=== PATIENT | female | born 1945 | race Caucasian/White ===

== ENCOUNTER 2016-11-21 10:38 | Inpatient (IN) ==
[2016-11-21] MEDS ORDERED: Ipratropium/Albuterol Neb 3 ML IH ONE ×2 (10:58→12:41)
--- NOTE | 2016-11-21 11:00 | Emergency Department Note ---
Disposition Clinical Impression: Acute exacerbation of chronic obstructive airways disease, Hypoxemia Disposition: Admitted As Inpatient Condition: Fair Time of Disposition: 16:16 SOB HPI - General Chief Complaint: ED Shortness of Breath/Dyspnea Stated Complaint: HEIDI, COPD Time Seen by Provider: 11/21/16 10:55 Source: patient Limitations: no limitations, language barrier Nursing Notes Reviewed: Yes Vital Signs Reviewed: Yes - History of Present Illness Patient is a 71 year old female with a history diabetes, hypertension and COPD requiring 2 to 3L of oxygen at home. She has been increasingly getting more short of breath over the last 2 weeks. She states she ran out of oxygen last night and was unaware. She was at the hospital today for a chest Xray and CT scan ordered by her PCP. The CT of her pelvis is for uterine cancer which was treated one year ago with no relapses. She denies any cough or congestion. She has no history of heart disease, heart failure, strokes or blood clots. She has not had any recent surgeries, long car or plane rides, and no history of hormone use. She has no smoking history but states she has been around smokers in the past. She was recently put on Spiriva from her PCP and has rescue inhalers at home which have provided some relief. Pt Subjective Complaint: shortness of breath Onset (ago): week(s) Severity: moderate Consistency/Duration: constant Improves with: nothing Worsens with: nothing Known history of: COPD Associated symptoms: Reports: chest pain Treatment prior to arrival: oxygen - Related Data Home oxygen amount: 2 liters Home Medications Medication Instructions Recorded Confirmed Albuterol Sulfate [Proair HFA] 1 puff IH Q6HR PRN 09/09/15 11/21/16 Amlodipine [Norvasc] 5 mg PO DAILY 09/09/15 11/21/16 Citalopram Hydrobromide [Celexa] 20 mg PO DAILY 09/09/15 11/21/16 Furosemide [Lasix] 40 mg PO BID 09/09/15 11/21/16 Losartan [Cozaar] 100 mg PO DAILY 09/09/15 11/21/16 Lovastatin [Mevacor] 40 mg PO HS 09/09/15 11/21/16 Metoprolol [Lopressor] 50 mg PO BID 09/09/15 11/21/16 Montelukast [Singulair] 10 mg PO DAILY 09/09/15 11/21/16 Omeprazole [PriLOSEC] 20 mg PO DAILY 09/09/15 11/21/16 Topiramate [Topamax] 25 mg PO QAM 09/09/15 11/21/16 Topiramate [Topamax] 50 mg PO QPM 09/09/15 11/21/16 Aspirin/Calcium Carbonate/Mag 325 mg PO DAILY 11/21/16 11/21/16 [Aspirin Buffered 325 mg Tab] Budesonide/Formoterol 160/4.5 2 puff IH BID 11/21/16 11/21/16 [Symbicort 160/4.5] Oxygen 2 l .ROUTE AD 11/21/16 11/21/16 Allergies Allergy/AdvReac Type Severity Reaction Status Date / Time Iodinated Contrast Media - Allergy Rash Verified 11/21/16 16:45 Oral and All systems ED: reviewed and negative except as stated. Past Medical History - Past Medical History Attestation: Yes The following information was validated with the patient. Source: patient Medical history: Reports: CHF, COPD, diabetes, hypertension Psychiatric history: Reports: no psych history - Social History Smoking Status: Never smoker Smokeless Tobacco Status: No Alcohol use: Reports: none Drug use: Reports: none Physical Exam - General Limitations: no limitations, language barrier General appearance: alert, in no apparent distress - Head Head exam: atraumatic, normocephalic, normal inspection - Eye Eye exam: Present: normal appearance, PERRL, EOMI - ENT ENT exam: normal exam, normal oropharynx, mucous membranes moist - Neck Neck exam: Present: normal inspection, full ROM, trachea midline - Chest Chest inspection: Present: normal inspection, symmetric chest wall rise - Respiratory Respiratory exam: Present: other (Decreased breath sounds bilaterally) - Cardiovascular Cardiovascular exam: Present: regular rate, normal rhythm, normal heart sounds - Abdominal Exam Abdominal exam: Present: soft, Non-Tender. Absent: tenderness, distention, guarding, rebound, rigidity - Extremities Exam Extremities exam: Present: normal inspection, full ROM. Absent: tenderness, pedal edema - Back Exam Back exam: Present: normal inspection, full ROM. Absent: tenderness - Neurological Exam Neurological exam: Present: alert, oriented X3 - Psychiatric Psychiatric exam: Present: normal affect, normal mood - Skin Skin exam: Present: warm, dry, intact, normal color Course Course Narrative: Patient seen and examined. Shortness of breath with intermittent chest pains. We will do a cardiopulmonary workup. She has decreased breath sounds throughout her lung stuart. We will go ahead and give her a DuoNeb breathing treatment. Concern for possible ACS versus COPD exacerbation versus pneumonia. - Reevaluation(s) Reevaluation #1: Patient still feeling somewhat short of breath. 2 more DuoNeb treatments ordered. 125 mg Solu-Medrol ordered. Time: 12:00 Reevaluation #2: Patient breathing much better after her DuoNeb treatments. We will repeat a troponin at this time. Time: 14:04 Reevaluation #3: Ambulatory tests showed the patient's heart rate went up to 144 and her oxygen went down to 76%. We will admit for COPD exacerbation. We ordered another 6 albuterol treatments. I spoke with hospitalist Dr. Loaiza who has accepted patient for admission. She would also like a CTA of the chest to rule out pulmonary embolus. Time: 16:16 Vital Signs Temperature 98.3 F 11/21/16 10:39 Pulse Rate 81 11/21/16 10:39 Respiratory Rate 20 11/21/16 10:39 Blood Pressure 131/62 11/21/16 10:39 O2 Sat by Pulse Oximetry 88 L 11/21/16 10:39 Temperature 98.3 F 11/21/16 10:39 Pulse Rate 97 11/21/16 16:00 Respiratory Rate 18 11/21/16 17:00 Blood Pressure 155/72 11/21/16 17:00 O2 Sat by Pulse Oximetry 96 11/21/16 16:00 Oxygen Delivery Oxygen Delivery Nasal Cannula Shortness of Breath/Dyspnea - Medical Records Medical records reviewed: Yes I reviewed the patient's medical records. - Lab Data Lab results reviewed: Yes I reviewed the patient's lab results. Result diagrams: 11/21/16 11:21 11/21/16 11:21 Lab Results 11/21/16 11/21/16 11/21/16 Range/Units 11:21 11:21 11:21 WBC 8.8 (4.3-11.1) K/mcL RBC 3.67 L (3.82-4.97) M/mcL Hgb 9.5 L (11.5-15.4) g/dL Hct 32.9 L (35.3-44.9) % MCV 89.6 (83.0-100.0) fL MCH 25.9 L (28.0-33.3) pg MCHC 28.9 L (31.6-35.5) g/dL RDW 16.7 H (11.5-14.5) % Plt Count 324 (140-400) K/mcL MPV 10.2 (9.4-12.4) fL Immature Gran % 1.2 (0-4) % Seg Neutrophils % 88.6 % Lymphocytes % 4.8 % Monocytes % 3.4 % Eosinophils % 1.7 % Basophils % 0.3 % Neutrophils # 7.8 (1.6-8.9) K/mcL Lymphocytes # 0.4 L (0.6-4.6) K/mcL Monocytes # 0.3 (0.0-1.3) K/mcL Eosinophils # 0.2 (0.0-0.6) K/mcL Basophils # 0.0 (0.0-0.2) K/mcL Nucleated RBCs/100 WBC 0.3 H (0) /100 WBC Platelet Estimate Normal (Normal) Immature Plt Fraction 3.2 (1.1-6.1) % Polychromasia 1+ A (Not Present) Hypochromasia Present A (Not Present) Poikilocytosis 1+ A (Not Present) Anisocytosis 1+ A (Not Present) Microcytosis Present A (Not Present) Ovalocytes 1+ A (Not Present) Sodium 145 (136-145) mEq/L Potassium 3.6 (3.5-4.5) mEq/L Chloride 107 (98-109) mEq/L Carbon Dioxide 30 H (19-29) mEq/L BUN 14 (7-20) mg/dL Creatinine 0.76 (0.57-1.11) mg/dL Est GFR ( Amer) > 60 (> 60) Est GFR (Non-Af Amer) > 60 (> 60) BUN/Creatinine Ratio 18 (6-26) Glucose 160 H (70-99) mg/dL Calculated Osmolality 304 H (280-300) Calcium 9.1 (8.6-10.8) mg/dL Troponin I 0.01 (0-0.03) ng/mL B-Natriuretic Peptide (0-100) pg/mL 11/21/16 11/21/16 Range/Units 11:21 14:17 WBC (4.3-11.1) K/mcL RBC (3.82-4.97) M/mcL Hgb (11.5-15.4) g/dL Hct (35.3-44.9) % MCV (83.0-100.0) fL MCH (28.0-33.3) pg MCHC (31.6-35.5) g/dL RDW (11.5-14.5) % Plt Count (140-400) K/mcL MPV (9.4-12.4) fL Immature Gran % (0-4) % Seg Neutrophils % % Lymphocytes % % Monocytes % % Eosinophils % % Basophils % % Neutrophils # (1.6-8.9) K/mcL Lymphocytes # (0.6-4.6) K/mcL Monocytes # (0.0-1.3) K/mcL Eosinophils # (0.0-0.6) K/mcL Basophils # (0.0-0.2) K/mcL Nucleated RBCs/100 WBC (0) /100 WBC Platelet Estimate (Normal) Immature Plt Fraction (1.1-6.1) % Polychromasia (Not Present) Hypochromasia (Not Present) Poikilocytosis (Not Present) Anisocytosis (Not Present) Microcytosis (Not Present) Ovalocytes (Not Present) Sodium (136-145) mEq/L Potassium (3.5-4.5) mEq/L Chloride (98-109) mEq/L Carbon Dioxide (19-29) mEq/L BUN (7-20) mg/dL Creatinine (0.57-1.11) mg/dL Est GFR ( Amer) (> 60) Est GFR (Non-Af Amer) (> 60) BUN/Creatinine Ratio (6-26) Glucose (70-99) mg/dL Calculated Osmolality (280-300) Calcium (8.6-10.8) mg/dL Troponin I 0.01 (0-0.03) ng/mL B-Natriuretic Peptide 58 (0-100) pg/mL - Radiology Data Radiology results reviewed: Yes I reviewed the patient's radiology results. - EKG Data EKG attestation: Yes I reviewed and interpreted this EKG. EKG results narrative: EKG done at 1116 shows normal sinus rhythm with a rate of [address] elevation or depression. There is a Q wave in lead 3. Normal axis. Findings are unchanged when compared with prior EKG done 06/26/2016. Attestation Statement - Attestation Attestation: I examined this patient and my medical decision-making was reviewed with the Resident Physician. I agree with the documented findings, disposition and treatment plan as described except to the extent set forth below. SOB, wheezing. Very poor historian, describes chest pain poorly and inconsistently. Difficult to tell if this pain is the same or different from the pain that sometimes accompanies her COPD exacerbations. Persistent hypoxia after multiple rounds of nebulizers, admitting for further treatment.
[2016-11-21] MEDS ORDERED: Aspirin 81 MG TAB.CHEW PO STA (11:43)
[2016-11-21 11:56] LABS: Immature Granulocytes % 1.2 % (0-4); Mean Corpuscular HGB Conc 28.9 g/dL (31.6-35.5); Monocytes % 3.4 %; Nucleated Red Blood Cells 0.3 /100 WBC (0); Red Cell Distribution Width 16.7 % (11.5-14.5)
[2016-11-21 11:59] LABS: Basophils % 0.3 %; Eosinophils # 0.2 K/mcL (0.0-0.6); Eosinophils % 1.7 %; Hematocrit 32.9 % (35.3-44.9); Hemoglobin 9.5 g/dL (11.5-15.4); Immature Platelets 3.2 % (1.1-6.1); Lymphocytes # 0.4 K/mcL (0.6-4.6); Lymphocytes % 4.8 %; Mean Corpuscular Hemoglobin 25.9 pg (28.0-33.3); Mean Corpuscular Volume 89.6 fL (83.0-100.0); Mean Platelet Volume 10.2 fL (9.4-12.4); Monocytes # 0.3 K/mcL (0.0-1.3); Neutrophils # 7.8 K/mcL (1.6-8.9); Platelet Count 324 K/mcL (140-400); Red Blood Count 3.67 M/mcL (3.82-4.97); Segmented Neutrophils % 88.6 %
[2016-11-21 12:11] LABS: BUN/Creatinine Ratio 18 (6-26); Blood Urea Nitrogen 14 mg/dL (7-20); Calcium 9.1 mg/dL (8.6-10.8); Carbon Dioxide 30 mEq/L (19-29); Chloride 107 mEq/L (98-109); Glucose 160 mg/dL (70-99); Osmolality,Calculated 304 (280-300); Potassium 3.6 mEq/L (3.5-4.5); Sodium 145 mEq/L (136-145); eGFR For African Americans > 60 (> 60); eGFR For Non-African Americans > 60 (> 60)
[2016-11-21 12:16] LABS: Hypochromasia Present (Not Present); Microcytosis Present (Not Present); Ovalocytes 1+ (Not Present)
[2016-11-21 12:17] LABS: Anisocytosis 1+ (Not Present); Platelet Estimate Normal (Normal); Poikilocytosis 1+ (Not Present); Polychromasia 1+ (Not Present)
[2016-11-21] MEDS ORDERED: methylPREDNISolone 125 MG/2 ML VIAL IVP ONE (12:41)
[2016-11-21] MEDS ORDERED: Albuterol 2.5 MG/3 ML NEBULIZER IH ONE (15:04)
[2016-11-21] MEDS ORDERED: MethylPREDNISolone 40 MG/ML VIAL IVP ONE (17:13)
[2016-11-21] MEDS ORDERED: Naloxone 0.4 MG/ML INJ IVP PRN (17:26)
--- NOTE | 2016-11-21 17:43 | Internal Med History&Physical ---
Date of Encounter: 11/21/16 Time of Encounter: 14:50 Assessment and Plan (1) Acute exacerbation of chronic obstructive airways disease Current visit: Yes Status: Acute -Dyspnea likely secondary to COPD exacerbation -Will continue steroid and bronchodilator support -concern for PE given history of malignancy and clinical findings -Follow up CTA to r/o PE -continue O2 supplementation as needed -monitor O2 sat (goal sat: 89-92%) -PT/OT eval when able -SW eval to ensure patients has home oxygen with refills after discharge (2) Hypertension Current visit: Yes Status: Acute -will resume all home antihypertensive medications -Will closely monitor BP Qualifiers: Hypertension type: essential hypertension Qualified Code(s): I10 - Essential (primary) hypertension (3) Diabetes mellitus Current visit: Yes Status: Chronic Hold oral antihyperglycemic agents at this time continue to monitor fingerstick and blood glucose started low dose correctional sliding scale insulin algorithm Qualifiers: Diabetes mellitus type: type 2 Diabetes mellitus complication status: with unspecified complications Diabetes mellitus supervisor intermediates insulin use: without chcf use Qualified Code(s): E11.8 - Type 2 diabetes mellitus with unspecified complications (4) Sleep apnea Current visit: Yes Status: Chronic CPAP at bedtime closely monitor respiratory status Qualifiers: Sleep apnea type: unspecified type Qualified Code(s): G47.30 - Sleep apnea , unspecified (5) Morbid obesity Current visit: Yes Status: Chronic Qualifiers: Obesity type: unspecified obesity type Qualified Code(s): E66.01 - Morbid ( severe) obesity due to excess calories (6) DVT prophylaxis Current visit: Yes Status: Acute Enoxaparin SQ (7) History of cancer Current visit: Yes Status: Chronic History of uterine CA-in remission, s/p radiation -CT abd/pelvis-negative for metastatic disease, positive for bilateral pleural effusions -will follow up CT chest -further follow up with primary oncologist as outpatient Internal Medicine - H&P: HPI Chief complaint: shortness of breath Admitted From: Home Plans for Post Hospital Care: Transfer Halfway Facility History of present illness: Ms. Pugh is a 71 year old female with PMH of COPD on home oxygen, uterine ca-s/ p radiation (in remission) who presents to the ER for worsening shortness of breath. Patient states her breathing has persistently deteriorated since and she has been experiencing lower back pain with radiation down her leg, due to which she came in to get a CT abd/pelvis earlier this morning. Her primary oncologist wanted the CT abd/pelvis to r/o any metastatic disease. After the imagining, her breathing got extremely severe prompting her visit to the ER. She also reports of being short of breath overnight and running out of oxygen which further worsened her breathing status. She states she was diagnosed with sleep apnea a year ago but does not use CPAP overnight because she is missing a component of the CPAP machine. She denies any smoking use or history. Denies any recent URI, cough, sore throat, fever, or chills. In the ER , patient is saturating well at rest, however with the slightest movement, she was noted to be tachycardic and tachypneic prompting her admission. At this time she is saturating well on nasal cannula. Denies any sob at rest, no headache, sore throat, cough, chest pain, abd pain, n/v, fever, or chills. Patient was also noted to be hypertensive in the ER as she did not take any of her home medications today. Will restart home antihypertensive medications. Due to patient's history of malignancy and given current clinical findings, there is a concern for PE. patient is to undergo CTA to rule out PE. She is noted to have a contrast allergy and has been pre-medicated with IV solumedrol and Benadryl. PMH: COPD-on home oxygen, HTN, DM, Uterine ca-s/p radiation (in remission- diagnosed and treated in April 2014), HLD, Sleep apnea, Morbid obesity Social Hx: Denies smoking history, alcohol use, or any illicit drug use Past Med Surg Social Fam HX - Past Medical History Medical history: CHF, COPD, diabetes, hypertension Psychiatric history: no psych history - Social History Smoking Status: Never smoker Smokeless Tobacco Status: No Alcohol use: none Drug use: none Internal Medicine - H&P: Meds Albuterol Sulfate [Proair HFA] 1 puff IH Q6HR PRN 09/09/15 [History] Amlodipine [Norvasc] 5 mg PO DAILY 09/09/15 [History] Citalopram Hydrobromide [Celexa] 20 mg PO DAILY 09/09/15 [History] Furosemide [Lasix] 40 mg PO BID 09/09/15 [History] Losartan [Cozaar] 100 mg PO DAILY 09/09/15 [History] Lovastatin [Mevacor] 40 mg PO HS 09/09/15 [History] Metoprolol [Lopressor] 50 mg PO BID 09/09/15 [History] Montelukast [Singulair] 10 mg PO DAILY 09/09/15 [History] Omeprazole [PriLOSEC] 20 mg PO DAILY 09/09/15 [History] Topiramate [Topamax] 25 mg PO QAM 09/09/15 [History] Topiramate [Topamax] 50 mg PO QPM 09/09/15 [History] Aspirin/Calcium Carbonate/Mag [Aspirin Buffered 325 mg Tab] 325 mg PO DAILY 03/04 [History] Budesonide/Formoterol 160/4.5 [Symbicort 160/4.5] 2 puff IH BID 11/21/16 [ History] Oxygen 2 l .ROUTE AD 11/21/16 [History] Allergies Iodinated Contrast Media - Oral and Allergy (Verified 11/21/16 16:45) Rash All Systems PM: A 10-system review of systems was performed and is negative for pertinent findings except as documented above in the HPI. - Constitutional Constitutional: as per HPI - Constitutional Vitals: Temp Pulse Resp BP Pulse Ox 98.3 F 97 18 155/72 96 11/21/16 10:39 11/21/16 16:00 11/21/16 17:00 11/21/16 17:00 11/21/16 16:00 General appearance: Present: cooperative, A&O X 3, morbidly obese, pleasant, no acute distress, answers questions appropriately - Head Head exam: Present: atraumatic, normocephalic - Eye Eye exam: Present: PERRL, conjuntiva pink, sclera anicteric - Respiratory Respiratory exam: Present: decreased breath sounds. Absent: respiratory distress, wheezes - Cardiovascular Cardiovascular exam: Present: RRR, +S1, +S2. Absent: diastolic murmur, gallop, rubs, systolic murmur - GI/Abdominal GI/Abdominal exam: Present: distended (morbidly obese), normal bowel sounds, soft, no peritoneal signs. Absent: tenderness - Extremities Exam Extremities exam: Present: pedal edema (bilaterally), warm, radial pulses palpable and symetrical. Absent: calf tenderness, tenderness - Neurological Exam Neurological exam: Present: alert, oriented X3, no focal deficits Internal Med - H&P Results - Labs CBC & Chem 7: 11/21/16 11:21 11/21/16 11:21
[2016-11-21] MEDS ORDERED: Dextrose Gel 15 GM PO PRN ×2 (17:56)
[2016-11-21] MEDS ORDERED: D5% in Water 1,000 ML IV PRN (17:56)
[2016-11-21] MEDS: Topiramate 25 MG TABLET PO SCH ×2 (17:56→18:00)
[2016-11-21] MEDS ORDERED: *HR* Dextrose 50 % in Water (Syg) 50 ML SYRINGE IVP PRN (17:56)
[2016-11-21] MEDS: amLODIPine 5 MG TABLET PO SCH (17:59)
[2016-11-21] MEDS: Ipratropium/Albuterol Neb 3 ML IH SCH ×2 (19:57→23:45)
[2016-11-21] MEDS: Budesonide/Formoterol 160/4.5 MDI IH SCH (20:01)
[2016-11-21] MEDS: Furosemide 40 MG TABLET PO SCH (20:30)
[2016-11-21] MEDS: *HR* Enoxaparin 100 MG/ML SYRINGE SQ SCH (20:30)
[2016-11-21] MEDS: Insulin LISPRO 300 UNITS/3 ML VIAL SQ SCH (23:32)
[2016-11-22] MEDS: MethylPREDNISolone 40 MG/ML VIAL IVP SCH ×3 (02:29→17:40)
[2016-11-22] MEDS: Ipratropium/Albuterol Neb 3 ML IH SCH ×6 (04:10→23:22)
[2016-11-22] MEDS ORDERED: *HR* Enoxaparin 40 MG/0.4 ML SYRINGE SQ SCH (06:00)
[2016-11-22] MEDS: *HR* Enoxaparin 100 MG/ML SYRINGE SQ SCH (06:05)
[2016-11-22 06:33] LABS: Hematocrit 33.5 % (35.3-44.9); Hemoglobin 9.7 g/dL (11.5-15.4); Immature Granulocytes % 1.5 % (0-4); Lymphocytes # 0.4 K/mcL (0.6-4.6); Lymphocytes % 4.4 %; Mean Corpuscular Hemoglobin 26.1 pg (28.0-33.3); Mean Corpuscular Volume 90.3 fL (83.0-100.0); Mean Platelet Volume 10.4 fL (9.4-12.4); Monocytes # 0.1 K/mcL (0.0-1.3); Monocytes % 1.6 %; Neutrophils # 7.9 K/mcL (1.6-8.9); Nucleated Red Blood Cells 0.2 /100 WBC (0); Platelet Count 314 K/mcL (140-400); Red Blood Count 3.71 M/mcL (3.82-4.97); Red Cell Distribution Width 16.6 % (11.5-14.5); Segmented Neutrophils % 92.5 %
[2016-11-22 07:00] LABS: BUN/Creatinine Ratio 15 (6-26); Blood Urea Nitrogen 15 mg/dL (7-20); Calcium 9.2 mg/dL (8.6-10.8); Carbon Dioxide 29 mEq/L (19-29); Chloride 107 mEq/L (98-109); Glucose 290 mg/dL (70-99); Osmolality,Calculated 311 (280-300); Potassium 4.2 mEq/L (3.5-4.5); Sodium 145 mEq/L (136-145); eGFR For African Americans > 60 (> 60); eGFR For Non-African Americans 55 (> 60)
[2016-11-22] MEDS: Budesonide/Formoterol 160/4.5 MDI IH SCH ×2 (07:39→19:59)
[2016-11-22] MEDS: Furosemide 40 MG TABLET PO SCH ×2 (08:26→21:15)
[2016-11-22] MEDS: Aspirin Enteric Coated 325 MG Tablet PO SCH (08:28)
[2016-11-22] MEDS: amLODIPine 5 MG TABLET PO SCH (08:28)
[2016-11-22] MEDS: Insulin LISPRO 300 UNITS/3 ML VIAL SQ SCH ×4 (08:28→21:15)
[2016-11-22] MEDS: Topiramate 25 MG TABLET PO SCH ×2 (08:30→17:40)
--- NOTE | 2016-11-22 09:47 | Electrocardiograph Report ---
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
--- NOTE | 2016-11-22 15:09 | Internal Med Progress Note ---
Date of Encounter: 11/22/16 Time of Encounter: 17:00 - Assessment and plan (1) Pulmonary embolism Current Visit: Yes Status: Acute Assessment and plan: CTA chest report was called in by radiologist Dr. Jose Angel Heck from [facility]. CTA chest is concerning for RLL segmental artery PE, however it is non conclusive and could be an artifact as per the radiologist. Bilateral venous lower limb Doppler is negative for DVT. Patient appears comfortable, no hypoxia or tachycardia at this time. Patient does however have increased risk of clots given history of cancer, wells score is 1 which is low. will stop lonebox based on above. if clincally suspicious, will need repeat chest CTA. Qualifiers: Pulmonary embolism type: other Chronicity: unspecified Acute cor pulmonale presence: without acute cor pulmonale Qualified Code(s): I26.99 - Other pulmonary embolism without acute cor pulmonale (2) Acute exacerbation of chronic obstructive airways disease Current Visit: Yes Status: Acute Assessment and plan: Will continue steroid and bronchodilator support -continue O2 supplementation as needed -monitor O2 sat (goal sat: 89-92%) -PT/OT eval when able (3) History of cancer Current Visit: Yes Status: Chronic Assessment and plan: History of uterine CA-in remission, s/p radiation -CT abd/pelvis-negative for metastatic disease, positive for bilateral pleural effusions -will follow up CT chest -further follow up with primary oncologist as outpatient (4) Morbid obesity Current Visit: Yes Status: Chronic Qualifiers: Obesity type: unspecified obesity type Qualified Code(s): E66.01 - Morbid ( severe) obesity due to excess calories (5) Sleep apnea Current Visit: Yes Status: Chronic Assessment and plan: CPAP at bedtime closely monitor respiratory status Qualifiers: Sleep apnea type: unspecified type Qualified Code(s): G47.30 - Sleep apnea , unspecified - Time Spent With Patient 25 - 35 minutes - Subjective Interval history: Patient seen at the bedside, appears to be comfortable however she says if she walks around she is short of breath. Saturating well in 3 L of nasal cannula, she uses 3 L O2. Reports that she had chest pain when she came in yesterday, still has some pressure like feeling on the chest. Denies any nausea or vomiting or palpitations. Has no past history of clots - Constitutional Vitals: Temp Pulse Resp BP Pulse Ox 97.7 F 80 18 163/70 96 11/22/16 12:08 11/22/16 12:08 11/22/16 12:08 11/22/16 12:08 11/22/16 12:08 General appearance: Present: cooperative, A&O X 3, morbidly obese, pleasant, no acute distress, answers questions appropriately Exam: neck- supple chest - b/l clear,No added sounds. CVS S1 and S2, no murmurs rubs or gallops Abdomen soft, obese, nontender, bowel sounds are present. Extremities no edema. Internal Medicine: Result - Labs CBC & Chem 7: 11/22/16 05:46 11/22/16 05:46 Labs: Short CBC 11/22/16 Range/Units 05:46 WBC 8.6 (4.3-11.1) K/mcL Hgb 9.7 L (11.5-15.4) g/dL Hct 33.5 L (35.3-44.9) % Plt Count 314 (140-400) K/mcL Neutrophils # 7.9 (1.6-8.9) K/mcL BMP 11/22/16 05:46 Sodium 145 Potassium 4.2 Chloride 107 Carbon Dioxide 29 BUN 15 Creatinine 1.00 Glucose 290 H Calcium 9.2 Consult Discharge Plan - Plan Referrals: Jesusita Paiz MD [Primary Care Provider] - 11/28/16 1:30 pm (Please follow up as schedule..)
[2016-11-22] MEDS ORDERED: *HR* Enoxaparin 120 MG/0.8 ML SYRINGE SQ SCH ×2 (18:00)
[2016-11-23] MEDS: MethylPREDNISolone 40 MG/ML VIAL IVP SCH ×4 (00:37→23:42)
[2016-11-23 01:25] LABS: Hemoglobin A1C 6.7 %
[2016-11-23] MEDS: Ipratropium/Albuterol Neb 3 ML IH SCH ×6 (04:55→23:28)
--- NOTE | 2016-11-23 07:21 | Venous Imaging Report ---
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 Recommendations: After imaging the patient returned to their room. Findings Venous Duplex Results: Right: Venous imaging of the lower extremity reveals full patency and normal vessel compressibility of the right distal iliac, right common femoral, right superficial femoral, right popliteal, right posterior tibial, right peroneal, right great saphenous and right lesser saphenous. Doppler signals in the evaluated veins were normal. Left: Venous imaging of the lower extremity reveals full patency and normal vessel compressibility of the left distal iliac, left common femoral, left superficial femoral, left popliteal, left posterior tibial, left peroneal, left great saphenous and left lesser saphenous. Doppler signals in the evaluated veins were normal. Prior Study: No prior study available for comparison. Lower Extremity Venous Duplex Side Vein Compress Spontaneous Flow Augment Diameter (cm) Depth (cm) Right Distal Iliac Normal Yes Phasic Yes Right Common Femoral Normal Yes Phasic Yes Right Superficial Femoral Normal Yes Phasic Yes Right Popliteal Normal Yes Phasic Yes Right Posterior Tibial Normal Yes Phasic Yes Right Peroneal Normal Yes Phasic Yes Right Great Saphenous Normal Yes Phasic Yes Right Lesser Saphenous Normal Yes Phasic Yes Left Distal Iliac Normal Yes Phasic Yes Left Common Femoral Normal Yes Phasic Yes Left Superficial Femoral Normal Yes Phasic Yes Left Popliteal Normal Yes Phasic Yes Left Posterior Tibial Normal Yes Phasic Yes Left Peroneal Normal Yes Phasic Yes Left Great Saphenous Normal Yes Phasic Yes Left Lesser Saphenous Normal Yes Phasic Yes Updated by Arian Dodson MD on 11/23/2016 7:17:36 AM electronically signed on 11/23/2016 7:17:46 AM with status of Final
[2016-11-23] MEDS: Aspirin Enteric Coated 325 MG Tablet PO SCH (07:48)
[2016-11-23] MEDS: Furosemide 40 MG TABLET PO SCH (07:48)
[2016-11-23] MEDS: amLODIPine 5 MG TABLET PO SCH (07:49)
[2016-11-23] MEDS: Topiramate 25 MG TABLET PO SCH ×2 (07:50→18:02)
[2016-11-23] MEDS: Insulin LISPRO 300 UNITS/3 ML VIAL SQ SCH ×4 (07:59→20:59)
[2016-11-23] MEDS ORDERED: Loratadine/Pseudophed (12 HR) 1 EACH TABLET PO PRN (08:24)
--- NOTE | 2016-11-23 08:30 | Internal Med Progress Note ---
Date of Encounter: 11/23/16 Time of Encounter: 08:00 - Assessment and plan (1) Acute exacerbation of chronic obstructive airways disease Current Visit: Yes Status: Acute Assessment and plan: continue IV steroids will add pulmicort as well , and tom, also believe symptooms worsen de to increase nasal congestion , start decongestants - Time Spent With Patient 25 - 35 minutes - Subjective Interval history: Pt c.o SOB still wheezing denies chest pain - Constitutional Vitals: Temp Pulse Resp BP Pulse Ox 97.7 F 80 20 160/51 93 L 11/23/16 08:11 11/23/16 08:11 11/23/16 08:11 11/23/16 08:11 11/23/16 08:11 General appearance: Present: cooperative, A&O X 3, morbidly obese, pleasant, no acute distress, answers questions appropriately - Respiratory Additional comments: expiratory wheezes - Cardiovascular Cardiovascular exam: Present: +S1, +S2 Additional comments: Regular rate and rythm, increase P2 - GI/Abdominal GI/Abdominal exam: Present: normal bowel sounds, soft - Extremities Exam Additional comments: edema ++ Internal Medicine: Result - Labs CBC & Chem 7: 11/22/16 05:46 11/22/16 05:46 Consult Discharge Plan - Plan Referrals: Jesusita Paiz MD [Primary Care Provider] - 11/28/16 1:30 pm (Please follow up as schedule..)
[2016-11-23] MEDS: Furosemide 40 MG/4 ML VIAL IVP SCH ×2 (11:06→18:02)
[2016-11-23] MEDS: *HR* Enoxaparin 40 MG/0.4 ML SYRINGE SQ SCH (11:07)
[2016-11-23] MEDS: Fluticasone Propionate Nasal 50 MCG/SPRAY BOTTLE NS SCH ×2 (11:09→20:58)
[2016-11-23] MEDS: Budesonide/Formoterol 160/4.5 MDI IH SCH ×2 (11:43→19:49)
[2016-11-23] MEDS: Doxycycline 100 MG CAPSULE PO SCH ×2 (12:28→20:59)
--- NOTE | 2016-11-23 13:45 | ECHO - Doppler Report ---
Echocardiogram Name: Marlen Pugh Date of Study: 11/23/2016 Date: 1945 Ht: 60.0 in Medical Record#: [id number] Age: 71 Wt: 253.0 lb Gender: Female BSA: 2.06 Order #: [id number] Location: [facility] Room #: 2A12 Reading Physician: Jerry Pete DO, FRANCO, TRACY SEGOVIA Wildlife Refuge Specialist: Moustapha Carson Ordering Physician: Lian Rasheed MD Primary Physician: Jesusita Paiz MD Indications: Shortness of breath Impressions: LVEF 65%. Normal LV chamber size and function. Mild concentric left ventricular hypertrophy. Moderate left ventricular diastolic dysfunction. Normal right ventricular structure and function. Mild-moderate pulmonary hypertension. Estimated RVSP is 46 mmHg. No significant valvular dysfunction. Left Ventricular Wall Motion: Rest Echo Findings All wall segments showed normal motion. Findings: Study Quality * Technically adequate exam. ECG Findings * Normal sinus rhythm. Left Ventricle * LVEF 65%. * Normal LV chamber size and function. * Mild concentric left ventricular hypertrophy. * Moderate left ventricular diastolic dysfunction. Right Ventricle * Normal right ventricular structure and function. Left Atrium * Mild to moderately dilated left atrium. Right Atrium * Mildly dilated right atrium. Interatrial Septum * No evidence of PFO by color Doppler. Aortic Valve * Aortic valve not well visualized. * Trileaflet aortic valve. * No aortic stenosis. * Trace aortic regurgitation. Mitral Valve * Mildly thickened mitral valve leaflets. * Trace mitral regurgitation. * No mitral stenosis. Tricuspid Valve * Normal tricuspid valve structure and function. * Trace tricuspid regurgitation. * Mild-moderate pulmonary hypertension. * Estimated RVSP is 46 mmHg. * Estimated RA pressure is 5 mmHg. Pulmonic Valve * Normal pulmonic valve structure and function. * Trace pulmonic regurgitation. Aorta * Normally sized aortic root. Pericardium * There is a trivial pericardial effusion present. * There is no echocardiographic evidence of tamponade. IVC * Normal IVC dimensions and inspiratory collapse. Pulmonary Artery * Normal visualized portions of the main pulmonary artery. History Hypertension Diabetes Hypercholesteremia Congestive Heart Failure 02/16/15 a Previous Echo was performed. Measurements: BP: 160/ 51 2D Normal Values RVIDd: 2.46 cm <2.7 cm IVSd: 1.20 cm 0.6 - 1.0 cm LVIDd: 4.99 cm 3.7 - 5.6 cm LVPWd: 1.26 cm 0.6 - 1.1 cm LVIDs: 3.17 cm 1.5 - 3.6 cm AO: 2.20 cm < 4.0 cm LA: 4.30 cm 2.0 - 4.0cm %FS: 36.50 cm >25 % LA volume: 46 Mitral Valve Peak E:1.22 m/sec Peak A:1.02 m/sec E/A Ratio:1.2 Peak E' Lat Westley:7.29 cm/s Peak E' Med Westley:6.85 cm/s E/E' Lat Ratio:16.7 E/E' Med Ratio:17.8 Aortic Valve AI pressure Half-time: 386.00 msec Tricuspid Valve TV Regurg Peak Grad: 41.00mmHg TV Regurg Peak Westley: 3.22m/sec Updated by Jerry Pete DO, FRANCO, TRACY SEGOVIA on 11/23/2016 1:39:22 PM electronically signed on 11/23/2016 1:40:44 PM with status of Final Wall Motion Platt: 1=Normal, 2=Hypokinesis, 3=Akinesis, 4=Dyskinesis, 5=Aneurysmal, 6=Hyperkinetic, X=Not Visualized (Blank)=Missing
[2016-11-23] MEDS: Chloraseptic Spray 177 ML BOTTLE MM PRN (20:58)
[2016-11-23] MEDS: Insulin DETEMIR 100 UNIT/ML X5UNITS SQ SCH (20:59)
[2016-11-24] MEDS: Ipratropium/Albuterol Neb 3 ML IH SCH ×6 (03:33→23:49)
[2016-11-24 07:27] LABS: BUN/Creatinine Ratio 32 (6-26); Calcium 9.1 mg/dL (8.6-10.8); Carbon Dioxide 39 mEq/L (19-29); Chloride 99 mEq/L (98-109); Glucose 239 mg/dL (70-99); Osmolality,Calculated 311 (280-300); Potassium 4.1 mEq/L (3.5-4.5); Sodium 143 mEq/L (136-145); eGFR For African Americans > 60 (> 60); eGFR For Non-African Americans 55 (> 60)
[2016-11-24 07:30] LABS: Blood Urea Nitrogen 32 mg/dL (7-20)
[2016-11-24] MEDS: Budesonide/Formoterol 160/4.5 MDI IH SCH ×2 (07:35→19:49)
[2016-11-24] MEDS: Furosemide 40 MG/4 ML VIAL IVP SCH (07:46)
[2016-11-24] MEDS: *HR* Enoxaparin 40 MG/0.4 ML SYRINGE SQ SCH (07:47)
[2016-11-24] MEDS: Doxycycline 100 MG CAPSULE PO SCH ×2 (07:47→21:28)
[2016-11-24] MEDS: Insulin LISPRO 300 UNITS/3 ML VIAL SQ SCH ×4 (07:48→21:31)
[2016-11-24] MEDS: MethylPREDNISolone 40 MG/ML VIAL IVP SCH (07:49)
[2016-11-24] MEDS: Aspirin Enteric Coated 325 MG Tablet PO SCH (07:49)
[2016-11-24] MEDS: Fluticasone Propionate Nasal 50 MCG/SPRAY BOTTLE NS SCH ×2 (07:51→21:28)
[2016-11-24] MEDS: amLODIPine 5 MG TABLET PO SCH (07:52)
[2016-11-24] MEDS: Topiramate 25 MG TABLET PO SCH ×2 (07:52→17:30)
[2016-11-24] MEDS: Chloraseptic Spray 177 ML BOTTLE MM PRN ×3 (14:29→21:29)
[2016-11-24] MEDS ORDERED: Lidocaine Viscous Oral Soln 15 ML SOLUTION MM PRN (15:19)
--- NOTE | 2016-11-24 15:24 | Internal Med Progress Note ---
Date of Encounter: 11/24/16 Time of Encounter: 10:00 - Assessment and plan (1) Acute exacerbation of chronic obstructive airways disease Current Visit: Yes Status: Acute Assessment and plan: improving taper steroids - Subjective Interval history: Pt c.o SOB still wheezing denies chest pain , SOB improving - Constitutional Vitals: Temp Pulse Resp BP Pulse Ox 98.1 F 65 20 116/71 92 L 11/24/16 10:59 11/24/16 10:59 11/24/16 15:17 11/24/16 10:59 11/24/16 15:17 General appearance: Present: cooperative, A&O X 3, morbidly obese, pleasant, no acute distress, answers questions appropriately - Respiratory Additional comments: scattered wheezes - Cardiovascular Cardiovascular exam: Present: RRR, +S1, +S2 - GI/Abdominal GI/Abdominal exam: Present: normal bowel sounds, soft - Extremities Exam Additional comments: trace pedal edema - Neurological Exam Neurological exam: Present: CN II-XII intact, motor sensory deficit Internal Medicine: Result - Labs CBC & Chem 7: 11/22/16 05:46 11/24/16 07:00 Labs: BMP 11/24/16 07:00 Sodium 143 Potassium 4.1 Chloride 99 Carbon Dioxide 39 H BUN 32 H D Creatinine 1.00 Glucose 239 H Calcium 9.1 Consult Discharge Plan - Plan Referrals: Jesusita Paiz MD [Primary Care Provider] - 11/28/16 1:30 pm (Please follow up as schedule..)
--- NOTE | 2016-11-24 16:48 | Internal Med Progress Note ---
Date of Encounter: 11/24/16 Time of Encounter: 10:00 - Assessment and plan (1) Acute exacerbation of chronic obstructive airways disease Current Visit: Yes Status: Acute Assessment and plan: IMproving taper steroids - Subjective Interval history: pt feels better less SOB - Constitutional Vitals: Temp Pulse Resp BP Pulse Ox 98.2 F 75 16 117/52 94 L 11/24/16 16:19 11/24/16 16:19 11/24/16 16:19 11/24/16 16:19 11/24/16 16:19 General appearance: Present: cooperative, A&O X 3, morbidly obese, pleasant, no acute distress, answers questions appropriately - Respiratory Respiratory exam: Present: decreased breath sounds - Cardiovascular Cardiovascular exam: Present: RRR, +S1, +S2 - GI/Abdominal GI/Abdominal exam: Present: normal bowel sounds, soft - Extremities Exam Extremities exam: Present: warm, radial pulses palpable and symetrical - Neurological Exam Neurological exam: Present: strengths equal and symetr throughout Internal Medicine: Result - Labs CBC & Chem 7: 11/22/16 05:46 11/24/16 07:00 Labs: BMP 11/24/16 07:00 Sodium 143 Potassium 4.1 Chloride 99 Carbon Dioxide 39 H BUN 32 H D Creatinine 1.00 Glucose 239 H Calcium 9.1 Consult Discharge Plan - Plan Referrals: Jesusita Paiz MD [Primary Care Provider] - 11/28/16 1:30 pm (Please follow up as schedule..)
[2016-11-24] MEDS: Insulin DETEMIR 100 UNIT/ML X5UNITS SQ SCH (21:28)
[2016-11-24] MEDS: Sennosides/Docusate Sodium TABLET PO SCH (21:28)
[2016-11-25] MEDS: Ipratropium/Albuterol Neb 3 ML IH SCH ×6 (04:05→23:23)
[2016-11-25 06:15] LABS: Calcium 9.3 mg/dL (8.6-10.8); Potassium 3.7 mEq/L (3.5-4.5)
[2016-11-25] MEDS: *HR* Enoxaparin 40 MG/0.4 ML SYRINGE SQ SCH (07:45)
[2016-11-25] MEDS: predniSONE 20 MG TABLET PO SCH (07:46)
[2016-11-25] MEDS: Doxycycline 100 MG CAPSULE PO SCH ×2 (07:46→21:49)
[2016-11-25] MEDS: Aspirin Enteric Coated 325 MG Tablet PO SCH (07:46)
[2016-11-25] MEDS: Sennosides/Docusate Sodium TABLET PO SCH ×2 (07:47→21:50)
[2016-11-25] MEDS: amLODIPine 5 MG TABLET PO SCH (07:48)
[2016-11-25] MEDS: Insulin LISPRO 300 UNITS/3 ML VIAL SQ SCH ×4 (07:53→21:53)
[2016-11-25] MEDS: Fluticasone Propionate Nasal 50 MCG/SPRAY BOTTLE NS SCH ×2 (07:54→21:51)
--- NOTE | 2016-11-25 08:29 | Internal Med Progress Note ---
Date of Encounter: 11/25/16 Time of Encounter: 08:27 - Subjective Interval history: Continues to feel short of breath on ambulation; requiring 4L/min O2 via NC, uses 2L/min at home; no chest pain, cough, but does have chronic leg swelling and orthopnea; Assessment and Plan here due to technical issues- Acute exacerbation of COPD- continue scheduled bronchodilators along with empiric antibiotics- Doxycycline and supplemental O2; inhaled steroids and oral steroids; continues to be symptomatic; JUAN due to use of Lasix, likely- will hold ARB and Lasix and monitor closely; Acute on chronic respiratory failure- hypoxic; O2 requirements increased from baseline; continue treatment for COPD and monitor closely; Echocardiogram reviewed- shows moderate LVDD, moderate pulmonary HTN; Chronic diastolic CHF- hold ARB and Lasix for now; Essential HTN- BP well-controlled; DM- Type 2, on insulin- blood sugars high due to steroids; basal bolus insulin regimen; diabetic diet; - Constitutional Vitals: Temp Pulse Resp BP Pulse Ox 97.8 F 65 18 151/73 94 L 11/25/16 07:11 11/25/16 07:11 11/25/16 07:11 11/25/16 07:11 11/25/16 08:01 General appearance: Present: A&O X 3, morbidly obese, answers questions appropriately - Head Head exam: Present: atraumatic, normocephalic - Neck Neck exam general surgery: Present: supple, trachea midline. Absent: lymphadenopathy - Respiratory Respiratory exam: Present: rhonchi (right basal coarse breath sounds; no active wheezing). Absent: accessory muscle use, rales, wheezes - Cardiovascular Cardiovascular exam: Present: RRR, +S1, +S2. Absent: diastolic murmur, gallop, rubs, systolic murmur - GI/Abdominal GI/Abdominal exam: Present: normal bowel sounds, soft, no peritoneal signs. Absent: distended, tenderness - Extremities Exam Extremities exam: Present: full ROM, pedal edema (1+ pitting pedal edema B/L), warm, radial pulses palpable and symetrical. Absent: calf tenderness, cyanotic - Neurological Exam Neurological exam: Present: CN II-XII intact, oriented X3, no focal deficits. Absent: pronater drift, facial droop, speech deficit - Skin Skin exam: Present: dry, intact Internal Medicine: Result - Labs CBC & Chem 7: 11/22/16 05:46 11/26/16 04:00 Labs: BMP 11/25/16 05:34 Sodium 145 Potassium 3.7 Chloride 100 Carbon Dioxide 38 H BUN 35 H Creatinine 1.10 Glucose 165 H Calcium 9.3 Consult Discharge Plan - Plan Referrals: Jesusita Paiz MD [Primary Care Provider] - 11/28/16 1:30 pm (Please follow up as schedule..)
[2016-11-25] MEDS: Budesonide/Formoterol 160/4.5 MDI IH SCH ×2 (08:40→20:24)
[2016-11-25] MEDS ORDERED: Furosemide 40 MG TABLET PO SCH (09:00)
[2016-11-25] MEDS: Topiramate 25 MG TABLET PO SCH ×2 (11:41→17:05)
[2016-11-25] MEDS: Chloraseptic Spray 177 ML BOTTLE MM PRN (12:18)
[2016-11-25] MEDS: Insulin DETEMIR 100 UNIT/ML X5UNITS SQ SCH (21:51)
[2016-11-26] MEDS: Ipratropium/Albuterol Neb 3 ML IH SCH ×6 (03:53→23:26)
[2016-11-26 04:39] LABS: Potassium 3.8 mEq/L (3.5-4.5)
[2016-11-26] MEDS: Budesonide/Formoterol 160/4.5 MDI IH SCH ×2 (08:17→19:57)
[2016-11-26] MEDS: Sennosides/Docusate Sodium TABLET PO SCH ×2 (08:47→21:59)
[2016-11-26] MEDS: Doxycycline 100 MG CAPSULE PO SCH ×2 (08:47→22:00)
[2016-11-26] MEDS: Aspirin Enteric Coated 325 MG Tablet PO SCH (08:47)
[2016-11-26] MEDS: amLODIPine 5 MG TABLET PO SCH (08:47)
[2016-11-26] MEDS: predniSONE 20 MG TABLET PO SCH (08:47)
[2016-11-26] MEDS: Topiramate 25 MG TABLET PO SCH ×2 (08:48→17:47)
[2016-11-26] MEDS: *HR* Enoxaparin 40 MG/0.4 ML SYRINGE SQ SCH (08:48)
[2016-11-26] MEDS: Fluticasone Propionate Nasal 50 MCG/SPRAY BOTTLE NS SCH ×2 (08:48→22:02)
[2016-11-26] MEDS: Insulin LISPRO 300 UNITS/3 ML VIAL SQ SCH ×4 (08:49→22:02)
[2016-11-26] MEDS ORDERED: Insulin DETEMIR 100 UNIT/ML X5UNITS SQ SCH (10:25)
--- NOTE | 2016-11-26 11:12 | Internal Med Progress Note ---
Date of Encounter: 11/26/16 Time of Encounter: 11:10 - Subjective Interval history: Answers 'not feeling well'; Continues to feel short of breath on ambulation; reports headache, sore throat; requiring 4L/min O2 via NC, uses 2L/min at home; no chest pain, cough, but does have chronic leg swelling and orthopnea; Assessment and Plan here due to technical issues- Acute exacerbation of COPD- not improving; ABG done, shows barely compensated respiratory acidosis with CO2 retention- 7.35/78/72; will use PRN Bipap and order nocturnal pulsoximetry study for Bipap qusalification; noted to be on CPAP at night at home, have not been receiving any here; continue scheduled bronchodilators along with empiric antibiotics- Doxycycline and supplemental O2 ; change steroids to IV Solumedrol and continue inhaled steroids; high risk patient for worsening respiratory failure; JUNA due to use of Lasix, likely- worsening; continue to hold ARB and Lasix and monitor closely; gentle limited IV hydration; Acute on chronic respiratory failure- hypoxic and hypercapnic; plan as above; Chronic diastolic CHF- hold ARB and Lasix for now; Essential HTN- BP well-controlled; DM- Type 2, on insulin- steroid-induced hyperglycemia; will increase basal bolus insulin regimen; diabetic diet; Constipation- not responding to Senna/Colace; add Dulcolax; - Constitutional Vitals: Temp Pulse Resp BP Pulse Ox 97.6 F 61 14 122/48 95 11/26/16 11:03 11/26/16 11:03 11/26/16 11:03 11/26/16 11:03 11/26/16 11:03 General appearance: Present: mild distress, A&O X 3, morbidly obese, answers questions appropriately - Head Head exam: Present: atraumatic, normocephalic - Neck Neck exam general surgery: Present: supple, trachea midline. Absent: lymphadenopathy - Respiratory Respiratory exam: Present: rhonchi (B/L rhonchurous breath sounds posteriorly). Absent: accessory muscle use, rales, wheezes - Cardiovascular Cardiovascular exam: Present: RRR, +S1, +S2. Absent: diastolic murmur, gallop, rubs, systolic murmur - GI/Abdominal GI/Abdominal exam: Present: normal bowel sounds, soft (central obesity, nontender), no peritoneal signs. Absent: distended, tenderness - Extremities Exam Extremities exam: Present: full ROM, pedal edema, warm, radial pulses palpable and symetrical. Absent: calf tenderness, cyanotic - Neurological Exam Neurological exam: Present: CN II-XII intact, oriented X3, no focal deficits. Absent: pronater drift, facial droop, speech deficit - Skin Skin exam: Present: dry, intact Internal Medicine: Result - Labs CBC & Chem 7: 11/22/16 05:46 11/26/16 04:00 Labs: BMP 11/26/16 04:00 Sodium 144 Potassium 3.8 Chloride 100 Carbon Dioxide 39 H BUN 35 H Creatinine 1.20 H Glucose 211 H Calcium 9.0 Consult Discharge Plan - Plan Referrals: Jesusita Paiz MD [Primary Care Provider] - 11/28/16 1:30 pm (Please follow up as schedule..)
[2016-11-26 12:37] LABS: ABG Base Excess 14.3 mEq/L (-2.0 to 3.0); ABG HCO3 43.1 mEQ/L (21-27); ABG Oxygen Saturation 94 % (95-98); ABG PH 7.35 pH Units (7.32-7.45); ABG PO2 74 mmHg (85-104); ABG TCO2 45.5 mEq/L (20-26)
[2016-11-26 12:39] LABS: Blood Gas FiO2 40 %
[2016-11-26 12:40] LABS: ABG PCO2 78 mmHg (35-45)
[2016-11-26] MEDS: 0.9 % Sodium Chloride 1,000 ML IVC SCH (13:25)
[2016-11-26] MEDS: methylPREDNISolone 125 MG/2 ML VIAL IVP SCH (16:46)
[2016-11-27] MEDS: methylPREDNISolone 125 MG/2 ML VIAL IVP SCH ×4 (00:58→23:26)
[2016-11-27] MEDS: Ipratropium/Albuterol Neb 3 ML IH SCH ×3 (04:07→11:14)
[2016-11-27] MEDS: 0.9 % Sodium Chloride 1,000 ML IVC SCH (05:35)
[2016-11-27 06:22] LABS: Basophils % 0.1 %; Hemoglobin 9.7 g/dL (11.5-15.4); Mean Platelet Volume 10.8 fL (9.4-12.4)
[2016-11-27 06:24] LABS: Hematocrit 34.5 % (35.3-44.9); Immature Granulocytes % 2.4 % (0-4); Lymphocytes # 0.3 K/mcL (0.6-4.6); Lymphocytes % 2.7 %; Mean Corpuscular HGB Conc 28.1 g/dL (31.6-35.5); Mean Corpuscular Hemoglobin 25.3 pg (28.0-33.3); Mean Corpuscular Volume 90.1 fL (83.0-100.0); Monocytes # 0.1 K/mcL (0.0-1.3); Monocytes % 0.5 %; Platelet Count 299 K/mcL (140-400); Red Blood Count 3.83 M/mcL (3.82-4.97); Segmented Neutrophils % 94.3 %
[2016-11-27 06:34] LABS: Neutrophils # 9.1 K/mcL (1.6-8.9)
[2016-11-27 06:37] LABS: BUN/Creatinine Ratio 30 (6-26); Blood Urea Nitrogen 30 mg/dL (7-20); Calcium 8.9 mg/dL (8.6-10.8); Carbon Dioxide 32 mEq/L (19-29); Chloride 105 mEq/L (98-109); Glucose 296 mg/dL (70-99); Osmolality,Calculated 315 (280-300); Potassium 4.3 mEq/L (3.5-4.5); Sodium 144 mEq/L (136-145); eGFR For African Americans > 60 (> 60); eGFR For Non-African Americans 55 (> 60)
[2016-11-27 06:44] LABS: Anisocytosis 1+ (Not Present); Hypochromasia Present (Not Present); Platelet Estimate Normal (Normal); Poikilocytosis 1+ (Not Present)
[2016-11-27] MEDS: Budesonide/Formoterol 160/4.5 MDI IH SCH ×2 (07:35→19:55)
[2016-11-27] MEDS: Doxycycline 100 MG CAPSULE PO SCH ×2 (08:29→22:11)
[2016-11-27] MEDS: Aspirin Enteric Coated 325 MG Tablet PO SCH (08:29)
[2016-11-27] MEDS: amLODIPine 5 MG TABLET PO SCH (08:30)
[2016-11-27] MEDS: Sennosides/Docusate Sodium TABLET PO SCH ×2 (08:30→22:11)
[2016-11-27] MEDS: Insulin LISPRO 300 UNITS/3 ML VIAL SQ SCH ×6 (08:30→22:10)
[2016-11-27] MEDS: *HR* Enoxaparin 40 MG/0.4 ML SYRINGE SQ SCH (08:30)
[2016-11-27] MEDS: Topiramate 25 MG TABLET PO SCH ×2 (08:30→16:40)
[2016-11-27] MEDS: Fluticasone Propionate Nasal 50 MCG/SPRAY BOTTLE NS SCH ×2 (08:31→22:10)
[2016-11-27] MEDS: Insulin DETEMIR 100 UNIT/ML X5UNITS SQ SCH ×2 (15:09→22:10)
--- NOTE | 2016-11-27 17:45 | Internal Med Progress Note ---
Date of Encounter: 11/27/16 Time of Encounter: 10:00 - Time Spent With Patient Assessment and plan for today: COPD exacerbation slowly improving. She was restarted on IV steroids will continue with IV steroids for her today. Severe PRANAV noncompliant with CPAP, were given to check BiPAP qualification very limited sleep study tomorrow. Elevated creatinine: She was started on IV fluids at this point her creatinine has improved and I will stop IV fluids to avoid overload. Chronic hypoxic respiratory failure: We will continue with oxygen by nasal cannula, titrate to maintain oxygen saturation above 92 Chronic hypercapnia secondary to COPD and OHS: Check BiPAP qualification. Consider Demadex. DVT prophylaxis: Encourage ambulation. Problems are new to me today. - Subjective Interval history: Patient reports moderate shortness of breath, improved from yesterday, dry cough associated with no chest pain. He was first time I am meeting this patient all problems are new to me today. - Constitutional Vitals: Temp Pulse Resp BP Pulse Ox 97.8 F 66 18 167/63 95 11/27/16 16:51 11/27/16 16:51 11/27/16 16:51 11/27/16 16:51 11/27/16 16:51 General appearance: Present: mild distress, A&O X 3, morbidly obese, answers questions appropriately - Eye Eye exam: Present: PERRL, conjuntiva pink, sclera anicteric Pupils: Present: PERRL - Respiratory Respiratory exam: Present: CTAB. Absent: accessory muscle use, rales, rhonchi, wheezes - Cardiovascular Cardiovascular exam: Present: RRR, +S1, +S2. Absent: diastolic murmur, gallop, rubs, systolic murmur - GI/Abdominal GI/Abdominal exam: Present: normal bowel sounds, soft, no peritoneal signs. Absent: distended, tenderness - Neurological Exam Neurological exam: Present: CN II-XII intact, oriented X3, no focal deficits. Absent: pronater drift, facial droop, speech deficit Internal Medicine: Result - Labs CBC & Chem 7: 11/27/16 06:04 11/27/16 06:04 Labs: Short CBC 11/27/16 Range/Units 06:04 WBC 9.6 (4.3-11.1) K/mcL Hgb 9.7 L (11.5-15.4) g/dL Hct 34.5 L (35.3-44.9) % Plt Count 299 (140-400) K/mcL Neutrophils # 9.1 H (1.6-8.9) K/mcL BMP 11/27/16 06:04 Sodium 144 Potassium 4.3 Chloride 105 Carbon Dioxide 32 H BUN 30 H Creatinine 0.99 Glucose 296 H Calcium 8.9 - ABG Interpretation ABG results: ABG ABG pH 7.35 pH Units (7.32-7.45) 11/26/16 12:20 ABG pCO2 78 mmHg (35-45) H* 11/26/16 12:20 ABG pO2 74 mmHg (85-104) L 11/26/16 12:20 ABG O2 Saturation 94 % (95-98) L 11/26/16 12:20 Consult Discharge Plan - Plan Referrals: Jesusita Paiz MD [Primary Care Provider] - 11/28/16 1:30 pm (Please follow up as schedule..)
[2016-11-27] MEDS: Ipratropium/Albuterol Neb 3 ML IH PRN (19:55)
[2016-11-28 06:43] LABS: Basophils % 0.2 %; Hematocrit 35.3 % (35.3-44.9); Hemoglobin 10.3 g/dL (11.5-15.4); Immature Granulocytes % 2.3 % (0-4); Lymphocytes # 0.4 K/mcL (0.6-4.6); Lymphocytes % 3.4 %; Mean Corpuscular HGB Conc 29.2 g/dL (31.6-35.5); Mean Corpuscular Hemoglobin 26.1 pg (28.0-33.3); Mean Corpuscular Volume 89.4 fL (83.0-100.0); Mean Platelet Volume 11.5 fL (9.4-12.4); Monocytes # 0.2 K/mcL (0.0-1.3); Monocytes % 1.6 %; Neutrophils # 9.5 K/mcL (1.6-8.9); Platelet Count 308 K/mcL (140-400); Red Blood Count 3.95 M/mcL (3.82-4.97); Red Cell Distribution Width 15.9 % (11.5-14.5); Segmented Neutrophils % 92.5 %
[2016-11-28 06:58] LABS: BUN/Creatinine Ratio 29 (6-26); Blood Urea Nitrogen 31 mg/dL (7-20); Calcium 9.7 mg/dL (8.6-10.8); Carbon Dioxide 30 mEq/L (19-29); Chloride 106 mEq/L (98-109); Glucose 318 mg/dL (70-99); Osmolality,Calculated 319 (280-300); Potassium 4.5 mEq/L (3.5-4.5); Sodium 145 mEq/L (136-145); eGFR For African Americans > 60 (> 60); eGFR For Non-African Americans 50 (> 60)
[2016-11-28] MEDS: Ipratropium/Albuterol Neb 3 ML IH PRN (08:07)
[2016-11-28] MEDS: Budesonide/Formoterol 160/4.5 MDI IH SCH ×2 (08:07→20:00)
[2016-11-28] MEDS: methylPREDNISolone 125 MG/2 ML VIAL IVP SCH ×2 (08:23→20:06)
[2016-11-28] MEDS: Doxycycline 100 MG CAPSULE PO SCH (08:23)
[2016-11-28] MEDS: *HR* Enoxaparin 40 MG/0.4 ML SYRINGE SQ SCH (08:23)
[2016-11-28] MEDS: Topiramate 25 MG TABLET PO SCH ×2 (08:24→16:38)
[2016-11-28] MEDS: Aspirin Enteric Coated 325 MG Tablet PO SCH (08:24)
[2016-11-28] MEDS: Insulin LISPRO 300 UNITS/3 ML VIAL SQ SCH ×7 (08:24→21:33)
[2016-11-28] MEDS: Sennosides/Docusate Sodium TABLET PO SCH ×2 (08:24→20:07)
[2016-11-28] MEDS: Fluticasone Propionate Nasal 50 MCG/SPRAY BOTTLE NS SCH ×2 (08:24→20:08)
[2016-11-28] MEDS: amLODIPine 5 MG TABLET PO SCH (08:24)
[2016-11-28] MEDS: Insulin DETEMIR 100 UNIT/ML X5UNITS SQ SCH ×2 (08:39→21:33)
--- NOTE | 2016-11-28 17:05 | Internal Med Progress Note ---
Date of Encounter: 11/28/16 Time of Encounter: 09:00 - Time Spent With Patient Assessment and plan for today: COPD exacerbation slowly improving. I will continue with IV steroids for her today, we will start tapering and transitioned to a slow oral taper tomorrow. Severe PRANAV noncompliant with CPAP, I reviewed this results of this sleep study performed last night on oxygen by nasal cannula, she desaturated for 4 minutes and 40 seconds which does not qualify her for BiPAP. Elevated creatinine: She was started on IV fluids at this point her creatinine has improved now off IV fluids. Encourage oral hydration. Chronic hypoxic respiratory failure: We will continue with oxygen by nasal cannula, titrate to maintain oxygen saturation above 92. Increase oxygen delivery to 4 L with exertion Chronic hypercapnia secondary to COPD and OHS: Check BiPAP qualification. Consider Demadex. DVT prophylaxis: Encourage ambulation. Pending placement at half-way, social work involved in the case. - Subjective Interval history: Patient reports moderate shortness of breath, improved from yesterday, she is severely short of breath with minimal exertion such as walking 10-15 feet to the bathroom. Her oxygen saturation drops into the mid 80s with ambulation. She denies associated chest pain. She had a sleep study done last night. - Constitutional Vitals: Temp Pulse Resp BP Pulse Ox 97.5 F L 65 20 185/62 95 11/28/16 15:31 11/28/16 15:31 11/28/16 15:31 11/28/16 15:31 11/28/16 15:31 General appearance: Present: mild distress, A&O X 3, morbidly obese, answers questions appropriately - Respiratory Respiratory exam: Present: CTAB, wheezes. Absent: accessory muscle use, rales, rhonchi - Cardiovascular Cardiovascular exam: Present: RRR, +S1, +S2. Absent: diastolic murmur, gallop, rubs, systolic murmur - GI/Abdominal GI/Abdominal exam: Present: normal bowel sounds, soft, no peritoneal signs. Absent: distended, tenderness - Neurological Exam Neurological exam: Present: CN II-XII intact, oriented X3, no focal deficits. Absent: pronater drift, facial droop, speech deficit - Skin Skin exam: Present: dry, intact Internal Medicine: Result - Labs CBC & Chem 7: 11/28/16 05:26 11/28/16 05:26 Labs: Short CBC 11/28/16 Range/Units 05:26 WBC 10.3 (4.3-11.1) K/mcL Hgb 10.3 L (11.5-15.4) g/dL Hct 35.3 (35.3-44.9) % Plt Count 308 (140-400) K/mcL Neutrophils # 9.5 H (1.6-8.9) K/mcL BMP 11/28/16 05:26 Sodium 145 Potassium 4.5 Chloride 106 Carbon Dioxide 30 H BUN 31 H Creatinine 1.08 Glucose 318 H Calcium 9.7 - ABG Interpretation ABG results: ABG ABG pH 7.35 pH Units (7.32-7.45) 11/26/16 12:20 ABG pCO2 78 mmHg (35-45) H* 11/26/16 12:20 ABG pO2 74 mmHg (85-104) L 11/26/16 12:20 ABG O2 Saturation 94 % (95-98) L 11/26/16 12:20 Consult Discharge Plan - Plan Referrals: Jesusita Paiz MD [Primary Care Provider] - 11/28/16 1:30 pm (Please follow up as schedule..)
[2016-11-29 06:08] LABS: Immature Granulocytes % 1.5 % (0-4); Mean Corpuscular HGB Conc 28.6 g/dL (31.6-35.5)
[2016-11-29 06:10] LABS: Basophils % 0.1 %; Hematocrit 35.3 % (35.3-44.9); Hemoglobin 10.1 g/dL (11.5-15.4); Lymphocytes # 0.4 K/mcL (0.6-4.6); Lymphocytes % 4.5 %; Mean Corpuscular Hemoglobin 25.3 pg (28.0-33.3); Mean Corpuscular Volume 88.5 fL (83.0-100.0); Mean Platelet Volume 10.8 fL (9.4-12.4); Monocytes # 0.2 K/mcL (0.0-1.3); Neutrophils # 8.9 K/mcL (1.6-8.9); Platelet Count 293 K/mcL (140-400); Red Blood Count 3.99 M/mcL (3.82-4.97); Red Cell Distribution Width 15.9 % (11.5-14.5); Segmented Neutrophils % 91.9 %
[2016-11-29 06:23] LABS: BUN/Creatinine Ratio 35 (6-26); Blood Urea Nitrogen 33 mg/dL (7-20); Calcium 9.5 mg/dL (8.6-10.8); Carbon Dioxide 27 mEq/L (19-29); Chloride 109 mEq/L (98-109); Glucose 293 mg/dL (70-99); Osmolality,Calculated 316 (280-300); Potassium 4.1 mEq/L (3.5-4.5); Sodium 144 mEq/L (136-145); eGFR For African Americans > 60 (> 60); eGFR For Non-African Americans 58 (> 60)
[2016-11-29 06:36] LABS: Platelet Estimate Normal (Normal)
[2016-11-29] MEDS: amLODIPine 5 MG TABLET PO SCH (06:49)
[2016-11-29] MEDS ORDERED: amLODIPine 5 MG TABLET PO SCH (07:00)
[2016-11-29 07:26] VITALS: BP 167/66
[2016-11-29] MEDS: Budesonide/Formoterol 160/4.5 MDI IH SCH (07:36)
[2016-11-29] MEDS: Ipratropium/Albuterol Neb 3 ML IH PRN (07:37)
[2016-11-29] MEDS: Insulin LISPRO 300 UNITS/3 ML VIAL SQ SCH ×2 (07:48)
[2016-11-29] MEDS: Insulin DETEMIR 100 UNIT/ML X5UNITS SQ SCH (07:49)
[2016-11-29] MEDS: Topiramate 25 MG TABLET PO SCH (07:50)
[2016-11-29] MEDS: Sennosides/Docusate Sodium TABLET PO SCH (07:50)
[2016-11-29] MEDS: Aspirin Enteric Coated 325 MG Tablet PO SCH (07:50)
[2016-11-29] MEDS: *HR* Enoxaparin 40 MG/0.4 ML SYRINGE SQ SCH (07:51)
[2016-11-29] MEDS: Fluticasone Propionate Nasal 50 MCG/SPRAY BOTTLE NS SCH (07:51)
[2016-11-29] MEDS: methylPREDNISolone 125 MG/2 ML VIAL IVP SCH (07:51)
--- NOTE | 2016-11-29 10:17 | Discharge Summary ---
Date of Encounter: 11/29/16 Time of Encounter: 10:08 - Discharge Medications Prescriptions: PredniSONE 60 mg PO DAILY 5 Days Home Medications: Albuterol Sulfate [Albuterol Inhaler] 1 puff IH Q6HR PRN 09/09/15 [History] Amlodipine [Norvasc] 5 mg PO DAILY 09/09/15 [History] Citalopram Hydrobromide [Celexa] 20 mg PO DAILY 09/09/15 [History] Furosemide [Lasix] 40 mg PO DAILY 09/09/15 [History] Losartan [Cozaar] 100 mg PO DAILY 09/09/15 [History] Lovastatin [Mevacor] 40 mg PO HS 09/09/15 [History] Metoprolol [Lopressor] 50 mg PO BID 09/09/15 [History] Montelukast [Singulair] 10 mg PO DAILY 09/09/15 [History] Omeprazole [PriLOSEC] 20 mg PO DAILY 09/09/15 [History] Topiramate [Topamax] 25 mg PO QAM 09/09/15 [History] Topiramate [Topamax] 50 mg PO QPM 09/09/15 [History] Aspirin/Calcium Carbonate/Mag [Aspirin Buffered 325 mg Tab] 325 mg PO DAILY 03/04 [History] Budesonide/Formoterol 160/4.5 [Symbicort 160/4.5] 2 puff IH BID 11/21/16 [ History] Oxygen 2 l .ROUTE AD 11/21/16 [History] Bisacodyl [Dulcolax] 10 mg PO DAILY PRN #0 tablet 11/29/16 [Rx] Insulin DETEMIR [Levemir] 12 unit SQ DAILY [id number] 11/29/16 [Rx] Ipratropium/Albuterol Neb [Duoneb] 3 ml IH [id number] PRN #0 inhsol 11/29/16 [Rx] Loratadine/Pseudophed (12 HR) [Claritin D (12HR)] 1 each PO BID PRN #0 tablet [Rx] Polyethylene Glycol 3350 [MiraLAX] 17 gm PO DAILY PRN #0 powd.pack 11/29/16 [Rx] PredniSONE 60 mg PO DAILY 5 Days 11/29/16 [Rx] Sennosides/Docusate Sodium [Senna Plus] 1 each PO BID tablet 11/29/16 [Rx] Allergies/Adverse Reactions: Allergies Iodinated Contrast Media - Oral and Allergy (Verified 11/21/16 16:45) Rash Date of admission: 11/22/16 19:04 Primary care physician: Jesusita Paiz - Patient Status Disposition: Transfer SNF Condition: Fair Functional capacity at discharge: uses cane/walker - Discharge Instructions Follow Up With: Jesusita Paiz MD [Primary Care Provider] - 11/28/16 1:30 pm (Please follow up as schedule..) - Diet and Activity Activity: ambulate only with your walker Diet: diabetic diet, low fat, low cholesterol, low salt diet Hospital course: Ms. Pugh is a 71 year old female with past medical history s will be entered below.ignificant for COPD, chronic hypoxic respiratory failure on home oxygen, morbid obesity and type 2 diabetes presented to the hospital for evaluation of shortness of breath. She had progressively worsening shortness of breath has been going on for over a month. Evaluation in the emergency department she was diagnosed with COPD exacerbation and referred for admission. A CT angiogram done upon admission reveals findings questionable for subsegmental PE and the patient was started on full anticoagulation with Lovenox. Upon further review she had lower extremity venous Doppler ultrasound which did not find any evidence of DVT. Based on these findings anticoagulation was discontinued and she was maintained on DVT prophylaxis. For COPD exacerbation she was empirically treated with doxycycline and started on treatment with IV Solu- Medrol and inhaled albuterol and Atrovent. She had slow improving course and she remained short of breath with physical exertion however she appears comfortable at rest and her oxygen saturation is above 95% on her chronic oxygen use of 2 L/m. We will recommend increasing the oxygen delivery to 4 L/m when patient undergoes any kind of physical exertion. She underwent a nighttime oximetry study for BiPAP qualification which revealed that she did not qualify for BiPAP as her time desaturating below 88% was less than minutes. Recommend that she continues with her night time CPAP for severe obesity hypoventilation syndrome. She will be transitioned to oral steroids. She completed her antibiotics. She will be continued on inhaled bronchodilators and will be discharged to subacute rehabilitation. During this hospitalization her creatinine was noted to be elevated and Lasix was placed on hold. Her creatinine came back to normal values with IV fluids and her Lasix will be restarted at half dose 40 mg daily instead of 40 mg daily her prehospitalization dose. Discharge diagnosis: #1 COPD exacerbation #2 obesity hypoventilation syndrome, noncompliant with prescribed CPAP #3 chronic hypoxic and hypercarbic respiratory failure requiring home oxygen #4 morbid obesity #5 type 2 diabetes diabetes on insulin #6 essential hypertension #7acute kidney injury secondary to diuretic treatment. - Time Spent with Patient Total time spent providing and/or coordinating discharge services: 45 minutes. - Constitutional Vitals: Temp Pulse Resp BP Pulse Ox 98.0 F 65 18 167/66 98 11/29/16 07:19 11/29/16 07:30 11/29/16 07:38 11/29/16 07:19 11/29/16 09:22 General appearance: Present: mild distress, A&O X 3, morbidly obese, answers questions appropriately
--- NOTE | 2016-11-29 10:41 | Physician Discharge Referral ---
ExtendedCare Referral Info Provider in Charge after Transfer: PCP Institutional Level of Care: Skilled Expected Duration of Placement: 4 weeks4 wks Prognosis: Good Aware of Diagnosis: Patient ( Discharge diagnosis: #1 COPD exacerbation #2 obesity hypoventilation syndrome, noncompliant with prescribed CPAP #3 chronic hypoxic and hypercarbic respiratory failure requiring home oxygen #4 morbid obesity #5 type 2 diabetes diabetes on insulin #6 essential hypertension # 7acute kidney injury secondary to diuretic treatment.) Aware of Prognosis: Patient - Transfer Medications Prescriptions: PredniSONE 60 mg PO DAILY 5 Days Home Medications: Albuterol Sulfate [Albuterol Inhaler] 1 puff IH Q6HR PRN 09/09/15 [History] Amlodipine [Norvasc] 5 mg PO DAILY 09/09/15 [History] Citalopram Hydrobromide [Celexa] 20 mg PO DAILY 09/09/15 [History] Furosemide [Lasix] 40 mg PO DAILY 09/09/15 [History] Losartan [Cozaar] 100 mg PO DAILY 09/09/15 [History] Lovastatin [Mevacor] 40 mg PO HS 09/09/15 [History] Metoprolol [Lopressor] 50 mg PO BID 09/09/15 [History] Montelukast [Singulair] 10 mg PO DAILY 09/09/15 [History] Omeprazole [PriLOSEC] 20 mg PO DAILY 09/09/15 [History] Topiramate [Topamax] 25 mg PO QAM 09/09/15 [History] Topiramate [Topamax] 50 mg PO QPM 09/09/15 [History] Aspirin/Calcium Carbonate/Mag [Aspirin Buffered 325 mg Tab] 325 mg PO DAILY 03/04 [History] Budesonide/Formoterol 160/4.5 [Symbicort 160/4.5] 2 puff IH BID 11/21/16 [ History] Oxygen 2 l .ROUTE AD 11/21/16 [History] Bisacodyl [Dulcolax] 10 mg PO DAILY PRN #0 tablet 11/29/16 [Rx] Insulin DETEMIR [Levemir] 12 unit SQ DAILY [id number] 11/29/16 [Rx] Ipratropium/Albuterol Neb [Duoneb] 3 ml IH [id number] PRN #0 inhsol 11/29/16 [Rx] Loratadine/Pseudophed (12 HR) [Claritin D (12HR)] 1 each PO BID PRN #0 tablet [Rx] Polyethylene Glycol 3350 [MiraLAX] 17 gm PO DAILY PRN #0 powd.pack 11/29/16 [Rx] PredniSONE 60 mg PO DAILY 5 Days 11/29/16 [Rx] Sennosides/Docusate Sodium [Senna Plus] 1 each PO BID tablet 11/29/16 [Rx] Allergies/Adverse Reactions: Allergies Iodinated Contrast Media - Oral and Allergy (Verified 11/21/16 16:45) Rash - Respiratory Orders Oxygen / L per min, Other (nightly CPAPper respiratory theray ettings.) Smoking Cessation: Smoking cessation has been advised. For more information, call the [place] Tobacco Quit Line at 4-193-VQJD-NOW. - Lab Orders Lab Orders: Other (include drug levels w/frequency) (Chem-7 in 1 week) - Advance Directives Living Will: Yes Power of Chief Pilot: Yes Code Status: Full Code - Mobility Orders Ambulate - Rehabiliation Orders Rehab Potential: Good - Diet Orders No Added Salt (JOSIE), No Concentrated Sweets, Cardiac CERTIFICATION: I certify that the transfer of the above named patient to an Extended Care Facility is necessary for the continuing treatment of the diagnosis listed. The above information is true and accurate reflection of patient's current condition. Confidential - Redisclosure prohibited without a patient's written consent.
== END 2016-11-29 11:53 | DRG 190 ==
LOC: EMEROO 10:38 → 2ANU 10:38 → SUATTDRO 11-22 19:04
PROVIDERS: ADMIT Internal Medicine Endocrinology, Diabetes & Metabolism; ATTEND Internal Medicine

== ENCOUNTER 2016-12-20 10:48 | Observation (INO) ==
[2016-12-20] MEDS ORDERED: methylPREDNISolone 125 MG/2 ML VIAL IVP ONE (11:11)
[2016-12-20] MEDS ORDERED: Ipratropium/Albuterol Neb 3 ML IH ONE ×2 (11:11→13:07)
[2016-12-20] MEDS ORDERED: Levofloxacin 750 MG/150 ML 750 MG/150 ML BAG IVPB ONE (11:12)
--- NOTE | 2016-12-20 11:14 | Emergency Department Note ---
Disposition Clinical Impression: Congestive heart failure, Acute exacerbation of chronic obstructive airways disease, Diabetes mellitus, Anemia, Renal insufficiency, Morbid obesity Disposition: Admitted As Inpatient Referrals: Jesusita Paiz MD [Primary Care Provider] - Forms: ED Satisfaction Letter General Adult HPI - General Chief complaint: ED Shortness of Breath/Dyspnea Stated complaint: HEIDI/Cough Source: patient, EMS Limitations: no limitations - History of Present Illness HPI Narrative: 71-year-old female comes in regarding cough and shortness of breath. She has a history of COPD and usually wears 2 L of nasal cannula oxygen. The patient describes wheezing, she has had chest pain when coughing. No coughing of melly blood. She does not take anticoagulant medication apart from aspirin. There is no history of acute back pain or abdominal pain vomiting or diarrhea. She states she does use diuretic medication and has had some swelling in her legs. There is no history of ear pain or sore throat. No history of confusion or difficulty moving the arms or legs independently. There is no history of syncope or injury. The patient reports her primary care physician wanted to come to the hospital yesterday for admission but she did not want to come in. She felt somewhat worse today so she decided to come in today for evaluation. Onset (ago): day(s) Pain Scale: 8 - Related Data Home Medications Medication Instructions Recorded Confirmed Albuterol Sulfate [Albuterol 1 puff IH Q6HR PRN 09/09/15 12/20/16 Inhaler] Amlodipine [Norvasc] 5 mg PO DAILY 09/09/15 12/20/16 Citalopram Hydrobromide [Celexa] 20 mg PO DAILY 09/09/15 12/20/16 Furosemide [Lasix] 40 mg PO DAILY 09/09/15 12/20/16 Losartan [Cozaar] 100 mg PO DAILY 09/09/15 12/20/16 Lovastatin [Mevacor] 40 mg PO HS 09/09/15 12/20/16 Metoprolol [Lopressor] 50 mg PO BID 09/09/15 12/20/16 Montelukast [Singulair] 10 mg PO DAILY 09/09/15 12/20/16 Omeprazole [PriLOSEC] 20 mg PO DAILY 09/09/15 12/20/16 Topiramate [Topamax] 25 mg PO QAM 09/09/15 12/20/16 Topiramate [Topamax] 50 mg PO QPM 09/09/15 12/20/16 Aspirin/Calcium Carbonate/Mag 325 mg PO DAILY 11/21/16 12/20/16 [Aspirin Buffered 325 mg Tab] Budesonide/Formoterol 160/4.5 2 puff IH BID 11/21/16 12/20/16 [Symbicort 160/4.5] Oxygen 2 l .ROUTE AD 11/21/16 12/20/16 Metformin [Glucophage] 1,000 mg PO BIDWM 12/20/16 12/20/16 Previous Rx's Medication Instructions Recorded Ipratropium/Albuterol Neb [Duoneb] 3 ml IH [id number] PRN #0 inhsol 11/29/16 Loratadine/Pseudophed (12 HR) 1 each PO BID PRN #0 tablet 11/29/16 [Claritin D (12HR)] Allergies Allergy/AdvReac Type Severity Reaction Status Date / Time Iodinated Contrast Media - Allergy Rash Verified 11/21/16 16:45 Oral and All systems ED: reviewed and negative except as stated. Past Medical History - Past Medical History Medical history: Reports: CHF, COPD, diabetes, hypertension Psychiatric history: Reports: no psych history - Social History Smoking Status: Never smoker Smokeless Tobacco Status: No Alcohol use: Reports: none Drug use: Reports: none Physical Exam - General Limitations: no limitations General appearance: alert - Head Head exam: atraumatic, normocephalic, normal inspection - Eye Eye exam: Present: normal appearance, PERRL, EOMI - ENT ENT exam: normal exam, normal oropharynx, mucous membranes moist, TM's normal bilaterally, normal external ear exam - Neck Neck exam: Present: normal inspection, full ROM, trachea midline - Chest Chest inspection: Present: symmetric chest wall rise. Absent: tenderness - Respiratory Respiratory exam: Present: wheezes, prolonged expiratory phase. Absent: respiratory distress - Cardiovascular Cardiovascular exam: Present: regular rate, normal rhythm, normal heart sounds - Abdominal Exam Abdominal exam: Present: soft, Non-Tender. Absent: tenderness, distention, guarding, rebound, rigidity - Extremities Exam Extremities exam: Present: full ROM, normal capillary refill, pedal edema. Absent: tenderness, joint swelling, calf tenderness - Expanded Lower Extremity Exam Neurovascular/Tendon exam: Absent: motor deficit, sensory deficit, tendon deficit, extremity cold to touch - Back Exam Back exam: Present: normal inspection, full ROM. Absent: tenderness, CVA tenderness (R), CVA tenderness (L), vertebral tenderness - Neurological Exam Neurological exam: Present: alert, oriented X3, CN II-XII intact. Absent: motor sensory deficit - Psychiatric Psychiatric exam: Present: normal affect, normal mood - Skin Skin exam: Present: warm, dry, intact, normal color, other (Chronic venous stasis changes lower extremities bilaterally.). Absent: rash, cyanosis, diaphoresis, pallor, mottled Course Vital Signs Temperature 99.8 F H 12/20/16 10:49 Pulse Rate 65 12/20/16 10:49 Respiratory Rate 22 12/20/16 10:49 Blood Pressure 120/77 12/20/16 10:49 O2 Sat by Pulse Oximetry 92 L 12/20/16 10:49 Temperature 99.8 F H 12/20/16 10:49 Pulse Rate 67 12/20/16 13:59 Respiratory Rate 18 12/20/16 13:59 Blood Pressure 110/42 12/20/16 13:59 O2 Sat by Pulse Oximetry 93 L 12/20/16 13:59 Oxygen Delivery Oxygen Delivery Nasal Cannula Medical Decision Making - [facility] Narrative Medical decision making narrative: The patient demonstrated significant shortness of breath, he states she usually wears 2 L of oxygen, sometimes 3, in the ED she was on 3 L, she was wheezing and was given a DuoNeb, the patient also had notable lower extremity edema with interstitial edema noted on her chest x-ray, Nitropaste and Lasix were given. A second DuoNeb was given, status post her peak flow was 80, notably suboptimal. Based on the patient's age, frail elderly status, COPD, pulmonary edema, dyspnea, and poor peak flow after 2 nebulizer treatments here and initial low oxygen saturations on 3 L nasal cannula, around 92% on arrival, I thought it would be appropriate to admit the patient for further evaluation and treatment. I discussed case with the hospitalist who has accepted the patient to their care. - Lab Data Lab results reviewed: Yes I reviewed the patient's lab results. Result diagrams: 12/20/16 11:43 12/20/16 11:43 Lab Results 02/01/0412/20/16 12/20/16 Range/Units 11:43 11:43 11:43 WBC 5.3 (4.3-11.1) K/mcL RBC 3.65 L (3.82-4.97) M/mcL Hgb 9.3 L (11.5-15.4) g/dL Hct 33.4 L (35.3-44.9) % MCV 91.5 (83.0-100.0) fL MCH 25.5 L (28.0-33.3) pg MCHC 27.8 L (31.6-35.5) g/dL RDW 17.5 H (11.5-14.5) % Plt Count 242 (140-400) K/mcL MPV 10.2 (9.4-12.4) fL Immature Gran % 0.4 (0-4) % Seg Neutrophils % 75.7 % Lymphocytes % 12.9 % Monocytes % 6.6 % Eosinophils % 4.2 % Basophils % 0.2 % Neutrophils # 4.0 (1.6-8.9) K/mcL Lymphocytes # 0.7 (0.6-4.6) K/mcL Monocytes # 0.4 (0.0-1.3) K/mcL Eosinophils # 0.2 (0.0-0.6) K/mcL Basophils # 0.0 (0.0-0.2) K/mcL Platelet Estimate Normal (Normal) Hypochromasia Present A (Not Present) PT (9.4-12.1) Seconds INR APTT (26.0-36.0) Seconds Sodium 144 (136-145) mEq/L Potassium 4.0 (3.5-4.5) mEq/L Chloride 103 (98-109) mEq/L Carbon Dioxide 35 H (19-29) mEq/L BUN 29 H (7-20) mg/dL Creatinine 1.14 H (0.57-1.11) mg/dL Est GFR ( Amer) 57 L (> 60) Est GFR (Non-Af Amer) 47 L (> 60) BUN/Creatinine Ratio 25 (6-26) Glucose 177 H (70-99) mg/dL Calculated Osmolality 308 H (280-300) Lactic Acid 1.0 (0.5-2.2) mmol/L Calcium 9.3 (8.6-10.8) mg/dL Total Bilirubin 0.3 (0.2-1.2) mg/dL Direct Bilirubin 0.1 (0.0-0.5) mg/dL Indirect Bilirubin 0.2 (0.0-1.2) mg/dL AST 10 (5-34) Units/L ALT 13 (0-55) Units/L Alkaline Phosphatase 81 (38-126) Units/L Troponin I (0-0.03) ng/mL C-Reactive Protein (Less than 5) mg/L B-Natriuretic Peptide (0-100) pg/mL Serum Total Protein 6.3 (6.0-8.3) g/dL Albumin 2.7 L (3.5-5.0) g/dL Globulin 3.6 H (2.4-3.5) g/dL Albumin/Globulin Ratio 0.8 L (1.1-2.2) 12/20/16 12/20/16 12/20/16 Range/Units 11:43 11:43 11:43 WBC (4.3-11.1) K/mcL RBC (3.82-4.97) M/mcL Hgb (11.5-15.4) g/dL Hct (35.3-44.9) % MCV (83.0-100.0) fL MCH (28.0-33.3) pg MCHC (31.6-35.5) g/dL RDW (11.5-14.5) % Plt Count (140-400) K/mcL MPV (9.4-12.4) fL Immature Gran % (0-4) % Seg Neutrophils % % Lymphocytes % % Monocytes % % Eosinophils % % Basophils % % Neutrophils # (1.6-8.9) K/mcL Lymphocytes # (0.6-4.6) K/mcL Monocytes # (0.0-1.3) K/mcL Eosinophils # (0.0-0.6) K/mcL Basophils # (0.0-0.2) K/mcL Platelet Estimate (Normal) Hypochromasia (Not Present) PT (9.4-12.1) Seconds INR APTT (26.0-36.0) Seconds Sodium (136-145) mEq/L Potassium (3.5-4.5) mEq/L Chloride (98-109) mEq/L Carbon Dioxide (19-29) mEq/L BUN (7-20) mg/dL Creatinine (0.57-1.11) mg/dL Est GFR ( Amer) (> 60) Est GFR (Non-Af Amer) (> 60) BUN/Creatinine Ratio (6-26) Glucose (70-99) mg/dL Calculated Osmolality (280-300) Lactic Acid (0.5-2.2) mmol/L Calcium (8.6-10.8) mg/dL Total Bilirubin (0.2-1.2) mg/dL Direct Bilirubin (0.0-0.5) mg/dL Indirect Bilirubin (0.0-1.2) mg/dL AST (5-34) Units/L ALT (0-55) Units/L Alkaline Phosphatase (38-126) Units/L Troponin I 0.01 (0-0.03) ng/mL C-Reactive Protein 35 H (Less than 5) mg/L B-Natriuretic Peptide 96 (0-100) pg/mL Serum Total Protein (6.0-8.3) g/dL Albumin (3.5-5.0) g/dL Globulin (2.4-3.5) g/dL Albumin/Globulin Ratio (1.1-2.2) 12/20/16 Range/Units 12:11 WBC (4.3-11.1) K/mcL RBC (3.82-4.97) M/mcL Hgb (11.5-15.4) g/dL Hct (35.3-44.9) % MCV (83.0-100.0) fL MCH (28.0-33.3) pg MCHC (31.6-35.5) g/dL RDW (11.5-14.5) % Plt Count (140-400) K/mcL MPV (9.4-12.4) fL Immature Gran % (0-4) % Seg Neutrophils % % Lymphocytes % % Monocytes % % Eosinophils % % Basophils % % Neutrophils # (1.6-8.9) K/mcL Lymphocytes # (0.6-4.6) K/mcL Monocytes # (0.0-1.3) K/mcL Eosinophils # (0.0-0.6) K/mcL Basophils # (0.0-0.2) K/mcL Platelet Estimate (Normal) Hypochromasia (Not Present) PT 11.6 (9.4-12.1) Seconds INR 1.1 APTT 29.9 (26.0-36.0) Seconds Sodium (136-145) mEq/L Potassium (3.5-4.5) mEq/L Chloride (98-109) mEq/L Carbon Dioxide (19-29) mEq/L BUN (7-20) mg/dL Creatinine (0.57-1.11) mg/dL Est GFR ( Amer) (> 60) Est GFR (Non-Af Amer) (> 60) BUN/Creatinine Ratio (6-26) Glucose (70-99) mg/dL Calculated Osmolality (280-300) Lactic Acid (0.5-2.2) mmol/L Calcium (8.6-10.8) mg/dL Total Bilirubin (0.2-1.2) mg/dL Direct Bilirubin (0.0-0.5) mg/dL Indirect Bilirubin (0.0-1.2) mg/dL AST (5-34) Units/L ALT (0-55) Units/L Alkaline Phosphatase (38-126) Units/L Troponin I (0-0.03) ng/mL C-Reactive Protein (Less than 5) mg/L B-Natriuretic Peptide (0-100) pg/mL Serum Total Protein (6.0-8.3) g/dL Albumin (3.5-5.0) g/dL Globulin (2.4-3.5) g/dL Albumin/Globulin Ratio (1.1-2.2) - Radiology Data Radiology results reviewed: Yes I reviewed the patient's radiology results.
[2016-12-20 11:58] LABS: Basophils % 0.2 %; Mean Corpuscular HGB Conc 27.8 g/dL (31.6-35.5)
[2016-12-20 11:59] LABS: Eosinophils # 0.2 K/mcL (0.0-0.6); Eosinophils % 4.2 %; Hematocrit 33.4 % (35.3-44.9); Hemoglobin 9.3 g/dL (11.5-15.4); Immature Granulocytes % 0.4 % (0-4); Lymphocytes # 0.7 K/mcL (0.6-4.6); Lymphocytes % 12.9 %; Mean Corpuscular Hemoglobin 25.5 pg (28.0-33.3); Mean Corpuscular Volume 91.5 fL (83.0-100.0); Mean Platelet Volume 10.2 fL (9.4-12.4); Monocytes # 0.4 K/mcL (0.0-1.3); Monocytes % 6.6 %; Platelet Count 242 K/mcL (140-400); Red Blood Count 3.65 M/mcL (3.82-4.97); Red Cell Distribution Width 17.5 % (11.5-14.5); Segmented Neutrophils % 75.7 %
[2016-12-20 12:12] LABS: Albumin 2.7 g/dL (3.5-5.0); Albumin/Globulin Ratio 0.8 (1.1-2.2); Bilirubin,Direct 0.1 mg/dL (0.0-0.5); Bilirubin,Indirect 0.2 mg/dL (0.0-1.2); Bilirubin,Total 0.3 mg/dL (0.2-1.2); Calcium 9.3 mg/dL (8.6-10.8); Globulin 3.6 g/dL (2.4-3.5); Total Protein 6.3 g/dL (6.0-8.3)
[2016-12-20 12:26] LABS: INR 1.1; Prothrombin Time 11.6 Seconds (9.4-12.1)
[2016-12-20 12:29] LABS: Hypochromasia Present (Not Present); Platelet Estimate Normal (Normal)
[2016-12-20 12:29] LABS: Activated Partial Thrombo Time 29.9 Seconds (26.0-36.0)
[2016-12-20] MEDS ORDERED: Furosemide 40 MG in 0.9 % Sodium Chloride 50 ML IVPB ONE (13:18)
[2016-12-20] MEDS ORDERED: Nitroglycerin 1 INCH/GM PACKET TP ONE (13:21)
[2016-12-20] MEDS ORDERED: Furosemide 20 MG/2 ML VIAL IVP ONE (14:27)
[2016-12-20] MEDS ORDERED: Furosemide 40 MG/4 ML VIAL IVP ONE (14:27)
[2016-12-20] MEDS ORDERED: Naloxone 0.4 MG/ML INJ IVP PRN (15:20)
[2016-12-20] MEDS ORDERED: Ondansetron 4 MG/2 ML VIAL IVP PRN (15:20)
[2016-12-20] MEDS ORDERED: Loratadine/Pseudophed (12 HR) 1 EACH TABLET PO PRN (15:23)
[2016-12-20] MEDS ORDERED: Ipratropium/Albuterol Neb 3 ML IH PRN (15:25)
[2016-12-20] MEDS ORDERED: D5% in Water 1,000 ML IV PRN (15:26)
[2016-12-20] MEDS ORDERED: *HR* Dextrose 50 % in Water (Syg) 50 ML SYRINGE IVP PRN (15:26)
[2016-12-20] MEDS ORDERED: Dextrose Gel 15 GM PO PRN ×2 (15:26)
[2016-12-20] MEDS ORDERED: NON-FORMULARY MEDICATION 1 EACH EACH (Oxygen [Oxygen] 2 L) SCH (15:30)
--- NOTE | 2016-12-20 15:49 | Internal Med History&Physical ---
Date of Encounter: 12/20/16 Time of Encounter: 15:20 Assessment and Plan (1) Acute exacerbation of CHF (congestive heart failure) Current visit: Yes Status: Acute Acute on chronic CHF decompensation Will start IV diuretic therapy Last 2D Echo from 11/22/16: LVEF 65% with moderate LV diastolic dysfunction, mild concentric LVH monitor I/Os Daily weights fluid restricted diet monitor O2 saturation O2 supplementation as needed consider cardiology eval if patient further deteriorates Qualifiers: Congestive heart failure type: diastolic Qualified Code(s): I50.33 - Acute on chronic diastolic (congestive) heart failure (2) COPD (chronic obstructive pulmonary disease) Current visit: Yes Status: Chronic -Clinically patient's symptoms are consistent with CHF decompensation, however given patient's severe lung disease, will treat with low dose oral steroids -continue Prednisone for 7 days -continue bronchodilators -continue O2 supplementation and monitor O2 sat (goal O2 sat: 89-92%) -bipap as needed, currently saturating well on nasal cannula (patient was noted to require 4L of NC during her last hospitalization in Nov 2016 and was discharged with 4L of NC) Qualifiers: COPD type: unspecified COPD Qualified Code(s): J44.9 - Chronic obstructive pulmonary disease, unspecified (3) Acute kidney injury Current visit: Yes Status: Acute Likely secondary to diuretic therapy Given acute CHF decompensation, will need to continue IV diuresis at this time Patient's renal function improved during last hospitalization once diuretic therapy was decreased however that worsened her Heart failure Will attempt to optimize therapy prior to discharge as patient appears to require more than Lasix 20mg PO q12h to control her HF symptoms Continue to closely watch renal function Consider nephrology eval if renal function deteriorates despite titrating down diuretic therapy once her acute CHF exacerbation resolves (4) Hyperglycemia due to type 2 diabetes mellitus Current visit: Yes Status: Chronic Hold oral antihyperglycemic agents at this time continue to monitor fingerstick and blood glucose started medium dose correctional sliding scale insulin algorithm Qualifiers: Diabetes mellitus intermediate designer insulin use: unspecified intermediate designer insulin use status Qualified Code(s): E11.65 - Type 2 diabetes mellitus with hyperglycemia (5) Morbid obesity with BMI of 45.0-49.9, adult Current visit: Yes Status: Chronic (6) Obesity hypoventilation syndrome Current visit: Yes Status: Acute Pt noncompliant with CPAP at home Will use CPAP at bedtime while hospitalized Patient educated about the need for compliance (7) Hypertension Current visit: Yes Status: Chronic BP within acceptable range continue home medications Qualifiers: Hypertension type: essential hypertension Qualified Code(s): I10 - Essential (primary) hypertension (8) DVT prophylaxis Current visit: Yes Status: Acute Heparin SQ (9) Anemia Current visit: Yes Status: Acute H&H low but acceptable will obtain iron studies, B12, and Folate levels for anemia work up no active bleeding noted at this time will continue to monitor Qualifiers: Anemia type: unspecified type Qualified Code(s): D64.9 - Anemia, unspecified Internal Medicine - H&P: HPI Chief complaint: shortness of breath Admitted From: Long-term Nursing Facility Plans for Post Hospital Care: [facility] History of present illness: Ms. Pugh is a 71 year old female with PMH of COPD on home oxygen, uterine ca-s/ p radiation (in remission) who presents to the ER for worsening shortness of breath. Patient is being transferred from [facility] for evaluation of worsening shortness of breath. She states she saw her recruitment manager yesterday who advised that she should go to the hospital for further evaluation, however patient did not want to come to the hospital yesterday. Overnight patient's respiratory status deteriorated due to which she was brought to the ER earlier this morning. In the ER patient was given IV diuretic therapy, IV steroids, nebulizer treatments which improved her respiratory distress. She states she is not using CPAP overnight because she has not found the appropriate settings. At this time she is resting in chair, able to speak in complete sentences without getting short of breath. She states she is able to ambulate around the room but that is the extend of her physical activity. She denies any headache, dizziness, sore throat, chest congestion, chest pain, abd pain, n/v, fever, or chills at this time. PMH: COPD-on home oxygen, HTN, DM, Uterine ca-s/p radiation (in remission- diagnosed and treated in April 2014), HLD, Sleep apnea, Morbid obesity Social Hx: Denies smoking history, alcohol use, or any illicit drug use Patient wishes to be full code. Past Med Surg Social Fam HX - Past Medical History Medical history: CHF, COPD, diabetes, hypertension Psychiatric history: no psych history - Social History Smoking Status: Never smoker Smokeless Tobacco Status: No Alcohol use: none Drug use: none Internal Medicine - H&P: Meds Albuterol Sulfate [Albuterol Inhaler] 1 puff IH Q6HR PRN 09/09/15 [History] Amlodipine [Norvasc] 5 mg PO DAILY 09/09/15 [History] Citalopram Hydrobromide [Celexa] 20 mg PO DAILY 09/09/15 [History] Furosemide [Lasix] 40 mg PO DAILY 09/09/15 [History] Losartan [Cozaar] 100 mg PO DAILY 09/09/15 [History] Lovastatin [Mevacor] 40 mg PO HS 09/09/15 [History] Metoprolol [Lopressor] 50 mg PO BID 09/09/15 [History] Montelukast [Singulair] 10 mg PO DAILY 09/09/15 [History] Omeprazole [PriLOSEC] 20 mg PO DAILY 09/09/15 [History] Topiramate [Topamax] 25 mg PO QAM 09/09/15 [History] Topiramate [Topamax] 50 mg PO QPM 09/09/15 [History] Aspirin/Calcium Carbonate/Mag [Aspirin Buffered 325 mg Tab] 325 mg PO DAILY 03/04 [History] Budesonide/Formoterol 160/4.5 [Symbicort 160/4.5] 2 puff IH BID 11/21/16 [ History] Oxygen 2 l .ROUTE AD 11/21/16 [History] Ipratropium/Albuterol Neb [Duoneb] 3 ml IH [id number] PRN #0 inhsol 11/29/16 [Rx] Loratadine/Pseudophed (12 HR) [Claritin D (12HR)] 1 each PO BID PRN #0 tablet [Rx] Metformin [Glucophage] 1,000 mg PO BIDWM 12/20/16 [History] Allergies Iodinated Contrast Media - Oral and Allergy (Verified 11/21/16 16:45) Rash All Systems PM: A 10-system review of systems was performed and is negative for pertinent findings except as documented above in the HPI. - Constitutional Constitutional: as per HPI - Constitutional Vitals: Temp Pulse Resp BP Pulse Ox 98.2 F 71 22 127/69 92 L 12/20/16 15:15 12/20/16 15:15 12/20/16 15:15 12/20/16 15:15 12/20/16 15:15 General appearance: Present: A&O X 3, morbidly obese, no acute distress, answers questions appropriately - Head Head exam: Present: atraumatic, normocephalic - Eye Eye exam: Present: normal appearance, conjuntiva pink, sclera anicteric - Respiratory Respiratory exam: Absent: accessory muscle use, respiratory distress, wheezes ( bibasilar crackles) - Cardiovascular Cardiovascular exam: Present: JVD, RRR, +S1, +S2 - GI/Abdominal GI/Abdominal exam: Present: normal bowel sounds, soft. Absent: distended, tenderness - Extremities Exam Extremities exam: Present: pedal edema (bilateral LE 2+pitting edema extending to mid johns), warm, radial pulses palpable and symetrical. Absent: calf tenderness, tenderness - Neurological Exam Neurological exam: Present: alert, oriented X3, no focal deficits - Psychiatric Psychiatric exam: Present: normal affect, normal mood Internal Med - H&P Results - Labs CBC & Chem 7: 12/20/16 11:43 12/20/16 11:43
[2016-12-20] MEDS: Ipratropium/Albuterol Neb 3 ML IH SCH ×2 (17:03→22:22)
[2016-12-20] MEDS: *HR* Heparin 5,000 UNIT/ML VIAL SQ SCH (17:40)
[2016-12-20] MEDS: Insulin LISPRO 300 UNITS/3 ML VIAL SQ SCH ×2 (17:40→21:03)
[2016-12-20] MEDS: Topiramate 25 MG TABLET PO SCH (17:41)
[2016-12-20] MEDS: Budesonide/Formoterol 160/4.5 MDI IH SCH (22:23)
[2016-12-21] MEDS: Fluticasone Propionate Nasal 50 MCG/SPRAY BOTTLE NS SCH ×3 (02:41→22:00)
[2016-12-21] MEDS: Ipratropium/Albuterol Neb 3 ML IH SCH ×4 (04:16→22:54)
[2016-12-21 06:16] LABS: Hemoglobin 9.2 g/dL (11.5-15.4); Red Cell Distribution Width 17.2 % (11.5-14.5)
[2016-12-21 06:18] LABS: Immature Granulocytes % 0.6 % (0-4); Lymphocytes # 0.4 K/mcL (0.6-4.6); Lymphocytes % 8.2 %; Mean Corpuscular HGB Conc 28.8 g/dL (31.6-35.5); Mean Corpuscular Hemoglobin 25.6 pg (28.0-33.3); Mean Corpuscular Volume 89.1 fL (83.0-100.0); Mean Platelet Volume 10.5 fL (9.4-12.4); Monocytes # 0.2 K/mcL (0.0-1.3); Neutrophils # 4.4 K/mcL (1.6-8.9); Platelet Count 250 K/mcL (140-400); Red Blood Count 3.59 M/mcL (3.82-4.97); Segmented Neutrophils % 88.2 %
[2016-12-21 06:31] LABS: % Iron Saturation 8 % (15-50); Iron 34 mcg/dL (50-170); Transferrin 290 mg/dL (180-382)
[2016-12-21 06:35] LABS: Calcium 9.4 mg/dL (8.6-10.8); Magnesium 1.8 mg/dL (1.6-2.6); Phosphorous 3.9 mg/dL (2.3-4.7)
[2016-12-21 06:38] LABS: Hypochromasia Present (Not Present); Large Platelets Present (Not Present); Platelet Estimate Normal (Normal)
[2016-12-21 06:52] LABS: Ferritin 57 ng/ml (5-204)
[2016-12-21 07:05] LABS: Folate 8.2 ng/mL (7.0-31.4)
[2016-12-21] MEDS: amLODIPine 5 MG TABLET PO SCH (08:14)
[2016-12-21] MEDS: predniSONE 20 MG TABLET PO SCH (08:14)
[2016-12-21] MEDS: Topiramate 25 MG TABLET PO SCH ×2 (08:14→17:35)
[2016-12-21] MEDS: Insulin LISPRO 300 UNITS/3 ML VIAL SQ SCH ×4 (08:15→19:48)
[2016-12-21] MEDS: CALCIUM CARBONATE PO SCH (08:19)
[2016-12-21] MEDS: MAG PO SCH (08:19)
[2016-12-21] MEDS: ASPIRIN PO SCH (08:19)
[2016-12-21] MEDS: *HR* Heparin 5,000 UNIT/ML VIAL SQ SCH ×2 (08:19→17:35)
[2016-12-21] MEDS ORDERED: Furosemide 40 MG/4 ML VIAL IVP SCH (09:00)
--- NOTE | 2016-12-21 10:43 | Internal Med Progress Note ---
Date of Encounter: 12/21/16 Time of Encounter: 09:15 - Assessment and plan (1) Acute exacerbation of CHF (congestive heart failure) Current Visit: Yes Status: Acute Assessment and plan: Acute on chronic diastolic heart failure. Echocardiogram from 11/23/16 revealing ejection fraction of 65% with moderate diastolic dysfunction and mild to moderate pulmonary hypertension. Patient takes 40 mg of Lasix daily at home. She does not have chronic kidney disease and currently has acute kidney injury, so will change 40 mg IV Lasix daily over to 20 mg twice a day and monitor her renal functioning. She currently has 2-3+ pitting edema bilaterally which she states is new for her. Chest x-ray consistent with interstitial pulmonary edema. Of note, patient has been at [facility] inpatient rehabilitation for the past 3 weeks. She states she does not want to return there because she does not feel as if this rehabilitation has been beneficial to her. She wants to go home upon disposition. Suspect pulmonary rehabilitation may be more beneficial than physical therapy, disposition unknown at this point. ITS Impressions Chest X-Ray 12/20/16 11:11 IMPRESSION: Low lung volumes. Possible interstitial pulmonary edema. D/ / 12/20/2016 11:50:25 Bola Gilbert MD / [facility] Interpreting Provider: Bola Gilbert MD Qualifiers: Congestive heart failure type: diastolic Qualified Code(s): I50.33 - Acute on chronic diastolic (congestive) heart failure (2) Acute exacerbation of chronic obstructive airways disease Current Visit: Yes Status: Acute Assessment and plan: Continue DuoNeb's, home Symbicort, prednisone, and Levaquin. Fair aeration throughout with decreased breath sounds noted. Patient stating she is still more short of breath than usual. She has an increased need for supplemental oxygenation. At home she is on 2 L per nasal cannula continuously, currently on 4 L. (3) Acute kidney injury Current Visit: Yes Status: Acute Assessment and plan: Review of her chart, patient does not appear to have chronic kidney disease as her renal functioning was normal late last year and early this year. Since the beginning of this month, she has been progressively trending down, we will continue to monitor closely and gently diurese her. (4) Anemia Current Visit: Yes Status: Chronic Assessment and plan: Currently at the low end of her normal. Iron levels low, B12 and folate levels normal. Will initiate iron supplementation. (5) DVT prophylaxis Current Visit: Yes Status: Acute Assessment and plan: Subcutaneous heparin (6) Obesity hypoventilation syndrome Current Visit: Yes Status: Chronic Assessment and plan: Noncompliant with CPAP (7) COPD (chronic obstructive pulmonary disease) Current Visit: Yes Status: Chronic Qualifiers: COPD type: unspecified COPD Qualified Code(s): J44.9 - Chronic obstructive pulmonary disease, unspecified (8) Diabetes mellitus Current Visit: Yes Status: Chronic Assessment and plan: Relatively well controlled at home with an A1c of 6.7% last month. Continue sliding scale while admitted. (9) Hypertension Current Visit: Yes Status: Chronic Assessment and plan: Borderline hypertensive at times, will continue to trend and adjust medications as indicated. Qualifiers: Hypertension type: essential hypertension Qualified Code(s): I10 - Essential (primary) hypertension (10) Morbid obesity with BMI of 45.0-49.9, adult Current Visit: Yes Status: Chronic (11) History of cancer Current Visit: No Status: Chronic Assessment and plan: History of uterine cancer status post radiation in remission. (12) Sleep apnea Current Visit: No Status: Chronic Qualifiers: Sleep apnea type: unspecified type Qualified Code(s): G47.30 - Sleep apnea , unspecified - Subjective Interval history: Patient seen and examined. On examination, patient sitting upright in bed watching television and talking on the phone. Patient stating she is starting to feel slightly better however is much more short of breath than usual. She states she is producing clear phlegm at times. She states she is eating well. She states her legs are more swollen than usual. She states she has been at [facility] rehabilitation for approximately 3 weeks but does not want to go back and stated she was to go home as she does not feel that rehabilitation has been beneficial for her. - Constitutional Vitals: Temp Pulse Resp BP Pulse Ox 98.0 F 78 28 158/78 98 12/21/16 07:31 12/21/16 07:31 12/21/16 07:31 12/21/16 07:31 12/21/16 08:50 General appearance: Present: A&O X 3, morbidly obese, pleasant, no acute distress, answers questions appropriately - Head Head exam: Present: atraumatic, normocephalic - Eye Eye exam: Present: PERRL, conjuntiva pink, sclera anicteric Pupils: Present: PERRL - Neck Neck exam general surgery: Present: supple, trachea midline. Absent: lymphadenopathy - Respiratory Respiratory exam: Present: accessory muscle use, decreased breath sounds, prolonged expiratory phase, wheezes. Absent: rales, respiratory distress, rhonchi - Cardiovascular Cardiovascular exam: Present: RRR, +S1, +S2. Absent: diastolic murmur, gallop, rubs, systolic murmur - GI/Abdominal GI/Abdominal exam: Present: normal bowel sounds, soft, no peritoneal signs. Absent: distended, tenderness - Extremities Exam Extremities exam: Present: pedal edema, warm, radial pulses palpable and symetrical. Absent: calf tenderness, cyanotic - Neurological Exam Neurological exam: Present: alert, CN II-XII intact, oriented X3, no focal deficits, strengths equal and symetr throughout. Absent: pronater drift, facial droop, speech deficit - Skin Skin exam: Present: dry, intact, pallor, warm Internal Medicine: Result - Labs CBC & Chem 7: 12/21/16 04:06 12/21/16 04:06 Labs: Short CBC 12/21/16 Range/Units 04:06 WBC 5.0 (4.3-11.1) K/mcL Hgb 9.2 L (11.5-15.4) g/dL Hct 32.0 L (35.3-44.9) % Plt Count 250 (140-400) K/mcL Neutrophils # 4.4 (1.6-8.9) K/mcL BMP 12/21/16 04:06 Sodium 143 Potassium 4.0 Chloride 99 Carbon Dioxide 32 H BUN 35 H Creatinine 1.33 H Glucose 346 H Calcium 9.4 - ABG Interpretation ABG results: PT/INR, D-dimer PT 11.6 Seconds (9.4-12.1) 12/20/16 12:11 Consult Discharge Plan - Plan Referrals: Jesusita Paiz MD [Primary Care Provider] -
[2016-12-21] MEDS ORDERED: Benzonatate 100 MG CAPSULE PO PRN (10:52)
[2016-12-21] MEDS: Budesonide/Formoterol 160/4.5 MDI IH SCH ×2 (11:30→22:54)
--- NOTE | 2016-12-21 15:35 | Electrocardiograph Report ---
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
[2016-12-21] MEDS: Furosemide 20 MG/2 ML VIAL IVP SCH (19:37)
[2016-12-22] MEDS: Ipratropium/Albuterol Neb 3 ML IH SCH ×2 (03:49→11:59)
[2016-12-22 04:14] LABS: Basophils % 0.2 %; Hemoglobin 9.8 g/dL (11.5-15.4)
[2016-12-22 04:15] LABS: Eosinophils % 0.3 %; Hematocrit 35.7 % (35.3-44.9); Immature Granulocytes % 0.6 % (0-4); Lymphocytes # 0.9 K/mcL (0.6-4.6); Lymphocytes % 14.9 %; Mean Corpuscular HGB Conc 27.5 g/dL (31.6-35.5); Mean Corpuscular Hemoglobin 24.9 pg (28.0-33.3); Mean Corpuscular Volume 90.6 fL (83.0-100.0); Mean Platelet Volume 10.5 fL (9.4-12.4); Monocytes # 0.5 K/mcL (0.0-1.3); Monocytes % 8.2 %; Neutrophils # 4.7 K/mcL (1.6-8.9); Platelet Count 289 K/mcL (140-400); Red Blood Count 3.94 M/mcL (3.82-4.97); Red Cell Distribution Width 17.2 % (11.5-14.5); Segmented Neutrophils % 75.8 %
[2016-12-22 04:25] LABS: Calcium 9.8 mg/dL (8.6-10.8); Potassium 3.9 mEq/L (3.5-4.5)
[2016-12-22] MEDS: *HR* Heparin 5,000 UNIT/ML VIAL SQ SCH (06:15)
[2016-12-22] MEDS ORDERED: levoFLOXacin 750 MG TABLET PO SCH (09:00)
[2016-12-22] MEDS: Fluticasone Propionate Nasal 50 MCG/SPRAY BOTTLE NS SCH (09:00)
[2016-12-22] MEDS: amLODIPine 5 MG TABLET PO SCH (09:10)
[2016-12-22] MEDS: Topiramate 25 MG TABLET PO SCH (09:10)
[2016-12-22] MEDS: predniSONE 20 MG TABLET PO SCH (09:11)
[2016-12-22] MEDS: Furosemide 20 MG/2 ML VIAL IVP SCH (09:11)
[2016-12-22] MEDS: MAG PO SCH (09:15)
[2016-12-22] MEDS: Insulin LISPRO 300 UNITS/3 ML VIAL SQ SCH ×2 (09:15→12:02)
[2016-12-22] MEDS: CALCIUM CARBONATE PO SCH (09:15)
[2016-12-22] MEDS: ASPIRIN PO SCH (09:15)
[2016-12-22 11:33] VITALS: BP 104/65
[2016-12-22] MEDS: Budesonide/Formoterol 160/4.5 MDI IH SCH (11:59)
--- NOTE | 2016-12-22 13:58 | Discharge Summary ---
Date of Encounter: 12/22/16 Time of Encounter: 13:56 - Discharge Diagnosis (1) Acute exacerbation of CHF (congestive heart failure) Priority: Primary Status: Acute Qualifiers: Congestive heart failure type: diastolic Qualified Code(s): I50.33 - Acute on chronic diastolic (congestive) heart failure (2) Acute kidney injury Priority: Primary Status: Acute (3) Anemia Priority: Secondary Status: Chronic Qualifiers: Anemia type: iron deficiency Iron deficiency anemia type: unspecified iron deficiency Qualified Code(s): D50.9 - Iron deficiency anemia, unspecified (4) COPD (chronic obstructive pulmonary disease) Priority: Secondary Status: Chronic Qualifiers: COPD type: unspecified COPD Qualified Code(s): J44.9 - Chronic obstructive pulmonary disease, unspecified (5) Diabetes mellitus Priority: Secondary Status: Chronic Qualifiers: Diabetes mellitus type: type 2 Diabetes mellitus complication status: with hyperglycemia Diabetes mellitus alf insulin use: without alf use Qualified Code(s): E11.65 - Type 2 diabetes mellitus with hyperglycemia (6) Hypertension Priority: Secondary Status: Chronic Qualifiers: Hypertension type: essential hypertension Qualified Code(s): I10 - Essential (primary) hypertension (7) Morbid obesity Priority: Secondary Status: Chronic Qualifiers: Obesity type: due to excess calories Qualified Code(s): E66.01 - Morbid ( severe) obesity due to excess calories (8) Obesity hypoventilation syndrome Priority: Secondary Status: Chronic - Discharge Medications Prescriptions: Azithromycin [Azithromycin 6-Tab Pack] 250 mg PO PER PKG DI #6 tab Ferrous Sulfate 325 mg PO BIDWM #60 tablet Home Medications: Albuterol Sulfate [Albuterol Inhaler] 1 puff IH Q6HR PRN 09/09/15 [History] Amlodipine [Norvasc] 5 mg PO DAILY 09/09/15 [History] Furosemide [Lasix] 40 mg PO DAILY 09/09/15 [History] Lovastatin [Mevacor] 40 mg PO HS 09/09/15 [History] Metoprolol [Lopressor] 50 mg PO BID 09/09/15 [History] Montelukast [Singulair] 10 mg PO DAILY 09/09/15 [History] Omeprazole [PriLOSEC] 20 mg PO DAILY 09/09/15 [History] Topiramate [Topamax] 25 mg PO QAM 09/09/15 [History] Topiramate [Topamax] 50 mg PO QPM 09/09/15 [History] Aspirin/Calcium Carbonate/Mag [Aspirin Buffered 325 mg Tab] 325 mg PO DAILY 03/04 [History] Budesonide/Formoterol 160/4.5 [Symbicort 160/4.5] 2 puff IH BID 11/21/16 [ History] Oxygen 2 l .ROUTE AD 11/21/16 [History] Ipratropium/Albuterol Neb [Duoneb] 3 ml IH [id number] PRN #0 inhsol 11/29/16 [Rx] Loratadine/Pseudophed (12 HR) [Claritin D (12HR)] 1 each PO BID PRN #0 tablet [Rx] Metformin [Glucophage] 1,000 mg PO BIDWM 12/20/16 [History] Azithromycin [Azithromycin 6-Tab Pack] 250 mg PO PER PKG DI #6 tab 12/22/16 [Rx] Citalopram Hydrobromide [Celexa] 20 mg PO DAILY #20 12/22/16 [Rx] Ferrous Sulfate 325 mg PO BIDWM #60 tablet 12/22/16 [Rx] Losartan [Cozaar] 100 mg PO DAILY #0 12/26/16 [Rx] Allergies/Adverse Reactions: Allergies Iodinated Contrast Media - Oral and Allergy (Verified 11/21/16 16:45) Rash Date of admission: 12/20/16 14:29 Primary care physician: Jesusita Paiz Consults: 12/21/16 12:40 Consult to Feed Research Technician [CONS] Routine Reason for SW Consult: discharge planning Discharging clinician: Gogo Loaiza Anticipated date of discharge: 12/22/16 - Patient Status Disposition: Transfer SNF Condition: Fair Functional capacity at discharge: independent ambulation Overall status at discharge: patient is progressing back to baseline - Discharge Instructions Follow Up With: Jesusita Paiz MD [Primary Care Provider] - 12/26/16 1:45 pm - Diet and Activity Activity: as per physical therapy, wear oxygen at all times Diet: diabetic diet, low fat, low cholesterol, low salt diet (fluid restriction to 1.2L/day) Hospital course: Ms. Pugh is a 71 year old morbidly obese female with the above medical problems who was admitted with worsening respiratory distress from assisted. Patient was recently discharged from our hospital after treatment for CHF and COPD. She is again noted to be in acute exacerbation of CHF and COPD. She was started on IV diuretics along with fluid restriction, urine output monitoring and daily weights. She was started on IV steroids, bronchodilators, empiric IV antibiotics and supplemental oxygen for COPD. She gradually improved on this regimen but she is noted to have acute kidney injury, likely related to the use of IV Lasix. Patient's respiratory status significantly improved today and her oxygen requirements are at baseline. She does have some shortness of breath on speaking and ambulating, which is her baseline. She is noted to have obstructive sleep apnea and obesity hypoventilation syndrome and she is supposed to be on CPAP, however has been noncompliant with this as an outpatient and still refuses to use BiPAP or CPAP. It has been explained to her that her cardiac and pulmonary problems are interrelated and she cannot be treated appropriately unless her pulmonary hypertension is treated with the use of CPAP. She verbalized understanding and will try to follow instructions. Her serum creatinine is stable today and she is medically stable for transfer back to rehabilitation facility. - Time Spent with Patient Total time spent providing and/or coordinating discharge services: Greater than 30 minutes (50 min) - Constitutional Vitals: Temp Pulse Resp BP Pulse Ox 98.1 F 64 18 104/65 99 12/22/16 11:27 12/22/16 11:27 12/22/16 12:00 12/22/16 11:27 12/22/16 12:00 General appearance: Present: A&O X 3, morbidly obese, answers questions appropriately - Respiratory Respiratory exam: Present: CTAB. Absent: accessory muscle use, rales, rhonchi, wheezes - Cardiovascular Cardiovascular exam: Present: RRR, +S1, +S2. Absent: diastolic murmur, gallop, rubs, systolic murmur - Extremities Exam Extremities exam: Present: pedal edema, warm, radial pulses palpable and symetrical. Absent: calf tenderness, cyanotic
--- NOTE | 2016-12-22 14:10 | Physician Discharge Referral ---
ExtendedCare Referral Info Transfer To: [facility] Provider in Charge: Gogo Loaiza Provider in Charge after Transfer: PCP Institutional Level of Care: Skilled - Diagnosis (1) Acute exacerbation of CHF (congestive heart failure) Priority: Primary Status: Acute (2) Acute kidney injury Priority: Primary Status: Acute (3) Anemia Priority: Secondary Status: Chronic (4) COPD (chronic obstructive pulmonary disease) Priority: Secondary Status: Chronic (5) Diabetes mellitus Priority: Secondary Status: Chronic (6) Hypertension Priority: Secondary Status: Chronic (7) Morbid obesity Priority: Secondary Status: Chronic (8) Obesity hypoventilation syndrome Priority: Secondary Status: Chronic Expected Duration of Placement: 3 weeks Prognosis: Fair Aware of Diagnosis: Patient, Family Aware of Prognosis: Patient, Family - Transfer Medications Prescriptions: Azithromycin [Azithromycin 6-Tab Pack] 250 mg PO PER PKG DI #6 tab Ferrous Sulfate 325 mg PO BIDWM #60 tablet Home Medications: Albuterol Sulfate [Albuterol Inhaler] 1 puff IH Q6HR PRN 09/09/15 [History] Amlodipine [Norvasc] 5 mg PO DAILY 09/09/15 [History] Furosemide [Lasix] 40 mg PO DAILY 09/09/15 [History] Lovastatin [Mevacor] 40 mg PO HS 09/09/15 [History] Metoprolol [Lopressor] 50 mg PO BID 09/09/15 [History] Montelukast [Singulair] 10 mg PO DAILY 09/09/15 [History] Omeprazole [PriLOSEC] 20 mg PO DAILY 09/09/15 [History] Topiramate [Topamax] 25 mg PO QAM 09/09/15 [History] Topiramate [Topamax] 50 mg PO QPM 09/09/15 [History] Aspirin/Calcium Carbonate/Mag [Aspirin Buffered 325 mg Tab] 325 mg PO DAILY 03/04 [History] Budesonide/Formoterol 160/4.5 [Symbicort 160/4.5] 2 puff IH BID 11/21/16 [ History] Oxygen 2 l .ROUTE AD 11/21/16 [History] Ipratropium/Albuterol Neb [Duoneb] 3 ml IH [id number] PRN #0 inhsol 11/29/16 [Rx] Loratadine/Pseudophed (12 HR) [Claritin D (12HR)] 1 each PO BID PRN #0 tablet [Rx] Metformin [Glucophage] 1,000 mg PO BIDWM 12/20/16 [History] Azithromycin [Azithromycin 6-Tab Pack] 250 mg PO PER PKG DI #6 tab 12/22/16 [Rx] Citalopram Hydrobromide [Celexa] 20 mg PO DAILY #20 12/22/16 [Rx] Ferrous Sulfate 325 mg PO BIDWM #60 tablet 12/22/16 [Rx] Losartan [Cozaar] 100 mg PO DAILY #0 12/26/16 [Rx] Allergies/Adverse Reactions: Allergies Iodinated Contrast Media - Oral and Allergy (Verified 11/21/16 16:45) Rash - Respiratory Orders Oxygen / L per min (2-3L/min via NC) Smoking Cessation: Smoking cessation has been advised. For more information, call the [employer] Quit Line at 2-201-ZPOB-NOW. - Advance Directives Code Status: Full Code - Mobility Orders Ambulate - Rehabiliation Orders Rehab Potential: Good Rehab Orders: ROM Exercises, Evaluation for Physical Therapy, Evaluation for Occupational Therapy - Diet Orders No Added Salt (JOSIE), No Concentrated Sweets (diabetic), Cardiac (fluid restriction to 1.2L/day) CERTIFICATION: I certify that the transfer of the above named patient to an Extended Care Facility is necessary for the continuing treatment of the diagnosis listed. The above information is true and accurate reflection of patient's current condition. Confidential - Redisclosure prohibited without a patient's written consent.
== END 2016-12-22 15:47 ==
LOC: EMEROO 10:48 → 3BNU 10:48 → SUATTDRO 14:29 → 3BNU 14:54
PROVIDERS: ADMIT Internal Medicine; ATTEND Internal Medicine

== ENCOUNTER 2017-07-06 15:34 | Inpatient (IN) ==
[2017-07-06] MEDS ORDERED: Ipratropium/Albuterol Neb 3 ML IH ONE (15:36)
[2017-07-06] MEDS ORDERED: methylPREDNISolone 125 MG/2 ML VIAL IVP ONE (15:36)
--- NOTE | 2017-07-06 15:42 | Emergency Department Note ---
Disposition Clinical Impression: Community acquired pneumonia, Acute exacerbation of CHF (congestive heart failure), COPD (chronic obstructive pulmonary disease) Disposition: Admitted As Inpatient Condition: Good Forms: ED Satisfaction Letter Time of Disposition: 16:27 SOB HPI - General Chief Complaint: ED Shortness of Breath/Dyspnea Stated Complaint: SOB Time Seen by Provider: 07/06/17 15:36 Source: patient, EMS Mode of arrival: EMS Limitations: no limitations Nursing Notes Reviewed: Yes Vital Signs Reviewed: Yes - History of Present Illness Patient presents to the ED with a complaint of shortness of breath. Patient presents via EMS and planning of shortness of breath for the last couple of days. Reports that she just has not been feeling well. EMS arrived. Initial oxygen saturations were 74% on her home 2 L. Has a history of COPD and asthma. Was in moderate respiratory distress upon arrival, but after a DuoNeb treatment in route, she has improved and is currently saturating well. Denies any chest pain but does state she has some chest tightness. - Related Data Home Medications Medication Instructions Recorded Confirmed Albuterol Sulfate [Albuterol 1 puff IH Q6HR PRN 09/09/15 05/15/17 Inhaler] Amlodipine [Norvasc] 5 mg PO DAILY 09/09/15 05/15/17 Furosemide [Lasix] 40 mg PO DAILY 09/09/15 05/15/17 Lovastatin [Mevacor] 40 mg PO HS 09/09/15 05/15/17 Metoprolol [Lopressor] 50 mg PO BID 09/09/15 05/15/17 Montelukast [Singulair] 10 mg PO DAILY 09/09/15 05/15/17 Omeprazole [PriLOSEC] 20 mg PO DAILY 09/09/15 05/15/17 Topiramate [Topamax] 25 mg PO QAM 09/09/15 05/15/17 Topiramate [Topamax] 50 mg PO QPM 09/09/15 05/15/17 Aspirin/Calcium Carbonate/Mag 325 mg PO DAILY 11/21/16 05/15/17 [Aspirin Buffered 325 mg Tab] Budesonide/Formoterol 160/4.5 2 puff IH BID 11/21/16 05/15/17 [Symbicort 160/4.5] Oxygen 2 l .ROUTE AD 11/21/16 05/15/17 metFORMIN [Glucophage] 1,000 mg PO BIDWM 12/20/16 05/15/17 Previous Rx's Medication Instructions Recorded Ipratropium/Albuterol Neb [Duoneb] 3 ml IH [id number] PRN #0 inhsol 11/29/16 Loratadine/Pseudophed (12 HR) 1 each PO BID PRN #0 tablet 11/29/16 [Claritin D (12HR)] Citalopram Hydrobromide [Celexa] 20 mg PO DAILY #20 12/22/16 Ferrous Sulfate 325 mg PO BIDWM #60 tablet 12/22/16 Losartan [Cozaar] 100 mg PO DAILY #0 12/26/16 Allergies Allergy/AdvReac Type Severity Reaction Status Date / Time Iodinated Contrast- Oral and Allergy Rash Verified 07/06/17 15:35 IV Dye [Iodinated Contrast Media - Oral and] All systems ED: reviewed and negative except as stated. Constitutional: Denies: fever Respiratory: Reports: cough, dyspnea, sputum production Gastrointestinal: Denies: abdominal pain Neurological: Denies: headache Endocrine: Reports: fatigue Past Medical History - Past Medical History Attestation: Yes The following information was validated with the patient. Source: patient, old records reviewed Medical history: Reports: CHF, COPD, diabetes, hypertension Psychiatric history: Reports: no psych history - Social History Smoking Status: Never smoker Smokeless Tobacco Status: No Alcohol use: Reports: none Drug use: Reports: none Physical Exam - General Limitations: no limitations General appearance: alert, in no apparent distress - Head Head exam: atraumatic, normocephalic, normal inspection - ENT ENT exam: normal exam, normal oropharynx, mucous membranes moist - Neck Neck exam: Present: normal inspection, full ROM, trachea midline - Chest Chest inspection: Present: normal inspection, symmetric chest wall rise - Respiratory Respiratory exam: Present: respiratory distress (mild), wheezes (Throughout). Absent: normal lung sounds bilaterally, accessory muscle use - Cardiovascular Cardiovascular exam: Present: regular rate, normal rhythm, normal heart sounds - Abdominal Exam Abdominal exam: Present: soft, Non-Tender. Absent: tenderness, distention, guarding, rebound, rigidity - Extremities Exam Extremities exam: Present: normal inspection, full ROM, pedal edema (bilat). Absent: tenderness - Neurological Exam Neurological exam: Present: alert, oriented X3 - Psychiatric Psychiatric exam: Present: normal affect, normal mood - Skin Skin exam: Present: warm, dry, intact, normal color Course Course Narrative: 72-year-old female presenting with COPD exacerbation. According EMS, she was in moderate respiratory stress. When arrived, saturating 74%. Feeling better now to do an abscess. We will give more nebs, steroids and admit. - Reevaluation(s) Reevaluation #1: Patient's chest x-ray showing some pulmonary edema with questionable atelectasis versus pneumonia. Difficult to differentiate so we will treat with antibiotics down here. Likely related to COPD and CHF and they made de- escalate on the floor. Will admit to the hospitalist service for further workup including echocardiogram. Time: 16:26 Vital Signs Temperature 99.9 F H 07/06/17 15:37 Pulse Rate 64 07/06/17 15:37 Respiratory Rate 22 07/06/17 15:37 Blood Pressure 151/77 07/06/17 15:37 O2 Sat by Pulse Oximetry 82 07/06/17 15:37 Temperature 99.9 F H 07/06/17 15:37 Pulse Rate 64 07/06/17 15:37 Respiratory Rate 20 07/06/17 15:59 Blood Pressure 151/77 07/06/17 15:37 O2 Sat by Pulse Oximetry 93 07/06/17 15:59 Oxygen Delivery Oxygen Delivery Room Air Shortness of Breath/Dyspnea - Medical Records Medical records reviewed: Yes I reviewed the patient's medical records. - Lab Data Lab results reviewed: Yes I reviewed the patient's lab results. Result diagrams: 07/06/17 15:56 07/06/17 15:56 Lab Results 07/06/17 07/06/17 07/06/17 Range/Units 15:56 15:56 15:56 WBC 7.5 (4.3-11.1) K/mcL RBC 4.05 (3.82-4.97) M/mcL Hgb 10.4 L (11.5-15.4) g/dL Hct 35.3 (35.3-44.9) % MCV 87.2 (83.0-100.0) fL MCH 25.7 L (28.0-33.3) pg MCHC 29.5 L (31.6-35.5) g/dL RDW 17.1 H (11.5-14.5) % Plt Count 256 (140-400) K/mcL MPV 9.4 (9.4-12.4) fL Immature Gran % 0.9 (0-4) % Seg Neutrophils % 80.8 % Lymphocytes % 8.9 % Monocytes % 4.4 % Eosinophils % 4.7 % Basophils % 0.3 % Neutrophils # 6.0 (1.6-8.9) K/mcL Lymphocytes # 0.7 (0.6-4.6) K/mcL Monocytes # 0.3 (0.0-1.3) K/mcL Eosinophils # 0.4 (0.0-0.6) K/mcL Basophils # 0.0 (0.0-0.2) K/mcL Nucleated RBCs/100 WBC 0.4 H (0) /100 WBC PT 12.5 H (9.4-12.1) Seconds INR 1.2 APTT 30.3 (26.0-36.0) Seconds Sodium 143 (136-145) mEq/L Potassium 3.6 (3.5-4.5) mEq/L Chloride 108 (98-109) mEq/L Carbon Dioxide 26 (19-29) mEq/L BUN 24 H (7-20) mg/dL Creatinine 0.81 (0.57-1.11) mg/dL Est GFR ( Amer) > 60 (> 60) Est GFR (Non-Af Amer) > 60 (> 60) BUN/Creatinine Ratio 30 H (6-26) Glucose 141 H (70-99) mg/dL Calculated Osmolality 302 H (280-300) Lactic Acid (0.5-2.2) mmol/L Calcium 9.1 (8.6-10.8) mg/dL 07/06/17 Range/Units 15:56 WBC (4.3-11.1) K/mcL RBC (3.82-4.97) M/mcL Hgb (11.5-15.4) g/dL Hct (35.3-44.9) % MCV (83.0-100.0) fL MCH (28.0-33.3) pg MCHC (31.6-35.5) g/dL RDW (11.5-14.5) % Plt Count (140-400) K/mcL MPV (9.4-12.4) fL Immature Gran % (0-4) % Seg Neutrophils % % Lymphocytes % % Monocytes % % Eosinophils % % Basophils % % Neutrophils # (1.6-8.9) K/mcL Lymphocytes # (0.6-4.6) K/mcL Monocytes # (0.0-1.3) K/mcL Eosinophils # (0.0-0.6) K/mcL Basophils # (0.0-0.2) K/mcL Nucleated RBCs/100 WBC (0) /100 WBC PT (9.4-12.1) Seconds INR APTT (26.0-36.0) Seconds Sodium (136-145) mEq/L Potassium (3.5-4.5) mEq/L Chloride (98-109) mEq/L Carbon Dioxide (19-29) mEq/L BUN (7-20) mg/dL Creatinine (0.57-1.11) mg/dL Est GFR ( Amer) (> 60) Est GFR (Non-Af Amer) (> 60) BUN/Creatinine Ratio (6-26) Glucose (70-99) mg/dL Calculated Osmolality (280-300) Lactic Acid 1.0 (0.5-2.2) mmol/L Calcium (8.6-10.8) mg/dL - Radiology Data Radiology results reviewed: Yes I reviewed the patient's radiology results. - EKG Data EKG attestation: Yes I reviewed and interpreted this EKG. EKG results narrative: Sinus rhythm, rate 62, [place] interval 166, QRS 98, QTC 413, normal axis, no acute ischemic changes
[2017-07-06 16:06] LABS: Basophils % 0.3 %; Eosinophils # 0.4 K/mcL (0.0-0.6); Eosinophils % 4.7 %; Hematocrit 35.3 % (35.3-44.9); Hemoglobin 10.4 g/dL (11.5-15.4); Immature Granulocytes % 0.9 % (0-4); Lymphocytes # 0.7 K/mcL (0.6-4.6); Lymphocytes % 8.9 %; Mean Corpuscular HGB Conc 29.5 g/dL (31.6-35.5); Mean Corpuscular Hemoglobin 25.7 pg (28.0-33.3); Mean Corpuscular Volume 87.2 fL (83.0-100.0); Mean Platelet Volume 9.4 fL (9.4-12.4); Monocytes # 0.3 K/mcL (0.0-1.3); Monocytes % 4.4 %; Nucleated Red Blood Cells 0.4 /100 WBC (0); Platelet Count 256 K/mcL (140-400); Red Blood Count 4.05 M/mcL (3.82-4.97); Red Cell Distribution Width 17.1 % (11.5-14.5); Segmented Neutrophils % 80.8 %
[2017-07-06 16:14] LABS: INR 1.2; Prothrombin Time 12.5 Seconds (9.4-12.1)
[2017-07-06 16:17] LABS: Activated Partial Thrombo Time 30.3 Seconds (26.0-36.0)
[2017-07-06 16:18] LABS: BUN/Creatinine Ratio 30 (6-26); Blood Urea Nitrogen 24 mg/dL (7-20); Calcium 9.1 mg/dL (8.6-10.8); Carbon Dioxide 26 mEq/L (19-29); Chloride 108 mEq/L (98-109); Glucose 141 mg/dL (70-99); Osmolality,Calculated 302 (280-300); Potassium 3.6 mEq/L (3.5-4.5); Sodium 143 mEq/L (136-145); eGFR For African Americans > 60 (> 60); eGFR For Non-African Americans > 60 (> 60)
[2017-07-06] MEDS ORDERED: Furosemide 20 MG/2 ML VIAL IVP ONE ×2 (16:22→20:55)
[2017-07-06] MEDS ORDERED: Azithromycin 500 MG in D5% in Water 250 ML IVPB ONE (16:24)
--- NOTE | 2017-07-06 16:27 | Emergency Department Note ---
START Narrative - START START: I examined this patient and my medical decision-making was reviewed with the Resident Physician. I agree with the documented findings, disposition and treatment plan as described except to the extent set forth below. 72yo F here for sob, edema. workup reveals possible mixed picture of pneumonia vs chf. LE edema, worsening sob. will cover her with lasix, rocephin, zithromax, solumedrol admit
[2017-07-06] MEDS ORDERED: Ondansetron 4 MG/2 ML VIAL IVP PRN (20:14)
[2017-07-06] MEDS ORDERED: Acetaminophen 325 MG TABLET PO PRN (20:14)
[2017-07-06] MEDS ORDERED: Naloxone 0.4 MG/ML INJ IVP PRN (20:14)
[2017-07-06] MEDS ORDERED: *HR* Morphine 2 MG/ML SYRINGE IVP PRN (20:14)
[2017-07-06] MEDS ORDERED: D5% in Water 1,000 ML IVC PRN (20:27)
[2017-07-06] MEDS ORDERED: Dextrose Gel 15 GM PO PRN ×2 (20:27)
[2017-07-06] MEDS ORDERED: *HR* Dextrose 50 % in Water (Syg) 50 ML SYRINGE IVP PRN (20:27)
[2017-07-06] MEDS ORDERED: Nitroglycerin 0.4 MG TAB.SUBL SL PRN (20:42)
[2017-07-06] MEDS: Ipratropium/Albuterol Neb 3 ML IH SCH (21:17)
[2017-07-06] MEDS ORDERED: Albuterol 2.5 MG/3 ML NEBULIZER IH PRN (21:19)
[2017-07-06] MEDS: *HR* HYDROcodone/Acet 5/325 mg TABLET PO PRN (21:52)
[2017-07-06] MEDS: Pantoprazole 40 MG VIAL IVP SCH (21:53)
[2017-07-06] MEDS: Insulin LISPRO 300 UNITS/3 ML VIAL SQ SCH (21:53)
[2017-07-06] MEDS: Aspirin Enteric Coated 81 MG Tablet PO SCH (21:56)
--- NOTE | 2017-07-06 21:57 | Internal Med History&Physical ---
<YordanmaryandrewMikhail lee - Last Filed: 07/06/17 22:36> Date of Encounter: 07/06/17 Time of Encounter: 19:30 Assessment and Plan (1) Acute exacerbation of CHF (congestive heart failure) Current visit: Yes Status: Acute Patient presents with SOB, dyspnea, and orthopnea over the past three days. Patient reports some chest pressure with inspiration but does not feel this is cardiac related. Patient also reports she is supposed to use CPAP at bedtime but does not. Single view CXR today shows mild pulmonary edema with small left- sided pleural effusion and mild left basilar atelectasis versus pneumonia. Patient was given IV azithromycin and ceftriaxone in the ED. Will discontinue IV antibiotics due to diagnosis of acute exacerbation of CHF and place patient on continuous cardiac telemetry, order echocardiogram, supplemental O2 with titration if SPO2 less than 92%, continuous SPO2 monitoring, DuoNeb every 4 scheduled, 60 mg IV push methylprednisolone every 6 ordered, 1.5 L daily fluid restriction, monitor I&O and daily weight, CPAP HS ordered, ABGs ordered stat, falls/safety precautions. Qualifiers: Congestive heart failure type: unspecified congestive heart failure type Qualified Code(s): I50.9 - Heart failure, unspecified (2) Hypoxemia Current visit: Yes Status: Acute Patient presents with acute hypoxemia on admission to ED today with SpO2 of 74% on 2L of O2 at home. Patient given DuoNeb which increased her SpO2 sats. ABGs ordered stat and patient placed on supplemental O2 with SpO2 monitoring. Falls/ safety precautions due to SOB. IVP steroids ordered Q6. (3) COPD (chronic obstructive pulmonary disease) Current visit: Yes Status: Chronic Patient presents with history of chronic COPD. Patient is currently dyspneic and was hypoxic when admitted to the ED. She states that she uses O2 at home 24 hours a day and is chronically SOB due to her COPD and CHF. Patient is currently experiencing acute exacerbation of CHF versus COPD. DuoNebs ordered Q4 scheduled, albuterol Q2 PRN, 60 mg IVP methylprednisolone Q6, and ABGs ordered stat. Patient placed on supplemental O2 with titration if SpO2 <92% and continuous SpO2 monitoring. Will monitor patient, vital signs, and respiratory status. Qualifiers: COPD type: unspecified COPD Qualified Code(s): J44.9 - Chronic obstructive pulmonary disease, unspecified (4) Anemia Current visit: Yes Status: Chronic Patient presents with history of acute on chronic anemia with fluctuations in the Hgb and Hct. Patient's current Hgb is 10.4 and HCT is 35.3, both of which are not far from her recent baseline currently. Will monitor H/H through follow- up labs. Will continue patient's PO ferrous sulfate. Qualifiers: Anemia type: unspecified type Qualified Code(s): D64.9 - Anemia, unspecified (5) Hypertension Current visit: Yes Status: Chronic Patient presents with history of chronic hypertension. Will monitor patient vital signs. Will continue patient's Norvasc, Lopressor, Cozaar. Qualifiers: Hypertension type: essential hypertension Qualified Code(s): I10 - Essential (primary) hypertension (6) Diabetes mellitus Current visit: Yes Status: Chronic Patient presents with history of chronic diabetes controlled with oral anti- hyperglycemics. A1c ordered. Blood glucose monitoring ACHS. Will hold patient's oral medications and order low-dose correction insulin sliding scale with hypoglycemic protocol. Cardiac diet with 1.5L daily fluid restriction ordered. Qualifiers: Diabetes mellitus type: type 2 Diabetes mellitus complication status: with hyperglycemia Diabetes mellitus watermelon inspector insulin use: without watermelon inspector use Qualified Code(s): E11.65 - Type 2 diabetes mellitus with hyperglycemia (7) HLD (hyperlipidemia) Current visit: Yes Status: Chronic Patient presents with history of chronic hyperlipidemia. Lipid panel ordered. Will continue patient's Lovastatin. Qualifiers: Hyperlipidemia type: pure hypercholesterolemia Qualified Code(s): E78.00 - Pure hypercholesterolemia, unspecified; E78.0 - Pure hypercholesterolemia (8) Sleep apnea Current visit: Yes Status: Chronic Patient reports history of chronic sleep apnea for which she is supposed to use CPAP HS but does not. CPAP ordered HS while inpatient. Qualifiers: Sleep apnea type: unspecified type Qualified Code(s): G47.30 - Sleep apnea , unspecified (9) DVT prophylaxis Current visit: Yes Status: Acute Patient to be placed on DVT prophylaxis due to current admission protocol and bed rest status. Heparin 5,000 units SQ Q8 ordered. Internal Medicine - H&P: HPI Chief complaint: Shortness of breath/Dyspnea Admitted From: Emergency Dept Plans for Post Hospital Care: Home History of present illness: Ms. Pugh is a 72 year old female presents from the ED with chief complaint of shortness of breath over the past three days. Patient states she is chronically SOB and uses O2 at home full-time, but reports that the SOB has worsened over the past 72 hours. She was brought to the ED by EMS who found her saturation was 74% on 2 L at home. Patient was in moderate respiratory distress when she arrived in the ED and was given DuoNeb treatment which helped improve her SPO2. Patient reports some chest pressure with inspiration but does not feel this is cardiac related. Patient also reports she is supposed to use CPAP at bedtime but does not. Single view CXR today shows mild pulmonary edema with small left-sided pleural effusion and mild left basilar atelectasis versus pneumonia. Patient was given IV azithromycin and ceftriaxone in the ED, however patient's shortness of breath and dyspnea are more indicative of acute exacerbation of CHF versus acute exacerbation of COPD. Patient reports she is currently fluid overloaded in her belly and does have bilateral pedal edema. She received 20 IVP Lasix in the ED and reported moderate urine production. She feels there is much more due to her abdomen not being this large usually. Patient has a medical history includes CHF, COPD, diabetes controlled with oral hyperglycemics, hypertension, HLD, Meniere's disease, and sleep apnea. She reports she has never smoked. Ms. Pugh is a moderate risk for respiratory distress and further morbidity based on current symptoms and risk factors of CHF versus COPD and will be placed his inpatient with orders for doodling nebs every 4 hours scheduled, IVP Lasix 20 mg twice a day, continuous cardiac telemetry, trend troponins 2 due to chest pain, supplemental O2 with titration if SPO2 less than 92%, continuous SPO2 monitoring, fluid restriction of 1.5 L daily, CPAP at bedtime, ABGs stat, albuterol every 2, 60 mg methylprednisolone every 6, and echocardiogram. Due to shortness of breath, patient placed with falls/safety precautions. Patient to be monitored closely for signs of increasing cardiac and/or respiratory distress. Time spent with patient greater than 40 minutes. Past Med Surg Social Fam HX - Past Medical History Source: patient Medical history: cancer, CHF, COPD, diabetes, hypertension Psychiatric history: no psych history - Past Surgical History Surgical History: appendectomy, orthopedic, other (Left knee replacement, bilateral carpal tunnel), other (Tubal ligation) - Social History Smoking Status: Never smoker Smokeless Tobacco Status: No Alcohol use: none Drug use: none Occupational status: previously employed Current living situation: Home Activity Level: Independent ambulation Recent Out of Country Travel Within the Last 8 Weeks: No Exposure or Possible Exposure to Illness During Travel: No - Family History Mother Race: Family Member Ethnicity: Non- Living Status: Still Living Hx Family Cardiac Disorders: Yes (HTN) Father Race: Family Member Ethnicity: Non- Living Status: Age at : 60 Cause of : Car accident Hx Family Cardiac Disorders: Yes (HTN) Brother Race: Family Member Ethnicity: Non- Living Status: Still Living Hx Family Cardiac Disorders: Yes (HD requiring anticoagulation) Sister Race: Family Member Ethnicity: Non- Living Status: Still Living Hx Family Musculoskeletal Disorders: Yes (Arthritis) Internal Medicine - H&P: Meds Albuterol Sulfate [Albuterol Inhaler] 1 puff IH Q6HR PRN 09/09/15 [History] Amlodipine [Norvasc] 5 mg PO DAILY 09/09/15 [History] Furosemide [Lasix] 40 mg PO DAILY 09/09/15 [History] Lovastatin [Mevacor] 40 mg PO HS 09/09/15 [History] Metoprolol [Lopressor] 50 mg PO BID 09/09/15 [History] Montelukast [Singulair] 10 mg PO DAILY 09/09/15 [History] Omeprazole [PriLOSEC] 20 mg PO DAILY 09/09/15 [History] Topiramate [Topamax] 25 mg PO QAM 09/09/15 [History] Topiramate [Topamax] 50 mg PO QPM 09/09/15 [History] Aspirin/Calcium Carbonate/Mag [Aspirin Buffered 325 mg Tab] 325 mg PO DAILY 03/04 [History] Budesonide/Formoterol 160/4.5 [Symbicort 160/4.5] 2 puff IH BID 11/21/16 [ History] Oxygen 2 l .ROUTE AD 11/21/16 [History] Ipratropium/Albuterol Neb [Duoneb] 3 ml IH [id number] PRN #0 inhsol 11/29/16 [Rx] metFORMIN [Glucophage] 1,000 mg PO BIDWM 12/20/16 [History] Citalopram Hydrobromide [Celexa] 20 mg PO DAILY #20 02/04/17 [Rx] Losartan [Cozaar] 100 mg PO DAILY #0 12/26/16 [Rx] Ferrous Sulfate 325 mg PO BID 07/06/17 [History] 3 Allergy/AdvReac Type Severity Reaction Status Date / Time Iodinated Contrast- Oral and Allergy Rash Verified 07/06/17 15:35 IV Dye [Iodinated Contrast Media - Oral and] All Systems PM: A 10-system review of systems was performed and is negative for pertinent findings except as documented above in the HPI. - Constitutional Constitutional: as per HPI, weakness, no chills, no fever(s), no night sweats - EENT Eyes: no change in vision, no discharge, no pain, no photophobia Ears: no ear discharge, no ear pain, no tinnitus Nose, mouth and throat: no dysphagia, no nasal discharge, no neck pain, no sore throat - Breasts Breasts: as per HPI - Cardiovascular Cardiovascular ROS IM: as per HPI, chest pain, dyspnea, dyspnea on exertion, orthopnea - Respiratory Respiratory: as per HPI, cough, dyspnea, dyspnea on exertion, wheezing, pain on inspiration - Gastrointestinal Gastrointestinal: no abdominal pain, no diarrhea, no hematemesis, no hematochezia, no melena, no nausea, no vomiting - Genitourinary Genitourinary: no change in urinary stream, no dysuria, no flank pain, no hematuria Menstruation: as per HPI - Musculoskeletal Musculoskeletal ROS IM: no numbness, no tingling - Integumentary Integumentary IM: no rash, no unusual bruising - Neurological Neurological ROS: no confusion, no convulsions, no focal weakness, no numbness, no tingling, no tremor(s) - Psychiatric Psychiatric: as per HPI - Endocrine Endocrine IM: as per HPI - Hematologic/Lymphatic Hematologic/Lymphatic: no easy bruising - Allergic/Immunologic Allergic/Immunologic: as per HPI - Constitutional Vitals: Temp Pulse Resp BP Pulse Ox 98.8 F 71 20 136/57 91 07/06/17 17:57 07/06/17 17:57 07/06/17 21:18 07/06/17 17:57 07/06/17 21:18 General appearance: Present: cooperative, mild distress, A&O X 3, morbidly obese , pleasant, answers questions appropriately - Head Head exam: Present: atraumatic, normocephalic - Eye Eye exam: Present: PERRL, conjuntiva pink, sclera anicteric Pupils: Present: PERRL - ENT ENT exam: Present: normal exam, normal external ear exam - Neck Neck exam general surgery: Present: normal inspection, supple, trachea midline. Absent: lymphadenopathy - Respiratory Respiratory exam: Present: accessory muscle use, decreased breath sounds, respiratory distress (Mild with speaking), wheezes - Cardiovascular Cardiovascular exam: Present: RRR, +S1, +S2. Absent: diastolic murmur, gallop, rubs, systolic murmur - GI/Abdominal GI/Abdominal exam: Present: distended, normal bowel sounds, soft, no peritoneal signs. Absent: tenderness - Rectal Rectal exam: Present: deferred - Additional comments: exam deferred. - Extremities Exam Extremities exam: Present: pedal edema, warm, radial pulses palpable and symmetrical - Back Exam Back exam: Present: normal inspection - Neurological Exam Neurological exam: Present: CN II-XII intact, oriented X3, no focal deficits. Absent: pronater drift, facial droop, speech deficit - Psychiatric Psychiatric exam: Present: normal affect, normal mood - Skin Skin exam: Present: dry, intact Internal Med - H&P Results - Labs CBC & Chem 7: 07/06/17 15:56 07/06/17 15:56 - Diagnostic Studies Chest x-ray Additional comments: Impressions Chest X-Ray 07/06/17 15:37 IMPRESSION: Mild pulmonary edema with a small left-sided pleural effusion and mild left basilar atelectasis versus pneumonia. D/ / Jing Batres MD / Jing Batres MD Interpreting Provider: Jing Batres MD <Albert Romero - Last Filed: 07/06/17 23:29> Date of Encounter: 07/06/17 Internal Medicine - H&P: HPI History of present illness: Ms. Pugh is a 72 year old female All Systems PM: A 10-system review of systems was performed and is negative for pertinent findings except as documented above in the HPI. - Constitutional Vitals: Temp Pulse Resp BP Pulse Ox 98.8 F 71 16 143/61 91 07/06/17 17:57 07/06/17 17:57 07/06/17 22:35 07/06/17 23:05 07/06/17 22:35 Internal Med - H&P Results - Labs CBC & Chem 7: 07/06/17 15:56 07/06/17 15:56 Labs: Cardiac Enzymes 07/06/17 Range/Units 21:46 Troponin I 0.00 (0-0.03) ng/mL - ABG Interpretation ABG results: 07/06/17 22:21 ABG pH 7.31 L ABG pCO2 51 H ABG pO2 65 L ABG HCO3 25.7 ABG Total CO2 27.3 H ABG O2 Saturation 90 L ABG Base Excess -1.0 - Attending Attestation I independently obtained history and examined this patient and my medical decision-making was reviewed with the nurse practitioner, Mikhail Amado. I agree with the documented findings, disposition and treatment plan as described. My findings are summarized below: Patient presented to the hospital with increasing shortness of breath. On exam heart is regular, lungs are diminished bilaterally with faint expiratory wheezes. Abdomen is obese soft nondistended. Lower extremity exam reveals bilateral pitting edema Plan: We will treat her for COPD and CHF exacerbation with IV steroids, inhaled bronchodilators and IV Lasix respectively. Daily weights strict I's and O's and fluid restriction.
[2017-07-06] MEDS: *HR* Heparin 5,000 UNIT/ML VIAL SQ SCH (21:58)
[2017-07-06 22:29] LABS: ABG HCO3 25.7 mEQ/L (21-27); ABG Oxygen Saturation 90 % (95-98); ABG PCO2 51 mmHg (35-45); ABG PH 7.31 pH Units (7.32-7.45); ABG PO2 65 mmHg (85-104); ABG TCO2 27.3 mEq/L (20-26); Blood Gas FiO2 28 %
[2017-07-07] MEDS: Ipratropium/Albuterol Neb 3 ML IH SCH ×6 (00:05→20:47)
[2017-07-07] MEDS: methylPREDNISolone 125 MG/2 ML VIAL IVP SCH ×5 (00:37→23:08)
[2017-07-07 04:08] LABS: Mean Platelet Volume 10.2 fL (9.4-12.4)
[2017-07-07 04:09] LABS: Basophils % 0.1 %
[2017-07-07 04:10] LABS: Hematocrit 34.8 % (35.3-44.9); Hemoglobin 10.3 g/dL (11.5-15.4); Immature Granulocytes % 1.5 % (0-4); Lymphocytes # 0.5 K/mcL (0.6-4.6); Lymphocytes % 6.3 %; Mean Corpuscular HGB Conc 29.6 g/dL (31.6-35.5); Mean Corpuscular Volume 87.9 fL (83.0-100.0); Monocytes % 0.4 %; Neutrophils # 6.6 K/mcL (1.6-8.9); Platelet Count 252 K/mcL (140-400); Red Blood Count 3.96 M/mcL (3.82-4.97); Red Cell Distribution Width 17.2 % (11.5-14.5); Segmented Neutrophils % 91.7 %
[2017-07-07 04:14] LABS: INR 1.1
[2017-07-07 04:16] LABS: Activated Partial Thrombo Time 30.1 Seconds (26.0-36.0)
[2017-07-07 04:20] LABS: Hemoglobin A1C 7.3 %
[2017-07-07 04:26] LABS: Calcium 8.9 mg/dL (8.6-10.8); Chol/HDL Ratio 3.8 (0-4.9); Magnesium 1.8 mg/dL (1.6-2.6)
[2017-07-07 04:36] LABS: Anisocytosis 1+ (Not Present); Hypochromasia Present (Not Present); Large Platelets Present (Not Present); Platelet Estimate Normal (Normal); Polychromasia 1+ (Not Present)
[2017-07-07] MEDS: *HR* Heparin 5,000 UNIT/ML VIAL SQ SCH ×3 (05:25→20:50)
[2017-07-07] MEDS: Insulin LISPRO 300 UNITS/3 ML VIAL SQ SCH ×4 (07:59→20:51)
[2017-07-07] MEDS: amLODIPine 5 MG TABLET PO SCH (08:00)
[2017-07-07] MEDS: Aspirin Enteric Coated 81 MG Tablet PO SCH (08:00)
[2017-07-07] MEDS: Furosemide 20 MG/2 ML VIAL IVP SCH ×2 (08:00→20:50)
[2017-07-07] MEDS: Pantoprazole 40 MG VIAL IVP SCH (08:00)
[2017-07-07] MEDS: Topiramate 25 MG TABLET PO SCH ×2 (08:01→17:51)
[2017-07-07] MEDS ORDERED: Furosemide 40 MG TABLET PO SCH (09:00)
--- NOTE | 2017-07-07 09:15 | Internal Med Progress Note ---
Date of Encounter: 07/08/17 Time of Encounter: 09:08 - Assessment and plan (1) Acute on chronic respiratory failure with hypoxemia Current Visit: Yes Status: Acute (2) Acute exacerbation of chronic obstructive pulmonary disease (COPD) Current Visit: Yes Status: Acute (3) Community acquired pneumonia Current Visit: Yes Status: Acute Qualifiers: Qualified Code(s): J18.9 - Pneumonia, unspecified organism (4) Diabetes mellitus Current Visit: Yes Status: Chronic Qualifiers: Diabetes mellitus type: type 2 Diabetes mellitus complication status: with hyperglycemia Diabetes mellitus terminal carman insulin use: without terminal carman use Qualified Code(s): E11.65 - Type 2 diabetes mellitus with hyperglycemia (5) Hypertension Current Visit: Yes Status: Chronic Qualifiers: Hypertension type: essential hypertension Qualified Code(s): I10 - Essential (primary) hypertension (6) HLD (hyperlipidemia) Current Visit: Yes Status: Chronic Qualifiers: Hyperlipidemia type: pure hypercholesterolemia Qualified Code(s): E78.00 - Pure hypercholesterolemia, unspecified; E78.0 - Pure hypercholesterolemia (7) Sleep apnea Current Visit: Yes Status: Chronic Qualifiers: Sleep apnea type: unspecified type Qualified Code(s): G47.30 - Sleep apnea , unspecified (8) DVT prophylaxis Current Visit: Yes Status: Acute - Subjective Interval history: Ms Marlen Pickering is a 72-year-old female admitted for dyspnea and pleuritic chest pain. She is diagnosed with left-sided pneumonia with pleural effusion and pleurisy. From admitting hospitalist there was also concern for CHF. In November 2016 patient had an echocardiogram showed the LV ejection fraction about 60% with normal LV systolic function and mild diastolic dysfunctionand 50 and valvular abnormality. We will treat her rather as left-sided pneumonia and COPD exacerbation. ABG reviewed which showed underlying mixed respiratory and metabolic acidosis. Problem list: #1 acute respiratory failure secondary to left-sided pneumonia with effusion and COPD exacerbation. Treatment plan is as follows. #2 sepsis syndrome secondary to pneumonia #3 left-sided pneumonia with the effusion. IV Rocephin and Levaquin and blood cultures are pending. Follow CBC daily. #4 acute exacerbation of COPD. IV steroid med nebs and Mucinex added. Follow patient clinically on daily basis. #5 acute diastolic congestive heart failure low-dose Lasix as appropriate continue monitoring daily I's and O's. Echocardiogram done in November 2016 showed EF greater than 65% normal LV systolic function mild diastolic dysfunction to conference are negative patient is on GALINA inhibitor and Lasix to #6 pleurisy or ibuprofen and [place] when necessary. Incentive spirometry. #7 diabetes and to check 4 times a day with sliding scale coverage daily monitoring #8 hypertension home medication daily monitoring - Constitutional Vitals: Temp Pulse Resp BP Pulse Ox 97.9 F 69 16 138/54 93 07/07/17 06:47 07/07/17 06:47 07/07/17 07:47 07/07/17 06:47 07/07/17 07:47 General appearance: Present: cooperative, mild distress, A&O X 3, morbidly obese , pleasant, answers questions appropriately - Head Head exam: Present: atraumatic, normocephalic - Eye Eye exam: Present: PERRL, conjuntiva pink, sclera anicteric Pupils: Present: PERRL - Neck Neck exam general surgery: Present: supple, trachea midline. Absent: lymphadenopathy - Respiratory Respiratory exam: Present: decreased breath sounds, rhonchi, wheezes. Absent: accessory muscle use, rales - Cardiovascular Cardiovascular exam: Present: RRR, +S1, +S2. Absent: diastolic murmur, gallop, rubs, systolic murmur - GI/Abdominal GI/Abdominal exam: Present: normal bowel sounds, soft, no peritoneal signs. Absent: distended, tenderness - Extremities Exam Extremities exam: Present: warm, radial pulses palpable and symmetrical. Absent : calf tenderness, cyanotic, pedal edema - Neurological Exam Neurological exam: Present: CN II-XII intact, oriented X3, no focal deficits. Absent: pronater drift, facial droop, speech deficit - Skin Skin exam: Present: dry, intact Internal Medicine: Result - Labs CBC & Chem 7: 07/08/17 04:28 07/08/17 04:28 Labs: Short CBC 07/07/17 Range/Units 03:40 WBC 7.2 (4.3-11.1) K/mcL Hgb 10.3 L (11.5-15.4) g/dL Hct 34.8 L (35.3-44.9) % Plt Count 252 (140-400) K/mcL Neutrophils # 6.6 (1.6-8.9) K/mcL BMP 07/07/17 03:40 Sodium 142 Potassium 4.0 Chloride 107 Carbon Dioxide 27 BUN 26 H Creatinine 1.11 Glucose 255 H Calcium 8.9 Cardiac Enzymes 07/06/17 07/07/17 Range/Units 21:46 03:40 Troponin I 0.00 0.00 (0-0.03) ng/mL - ABG Interpretation ABG results: ABG ABG pH 7.31 pH Units (7.32-7.45) L 07/06/17 22:21 ABG pCO2 51 mmHg (35-45) H 07/06/17 22:21 ABG pO2 65 mmHg (85-104) L 07/06/17 22:21 ABG O2 Saturation 90 % (95-98) L 07/06/17 22:21 PT/INR, D-dimer PT 12.0 Seconds (9.4-12.1) 07/07/17 03:40 Consult Discharge Plan - Plan Referrals: Jesusita Paiz MD [Primary Care Provider] -
[2017-07-07] MEDS: Ibuprofen 400 MG TABLET PO SCH ×3 (10:30→23:08)
[2017-07-07] MEDS: *HR* HYDROcodone/Acet 5/325 mg TABLET PO PRN (10:31)
--- NOTE | 2017-07-07 17:20 | Electrocardiograph Report ---
[address] [address] Test Date: 2017-07-06 Pat Name: Marlen Pugh Department: 102 Room: 2NE18 Gender: F Supervisor Molding: : 1945 Requested By: Mikhail Kraft Order Number: [id number] Reading MD: Favio Vela MD Measurements Intervals [place] Rate: 62 P: 79 NH: 166 QRS: 30 QRSD: 98 T: 28 QT: 407 QTc: 413 Interpretive Statements SINUS RHYTHM Electronically Signed On 07-07-2017 17:17:40 EDT by Favio Vela MD
--- NOTE | 2017-07-07 18:16 | Electrocardiograph Report ---
[place] [address] Test Date: 2017-07-06 Pat Name: Malren Pugh Department: 111 Room: 2NE18 Gender: F Narrow Gauge Engineer: BETSEY : 1945 Requested By: Arnoldo Stein Order Number: [id number] Reading MD: Favio Vela MD Measurements Intervals [place] Rate: 81 P: 81 DC: 175 QRS: 29 QRSD: 94 T: 28 QT: 396 QTc: 434 Interpretive Statements SINUS RHYTHM Electronically Signed On 07-07-2017 18:14:16 EDT by Favio Vela MD
[2017-07-08] MEDS: Ipratropium/Albuterol Neb 3 ML IH SCH ×6 (00:23→19:41)
[2017-07-08] MEDS: *HR* Heparin 5,000 UNIT/ML VIAL SQ SCH ×3 (05:18→21:53)
[2017-07-08 05:19] LABS: Basophils % 0.1 %; Nucleated Red Blood Cells 0.2 /100 WBC (0)
[2017-07-08] MEDS: methylPREDNISolone 125 MG/2 ML VIAL IVP SCH ×4 (05:19→23:58)
[2017-07-08 05:21] LABS: Hematocrit 34.3 % (35.3-44.9); Hemoglobin 9.9 g/dL (11.5-15.4); Immature Granulocytes % 1.5 % (0-4); Lymphocytes # 0.5 K/mcL (0.6-4.6); Mean Corpuscular HGB Conc 28.9 g/dL (31.6-35.5); Mean Corpuscular Hemoglobin 25.8 pg (28.0-33.3); Mean Corpuscular Volume 89.6 fL (83.0-100.0); Mean Platelet Volume 10.8 fL (9.4-12.4); Monocytes # 0.2 K/mcL (0.0-1.3); Monocytes % 1.5 %; Neutrophils # 10.5 K/mcL (1.6-8.9); Platelet Count 275 K/mcL (140-400); Red Blood Count 3.83 M/mcL (3.82-4.97); Red Cell Distribution Width 17.1 % (11.5-14.5); Segmented Neutrophils % 92.9 %
[2017-07-08 05:37] LABS: Alanine Aminotransferase 7 Units/L (0-55); Albumin/Globulin Ratio 0.8 (1.1-2.2); Alkaline Phosphatase 107 Units/L (38-126); Aspartate Amino Transferase 7 Units/L (5-34); BUN/Creatinine Ratio 33 (6-26); Calcium 9.3 mg/dL (8.6-10.8); Carbon Dioxide 30 mEq/L (19-29); Chloride 105 mEq/L (98-109); Globulin 3.6 g/dL (2.4-3.5); Glucose 335 mg/dL (70-99); Osmolality,Calculated 320 (280-300); Sodium 143 mEq/L (136-145); Total Protein 6.6 g/dL (6.0-8.3); eGFR For African Americans 47 (> 60); eGFR For Non-African Americans 39 (> 60)
[2017-07-08 05:38] LABS: Bilirubin,Total < 0.3 mg/dL (0.2-1.2); Blood Urea Nitrogen 44 mg/dL (7-20)
[2017-07-08 06:18] LABS: Platelet Estimate Normal (Normal)
[2017-07-08] MEDS: amLODIPine 5 MG TABLET PO SCH (08:16)
[2017-07-08] MEDS: Topiramate 25 MG TABLET PO SCH ×2 (08:16→16:48)
[2017-07-08] MEDS: Aspirin Enteric Coated 81 MG Tablet PO SCH (08:17)
[2017-07-08] MEDS: Pantoprazole 40 MG VIAL IVP SCH (08:18)
[2017-07-08] MEDS: Furosemide 20 MG/2 ML VIAL IVP SCH ×2 (08:18→21:53)
[2017-07-08] MEDS: Ibuprofen 400 MG TABLET PO SCH ×3 (08:22→23:59)
[2017-07-08] MEDS: Insulin LISPRO 300 UNITS/3 ML VIAL SQ SCH ×4 (08:24→22:01)
[2017-07-08] MEDS: *HR* HYDROcodone/Acet 5/325 mg TABLET PO PRN (12:00)
--- NOTE | 2017-07-08 14:00 | Internal Med Progress Note ---
Date of Encounter: 07/08/17 Time of Encounter: 13:58 - Assessment and plan (1) Acute on chronic respiratory failure with hypoxemia Current Visit: Yes Status: Acute (2) Acute exacerbation of chronic obstructive pulmonary disease (COPD) Current Visit: Yes Status: Acute (3) Community acquired pneumonia Current Visit: Yes Status: Acute Qualifiers: Laterality: unspecified laterality Qualified Code(s): J18.9 - Pneumonia, unspecified organism (4) Diabetes mellitus Current Visit: Yes Status: Chronic Qualifiers: Diabetes mellitus type: type 2 Diabetes mellitus complication status: with hyperglycemia Diabetes mellitus custodial insulin use: without custodial use Qualified Code(s): E11.65 - Type 2 diabetes mellitus with hyperglycemia (5) Hypertension Current Visit: Yes Status: Chronic Qualifiers: Hypertension type: essential hypertension Qualified Code(s): I10 - Essential (primary) hypertension (6) HLD (hyperlipidemia) Current Visit: Yes Status: Chronic Qualifiers: Hyperlipidemia type: pure hypercholesterolemia Qualified Code(s): E78.00 - Pure hypercholesterolemia, unspecified; E78.0 - Pure hypercholesterolemia (7) Sleep apnea Current Visit: Yes Status: Chronic Qualifiers: Sleep apnea type: unspecified type Qualified Code(s): G47.30 - Sleep apnea , unspecified (8) DVT prophylaxis Current Visit: Yes Status: Acute - Subjective Interval history: Ms Marlen Pickering is a 72-year-old female admitted for dyspnea and pleuritic chest pain. She is diagnosed with left-sided pneumonia with pleural effusion and pleurisy. From admitting hospitalist there was also concern for CHF. In November 2016 patient had an echocardiogram showed the LV ejection fraction about 60% with normal LV systolic function and mild diastolic dysfunctionand 50 and valvular abnormality. We will treat her rather as left-sided pneumonia and COPD exacerbation. ABG reviewed which showed underlying mixed respiratory and metabolic acidosis. Problem list: #1 acute respiratory failure secondary to left-sided pneumonia with effusion and COPD exacerbation. Treatment plan is as follows. #2 sepsis syndrome secondary to pneumonia #3 left-sided pneumonia with the effusion. IV Rocephin and Levaquin and blood cultures are pending. Follow CBC daily. #4 acute exacerbation of COPD. IV steroid med nebs and Mucinex added. Follow patient clinically on daily basis. #5 acute diastolic congestive heart failure low-dose Lasix as appropriate continue monitoring daily I's and O's. Echocardiogram done in November 2016 showed EF greater than 65% normal LV systolic function mild diastolic dysfunction to conference are negative patient is on GALINA inhibitor and Lasix to #6 pleurisy or ibuprofen and [place] when necessary. Incentive spirometry. #7 diabetes and to check 4 times a day with sliding scale coverage daily monitoring #8 hypertension home medication daily monitoring Breathing has improved. Probably over diuresed. Off Lasix. Continue monitoring labs and reduce IV Solu-Medrol to every 8 hours. She claims that the with ambulation she is becoming dyspneic. PT OT is working with her. [facility] quite short SNF stay. - Constitutional Vitals: Temp Pulse Resp BP Pulse Ox 97.7 F 72 18 165/62 96 07/08/17 11:12 07/08/17 11:12 07/08/17 11:12 07/08/17 11:12 07/08/17 12:00 General appearance: Present: cooperative, mild distress, A&O X 3, morbidly obese , pleasant, answers questions appropriately - Head Head exam: Present: atraumatic, normocephalic - Eye Eye exam: Present: PERRL, conjuntiva pink, sclera anicteric Pupils: Present: PERRL - Neck Neck exam general surgery: Present: supple, trachea midline. Absent: lymphadenopathy - Respiratory Respiratory exam: Present: decreased breath sounds. Absent: accessory muscle use, rales, rhonchi, wheezes - Cardiovascular Cardiovascular exam: Present: RRR, +S1, +S2. Absent: diastolic murmur, gallop, rubs, systolic murmur - GI/Abdominal GI/Abdominal exam: Present: normal bowel sounds, soft, no peritoneal signs. Absent: distended, tenderness - Extremities Exam Extremities exam: Present: warm, radial pulses palpable and symmetrical. Absent : calf tenderness, cyanotic, pedal edema - Neurological Exam Neurological exam: Present: CN II-XII intact, oriented X3, no focal deficits. Absent: pronater drift, facial droop, speech deficit - Skin Skin exam: Present: dry, intact Internal Medicine: Result - Labs CBC & Chem 7: 07/08/17 04:28 07/08/17 04:28 Labs: Short CBC 07/08/17 Range/Units 04:28 WBC 11.3 H D (4.3-11.1) K/mcL Hgb 9.9 L (11.5-15.4) g/dL Hct 34.3 L (35.3-44.9) % Plt Count 275 (140-400) K/mcL Neutrophils # 10.5 H (1.6-8.9) K/mcL BMP 07/08/17 04:28 Sodium 143 Potassium 4.0 Chloride 105 Carbon Dioxide 30 H BUN 44 H D Creatinine 1.34 H Glucose 335 H Calcium 9.3 Liver Function 07/08/17 Range/Units 04:28 Total Bilirubin < 0.3 (0.2-1.2) mg/dL AST 7 (5-34) Units/L ALT 7 (0-55) Units/L Alkaline Phosphatase 107 (38-126) Units/L Albumin 3.0 L (3.5-5.0) g/dL - ABG Interpretation ABG results: ABG ABG pH 7.31 pH Units (7.32-7.45) L 07/06/17 22:21 ABG pCO2 51 mmHg (35-45) H 07/06/17 22:21 ABG pO2 65 mmHg (85-104) L 07/06/17 22:21 ABG O2 Saturation 90 % (95-98) L 07/06/17 22:21 PT/INR, D-dimer PT 12.0 Seconds (9.4-12.1) 07/07/17 03:40 Consult Discharge Plan - Plan Referrals: Jesusita Paiz MD [Primary Care Provider] -
[2017-07-08] MEDS ORDERED: Insulin DETEMIR 100 UNIT/ML X5UNITS SQ SCH (21:00)
[2017-07-09] MEDS: Ipratropium/Albuterol Neb 3 ML IH SCH ×7 (00:13→23:31)
[2017-07-09 05:42] LABS: Basophils % 0.1 %; Hematocrit 34.9 % (35.3-44.9); Hemoglobin 9.7 g/dL (11.5-15.4); Immature Granulocytes % 2.1 % (0-4); Lymphocytes # 0.4 K/mcL (0.6-4.6); Lymphocytes % 3.3 %; Mean Corpuscular HGB Conc 27.8 g/dL (31.6-35.5); Mean Corpuscular Hemoglobin 24.9 pg (28.0-33.3); Mean Corpuscular Volume 89.7 fL (83.0-100.0); Mean Platelet Volume 10.4 fL (9.4-12.4); Monocytes # 0.1 K/mcL (0.0-1.3); Monocytes % 1.3 %; Neutrophils # 10.4 K/mcL (1.6-8.9); Nucleated Red Blood Cells 0.2 /100 WBC (0); Platelet Count 287 K/mcL (140-400); Red Blood Count 3.89 M/mcL (3.82-4.97); Red Cell Distribution Width 17.1 % (11.5-14.5); Segmented Neutrophils % 93.2 %
[2017-07-09 05:56] LABS: Alanine Aminotransferase 9 Units/L (0-55); Albumin 2.9 g/dL (3.5-5.0); Albumin/Globulin Ratio 0.9 (1.1-2.2); Alkaline Phosphatase 101 Units/L (38-126); Aspartate Amino Transferase 7 Units/L (5-34); BUN/Creatinine Ratio 42 (6-26); Blood Urea Nitrogen 48 mg/dL (7-20); Calcium 9.4 mg/dL (8.6-10.8); Carbon Dioxide 36 mEq/L (19-29); Chloride 105 mEq/L (98-109); Globulin 3.4 g/dL (2.4-3.5); Glucose 255 mg/dL (70-99); Osmolality,Calculated 317 (280-300); Potassium 4.3 mEq/L (3.5-4.5); Sodium 143 mEq/L (136-145); Total Protein 6.3 g/dL (6.0-8.3); eGFR For African Americans 58 (> 60); eGFR For Non-African Americans 47 (> 60)
[2017-07-09 05:58] LABS: Bilirubin,Total < 0.3 mg/dL (0.2-1.2)
[2017-07-09 06:12] LABS: Anisocytosis 1+ (Not Present)
[2017-07-09 06:13] LABS: Hypersegmented Neutrophils Present (Not Present); Hypochromasia Present (Not Present); Large Platelets Present (Not Present); Platelet Estimate Normal (Normal)
[2017-07-09] MEDS: *HR* Heparin 5,000 UNIT/ML VIAL SQ SCH ×3 (06:53→20:48)
[2017-07-09] MEDS: Aspirin Enteric Coated 81 MG Tablet PO SCH (08:36)
[2017-07-09] MEDS: Topiramate 25 MG TABLET PO SCH ×2 (08:36→16:37)
[2017-07-09] MEDS: amLODIPine 5 MG TABLET PO SCH (08:36)
[2017-07-09] MEDS: methylPREDNISolone 125 MG/2 ML VIAL IVP SCH ×2 (08:37→15:43)
[2017-07-09] MEDS: Furosemide 20 MG/2 ML VIAL IVP SCH ×2 (08:37→16:38)
[2017-07-09] MEDS: Insulin LISPRO 300 UNITS/3 ML VIAL SQ SCH ×6 (08:40→20:50)
[2017-07-09] MEDS: Ibuprofen 600 MG TABLET PO SCH (15:43)
--- NOTE | 2017-07-09 16:15 | Internal Med Progress Note ---
Date of Encounter: 07/09/17 Time of Encounter: 16:14 - Assessment and plan (1) Acute on chronic respiratory failure with hypoxemia Current Visit: Yes Status: Acute (2) Acute exacerbation of chronic obstructive pulmonary disease (COPD) Current Visit: Yes Status: Acute (3) Community acquired pneumonia Current Visit: Yes Status: Acute Qualifiers: Laterality: unspecified laterality Qualified Code(s): J18.9 - Pneumonia, unspecified organism (4) Diabetes mellitus Current Visit: Yes Status: Chronic Qualifiers: Diabetes mellitus type: type 2 Diabetes mellitus complication status: with hyperglycemia Diabetes mellitus long-term insulin use: without long-term use Qualified Code(s): E11.65 - Type 2 diabetes mellitus with hyperglycemia (5) Hypertension Current Visit: Yes Status: Chronic Qualifiers: Hypertension type: essential hypertension Qualified Code(s): I10 - Essential (primary) hypertension (6) HLD (hyperlipidemia) Current Visit: Yes Status: Chronic Qualifiers: Hyperlipidemia type: pure hypercholesterolemia Qualified Code(s): E78.00 - Pure hypercholesterolemia, unspecified; E78.0 - Pure hypercholesterolemia (7) Sleep apnea Current Visit: Yes Status: Chronic Qualifiers: Sleep apnea type: unspecified type Qualified Code(s): G47.30 - Sleep apnea , unspecified (8) DVT prophylaxis Current Visit: Yes Status: Acute - Subjective Interval history: Ms Marlen Pickering is a 72-year-old female admitted for dyspnea and pleuritic chest pain. She is diagnosed with left-sided pneumonia with pleural effusion and pleurisy. From admitting hospitalist there was also concern for CHF. In November 2016 patient had an echocardiogram showed the LV ejection fraction about 60% with normal LV systolic function and mild diastolic dysfunctionand 50 and valvular abnormality. We will treat her rather as left-sided pneumonia and COPD exacerbation. ABG reviewed which showed underlying mixed respiratory and metabolic acidosis. Problem list: #1 acute respiratory failure secondary to left-sided pneumonia with effusion and COPD exacerbation. Treatment plan is as follows. #2 sepsis syndrome secondary to pneumonia #3 left-sided pneumonia with the effusion. IV Rocephin and Levaquin and blood cultures are pending. Follow CBC daily. #4 acute exacerbation of COPD. IV steroid med nebs and Mucinex added. Follow patient clinically on daily basis. #5 acute diastolic congestive heart failure low-dose Lasix as appropriate continue monitoring daily I's and O's. Echocardiogram done in November 2016 showed EF greater than 65% normal LV systolic function mild diastolic dysfunction to conference are negative patient is on GALINA inhibitor and Lasix to #6 pleurisy or ibuprofen and [place] when necessary. Incentive spirometry. #7 diabetes and to check 4 times a day with sliding scale coverage daily monitoring #8 hypertension home medication daily monitoring Breathing has improved. Probably over diuresed. Off Lasix. Continue monitoring labs and reduce IV Solu-Medrol to every 8 hours. She claims that the with ambulation she is becoming dyspneic. Insulin readjusted as blood sugars are still running high PT OT is working with her. [facility] quite short SNF stay. - Constitutional Vitals: Temp Pulse Resp BP Pulse Ox 98.1 F 64 18 163/56 96 07/09/17 15:00 07/09/17 15:00 07/09/17 16:01 07/09/17 15:00 07/09/17 16:01 General appearance: Present: cooperative, mild distress, A&O X 3, morbidly obese , pleasant, answers questions appropriately - Head Head exam: Present: atraumatic, normocephalic - Eye Eye exam: Present: PERRL, conjuntiva pink, sclera anicteric Pupils: Present: PERRL - Neck Neck exam general surgery: Present: supple, trachea midline. Absent: lymphadenopathy - Respiratory Respiratory exam: Present: CTAB. Absent: accessory muscle use, rales, rhonchi, wheezes - Cardiovascular Cardiovascular exam: Present: RRR, +S1, +S2. Absent: diastolic murmur, gallop, rubs, systolic murmur - GI/Abdominal GI/Abdominal exam: Present: normal bowel sounds, soft, no peritoneal signs. Absent: distended, tenderness - Extremities Exam Extremities exam: Present: warm, radial pulses palpable and symmetrical. Absent : calf tenderness, cyanotic, pedal edema - Neurological Exam Neurological exam: Present: CN II-XII intact, oriented X3, no focal deficits. Absent: pronater drift, facial droop, speech deficit - Skin Skin exam: Present: dry, intact Internal Medicine: Result - Labs CBC & Chem 7: 07/09/17 05:24 07/09/17 05:24 Labs: Short CBC 07/09/17 Range/Units 05:24 WBC 11.1 (4.3-11.1) K/mcL Hgb 9.7 L (11.5-15.4) g/dL Hct 34.9 L (35.3-44.9) % Plt Count 287 (140-400) K/mcL Neutrophils # 10.4 H (1.6-8.9) K/mcL BMP 07/09/17 05:24 Sodium 143 Potassium 4.3 Chloride 105 Carbon Dioxide 36 H BUN 48 H Creatinine 1.13 H Glucose 255 H Calcium 9.4 Liver Function 07/09/17 Range/Units 05:24 Total Bilirubin < 0.3 (0.2-1.2) mg/dL AST 7 (5-34) Units/L ALT 9 (0-55) Units/L Alkaline Phosphatase 101 (38-126) Units/L Albumin 2.9 L (3.5-5.0) g/dL - ABG Interpretation ABG results: ABG ABG pH 7.31 pH Units (7.32-7.45) L 07/06/17 22:21 ABG pCO2 51 mmHg (35-45) H 07/06/17 22:21 ABG pO2 65 mmHg (85-104) L 07/06/17 22:21 ABG O2 Saturation 90 % (95-98) L 07/06/17 22:21 PT/INR, D-dimer PT 12.0 Seconds (9.4-12.1) 07/07/17 03:40 Consult Discharge Plan - Plan Referrals: Jesusita Paiz MD [Primary Care Provider] - 07/16/17 10:45 am
[2017-07-09] MEDS: *HR* HYDROcodone/Acet 5/325 mg TABLET PO SCH (20:48)
[2017-07-09] MEDS ORDERED: Insulin DETEMIR 100 UNIT/ML X5UNITS SQ SCH (21:00)
[2017-07-10] MEDS: methylPREDNISolone 125 MG/2 ML VIAL IVP SCH ×2 (01:30→08:20)
[2017-07-10] MEDS: Ipratropium/Albuterol Neb 3 ML IH SCH ×4 (03:48→15:15)
[2017-07-10] MEDS: Ibuprofen 600 MG TABLET PO SCH ×2 (03:55→08:19)
[2017-07-10 03:56] LABS: Segmented Neutrophils % 89.7 %
[2017-07-10 03:58] LABS: Basophils % 0.1 %; Hematocrit 35.3 % (35.3-44.9); Hemoglobin 10.1 g/dL (11.5-15.4); Immature Granulocytes % 2.9 % (0-4); Lymphocytes # 0.4 K/mcL (0.6-4.6); Lymphocytes % 4.3 %; Mean Corpuscular HGB Conc 28.6 g/dL (31.6-35.5); Mean Corpuscular Hemoglobin 25.4 pg (28.0-33.3); Mean Corpuscular Volume 88.9 fL (83.0-100.0); Mean Platelet Volume 10.5 fL (9.4-12.4); Monocytes # 0.3 K/mcL (0.0-1.3); Neutrophils # 8.7 K/mcL (1.6-8.9); Nucleated Red Blood Cells 0.2 /100 WBC (0); Platelet Count 291 K/mcL (140-400); Red Blood Count 3.97 M/mcL (3.82-4.97); Red Cell Distribution Width 17.2 % (11.5-14.5)
[2017-07-10] MEDS: *HR* HYDROcodone/Acet 5/325 mg TABLET PO SCH (03:58)
[2017-07-10 04:15] LABS: Alanine Aminotransferase 7 Units/L (0-55); Albumin/Globulin Ratio 0.9 (1.1-2.2); Alkaline Phosphatase 97 Units/L (38-126); Aspartate Amino Transferase 8 Units/L (5-34); BUN/Creatinine Ratio 45 (6-26); Blood Urea Nitrogen 44 mg/dL (7-20); Calcium 9.5 mg/dL (8.6-10.8); Carbon Dioxide 32 mEq/L (19-29); Chloride 104 mEq/L (98-109); Globulin 3.3 g/dL (2.4-3.5); Glucose 248 mg/dL (70-99); Osmolality,Calculated 317 (280-300); Potassium 4.2 mEq/L (3.5-4.5); Sodium 144 mEq/L (136-145); Total Protein 6.3 g/dL (6.0-8.3); eGFR For African Americans > 60 (> 60); eGFR For Non-African Americans 56 (> 60)
[2017-07-10 04:23] LABS: Bilirubin,Total < 0.3 mg/dL (0.2-1.2)
[2017-07-10 04:47] LABS: Hypochromasia Present (Not Present); Platelet Estimate Normal (Normal)
[2017-07-10] MEDS: *HR* Heparin 5,000 UNIT/ML VIAL SQ SCH (07:01)
--- NOTE | 2017-07-10 08:09 | Electrocardiograph Report ---
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
[2017-07-10] MEDS: Insulin LISPRO 300 UNITS/3 ML VIAL SQ SCH ×2 (08:17)
[2017-07-10] MEDS: Aspirin Enteric Coated 81 MG Tablet PO SCH (08:18)
[2017-07-10] MEDS: Topiramate 25 MG TABLET PO SCH (08:18)
[2017-07-10] MEDS: amLODIPine 5 MG TABLET PO SCH (08:19)
[2017-07-10] MEDS: Furosemide 20 MG/2 ML VIAL IVP SCH (08:19)
[2017-07-10 11:45] VITALS: BP 176/87
--- NOTE | 2017-07-10 14:19 | Discharge Summary ---
Date of Encounter: 07/10/17 Time of Encounter: 14:14 - Discharge Diagnosis (1) Acute on chronic respiratory failure with hypoxemia Priority: Primary Status: Acute (2) Acute exacerbation of chronic obstructive pulmonary disease (COPD) Priority: Secondary Status: Acute (3) Community acquired pneumonia Priority: Secondary Status: Acute Qualifiers: Laterality: unspecified laterality Qualified Code(s): J18.9 - Pneumonia, unspecified organism (4) Diabetes mellitus Priority: Secondary Status: Chronic Qualifiers: Diabetes mellitus type: type 2 Diabetes mellitus complication status: with hyperglycemia Diabetes mellitus penitentiary insulin use: without penitentiary use Qualified Code(s): E11.65 - Type 2 diabetes mellitus with hyperglycemia (5) Hypertension Priority: Secondary Status: Chronic Qualifiers: Hypertension type: essential hypertension Qualified Code(s): I10 - Essential (primary) hypertension (6) HLD (hyperlipidemia) Priority: Secondary Status: Chronic Qualifiers: Hyperlipidemia type: pure hypercholesterolemia Qualified Code(s): E78.00 - Pure hypercholesterolemia, unspecified; E78.0 - Pure hypercholesterolemia (7) Sleep apnea Priority: Secondary Status: Chronic Qualifiers: Sleep apnea type: unspecified type Qualified Code(s): G47.30 - Sleep apnea , unspecified (8) DVT prophylaxis Priority: Secondary Status: Acute - Discharge Medications Prescriptions: Cefuroxime PO [Ceftin] 500 mg PO Q12HR #20 tablet levoFLOXacin [Levaquin] 500 mg PO DAILY #6 tablet predniSONE [PredniSONE] 40 mg PO BIDWM #20 tablet Home Medications: Furosemide [Lasix] 40 mg PO DAILY 09/09/15 [History] Lovastatin [Mevacor] 40 mg PO HS 09/09/15 [History] Metoprolol [Lopressor] 50 mg PO BID 09/09/15 [History] Montelukast [Singulair] 10 mg PO DAILY 09/09/15 [History] Omeprazole [PriLOSEC] 20 mg PO DAILY 09/09/15 [History] Topiramate [Topamax] 25 mg PO QAM 09/09/15 [History] Topiramate [Topamax] 50 mg PO QPM 09/09/15 [History] Oxygen 2 l .ROUTE AD 11/21/16 [History] metFORMIN [Glucophage] 1,000 mg PO BIDWM 12/20/16 [History] Citalopram Hydrobromide [Celexa] 20 mg PO DAILY #20 12/22/16 [Rx] Losartan [Cozaar] 100 mg PO DAILY #0 12/26/16 [Rx] Ferrous Sulfate 325 mg PO BID 07/06/17 [History] Acetaminophen [Tylenol] 650 mg PO Q6HR PRN tab 07/10/17 [Rx] Albuterol Neb [Proventil Neb] 2.5 mg IH Q2H PRN inh 07/10/17 [Rx] Aspirin Enteric Coated [Aspirin EC] 81 mg PO DAILY 07/10/17 [Rx] Cefuroxime PO [Ceftin] 500 mg PO Q12HR #20 tablet 07/10/17 [Rx] Docusate [Colace] 100 mg PO BID PRN 07/10/17 [Rx] GuaiFENesin ER [Mucinex] 600 mg PO BID 07/10/17 [Rx] Insulin DETEMIR [Levemir] 55 unit SQ HS 07/10/17 [Rx] Insulin LISPRO [HumaLOG] 0 units SQ HS vial 07/10/17 [Rx] Insulin LISPRO [HumaLOG] 0 units SQ TIDAC vial 07/10/17 [Rx] Ipratropium/Albuterol Neb [Duoneb] 3 ml IH Q6HR inh 07/10/17 [Rx] Nitroglycerin 0.4 mg SL Q5MIN PRN 07/10/17 [Rx] Omeprazole [PriLOSEC] 20 mg PO DAILY@0630 07/10/17 [Rx] amLODIPine [Norvasc] 10 mg PO DAILY tab 07/10/17 [Rx] levoFLOXacin [Levaquin] 500 mg PO DAILY #6 tablet 07/10/17 [Rx] predniSONE [PredniSONE] 40 mg PO BIDWM #20 tablet 07/10/17 [Rx] Allergies/Adverse Reactions: 3 Allergy/AdvReac Type Severity Reaction Status Date / Time Iodinated Contrast- Oral and Allergy Rash Verified 07/06/17 15:35 IV Dye [Iodinated Contrast Media - Oral and] Procedures/tests Complete & Pending: Procedures Performed prior 72 hours Category Date Time Status ECG 12 lead ECG [ECG] Routine Y 07/09/17 10:50 Completed Date of admission: 07/06/17 21:17 Primary care physician: Jesusita Paiz Discharging clinician: Cm Jesus Anticipated date of discharge: 07/10/17 - Patient Status Disposition: Transfer SNF Condition: Good Overall status at discharge: patient is progressing back to baseline - Discharge Instructions Follow Up With: Jesusita Paiz MD [Primary Care Provider] - 07/16/17 10:45 am - Diet and Activity Activity: as per physical therapy Diet: advance to your usual diet, diabetic diet, low fat, low cholesterol, low salt diet Hospital course: Ms Marlen Pickering is a 72-year-old female admitted for dyspnea and pleuritic chest pain. She is diagnosed with left-sided pneumonia with pleural effusion and pleurisy. From admitting hospitalist there was also concern for CHF. In November 2016 patient had an echocardiogram showed the LV ejection fraction about 60% with normal LV systolic function and mild diastolic dysfunctionand 50 and valvular abnormality. We treated her rather as left-sided pneumonia and COPD exacerbation. ABG reviewed which showed underlying mixed respiratory and metabolic acidosis. Problem list: #1 acute respiratory failure secondary to left-sided pneumonia with effusion and COPD exacerbation. Resolved. #2 sepsis syndrome secondary to pneumonia Resolved #3 left-sided pneumonia with the effusion. IV Rocephin and Levaquin and blood cultures are negative and white count has normalized. #4 acute exacerbation of COPD. IV steroid med nebs and Mucinex tried and now her chest examination is clear. #5 acute diastolic congestive heart failure low-dose Lasix as appropriate continue monitoring daily I's and O's. Echocardiogram done in November 2016 showed EF greater than 65% normal LV systolic function mild diastolic dysfunction to conference are negative patient is on GALINA inhibitor and Lasix #6 pleurisy treated with ibuprofen and [place] and now has Resolved #7 diabetes and to check 4 times a day with sliding scale coverage daily monitoring it. Due to steroids blood sugars are elevated and managed with sliding scale. #8 hypertension home medication daily monitoring. Essentially remained in stable but only today was high. Continue home medication and watch it closely. Breathing has improved. Probably over diuresed. Off Lasix. Plan is to send her to rehabilitation today. - Time Spent with Patient Total time spent providing and/or coordinating discharge services: Greater than 30 minutes - Constitutional Vitals: Temp Pulse Resp BP Pulse Ox 97.7 F 78 14 176/87 94 07/10/17 11:40 07/10/17 11:40 07/10/17 11:40 07/10/17 11:40 07/10/17 11:40 General appearance: Present: cooperative, mild distress, A&O X 3, morbidly obese , pleasant, answers questions appropriately - Head Head exam: Present: atraumatic, normocephalic - Eye Eye exam: Present: PERRL, conjuntiva pink, sclera anicteric Pupils: Present: PERRL - Neck Neck exam general surgery: Present: supple, trachea midline. Absent: lymphadenopathy - Respiratory Respiratory exam: Present: CTAB. Absent: accessory muscle use, rales, rhonchi, wheezes - Cardiovascular Cardiovascular exam: Present: RRR, +S1, +S2. Absent: diastolic murmur, gallop, rubs, systolic murmur - GI/Abdominal GI/Abdominal exam: Present: normal bowel sounds, soft, no peritoneal signs. Absent: distended, tenderness - Extremities Exam Extremities exam: Present: warm, radial pulses palpable and symmetrical. Absent : calf tenderness, cyanotic, pedal edema - Neurological Exam Neurological exam: Present: CN II-XII intact, oriented X3, no focal deficits. Absent: pronater drift, facial droop, speech deficit - Skin Skin exam: Present: dry, intact
--- NOTE | 2017-07-10 14:34 | Physician Discharge Referral ---
ExtendedCare Referral Info Transfer To: snf Provider in Charge: jhonny Provider in Charge after Transfer: PCP Institutional Level of Care: Skilled - Diagnosis (1) Acute on chronic respiratory failure with hypoxemia Status: Acute (2) Acute exacerbation of chronic obstructive pulmonary disease (COPD) Status: Acute (3) Community acquired pneumonia Status: Acute (4) Diabetes mellitus Status: Chronic (5) Hypertension Status: Chronic (6) HLD (hyperlipidemia) Status: Chronic (7) Sleep apnea Status: Chronic (8) DVT prophylaxis Status: Acute - Transfer Medications Prescriptions: Cefuroxime PO [Ceftin] 500 mg PO Q12HR #20 tablet levoFLOXacin [Levaquin] 500 mg PO DAILY #6 tablet predniSONE [PredniSONE] 40 mg PO BIDWM #20 tablet Home Medications: Furosemide [Lasix] 40 mg PO DAILY 09/09/15 [History] Lovastatin [Mevacor] 40 mg PO HS 09/09/15 [History] Metoprolol [Lopressor] 50 mg PO BID 09/09/15 [History] Montelukast [Singulair] 10 mg PO DAILY 09/09/15 [History] Omeprazole [PriLOSEC] 20 mg PO DAILY 09/09/15 [History] Topiramate [Topamax] 25 mg PO QAM 09/09/15 [History] Topiramate [Topamax] 50 mg PO QPM 09/09/15 [History] Oxygen 2 l .ROUTE AD 11/21/16 [History] metFORMIN [Glucophage] 1,000 mg PO BIDWM 12/20/16 [History] Citalopram Hydrobromide [Celexa] 20 mg PO DAILY #20 12/22/16 [Rx] Losartan [Cozaar] 100 mg PO DAILY #0 12/26/16 [Rx] Ferrous Sulfate 325 mg PO BID 07/06/17 [History] Acetaminophen [Tylenol] 650 mg PO Q6HR PRN tab 07/10/17 [Rx] Albuterol Neb [Proventil Neb] 2.5 mg IH Q2H PRN inh 07/10/17 [Rx] Aspirin Enteric Coated [Aspirin EC] 81 mg PO DAILY 07/10/17 [Rx] Cefuroxime PO [Ceftin] 500 mg PO Q12HR #20 tablet 07/10/17 [Rx] Docusate [Colace] 100 mg PO BID PRN 07/10/17 [Rx] GuaiFENesin ER [Mucinex] 600 mg PO BID 07/10/17 [Rx] Insulin DETEMIR [Levemir] 55 unit SQ HS 07/10/17 [Rx] Insulin LISPRO [HumaLOG] 0 units SQ HS vial 07/10/17 [Rx] Insulin LISPRO [HumaLOG] 0 units SQ TIDAC vial 07/10/17 [Rx] Ipratropium/Albuterol Neb [Duoneb] 3 ml IH Q6HR inh 07/10/17 [Rx] Nitroglycerin 0.4 mg SL Q5MIN PRN 07/10/17 [Rx] Omeprazole [PriLOSEC] 20 mg PO DAILY@0630 07/10/17 [Rx] amLODIPine [Norvasc] 10 mg PO DAILY tab 07/10/17 [Rx] levoFLOXacin [Levaquin] 500 mg PO DAILY #6 tablet 07/10/17 [Rx] predniSONE [PredniSONE] 40 mg PO BIDWM #20 tablet 07/10/17 [Rx] Allergies/Adverse Reactions: 3 Allergy/AdvReac Type Severity Reaction Status Date / Time Iodinated Contrast- Oral and Allergy Rash Verified 07/06/17 15:35 IV Dye [Iodinated Contrast Media - Oral and] - Respiratory Orders Oxygen / L per min Smoking Cessation: Smoking cessation has been advised. For more information, call the [place] Tobacco Quit Line at 8-890-BPAI-NOW. - Ancillary Orders May use pressure relief devices daily prn - Advance Directives Code Status: Full Code - Mobility Orders Ambulate - Rehabiliation Orders Rehab Orders: ROM Exercises, Evaluation for Physical Therapy, Evaluation for Occupational Therapy - Treatments Skin tear care topically daily PRN per policy, May check for fecal impaction rectally daily PRN CERTIFICATION: I certify that the transfer of the above named patient to an Extended Care Facility is necessary for the continuing treatment of the diagnosis listed. The above information is true and accurate reflection of patient's current condition. Confidential - Redisclosure prohibited without a patient's written consent.
[2017-07-10] MEDS ORDERED: Insulin DETEMIR 100 UNIT/ML X5UNITS SQ SCH (21:00)
== END 2017-07-10 15:53 | DRG 871 ==
LOC: 2NENU 15:34 → EMEROO 15:34 → 2NENU 17:54
PROVIDERS: ADMIT Internal Medicine; ATTEND Internal Medicine

== ENCOUNTER 2018-02-27 08:09 | Inpatient (IN) ==
[2018-02-27] MEDS ORDERED: Piperacillin/Tazobactam 3.375 GM in 0.9 % Sodium Chloride Mini Bag 100 ML IVPB ONE (08:14)
[2018-02-27] MEDS ORDERED: Ipratropium/Albuterol Neb 3 ML ONE (08:16)
[2018-02-27] MEDS: Ipratropium/Albuterol Neb 3 ML IH ONE ×2 (08:19→09:08)
[2018-02-27] MEDS ORDERED: methylPREDNISolone 125 MG/2 ML VIAL IVP ONE (08:19)
[2018-02-27 08:44] LABS: Hematocrit 35.4 % (35.3-44.9); Mean Corpuscular HGB Conc 28.2 g/dL (31.6-35.5); Mean Corpuscular Hemoglobin 24.4 pg (28.0-33.3); Mean Corpuscular Volume 86.6 fL (83.0-100.0); Mean Platelet Volume 9.9 fL (9.4-12.4); Platelet Count 238 K/mcL (140-400); Red Blood Count 4.09 M/mcL (3.82-4.97); Red Cell Distribution Width 22.9 % (11.5-14.5)
[2018-02-27 08:48] LABS: INR 1.3; Prothrombin Time 14.1 Seconds (9.4-12.1)
[2018-02-27 08:51] LABS: Activated Partial Thrombo Time 30.5 Seconds (26.0-36.0)
--- NOTE | 2018-02-27 08:58 | Emergency Department Note ---
Disposition Clinical Impression: Severe sepsis, Elevated troponin I level, Respiratory distress, Acute kidney injury, Obesity hypoventilation syndrome, COPD exacerbation Neutropenia Qualifiers: Neutropenia type: due to infection Qualified Code(s): D70.3 - Neutropenia due to infection Disposition: Admitted As Inpatient Condition: Fair Time of Disposition: 10:51 SOB HPI - General Chief Complaint: ED Shortness of Breath/Dyspnea Stated Complaint: HEIDI Time Seen by Provider: 02/27/18 08:10 Source: patient, EMS, other Limitations: no limitations Nursing Notes Reviewed: Yes Vital Signs Reviewed: Yes - History of Present Illness 72-year-old female brought in from [facility] for severe shortness of breath by EMS. EMS states that when they arrived she was hypoxic at 84% they stated patient was grunting and gasping for air.. Patient has a history of COPD, CHFPatient did not wear her CPAP last night like she always does. Patient is normally on supplemental oxygen 2 L but required 4 L by EMS to get her O2 saturations. Patient stopped grunting after placement on oxygen. Patient had recently initiated treatment for pneumonia. Patient's symptoms appear to be worsened was brought to [place] because of her hypoxia, severe shortness of breath, and fever 102 degrees Fahrenheit. IV line in patient's right forearm was initiated at [facility] - Related Data Home Medications Medication Instructions Recorded Confirmed Furosemide [Lasix] 40 mg PO BID 09/09/15 02/27/18 Metoprolol [Lopressor] 50 mg PO BID 09/09/15 02/27/18 Montelukast [Singulair] 10 mg PO DAILY 09/09/15 02/27/18 Omeprazole [PriLOSEC] 20 mg PO DAILY 09/09/15 02/27/18 Topiramate [Topamax] 25 mg PO QAM 09/09/15 02/27/18 Topiramate [Topamax] 50 mg PO QPM 09/09/15 02/27/18 Oxygen 2 l NS AD 11/21/16 02/27/18 metFORMIN [Glucophage] 1,000 mg PO BIDWM 12/20/16 02/27/18 Albuterol Sulfate [Ventolin Hfa] 2 puff IH Q4H PRN 02/04/18 02/27/18 Amlodipine Besylate 10 mg PO DAILY 02/04/18 02/27/18 Aspirin Enteric Coated [Aspirin EC] 325 mg PO DAILY 02/04/18 02/27/18 Budesonide/Formoterol 160/4.5 2 puff IH BIDR 02/04/18 02/27/18 [Symbicort 160/4.5] Losartan Potassium [Cozaar] 100 mg PO DAILY 02/04/18 02/27/18 Lovastatin 40 mg PO HS 02/04/18 02/27/18 Umeclidinium [place] [Incruse 62.5 mcg IH DAILY 02/04/18 02/27/18 Ellipta] Acetaminophen [Acetaminophen ER] 650 mg PO Q4H PRN 02/27/18 02/27/18 Azithromycin [Zithromax Susp] 500 mg PO DAILY 02/27/18 02/27/18 Calcium Carbonate [Calcium] 500 mg PO BID 02/27/18 02/27/18 Guaifenesin [Tussin Mucus-Chest 100 mg PO BID 02/27/18 02/27/18 Congestion] Levofloxacin [Levaquin] 750 mg PO DAILY 02/27/18 02/27/18 Previous Rx's Medication Instructions Recorded Citalopram Hydrobromide [Celexa] 20 mg PO DAILY #20 12/22/16 Nitroglycerin 0.4 mg SL Q5MIN PRN 07/10/17 Allergies Allergy/AdvReac Type Severity Reaction Status Date / Time Iodinated Contrast- Oral and Allergy Rash Verified 02/27/18 08:12 IV Dye [Iodinated Contrast Media - Oral and] All systems ED: reviewed and negative except as stated. Review of Systems: As Per HPI Constitutional: Reports: fever ENT ED: Reports: congestion Respiratory: Reports: cough, dyspnea, wheezes Past Medical History - Past Medical History Attestation: Yes The following information was validated with the patient. 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 history: Reports: bilateral tubal ligation - Social History Smoking Status: Never smoker Smokeless Tobacco Status: No Alcohol use: Reports: none Drug use: Reports: none Physical Exam Vital Signs Temperature 97.6 F 02/27/18 08:16 Pulse Rate 92 02/27/18 08:16 Respiratory Rate 26 02/27/18 08:16 Blood Pressure 124/51 02/27/18 08:16 O2 Sat by Pulse Oximetry 91 02/27/18 08:16 Temperature 97.6 F 02/27/18 08:16 Pulse Rate 92 02/27/18 08:30 Respiratory Rate 28 02/27/18 08:30 Blood Pressure 134/49 02/27/18 08:30 O2 Sat by Pulse Oximetry 100 02/27/18 08:30 Oxygen Delivery Oxygen Delivery Bipap CONSTITUTIONAL: Well-appearing; well-nourished; A&O X 3, in apparent respiratory distress. HEAD: Normocephalic; atraumatic EYES: PERRL, no scleral icterus NOSE: The nose is normal in appearance without rhinorrhea NECK: No JVD or distended neck veins RESP: Bilateral eyes and fall the chest. Lung sounds are rhonchorous and wheezy bilaterally with bibasilar rales. CARD: Regular rhythm, without murmurs, rub or gallop ABD: Non-distended; non-tender, soft, without rigidity, rebound or guarding,no pulsatile mass CHEST: No pain with palpation SKIN: Normal for age and race; warm and dry without diaphoresis ; no apparent lesions EXTREMITIES: Pulses are 2 plus and equal times 4 extremities, bilateral lower extremity edema. - General Limitations: no limitations General appearance: alert Course - Reevaluation(s) Reevaluation #1: Patient is currently on BiPAP and appears to be breathing better. Time: 08:56 Reevaluation #2: Patient has a critical high troponin of 0.04., No signs of ischemia noted on EKG Time: 09:03 Reevaluation #3: Patient continues to improve on BiPAP. Patient was informed that she will need to be admitted to the hospital. Patient states she would like to call her sister to let her know. Time: 09:17 Additional Reevaluation(s): 1100 hrs.: Patient is received all 3 doses of sublingual nitroglycerin. Since doing well. She has received 40 mg IV Lasix. Patient states she is hungry and will be started on a cardiac diet. - Consultations Consultation #1: Spoke to Dr. Menjivar hospitalist who states that patient would be better suited ICU giving she has multiorgan failure with severe sepsis. Time: 10:07 Consultation #2: Spoke to Dr. Corral ribbon hand/long haul truck driver in ICU states as long as patient is not on pressors or does not have an elevated lactic acid, that patient should be fine to be admitted to stepdown.. Time: 10:07 Consultation #3: Dr. Menjivar the hospitalist has accepted patient for admission to stepdown unit 2N Time: 10:50 Vital Signs Temperature 97.6 F 02/27/18 08:16 Pulse Rate 92 02/27/18 08:16 Respiratory Rate 26 02/27/18 08:16 Blood Pressure 124/51 02/27/18 08:16 O2 Sat by Pulse Oximetry 91 02/27/18 08:16 Temperature 97.6 F 02/27/18 08:16 Pulse Rate 84 02/27/18 17:30 Respiratory Rate 24 02/27/18 17:30 Blood Pressure 117/59 02/27/18 17:30 O2 Sat by Pulse Oximetry 96 02/27/18 17:30 Oxygen Delivery Oxygen Delivery Bipap Shortness of Breath/Dyspnea - [place] Narrative Medical decision making narrative: Patient is brought in for severe shortness of breath last respiratory distress and failed outpatient treatment for pneumonia from [facility] patient. Patient patient is being treated for shortness of breath with BiPAP and was placed on a state she got here. Patient is currently breathing better. Patient is also has a history of COPD and CHF. Patient is having exacerbation of both. Patient is also receiving DuoNeb 3, 125 Solu- Medrol IV. Holding fluids because of CHF exacerbation. Patient requires Lasix as well. Patient's labs reveal the patient is neutropenic 3.2, patient has anemia at her baseline at 10, patient has respiratory acidosis with a pH of 7.29, retaining CO2 of 69 with an inappropriate elevation of bicarbonate 33. Patient has no elevation of her lactic acid, but has an elevated troponin is mildly elevated at 0.04 that is most likely demand ischemia from her COPD and CHF exacerbation. Patient started on vancomycin weight-based, and Zosyn 3.375 and 750mg Levofloxacin IV for her healthcare associated pneumonia, patient has been given one nitroglycerin so far, patient's blood pressure dropped, she was not hypotensive but needed to hold further treatment. 40 mg IV Lasix has been given. After the third nitroglycerin sublingual patient did have a brief drop in her blood pressure to 93 systolic but then came up to 116 without assistance. Shortly afterwards. Patient's chest x-ray per radiology read: Chest X-Ray 02/27/18 08:14 IMPRESSION: Findings felt to be most compatible with congestive heart failure with pulmonary vascular congestion along with patchy/hazy airspace opacities bilaterally which likely reflect pulmonary edema along with suspected small left pleural effusion. Multifocal infiltrates not entirely excluded. Findings do not appear appreciably changed from 02/09/2018. Clinical correlation and continued follow-up suggested. Stable cardiomegaly. Patient meets severe sepsis criteria for multiorgan involvement, and will require admission. Patient does not need to go to ICU because she does not require any pressors or central line treatment. She does need to remain on BiPAP until her respirations improved. Dr. Menjivar in the hospitalist as accepted patient for admission. Patient's condition has been improving steadily since coming to the emergency department. - Lab Data Lab results reviewed: Yes I reviewed the patient's lab results. Lab results narrative: Short CBC 02/27/18 Range/Units 08:26 WBC 3.2 L (4.3-11.1) K/mcL Hgb 10.0 L (11.5-15.4) g/dL Hct 35.4 (35.3-44.9) % Plt Count 238 (140-400) K/mcL Neutrophils # 2.3 (1.6-8.9) K/mcL BMP 02/27/18 Range/Units 08:26 Sodium 140 (136-145) mEq/L Potassium 3.9 (3.5-5.1) mEq/L Chloride 103 (98-107) mEq/L Carbon Dioxide 31 H (23-29) mEq/L BUN 33 H (8-23) mg/dL Creatinine 1.32 H (0.60-1.20) mg/dL Glucose 129 H (70-105) mg/dL Calcium 9.0 (8.6-10.3) mg/dL Cardiac Enzymes 02/27/18 Range/Units 08:26 Troponin I 0.04 H* (< 0.04) ng/mL Liver Function 02/27/18 Range/Units 08:26 Total Bilirubin 0.3 (0.3-1.0) mg/dL Direct Bilirubin 0.1 (0.0-0.2) mg/dL AST 17 (13-39) Units/L ALT 13 (7-52) Units/L Alkaline Phosphatase 69 (34-104) Units/L Albumin 3.4 L (3.5-5.7) g/dL Urine 02/27/18 Range/Units 09:40 Urine Color Yellow (Yellow) Urine Clarity Clear (Clear) Urine pH 5.5 (5.0-8.0) pH Units Ur Specific [place] 1.019 (1.010-1.025) Urine Protein Trace (Neg-Trace) mg/dL Urine Glucose (UA) Normal (Normal) mg/dL Result diagrams: 02/27/18 08:26 02/27/18 08:26 Lab Results 02/27/18 02/27/18 02/27/18 Range/Units 08:26 08:26 08:26 WBC 3.2 L (4.3-11.1) K/mcL RBC 4.09 (3.82-4.97) M/mcL Hgb 10.0 L (11.5-15.4) g/dL Hct 35.4 (35.3-44.9) % MCV 86.6 (83.0-100.0) fL MCH 24.4 L (28.0-33.3) pg MCHC 28.2 L (31.6-35.5) g/dL RDW 22.9 H (11.5-14.5) % Plt Count 238 (140-400) K/mcL MPV 9.9 (9.4-12.4) fL Seg Neutrophils % 58.0 % Band Neutrophils % 14.0 H (0-4) % Lymphocytes % 22.0 % Monocytes % 4.0 % Basophils % 2.0 % Neutrophils # 2.3 (1.6-8.9) K/mcL Lymphocytes # 0.7 (0.6-4.6) K/mcL Monocytes # 0.1 (0.0-1.3) K/mcL Basophils # 0.1 (0.0-0.2) K/mcL Platelet Estimate Normal (Normal) Hypochromasia Present A (Not Present) Anisocytosis 2+ A (Not Present) PT 14.1 H (9.4-12.1) Seconds INR 1.3 APTT 30.5 (26.0-36.0) Seconds Sample Site ABG pH (7.32-7.45) pH Units ABG pCO2 (35-45) mmHg ABG pO2 (85-104) mmHg ABG HCO3 (21-27) mEq/L ABG Total CO2 (20-26) mEq/L ABG O2 Saturation (95-98) % ABG Base Excess (-2 to 3) mEq/L Vimal Test VBG pH (7.32-7.42) pH Units VBG pCO2 (41-51) mmHg VBG pO2 (25-50) mmHg VBG HCO3 (21-27) mEq/L O2 Delivery Device Inspired O2 (1-15=lpm [id number]=%) Sodium 140 (136-145) mEq/L Potassium 3.9 (3.5-5.1) mEq/L Chloride 103 (98-107) mEq/L Carbon Dioxide 31 H (23-29) mEq/L BUN 33 H (8-23) mg/dL Creatinine 1.32 H (0.60-1.20) mg/dL Est GFR ( Amer) 48 L (> 60) Est GFR (Non-Af Amer) 40 L (> 60) BUN/Creatinine Ratio 25 (6-26) Glucose 129 H (70-105) mg/dL POC Glucose (70-99) mg/dL Calculated Osmolality 299 (280-300) Lactic Acid (0.5-2.2) mmol/L Calcium 9.0 (8.6-10.3) mg/dL Phosphorus 2.6 L (2.7-4.5) mg/dL Magnesium 1.7 (1.6-2.6) mg/dL Total Bilirubin 0.3 (0.3-1.0) mg/dL Direct Bilirubin 0.1 (0.0-0.2) mg/dL Indirect Bilirubin 0.2 (0.0-1.2) mg/dL AST 17 (13-39) Units/L ALT 13 (7-52) Units/L Alkaline Phosphatase 69 (34-104) Units/L Troponin I 0.04 H* (< 0.04) ng/mL B-Natriuretic Peptide (Less than 100) pg/mL Serum Total Protein 6.4 (6.4-8.9) g/dL Albumin 3.4 L (3.5-5.7) g/dL Globulin 3.0 (2.4-3.5) g/dL Albumin/Globulin Ratio 1.1 (1.1-2.2) Urine Color (Yellow) Urine Clarity (Clear) Urine pH (5.0-8.0) pH Units Ur Specific [place] (1.010-1.025) Urine Protein (Neg-Trace) mg/dL Urine Glucose (UA) (Normal) mg/dL Urine Ketones (Negative) mg/dL Urine Blood (Negative) Urine Nitrite (Negative) Urine Bilirubin (Negative) Urine Urobilinogen (Normal) mg/dL Ur Leukocyte Esterase (Negative) Urine Microscopic RBC (0-3) per hpf Urine Microscopic WBC (0-3) per hpf Ur Squamous Epith Cells (None-Few) per lpf Urine Bacteria (None-Few) per hpf Hyaline Casts (None-Few) per lpf Ur Culture Indicated? (NO) 02/27/18 02/27/18 02/27/18 Range/Units 08:26 09:15 09:40 WBC (4.3-11.1) K/mcL RBC (3.82-4.97) M/mcL Hgb (11.5-15.4) g/dL Hct (35.3-44.9) % MCV (83.0-100.0) fL MCH (28.0-33.3) pg MCHC (31.6-35.5) g/dL RDW (11.5-14.5) % Plt Count (140-400) K/mcL MPV (9.4-12.4) fL Seg Neutrophils % % Band Neutrophils % (0-4) % Lymphocytes % % Monocytes % % Basophils % % Neutrophils # (1.6-8.9) K/mcL Lymphocytes # (0.6-4.6) K/mcL Monocytes # (0.0-1.3) K/mcL Basophils # (0.0-0.2) K/mcL Platelet Estimate (Normal) Hypochromasia (Not Present) Anisocytosis (Not Present) PT (9.4-12.1) Seconds INR APTT (26.0-36.0) Seconds Sample Site ABG pH (7.32-7.45) pH Units ABG pCO2 (35-45) mmHg ABG pO2 (85-104) mmHg ABG HCO3 (21-27) mEq/L ABG Total CO2 (20-26) mEq/L ABG O2 Saturation (95-98) % ABG Base Excess (-2 to 3) mEq/L Vimal Test VBG pH 7.29 L (7.32-7.42) pH Units VBG pCO2 69 H (41-51) mmHg VBG pO2 151 H (25-50) mmHg VBG HCO3 33 H (21-27) mEq/L O2 Delivery Device Inspired O2 (1-15=lpm [id number]=%) Sodium (136-145) mEq/L Potassium (3.5-5.1) mEq/L Chloride (98-107) mEq/L Carbon Dioxide (23-29) mEq/L BUN (8-23) mg/dL Creatinine (0.60-1.20) mg/dL Est GFR ( Amer) (> 60) Est GFR (Non-Af Amer) (> 60) BUN/Creatinine Ratio (6-26) Glucose (70-105) mg/dL POC Glucose (70-99) mg/dL Calculated Osmolality (280-300) Lactic Acid 0.8 (0.5-2.2) mmol/L Calcium (8.6-10.3) mg/dL Phosphorus (2.7-4.5) mg/dL Magnesium (1.6-2.6) mg/dL Total Bilirubin (0.3-1.0) mg/dL Direct Bilirubin (0.0-0.2) mg/dL Indirect Bilirubin (0.0-1.2) mg/dL AST (13-39) Units/L ALT (7-52) Units/L Alkaline Phosphatase (34-104) Units/L Troponin I (< 0.04) ng/mL B-Natriuretic Peptide (Less than 100) pg/mL Serum Total Protein (6.4-8.9) g/dL Albumin (3.5-5.7) g/dL Globulin (2.4-3.5) g/dL Albumin/Globulin Ratio (1.1-2.2) Urine Color Yellow (Yellow) Urine Clarity Clear (Clear) Urine pH 5.5 (5.0-8.0) pH Units Ur Specific [place] 1.019 (1.010-1.025) Urine Protein Trace (Neg-Trace) mg/dL Urine Glucose (UA) Normal (Normal) mg/dL Urine Ketones Negative (Negative) mg/dL Urine Blood Negative (Negative) Urine Nitrite Negative (Negative) Urine Bilirubin Negative (Negative) Urine Urobilinogen Normal (Normal) mg/dL Ur Leukocyte Esterase Negative (Negative) Urine Microscopic RBC 0-3 (0-3) per hpf Urine Microscopic WBC 0-3 (0-3) per hpf Ur Squamous Epith Cells Many H (None-Few) per lpf Urine Bacteria None Seen (None-Few) per hpf Hyaline Casts None Seen (None-Few) per lpf Ur Culture Indicated? NO (NO) 02/27/18 02/27/18 02/27/18 Range/Units 11:33 14:21 15:47 WBC (4.3-11.1) K/mcL RBC (3.82-4.97) M/mcL Hgb (11.5-15.4) g/dL Hct (35.3-44.9) % MCV (83.0-100.0) fL MCH (28.0-33.3) pg MCHC (31.6-35.5) g/dL RDW (11.5-14.5) % Plt Count (140-400) K/mcL MPV (9.4-12.4) fL Seg Neutrophils % % Band Neutrophils % (0-4) % Lymphocytes % % Monocytes % % Basophils % % Neutrophils # (1.6-8.9) K/mcL Lymphocytes # (0.6-4.6) K/mcL Monocytes # (0.0-1.3) K/mcL Basophils # (0.0-0.2) K/mcL Platelet Estimate (Normal) Hypochromasia (Not Present) Anisocytosis (Not Present) PT (9.4-12.1) Seconds INR APTT (26.0-36.0) Seconds Sample Site L Radial ABG pH 7.22 L (7.32-7.45) pH Units ABG pCO2 87 H* (35-45) mmHg ABG pO2 75 L (85-104) mmHg ABG HCO3 36 H (21-27) mEq/L ABG Total CO2 38 H (20-26) mEq/L ABG O2 Saturation 90 L (95-98) % ABG Base Excess 5 H (-2 to 3) mEq/L Vimal Test N/A VBG pH (7.32-7.42) pH Units VBG pCO2 (41-51) mmHg VBG pO2 (25-50) mmHg VBG HCO3 (21-27) mEq/L O2 Delivery Device BiPAP Inspired O2 45.0 (1-15=lpm [id number]=%) Sodium (136-145) mEq/L Potassium (3.5-5.1) mEq/L Chloride (98-107) mEq/L Carbon Dioxide (23-29) mEq/L BUN (8-23) mg/dL Creatinine (0.60-1.20) mg/dL Est GFR ( Amer) (> 60) Est GFR (Non-Af Amer) (> 60) BUN/Creatinine Ratio (6-26) Glucose (70-105) mg/dL POC Glucose (70-99) mg/dL Calculated Osmolality (280-300) Lactic Acid (0.5-2.2) mmol/L Calcium (8.6-10.3) mg/dL Phosphorus (2.7-4.5) mg/dL Magnesium (1.6-2.6) mg/dL Total Bilirubin (0.3-1.0) mg/dL Direct Bilirubin (0.0-0.2) mg/dL Indirect Bilirubin (0.0-1.2) mg/dL AST (13-39) Units/L ALT (7-52) Units/L Alkaline Phosphatase (34-104) Units/L Troponin I 0.03 (< 0.04) ng/mL B-Natriuretic Peptide 73 (Less than 100) pg/mL Serum Total Protein (6.4-8.9) g/dL Albumin (3.5-5.7) g/dL Globulin (2.4-3.5) g/dL Albumin/Globulin Ratio (1.1-2.2) Urine Color (Yellow) Urine Clarity (Clear) Urine pH (5.0-8.0) pH Units Ur Specific [place] (1.010-1.025) Urine Protein (Neg-Trace) mg/dL Urine Glucose (UA) (Normal) mg/dL Urine Ketones (Negative) mg/dL Urine Blood (Negative) Urine Nitrite (Negative) Urine Bilirubin (Negative) Urine Urobilinogen (Normal) mg/dL Ur Leukocyte Esterase (Negative) Urine Microscopic RBC (0-3) per hpf Urine Microscopic WBC (0-3) per hpf Ur Squamous Epith Cells (None-Few) per lpf Urine Bacteria (None-Few) per hpf Hyaline Casts (None-Few) per lpf Ur Culture Indicated? (NO) 02/27/18 Range/Units 18:13 WBC (4.3-11.1) K/mcL RBC (3.82-4.97) M/mcL Hgb (11.5-15.4) g/dL Hct (35.3-44.9) % MCV (83.0-100.0) fL MCH (28.0-33.3) pg MCHC (31.6-35.5) g/dL RDW (11.5-14.5) % Plt Count (140-400) K/mcL MPV (9.4-12.4) fL Seg Neutrophils % % Band Neutrophils % (0-4) % Lymphocytes % % Monocytes % % Basophils % % Neutrophils # (1.6-8.9) K/mcL Lymphocytes # (0.6-4.6) K/mcL Monocytes # (0.0-1.3) K/mcL Basophils # (0.0-0.2) K/mcL Platelet Estimate (Normal) Hypochromasia (Not Present) Anisocytosis (Not Present) PT (9.4-12.1) Seconds INR APTT (26.0-36.0) Seconds Sample Site ABG pH (7.32-7.45) pH Units ABG pCO2 (35-45) mmHg ABG pO2 (85-104) mmHg ABG HCO3 (21-27) mEq/L ABG Total CO2 (20-26) mEq/L ABG O2 Saturation (95-98) % ABG Base Excess (-2 to 3) mEq/L Vimal Test VBG pH (7.32-7.42) pH Units VBG pCO2 (41-51) mmHg VBG pO2 (25-50) mmHg VBG HCO3 (21-27) mEq/L O2 Delivery Device Inspired O2 (1-15=lpm [id number]=%) Sodium (136-145) mEq/L Potassium (3.5-5.1) mEq/L Chloride (98-107) mEq/L Carbon Dioxide (23-29) mEq/L BUN (8-23) mg/dL Creatinine (0.60-1.20) mg/dL Est GFR ( Amer) (> 60) Est GFR (Non-Af Amer) (> 60) BUN/Creatinine Ratio (6-26) Glucose (70-105) mg/dL POC Glucose 225 H (70-99) mg/dL Calculated Osmolality (280-300) Lactic Acid (0.5-2.2) mmol/L Calcium (8.6-10.3) mg/dL Phosphorus (2.7-4.5) mg/dL Magnesium (1.6-2.6) mg/dL Total Bilirubin (0.3-1.0) mg/dL Direct Bilirubin (0.0-0.2) mg/dL Indirect Bilirubin (0.0-1.2) mg/dL AST (13-39) Units/L ALT (7-52) Units/L Alkaline Phosphatase (34-104) Units/L Troponin I (< 0.04) ng/mL B-Natriuretic Peptide (Less than 100) pg/mL Serum Total Protein (6.4-8.9) g/dL Albumin (3.5-5.7) g/dL Globulin (2.4-3.5) g/dL Albumin/Globulin Ratio (1.1-2.2) Urine Color (Yellow) Urine Clarity (Clear) Urine pH (5.0-8.0) pH Units Ur Specific [place] (1.010-1.025) Urine Protein (Neg-Trace) mg/dL Urine Glucose (UA) (Normal) mg/dL Urine Ketones (Negative) mg/dL Urine Blood (Negative) Urine Nitrite (Negative) Urine Bilirubin (Negative) Urine Urobilinogen (Normal) mg/dL Ur Leukocyte Esterase (Negative) Urine Microscopic RBC (0-3) per hpf Urine Microscopic WBC (0-3) per hpf Ur Squamous Epith Cells (None-Few) per lpf Urine Bacteria (None-Few) per hpf Hyaline Casts (None-Few) per lpf Ur Culture Indicated? (NO) - Radiology Data Radiology results reviewed: Yes I reviewed the patient's radiology results. Chest X-Ray 02/27/18 08:14 IMPRESSION: Findings felt to be most compatible with congestive heart failure with pulmonary vascular congestion along with patchy/hazy airspace opacities bilaterally which likely reflect pulmonary edema along with suspected small left pleural effusion. Multifocal infiltrates not entirely excluded. Findings do not appear appreciably changed from 02/09/2018. Clinical correlation and continued follow-up suggested. Stable cardiomegaly. D/ / 02/27/2018 09:06:50 Markus Estrada MD / eddie Interpreting Provider: Markus Estrada MD - EKG Data EKG attestation: Yes I reviewed and interpreted this EKG. EKG results narrative: EKG taken 02/27/2018@0829 hrs. shows sinus rhythm at 89 bpm, no QRS widening or QT prolongation. No ST elevation or depression any leads. No change in morphology from previous EKG
[2018-02-27 09:02] LABS: Albumin 3.4 g/dL (3.5-5.7); Albumin/Globulin Ratio 1.1 (1.1-2.2); Bilirubin,Direct 0.1 mg/dL (0.0-0.2); Bilirubin,Indirect 0.2 mg/dL (0.0-1.2); Bilirubin,Total 0.3 mg/dL (0.3-1.0); Magnesium 1.7 mg/dL (1.6-2.6); Phosphorous 2.6 mg/dL (2.7-4.5); Potassium 3.9 mEq/L (3.5-5.1); Total Protein 6.4 g/dL (6.4-8.9)
[2018-02-27 09:03] LABS: Troponin I 0.04 ng/mL (< 0.04)
[2018-02-27] MEDS: Nitroglycerin 0.4 MG TAB.SUBL SL PRN ×3 (09:07→10:27)
[2018-02-27] MEDS ORDERED: Vancomycin (wt based) 1,000 MG VIAL IV ONE (09:18)
[2018-02-27 09:19] LABS: VBG HCO3 33 mEq/L (21-27); VBG PCO2 69 mmHg (41-51); VBG PH 7.29 pH Units (7.32-7.42); VBG PO2 151 mmHg (25-50)
[2018-02-27 09:49] LABS: Basophils # 0.1 K/mcL (0.0-0.2); Lymphocytes # 0.7 K/mcL (0.6-4.6); Monocytes # 0.1 K/mcL (0.0-1.3); Neutrophils # 2.3 K/mcL (1.6-8.9)
[2018-02-27 09:50] LABS: Anisocytosis 2+ (Not Present); Hypochromasia Present (Not Present); Platelet Estimate Normal (Normal)
[2018-02-27 09:55] LABS: Bilirubin,Urine Negative (Negative); Blood,Urine Negative (Negative); Clarity,Urine Clear (Clear); Color,Urine Yellow (Yellow); Glucose,Urine (UA) Normal (Normal); Ketones,Urine Negative (Negative); Leukocyte Esterase,Urine Negative (Negative); Nitrite,Urine Negative (Negative); PH,Urine 5.5 pH Units (5.0-8.0); Protein,Urine Trace mg/dL (Neg-Trace); Specific Gravity,Urine 1.019 (1.010-1.025); Urobilinogen,Urine Normal (Normal)
[2018-02-27 09:56] LABS: Bacteria,Urine None Seen per hpf (None-Few); Hyaline Casts,Urine None Seen per lpf (None-Few); RBC,Urine 0-3 per hpf (0-3); Squamous Epithelial Cell,Urine Many per lpf (None-Few); WBC,Urine 0-3 per hpf (0-3)
[2018-02-27] MEDS ORDERED: Furosemide 40 MG/4 ML VIAL IVP ONE (10:20)
[2018-02-27] MEDS ORDERED: Levofloxacin 750 MG/150 ML 750 MG/150 ML BAG IVPB ONE (11:32)
[2018-02-27 14:40] LABS: ABG Base Excess 5 mEq/L (-2 to 3); ABG HCO3 36 mEq/L (21-27); ABG Oxygen Saturation 90 % (95-98); ABG PCO2 87 mmHg (35-45); ABG PH 7.22 pH Units (7.32-7.45); ABG PO2 75 mmHg (85-104); ABG TCO2 38 mEq/L (20-26)
--- NOTE | 2018-02-27 14:58 | Pulmonology History & Physical ---
<Justin Collazo - Last Filed: 02/27/18 16:30> Date of Encounter: 02/27/18 Time of Encounter: 14:49 Assessment and Plan (1) Acute on chronic respiratory failure with hypoxemia Current visit: No Status: Acute Acute on chronic respiratory failure with hypercapnia and hypoxemia Underlying history of congestive heart failure as well as COPD. Recent treatment for pneumonia as an outpatient with clinically worsening picture requiring noninvasive positive pressure ventilation. CT chest 02/27/18: IMPRESSION: 1. Worsening bilateral patchy airspace opacities and ground-glass densities which is suspicious for worsening multifocal pneumonia and possible superimposed pulmonary edema. 2. Mild cardiomegaly. Continue BiPAP support which is now AVAPS Continued to trend ABGs Consider intubation if worsening respiratory status. (2) Sepsis Current visit: Yes Status: Acute Patient presents with 3 SIRS criteria (Heart rate, Respiratory rate and neutropenia) with source felt to be respiratory in nature. CT chest without contrast demonstrates concern for multifocal pneumonia. Healthcare associated pneumonia as the patient resides in a snf facility. Vancomycin and Zosyn initiated in the emergency department. Blood cultures drawn and pending. Influenza swab ordered. Qualifiers: Sepsis type: sepsis due to unspecified organism Qualified Code(s): A41.9 - Sepsis, unspecified organism (3) Healthcare-associated pneumonia Current visit: Yes Status: Acute Recent outpatient failure on Zithromax. CT chest with evidence of multifocal pneumonia. Continue broad-spectrum coverage with vancomycin and Zosyn. Influenza swab ordered. (4) Hypertension Current visit: No Status: Chronic Normotensive on arrival. Hold antihypertensives in the setting of sepsis and reinitiate as tolerated. Qualifiers: Hypertension type: essential hypertension Qualified Code(s): I10 - Essential (primary) hypertension (5) Diabetes mellitus Current visit: No Status: Chronic Hold home medications. Sliding scale insulin for coverage Qualifiers: Diabetes mellitus type: type 2 Diabetes mellitus snf insulin use: without intermodal dispatcher use Diabetes mellitus complication status: with hyperglycemia Qualified Code(s): E11.65 - Type 2 diabetes mellitus with hyperglycemia (6) Congestive heart failure Current visit: No Status: Acute Echo 02/05/18: Impressions: LVEF 60-65%. Mild concentric left ventricular hypertrophy. Normal LV chamber size and function. Normal right ventricular structure and function. Mild left ventricular diastolic dysfunction. No significant valvular dysfunction. Severe pulmonary hypertension. Estimated RVSP is 57 mmHg. There is a trivial pericardial effusion present. Qualifiers: Heart failure type: diastolic Heart failure chronicity: unspecified Qualified Code(s): I50.30 - Unspecified diastolic (congestive) heart failure (7) Morbid obesity Current visit: No Status: Chronic (8) Anemia Current visit: No Status: Chronic Qualifiers: Anemia type: iron deficiency Iron deficiency anemia type: unspecified iron deficiency Qualified Code(s): D50.9 - Iron deficiency anemia, unspecified (9) Elevated troponin I level Current visit: Yes Status: Acute Troponin 0.04. EKG without ischemic features. Continued to trend every 6 hours (10) Neutropenia Current visit: Yes Status: Acute WBC of 3.2 today in the setting of sepsis. Jaramillo CBC Qualifiers: Neutropenia type: unspecified Qualified Code(s): D70.9 - Neutropenia, unspecified (11) Restrictive lung disease Current visit: No Status: Chronic PFT 01/24/17: Spirometry shows severe airway restrictive disease. Following Bronchodilator, there is 27 % increase in small airways/mid-flows. Lung Volumes TLC moderately reduced. Diffusion Capacity is normal. Flow Volume Loop: Restrictive. (12) COPD (chronic obstructive pulmonary disease) Current visit: Yes Status: Acute Continue BiPAP as needed. Albuterol and Symbicort home medications ordered. Qualifiers: COPD type: COPD with acute lower respiratory infection Qualified Code(s): J44.0 - Chronic obstructive pulmonary disease with acute lower respiratory infection (13) DVT prophylaxis Current visit: Yes Status: Acute Heparin 5000 units twice daily History of Present Illness Chief complaint: Dyspnea HPI: Ms. Pugh is a 72 year old female with a past medical history of CHF, COPD with CPAP use at night, diabetes who presented to the emergency department on via EMS from [facility] with a chief complaint of shortness of breath. History is obtained from documentation as the patient is somnolent at time of evaluation. As per the records EMS was called to the nursing facility today due to shortness of breath. Upon arrival she was documented at 84% requiring increased nasal cannula of 4 L to maintain saturations. Reported that she was recently started on antibiotics for pneumonia. She was also noted to be febrile at 102 at the nursing facility. Upon arrival the patient was alert and interacting and able to provide history. She was initially given multiple DuoNeb treatments as well as IV Solu-Medrol. During her workup she was noted to be neutropenic with a white count of 3.2. Appears to have baseline anemia. Initial VBG with a pH of 7.29, carbon dioxide of 69. She was placed on BiPAP and appeared to be improving at that time. Other labs reviewed during her evaluation revealed a normal lactic acid with a mild troponin elevation of 0.04. Chest x-ray demonstrated concern for ulnar vascular congestion as per radiology read. Her BNP is normal. Given her recent pneumonia she was initiated on vancomycin, Zosyn and Levaquin in the emergency Department for healthcare associated pneumonia. At the time of my evaluation the patient is on BiPAP at 10/5 with an FiO2 of 45 % pulling tidal volumes of 220-240 asleep. Appears to be hypoventilatory. She is arousable to verbal stimuli but immediately falls back asleep. She is unable to provide any history. Discussed with the emergency department team about what her mentation was when she first arrived and they report that she was more coherent at arrival. ABG ordered and repeated which reveals a worsening respiratory acidosis pH 7.21/87/74.6/35.6. Patient transitioned to AVAPS. 30cc/kg bolus held as the patient is normotensive with a normal lactate as well as having peripheral edema on exam. With these changes I discussed this patient with the admitter Dr. Lopez who agrees and recommends admission to the ICU for management. Past Med Surg Social Fam HX - Past Medical History Source: old records reviewed Medical history: cancer, CHF, COPD, diabetes, hypertension Psychiatric history: no psych history - Past Surgical History Surgical History: appendectomy, orthopedic, other, other - Social History Smoking Status: Never smoker Smokeless Tobacco Status: No Alcohol use: none Drug use: none - Family History Mother Family Member Ethnicity: Non- Living Status: Still Living Hx Family Cardiac Disorders: Yes (HTN) Hx Family Respiratory Disorders: Yes Hx Family Endocrine Disorder: No Father Family Member Ethnicity: Non- Living Status: Hx Family Cardiac Disorders: Yes (HTN) Brother Family Member Ethnicity: Non- Living Status: Still Living Hx Family Cardiac Disorders: Yes (HD requiring anticoagulation) Sister Family Member Ethnicity: Non- Living Status: Still Living Medications and Allergies Furosemide [Lasix] 40 mg PO BID 09/09/15 [History] Metoprolol [Lopressor] 50 mg PO BID 09/09/15 [History] Montelukast [Singulair] 10 mg PO DAILY 09/09/15 [History] Omeprazole [PriLOSEC] 20 mg PO DAILY 09/09/15 [History] Topiramate [Topamax] 25 mg PO QAM 09/09/15 [History] Topiramate [Topamax] 50 mg PO QPM 09/09/15 [History] Oxygen 2 l NS AD 11/21/16 [History] metFORMIN [Glucophage] 1,000 mg PO BIDWM 12/20/16 [History] Citalopram Hydrobromide [Celexa] 20 mg PO DAILY #20 12/22/16 [Rx] Nitroglycerin 0.4 mg SL Q5MIN PRN 07/10/17 [Rx] Albuterol Sulfate [Ventolin Hfa] 2 puff IH Q4H PRN 02/04/18 [History] Amlodipine Besylate 10 mg PO DAILY 02/04/18 [History] Aspirin Enteric Coated [Aspirin EC] 325 mg PO DAILY 02/04/18 [History] Budesonide/Formoterol 160/4.5 [Symbicort 160/4.5] 2 puff IH BIDR 02/04/18 [ History] Losartan Potassium [Cozaar] 100 mg PO DAILY 02/04/18 [History] Lovastatin 40 mg PO HS 02/04/18 [History] Umeclidinium [place] [Incruse Ellipta] 62.5 mcg IH DAILY 02/04/18 [History] Acetaminophen [Acetaminophen ER] 650 mg PO Q4H PRN 02/27/18 [History] Azithromycin [Zithromax Susp] 500 mg PO DAILY 02/27/18 [History] Calcium Carbonate [Calcium] 500 mg PO BID 02/27/18 [History] Guaifenesin [Tussin Mucus-Chest Congestion] 100 mg PO BID 02/27/18 [History] Levofloxacin [Levaquin] 750 mg PO DAILY 02/27/18 [History] 3 Allergy/AdvReac Type Severity Reaction Status Date / Time Iodinated Contrast- Oral and Allergy Rash Verified 02/27/18 08:12 IV Dye [Iodinated Contrast Media - Oral and] ROS unobtainable: due to mental status All Systems: The remainder of the systems were reviewed and are negative Physical Examination Vital Signs: Vital Signs, Last 4 Hours Pulse Resp BP Pulse Ox 02/27/18 14:30 90 22 117/52 98 02/27/18 14:29 21 99 02/27/18 14:00 89 22 129/48 98 02/27/18 13:00 94 20 138/55 98 02/27/18 12:30 95 20 145/55 98 02/27/18 12:00 95 20 152/54 98 02/27/18 11:30 96 24 131/51 94 02/27/18 11:00 92 26 134/52 96 General appearance: other (Somnolent. Awakens to verbal stimuli briefly. On BiPAP.) Eyes: nonicteric Effort: mildly labored, other (On BiPAP 10/5 at 45% FiO2) Auscultation: bilateral: rhonchi Cardiovascular: regular rate and rhythm Gastrointestinal: soft, non-tender Integumentary: normal Extremities: no cyanosis, edema (1+ bilateral lower extremity pitting edema), other (Warm and well perfused distally with cap refill less than 3 seconds.) Musculoskeletal: no deformities other (Somnolent. Arouses to verbal stimuli. ) Results - Laboratory Findings CBC and BMP: 02/27/18 08:26 02/27/18 08:26 ABG ABG pH 7.22 pH Units (7.32-7.45) L 02/27/18 14:21 ABG pCO2 87 mmHg (35-45) H* 02/27/18 14:21 ABG pO2 75 mmHg (85-104) L 02/27/18 14:21 ABG O2 Saturation 90 % (95-98) L 02/27/18 14:21 PT/INR, D-dimer PT 14.1 Seconds (9.4-12.1) H 02/27/18 08:26 Abnormal lab findings: Abnormal lab results WBC 3.2 K/mcL (4.3-11.1) L 02/27/18 08:26 Hgb 10.0 g/dL (11.5-15.4) L 02/27/18 08:26 MCH 24.4 pg (28.0-33.3) L 02/27/18 08:26 MCHC 28.2 g/dL (31.6-35.5) L 02/27/18 08:26 RDW 22.9 % (11.5-14.5) H 02/27/18 08:26 Band Neutrophils % 14.0 % (0-4) H 02/27/18 08:26 Hypochromasia Present (Not Present) A 02/27/18 08: Anisocytosis 2+ (Not Present) A 02/27/18 08: PT 14.1 Seconds (9.4-12.1) H 02/27/18 08:26 ABG pH 7.22 pH Units (7.32-7.45) L 02/27/18 14:21 ABG pCO2 87 mmHg (35-45) H* 02/27/18 14:21 ABG pO2 75 mmHg (85-104) L 02/27/18 14:21 ABG HCO3 36 mEq/L (21-27) H 02/27/18 14:21 ABG Total CO2 38 mEq/L (20-26) H 02/27/18 14:21 ABG O2 Saturation 90 % (95-98) L 02/27/18 14:21 ABG Base Excess 5 mEq/L (-2 to 3) H 02/27/18 14:21 VBG pH 7.29 pH Units (7.32-7.42) L 02/27/18 09:15 VBG pCO2 69 mmHg (41-51) H 02/27/18 09:15 VBG pO2 151 mmHg (25-50) H 02/27/18 09:15 VBG HCO3 33 mEq/L (21-27) H 02/27/18 09:15 Carbon Dioxide 31 mEq/L (23-29) H 02/27/18 08:26 BUN 33 mg/dL (8-23) H 02/27/18 08:26 Creatinine 1.32 mg/dL (0.60-1.20) H 02/27/18 08:26 Est GFR ( Amer) 48 (> 60) L 02/27/18 08: Est GFR (Non-Af Amer) 40 (> 60) L 02/27/18 08:26 Glucose 129 mg/dL (70-105) H 02/27/18 08: Phosphorus 2.6 mg/dL (2.7-4.5) L 02/27/18 08: Troponin I 0.04 ng/mL (< 0.04) H* 02/27/18 08:26 Albumin 3.4 g/dL (3.5-5.7) L 02/27/18 08:26 Ur Squamous Epith Cells Many per lpf (None-Few) H 02/27/18 09:40 - Diagnostic Findings Chest x-ray: report reviewed, image reviewed <[email or web address] - Last Filed: 02/27/18 17:25> Date of Encounter: 02/27/18 History of Present Illness HPI: Ms. Pugh is a 72 year old female All Systems: The remainder of the systems were reviewed and are negative Physical Examination Vital Signs: Vital Signs, Last 4 Hours Resp BP 02/27/18 17:05 28 121/74 Results - Laboratory Findings CBC and BMP: 02/27/18 08:26 02/27/18 08:26 ABG ABG pH 7.22 pH Units (7.32-7.45) L 02/27/18 14:21 ABG pCO2 87 mmHg (35-45) H* 02/27/18 14:21 ABG pO2 75 mmHg (85-104) L 02/27/18 14:21 ABG O2 Saturation 90 % (95-98) L 02/27/18 14:21 PT/INR, D-dimer PT 14.1 Seconds (9.4-12.1) H 02/27/18 08:26 Abnormal lab findings: Abnormal lab results WBC 3.2 K/mcL (4.3-11.1) L 02/27/18 08:26 Hgb 10.0 g/dL (11.5-15.4) L 02/27/18 08:26 MCH 24.4 pg (28.0-33.3) L 02/27/18 08:26 MCHC 28.2 g/dL (31.6-35.5) L 02/27/18 08:26 RDW 22.9 % (11.5-14.5) H 02/27/18 08:26 Band Neutrophils % 14.0 % (0-4) H 02/27/18 08:26 Hypochromasia Present (Not Present) A 02/27/18 08:26 Anisocytosis 2+ (Not Present) A 02/27/18 08:26 PT 14.1 Seconds (9.4-12.1) H 02/27/18 08:26 ABG pH 7.22 pH Units (7.32-7.45) L 02/27/18 14:21 ABG pCO2 87 mmHg (35-45) H* 02/27/18 14:21 ABG pO2 75 mmHg (85-104) L 02/27/18 14:21 ABG HCO3 36 mEq/L (21-27) H 02/27/18 14:21 ABG Total CO2 38 mEq/L (20-26) H 02/27/18 14:21 ABG O2 Saturation 90 % (95-98) L 02/27/18 14:21 ABG Base Excess 5 mEq/L (-2 to 3) H 02/27/18 14:21 VBG pH 7.29 pH Units (7.32-7.42) L 02/27/18 09:15 VBG pCO2 69 mmHg (41-51) H 02/27/18 09:15 VBG pO2 151 mmHg (25-50) H 02/27/18 09:15 VBG HCO3 33 mEq/L (21-27) H 02/27/18 09:15 Carbon Dioxide 31 mEq/L (23-29) H 02/27/18 08:26 BUN 33 mg/dL (8-23) H 02/27/18 08:26 Creatinine 1.32 mg/dL (0.60-1.20) H 02/27/18 08:26 Est GFR ( Amer) 48 (> 60) L 02/27/18 08:26 Est GFR (Non-Af Amer) 40 (> 60) L 02/27/18 08:26 Glucose 129 mg/dL (70-105) H 02/27/18 08:26 Phosphorus 2.6 mg/dL (2.7-4.5) L 02/27/18 08:26 Albumin 3.4 g/dL (3.5-5.7) L 02/27/18 08:26 Ur Squamous Epith Cells Many per lpf (None-Few) H 02/27/18 09:40 - Attending Attestation I examined this patient and my medical decision-making was reviewed with the Resident Physician. I agree with the documented findings, disposition and treatment plan as described except to the extent set forth below. Patient seen and examined. I was called by the emergency room physician to evaluate patient in the emergency room. Labs, radiology, chart personally reviewed. 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 Pulmonary: Acceptable oxygenation and ventilation on noninvasive ventilation. Patient with underlying lung disease and treating for pneumonia. Cardiovascular: stable . Due to her pulmonary status resuscitation according 30 mL/Kg will worsen her condition. Since hemodynamically stable and no lactic acidosis gentle hydration will be reasonable. GI: Nutrition per dietary and GI prophylaxis per routine Heme: DVT prophylaxis per routine ID: Continue antibiotics and plan to de-escalation Renal; urine out put and renal funtion reviewed Endorcine: blood glucose is monitored Lines: all lines checked and no evidence of infections Skin: skin care to prevent pressure ulcers per nursing routine care
[2018-02-27] MEDS ORDERED: Naloxone 0.4 MG/ML INJ IVP PRN (15:02)
[2018-02-27] MEDS: Ipratropium/Albuterol Neb 3 ML IH SCH ×2 (15:03→20:32)
[2018-02-27] MEDS ORDERED: *HR* Heparin 5,000 UNIT/ML VIAL SQ ONE (15:09)
[2018-02-27] MEDS ORDERED: 0.9 % Sodium Chloride 1,000 ML IVC SCH (15:15)
[2018-02-27] MEDS ORDERED: Vancomycin (wt based) 1,000 MG VIAL IVPB SCH (16:00)
[2018-02-27] MEDS: MethylPREDNISolone 40 MG/ML VIAL IVP SCH ×2 (18:56→20:12)
[2018-02-27] MEDS: Famotidine 20 MG/2 ML VIAL IVP SCH (18:56)
[2018-02-27 19:06] LABS: VBG Ionized Calcium 1.11 mmol/L (1.15-1.35)
[2018-02-27] MEDS ORDERED: Dextrose Gel 15 GM/37.5 ML TUBE PO PRN ×2 (20:28)
[2018-02-27] MEDS ORDERED: *HR* Dextrose 50 % in Water (Syg) 50 ML SYRINGE IVP PRN (20:28)
[2018-02-27] MEDS ORDERED: D5% in Water 1,000 ML IVC PRN (20:28)
[2018-02-27] MEDS: Budesonide/Formoterol 160/4.5 MDI IH SCH (20:32)
[2018-02-27] MEDS ORDERED: Insulin LISPRO 300 UNITS/3 ML VIAL SQ SCH (21:00)
[2018-02-28] MEDS: Ipratropium/Albuterol Neb 3 ML IH SCH ×7 (03:25→23:47)
[2018-02-28 04:43] LABS: Mean Corpuscular HGB Conc 27.8 g/dL (31.6-35.5); Red Cell Distribution Width 22.1 % (11.5-14.5)
[2018-02-28 04:45] LABS: Hematocrit 31.6 % (35.3-44.9); Hemoglobin 8.8 g/dL (11.5-15.4); Lymphocytes # 0.3 K/mcL (0.6-4.6); Lymphocytes % 22.5 %; Mean Corpuscular Volume 86.3 fL (83.0-100.0); Monocytes # 0.1 K/mcL (0.0-1.3); Monocytes % 4.7 %; Platelet Count 195 K/mcL (140-400); Red Blood Count 3.66 M/mcL (3.82-4.97); Segmented Neutrophils % 72.8 %
[2018-02-28] MEDS ORDERED: Oseltamivir Phosphate 30 MG CAPSULE PO SCH ×3 (05:00→21:00)
[2018-02-28 05:04] LABS: Calcium 9.1 mg/dL (8.6-10.3); Magnesium 2.4 mg/dL (1.6-2.6); Potassium 4.7 mEq/L (3.5-5.1)
[2018-02-28 05:21] LABS: Hypochromasia Present (Not Present); Platelet Estimate Normal (Normal)
[2018-02-28 05:22] LABS: Anisocytosis 1+ (Not Present)
[2018-02-28] MEDS: Famotidine 20 MG/2 ML VIAL IVP SCH (06:07)
--- NOTE | 2018-02-28 07:42 | Pulmonology Progress Note ---
<Justin Collazo - Last Filed: 02/28/18 12:06> Date of Encounter: 02/28/18 Time of Encounter: 12:06 Assessment and Plan (1) Acute on chronic respiratory failure with hypoxemia Current Visit: No Status: Acute Acute on chronic respiratory failure with hypercapnia and hypoxemia Underlying history of congestive heart failure as well as COPD and restrictive lung disease. Recent treatment for pneumonia as an outpatient with clinically worsening picture requiring noninvasive positive pressure ventilation. CT chest 02/27/18: IMPRESSION: 1. Worsening bilateral patchy airspace opacities and ground-glass densities which is suspicious for worsening multifocal pneumonia and possible superimposed pulmonary edema. 2. Mild cardiomegaly. Continue BiPAP support which is now AVAPS as needed Weaned to nasal cannula as tolerated. Continue treatment for influenza with Tamiflu as well as broad-spectrum antibiotic coverage with vancomycin and Zosyn. (2) Sepsis Current Visit: Yes Status: Acute Patient presents with 3 SIRS criteria (Heart rate, Respiratory rate and neutropenia) with source felt to be respiratory in nature. CT chest without contrast demonstrates concern for multifocal pneumonia. Healthcare associated pneumonia as the patient resides in a longterm facility. Vancomycin and Zosyn initiated in the emergency department. Tamiflu added for influenza B Blood cultures drawn and pending. . Qualifiers: Sepsis type: sepsis due to unspecified organism Qualified Code(s): A41.9 - Sepsis, unspecified organism (3) Healthcare-associated pneumonia Current Visit: Yes Status: Acute Recent outpatient failure on Zithromax. CT chest with evidence of multifocal pneumonia. Continue broad-spectrum coverage with vancomycin and Zosyn. (4) Influenza B Current Visit: Yes Status: Acute + Influenza B Tamiflu started on 02/28/18 Contact precautions (5) Hypertension Current Visit: No Status: Chronic Normotensive on arrival. Hold antihypertensives in the setting of sepsis and reinitiate as tolerated. Qualifiers: Hypertension type: essential hypertension Qualified Code(s): I10 - Essential (primary) hypertension (6) Diabetes mellitus Current Visit: No Status: Chronic Hold home medications. 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 Mild concentric left ventricular hypertrophy. Normal LV chamber size and function. Normal right ventricular structure and function. Mild left ventricular diastolic dysfunction. No significant valvular dysfunction. Severe pulmonary hypertension. Estimated RVSP is 57 mmHg. There is a trivial pericardial effusion present. Qualifiers: Heart failure type: diastolic Heart failure chronicity: unspecified Qualified Code(s): I50.30 - Unspecified diastolic (congestive) heart failure (8) Morbid obesity Current Visit: No Status: Chronic (9) Anemia Current Visit: No Status: Chronic Hemoglobin 8.8, previously 10 yesterday. No obvious source of bleeding. Daily CBC Qualifiers: Anemia type: iron deficiency Iron deficiency anemia type: unspecified iron deficiency Qualified Code(s): D50.9 - Iron deficiency anemia, unspecified (10) Elevated troponin I level Current Visit: Yes Status: Acute Troponin 0.04. EKG without ischemic features. Serial troponins negative (11) Neutropenia Current Visit: Yes Status: Acute WBC of 1.3. ANC of 946. Jaramillo CBC Qualifiers: Neutropenia type: due to infection Qualified Code(s): D70.3 - Neutropenia due to infection (12) Restrictive lung disease Current Visit: No Status: Chronic PFT 01/24/17: Spirometry shows severe airway restrictive disease. Following Bronchodilator, there is 27 % increase in small airways/mid-flows. Lung Volumes TLC moderately reduced. Diffusion Capacity is normal. Flow Volume Loop: Restrictive. (13) DVT prophylaxis Current Visit: Yes Status: Acute Heparin 5000 units twice daily Subjective Principal diagnosis: Respiratory failure Interval history: Labs and vitals reviewed overnight. Patient improved greatly while on BiPAP. She was able to eat this morning on nasal cannula without desaturation. Found to be influenza B-positive started on Tamiflu. Patient is alert this morning voicing no complaints. Objective PUL Vital signs: Last Vital Signs Temp 97.4 F L 02/28/18 03:45 Pulse 80 02/28/18 06:00 Resp 12 02/28/18 07:38 BP 149/55 02/28/18 07:38 Pulse Ox 99 02/28/18 07:38 General appearance: no acute distress Effort: mildly labored, other (On BiPAP) Auscultation: bilateral: rhonchi Cardiovascular: regular rate and rhythm Gastrointestinal: soft, non-tender, non-distended Integumentary: normal Extremities: no cyanosis, no edema Musculoskeletal: no deformities normal mental status Results - Laboratory Findings CBC and BMP: 02/28/18 04:05 02/28/18 04:05 ABG ABG pH 7.22 pH Units (7.32-7.45) L 02/27/18 14:21 ABG pCO2 87 mmHg (35-45) H* 02/27/18 14:21 ABG pO2 75 mmHg (85-104) L 02/27/18 14:21 ABG O2 Saturation 90 % (95-98) L 02/27/18 14:21 PT/INR, D-dimer PT 14.1 Seconds (9.4-12.1) H 02/27/18 08:26 Abnormal lab findings: Abnormal lab results WBC 1.3 K/mcL (4.3-11.1) L D 02/28/18 04:05 RBC 3.66 M/mcL (3.82-4.97) L 02/28/18 04:05 Hgb 8.8 g/dL (11.5-15.4) L 02/28/18 04:05 Hct 31.6 % (35.3-44.9) L 02/28/18 04:05 MCH 24.0 pg (28.0-33.3) L 02/28/18 04:05 MCHC 27.8 g/dL (31.6-35.5) L 02/28/18 04:05 RDW 22.1 % (11.5-14.5) H 02/28/18 04:05 Band Neutrophils % 14.0 % (0-4) H 02/27/18 08:26 Neutrophils # 1.0 K/mcL (1.6-8.9) L 02/28/18 04:05 Lymphocytes # 0.3 K/mcL (0.6-4.6) L 02/28/18 04:05 Hypochromasia Present (Not Present) A 02/28/18 04:05 Anisocytosis 1+ (Not Present) A 02/28/18 04:05 PT 14.1 Seconds (9.4-12.1) H 02/27/18 08:26 ABG pH 7.22 pH Units (7.32-7.45) L 02/27/18 14:21 ABG pCO2 87 mmHg (35-45) H* 04/12/18 14:21 ABG pO2 75 mmHg (85-104) L 02/27/18 14:21 ABG HCO3 36 mEq/L (21-27) H 02/27/18 14:21 ABG Total CO2 38 mEq/L (20-26) H 02/27/18 14:21 ABG O2 Saturation 90 % (95-98) L 02/27/18 14:21 ABG Base Excess 5 mEq/L (-2 to 3) H 02/27/18 14:21 VBG pH 7.29 pH Units (7.32-7.42) L 02/27/18 09:15 VBG pCO2 69 mmHg (41-51) H 02/27/18 09:15 VBG pO2 151 mmHg (25-50) H 02/27/18 09:15 VBG HCO3 33 mEq/L (21-27) H 02/27/18 09:15 Carbon Dioxide 32 mEq/L (23-29) H 02/28/18 04:05 BUN 39 mg/dL (8-23) H 02/28/18 04:05 Creatinine 1.31 mg/dL (0.60-1.20) H 02/28/18 04:05 Est GFR ( Amer) 49 (> 60) L 02/28/18 04:05 Est GFR (Non-Af Amer) 40 (> 60) L 02/28/18 04:05 BUN/Creatinine Ratio 30 (6-26) H 02/28/18 04:05 Glucose 325 mg/dL (70-105) H 02/28/18 04:05 POC Glucose 281 mg/dL (70-99) H 02/27/18 20:11 Calculated Osmolality 310 (280-300) H 02/28/18 04:05 Venous Ioniz Calcium 1.11 mmol/L (1.15-1.35) L 02/27/18 19:03 Phosphorus 2.6 mg/dL (2.7-4.5) L 02/27/18 08:26 Albumin 3.4 g/dL (3.5-5.7) L 02/27/18 08:26 Ur Squamous Epith Cells Many per lpf (None-Few) H 02/27/18 09:40 - Microbiology Findings Microbiology Findings: Microbiology, Last 48 Hours 02/27/18 19:15 Influenza Types A,B Antigen (STEVEN) - Final Nasopharyngeal - Clinical Findings Intake & Output: Intake & Output 02/27/18 02/27/18 02/28/18 15:59 23:59 07:59 Intake Total 50 / 50 Output Total 900 / 900 275 / 275 Balance -850 / -850 -275 / -275 Weight 100.1 kg Consult Discharge Plan - Plan Referrals: Jesusita Paiz MD [Primary Care Provider] - 03/10/18 10:45 am <Angel Corral - Last Filed: 02/28/18 15:59> Date of Encounter: 02/28/18 Objective PUL Vital signs: Last Vital Signs Temp 98.4 F 02/28/18 14:34 Pulse 73 02/28/18 14:41 Resp 22 02/28/18 14:34 BP 146/55 02/28/18 14:34 Pulse Ox 94 02/28/18 14:38 Results - Laboratory Findings CBC and BMP: 02/28/18 04:05 02/28/18 04:05 ABG ABG pH 7.22 pH Units (7.32-7.45) L 02/27/18 14:21 ABG pCO2 87 mmHg (35-45) H* 02/27/18 14:21 ABG pO2 75 mmHg (85-104) L 02/27/18 14:21 ABG O2 Saturation 90 % (95-98) L 02/27/18 14:21 PT/INR, D-dimer PT 14.1 Seconds (9.4-12.1) H 02/27/18 08:26 Abnormal lab findings: Abnormal lab results WBC 1.3 K/mcL (4.3-11.1) L D 02/28/18 04:05 RBC 3.66 M/mcL (3.82-4.97) L 02/28/18 04:05 Hgb 8.8 g/dL (11.5-15.4) L 02/28/18 04:05 Hct 31.6 % (35.3-44.9) L 02/28/18 04:05 MCH 24.0 pg (28.0-33.3) L 02/28/18 04:05 MCHC 27.8 g/dL (31.6-35.5) L 02/28/18 04:05 RDW 22.1 % (11.5-14.5) H 02/28/18 04:05 Band Neutrophils % 14.0 % (0-4) H 02/27/18 08:26 Neutrophils # 1.0 K/mcL (1.6-8.9) L 02/28/18 04:05 Lymphocytes # 0.3 K/mcL (0.6-4.6) L 02/28/18 04:05 Hypochromasia Present (Not Present) A 02/28/18 04:05 Anisocytosis 1+ (Not Present) A 02/28/18 04:05 PT 14.1 Seconds (9.4-12.1) H 02/27/18 08:26 ABG pH 7.22 pH Units (7.32-7.45) L 02/27/18 14:21 ABG pCO2 87 mmHg (35-45) H* 02/27/18 14:21 ABG pO2 75 mmHg (85-104) L 02/27/18 14:21 ABG HCO3 36 mEq/L (21-27) H 02/27/18 14:21 ABG Total CO2 38 mEq/L (20-26) H 02/27/18 14:21 ABG O2 Saturation 90 % (95-98) L 02/27/18 14:21 ABG Base Excess 5 mEq/L (-2 to 3) H 02/27/18 14:21 VBG pH 7.29 pH Units (7.32-7.42) L 02/27/18 09:15 VBG pCO2 69 mmHg (41-51) H 02/27/18 09:15 VBG pO2 151 mmHg (25-50) H 02/27/18 09:15 VBG HCO3 33 mEq/L (21-27) H 02/27/18 09:15 Carbon Dioxide 32 mEq/L (23-29) H 02/28/18 04:05 BUN 39 mg/dL (8-23) H 02/28/18 04:05 Creatinine 1.31 mg/dL (0.60-1.20) H 02/28/18 04:05 Est GFR ( Amer) 49 (> 60) L 02/28/18 04:05 Est GFR (Non-Af Amer) 40 (> 60) L 02/28/18 04:05 BUN/Creatinine Ratio 30 (6-26) H 02/28/18 04:05 Glucose 325 mg/dL (70-105) H 02/28/18 04:05 POC Glucose 217 mg/dL (70-99) H 02/28/18 11:28 Calculated Osmolality 310 (280-300) H 02/28/18 04:05 Venous Ioniz Calcium 1.11 mmol/L (1.15-1.35) L 02/27/18 19:03 Phosphorus 2.6 mg/dL (2.7-4.5) L 02/27/18 08:26 Albumin 3.4 g/dL (3.5-5.7) L 02/27/18 08:26 Ur Squamous Epith Cells Many per lpf (None-Few) H 02/27/18 09:40 - Microbiology Findings Microbiology Findings: Microbiology, Last 48 Hours 02/27/18 19:15 Influenza Types A,B Antigen (STEVEN) - Final Nasopharyngeal - Clinical Findings Intake & Output: Intake & Output 02/27/18 02/28/18 02/28/18 23:59 07:59 15:59 Intake Total 50 / 50 826 / 826 Output Total 900 / 900 275 / 275 300 / 300 Balance -850 / -850 -275 / -275 526 / 526 Weight 100.1 kg 98 kg - Attending Attestation I examined this patient and my medical decision-making was reviewed with the Resident Physician. I agree with the documented findings, disposition and treatment plan as described except to the extent set forth below. Patient seen and examined. Labs, radiology, chart personally reviewed. Agree with resident's history and physical, assessment, plan with following comments: MANAGER BALANCE: Patient follows commands, Pulmonary: Acceptable oxygenation and ventilation. Patient with chronic respiratory failure expected to have CO2 retention. Patient tolerating noninvasive ventilation as needed. Treatment for pneumonia. Cardiovascular: stable GI: Nutrition per dietary and GI prophylaxis per routine Heme: DVT prophylaxis per routine ID: Continue antibiotics and plan to de-escalation Renal; urine out put and renal funtion reviewed Endorcine: blood glucose is monitored Lines: all lines checked and no evidence of infections Skin: skin care to prevent pressure ulcers per nursing routine care Patient is easily arousable and was transferred to [facility]. Please call for any questions.
[2018-02-28] MEDS ORDERED: Acetaminophen 325 MG TABLET PO PRN ×2 (08:45→15:11)
[2018-02-28] MEDS: MethylPREDNISolone 40 MG/ML VIAL IVP SCH (09:05)
[2018-02-28] MEDS: Insulin LISPRO 300 UNITS/3 ML VIAL SQ SCH ×4 (09:07→21:45)
[2018-02-28] MEDS: Budesonide/Formoterol 160/4.5 MDI IH SCH ×2 (11:31→19:48)
[2018-02-28] MEDS ORDERED: Dextrose Gel 15 GM/37.5 ML TUBE PO PRN ×2 (15:11)
[2018-02-28] MEDS ORDERED: Nitroglycerin 0.4 MG TAB.SUBL SL PRN (15:11)
[2018-02-28] MEDS ORDERED: *HR* Dextrose 50 % in Water (Syg) 50 ML SYRINGE IVP PRN (15:11)
[2018-02-28] MEDS ORDERED: D5% in Water 1,000 ML IVC PRN (15:11)
[2018-02-28] MEDS ORDERED: Naloxone 0.4 MG/ML INJ IVP PRN (15:11)
[2018-02-28] MEDS: predniSONE 20 MG TABLET PO SCH (16:46)
[2018-02-28] MEDS ORDERED: predniSONE 20 MG TABLET PO SCH (17:00)
[2018-02-28] MEDS ORDERED: *HR* Heparin 5,000 UNIT/ML VIAL SQ SCH (18:00)
[2018-02-28] MEDS ORDERED: Famotidine 20 MG/2 ML VIAL IVP SCH (18:00)
[2018-02-28] MEDS: *HR* Heparin 5,000 UNIT/ML VIAL SQ SCH (18:02)
[2018-02-28] MEDS: Oseltamivir Phosphate 30 MG CAPSULE PO SCH (21:43)
[2018-03-01] MEDS: Ipratropium/Albuterol Neb 3 ML IH SCH ×5 (03:45→20:13)
[2018-03-01 05:24] LABS: Lymphocytes % 6.8 %
[2018-03-01 05:26] LABS: Hematocrit 35.5 % (35.3-44.9); Hemoglobin 9.6 g/dL (11.5-15.4); Immature Granulocytes % 0.5 % (0-4); Lymphocytes # 0.4 K/mcL (0.6-4.6); Mean Corpuscular Hemoglobin 23.5 pg (28.0-33.3); Mean Platelet Volume 9.8 fL (9.4-12.4); Monocytes # 0.3 K/mcL (0.0-1.3); Monocytes % 4.6 %; Neutrophils # 4.9 K/mcL (1.6-8.9); Platelet Count 220 K/mcL (140-400); Red Blood Count 4.08 M/mcL (3.82-4.97); Red Cell Distribution Width 22.2 % (11.5-14.5); Segmented Neutrophils % 88.1 %
[2018-03-01 05:38] LABS: Calcium 9.9 mg/dL (8.6-10.3); Magnesium 2.2 mg/dL (1.6-2.6); Potassium 5.2 mEq/L (3.5-5.1)
[2018-03-01 05:53] LABS: Anisocytosis 1+ (Not Present); Hypochromasia Present (Not Present); Macrocytosis Present (Not Present); Platelet Estimate Normal (Normal)
[2018-03-01] MEDS: *HR* Heparin 5,000 UNIT/ML VIAL SQ SCH ×2 (06:45→18:42)
--- NOTE | 2018-03-01 06:51 | Electrocardiograph Report ---
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
[2018-03-01] MEDS: Oseltamivir Phosphate 30 MG CAPSULE PO SCH ×2 (07:53→21:02)
[2018-03-01] MEDS: Aspirin Enteric Coated 325 MG Tablet PO SCH (07:54)
[2018-03-01] MEDS: Topiramate 25 MG TABLET PO SCH (07:54)
[2018-03-01] MEDS: amLODIPine 5 MG TABLET PO SCH (07:54)
[2018-03-01] MEDS: predniSONE 20 MG TABLET PO SCH ×2 (07:54→17:08)
[2018-03-01] MEDS: Insulin LISPRO 300 UNITS/3 ML VIAL SQ SCH ×4 (07:55→21:05)
[2018-03-01] MEDS: Budesonide/Formoterol 160/4.5 MDI IH SCH ×2 (08:05→20:13)
[2018-03-01] MEDS ORDERED: Aspirin Enteric Coated 325 MG Tablet PO SCH (09:00)
[2018-03-01] MEDS ORDERED: amLODIPine 5 MG TABLET PO SCH (09:00)
[2018-03-01] MEDS ORDERED: Topiramate 25 MG TABLET PO SCH (09:00)
--- NOTE | 2018-03-01 19:29 | Internal Med Progress Note ---
Date of Encounter: 03/01/18 Time of Encounter: 11:00 - Assessment and plan (1) Acute on chronic respiratory failure with hypoxemia Current Visit: No Status: Acute Assessment and plan: Patient still requiring 3 L of supplemental oxygenation this morning Will wean as tolerates (2) COPD exacerbation Current Visit: Yes Status: Acute Assessment and plan: Continue dual nebs and oral prednisone (3) Healthcare-associated pneumonia Current Visit: Yes Status: Acute Assessment and plan: Patient's neutropenia has improved but still requires supplemental oxygenation Will continue Zosyn and vancomycin (4) Influenza B Current Visit: Yes Status: Acute Assessment and plan: Will continue Tamiflu (5) Sepsis Current Visit: Yes Status: Acute Assessment and plan: Secondary to the above Will continue IV antibiotics as above Qualifiers: Sepsis type: sepsis due to unspecified organism Qualified Code(s): A41.9 - Sepsis, unspecified organism (6) Congestive heart failure Current Visit: No Status: Acute Assessment and plan: Echocardiogram showed LVEF of 60-65% with mild concentric left ventricular hypertrophy but no significant valvular dysfunction. 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 Diabetes mellitus complication status: with hyperglycemia Qualified Code(s): E11.65 - Type 2 diabetes mellitus with hyperglycemia (8) Hypertension Current Visit: No Status: Chronic Assessment and plan: Continue Cozaar and Lopressor Qualifiers: Hypertension type: essential hypertension Qualified Code(s): I10 - Essential (primary) hypertension (9) Morbid obesity with BMI of 45.0-49.9, adult Current Visit: No Status: Chronic Assessment and plan: Lifestyle modifications (10) DVT prophylaxis Current Visit: Yes Status: Acute Assessment and plan: Subcutaneous heparin - Time Spent With Patient Total time spent is greater than 50% in coordination of care (as documented) at patient's floor/unit and/or counseling patient: - Subjective Interval history: Patient still requiring 3 L of supplemental oxygenation this morning and not on any oxygen at baseline - Constitutional Vitals: Temp Pulse Resp BP Pulse Ox 98.4 F 82 26 162/72 92 03/01/18 18:42 03/01/18 18:42 03/01/18 18:42 03/01/18 18:42 03/01/18 18:42 General appearance: Present: no acute distress - Respiratory Respiratory exam: Present: CTAB. Absent: accessory muscle use, rales, rhonchi, wheezes - Cardiovascular Cardiovascular exam: Present: RRR, +S1, +S2. Absent: diastolic murmur, gallop, rubs, systolic murmur Internal Medicine: Result - Labs CBC & Chem 7: 03/01/18 05:07 03/01/18 05:07 Labs: Short CBC 03/01/18 Range/Units 05:07 WBC 5.6 D (4.3-11.1) K/mcL Hgb 9.6 L (11.5-15.4) g/dL Hct 35.5 (35.3-44.9) % Plt Count 220 (140-400) K/mcL Neutrophils # 4.9 (1.6-8.9) K/mcL BMP 03/01/18 05:07 Sodium 141 Potassium 5.2 H Chloride 104 Carbon Dioxide 34 H BUN 44 H Creatinine 1.19 Glucose 258 H Calcium 9.9 - ABG Interpretation ABG results: ABG ABG pH 7.22 pH Units (7.32-7.45) L 02/27/18 14:21 ABG pCO2 87 mmHg (35-45) H* 02/27/18 14:21 ABG pO2 75 mmHg (85-104) L 02/27/18 14:21 ABG O2 Saturation 90 % (95-98) L 02/27/18 14:21 PT/INR, D-dimer PT 14.1 Seconds (9.4-12.1) H 02/27/18 08:26 - VTE Documentation of Mechanical Device: Intermittent pneumatic compression device Consult Discharge Plan - Plan Referrals: Jesusita Paiz MD [Primary Care Provider] - 03/10/18 10:45 am
[2018-03-02] MEDS: Ipratropium/Albuterol Neb 3 ML IH SCH ×7 (00:22→23:11)
[2018-03-02 03:57] LABS: Immature Granulocytes % 1.8 % (0-4); Red Cell Distribution Width 22.3 % (11.5-14.5)
[2018-03-02 03:58] LABS: Basophils % 0.2 %; Hematocrit 34.1 % (35.3-44.9); Hemoglobin 9.5 g/dL (11.5-15.4); Lymphocytes # 0.4 K/mcL (0.6-4.6); Lymphocytes % 6.4 %; Mean Corpuscular HGB Conc 27.9 g/dL (31.6-35.5); Mean Corpuscular Hemoglobin 23.6 pg (28.0-33.3); Mean Corpuscular Volume 84.8 fL (83.0-100.0); Mean Platelet Volume 10.3 fL (9.4-12.4); Monocytes # 0.2 K/mcL (0.0-1.3); Monocytes % 2.9 %; Platelet Count 209 K/mcL (140-400); Red Blood Count 4.02 M/mcL (3.82-4.97); Segmented Neutrophils % 88.7 %
[2018-03-02 04:20] LABS: Platelet Estimate Normal (Normal)
[2018-03-02 04:21] LABS: BUN/Creatinine Ratio 39 (6-26); Blood Urea Nitrogen 42 mg/dL (8-23); Calcium 9.7 mg/dL (8.6-10.3); Carbon Dioxide 32 mEq/L (23-29); Chloride 104 mEq/L (98-107); Glucose 345 mg/dL (70-105); Hypochromasia Present (Not Present); Magnesium 2.1 mg/dL (1.6-2.6); Osmolality,Calculated 318 (280-300); Potassium 4.9 mEq/L (3.5-5.1); Sodium 142 mEq/L (136-145); eGFR For African Americans > 60 (> 60); eGFR For Non-African Americans 51 (> 60)
[2018-03-02 04:23] LABS: Anisocytosis 1+ (Not Present)
[2018-03-02] MEDS: *HR* Heparin 5,000 UNIT/ML VIAL SQ SCH ×2 (06:16→17:26)
[2018-03-02] MEDS: Budesonide/Formoterol 160/4.5 MDI IH SCH ×2 (08:24→19:35)
[2018-03-02] MEDS: Topiramate 25 MG TABLET PO SCH (08:31)
[2018-03-02] MEDS: amLODIPine 5 MG TABLET PO SCH (08:31)
[2018-03-02] MEDS: Aspirin Enteric Coated 325 MG Tablet PO SCH (08:31)
[2018-03-02] MEDS: Oseltamivir Phosphate 30 MG CAPSULE PO SCH ×2 (08:32→20:09)
[2018-03-02] MEDS: predniSONE 20 MG TABLET PO SCH ×2 (08:32→17:27)
[2018-03-02] MEDS: Insulin LISPRO 300 UNITS/3 ML VIAL SQ SCH ×4 (08:34→20:10)
[2018-03-02] MEDS: Piperacillin/Tazobactam 3.375 GM in 0.9 % Sodium Chloride Mini Bag 100 ML IVPB SCH (17:41)
--- NOTE | 2018-03-02 18:31 | Internal Med Progress Note ---
Date of Encounter: 03/02/18 Time of Encounter: 11:00 - Assessment and plan (1) Acute on chronic respiratory failure with hypoxemia Current Visit: No Status: Acute Assessment and plan: Secondary to hospital-acquired pneumonia and influenza B Patient still requiring 3 L of supplemental oxygenation this morning Will wean as tolerates (2) COPD exacerbation Current Visit: Yes Status: Acute Assessment and plan: Continue dual nebs and oral prednisone (3) Healthcare-associated pneumonia Current Visit: Yes Status: Acute Assessment and plan: Patient's neutropenia has improved but still requires supplemental oxygenation Will continue Zosyn and vancomycin (4) Influenza B Current Visit: Yes Status: Acute Assessment and plan: Will continue Tamiflu (5) Sepsis Current Visit: Yes Status: Acute Assessment and plan: Secondary to the above Will continue IV antibiotics as above Qualifiers: Sepsis type: sepsis due to unspecified organism Qualified Code(s): A41.9 - Sepsis, unspecified organism (6) Congestive heart failure Current Visit: No Status: Acute Assessment and plan: Echocardiogram showed LVEF of 60-65% with mild concentric left ventricular hypertrophy but no significant valvular dysfunction. Severe pulmonary hypertension was noted with estimated RVSP of 57 mmHG Qualifiers: Heart failure type: diastolic Heart failure chronicity: unspecified Qualified Code(s): I50.30 - Unspecified diastolic (congestive) heart failure (7) Diabetes mellitus Current Visit: No Status: Chronic Assessment and plan: Continue sliding scale insulin Qualifiers: Diabetes mellitus type: type 2 Diabetes mellitus intermediate insulin use: without intermediate use Diabetes mellitus complication status: with hyperglycemia Qualified Code(s): E11.65 - Type 2 diabetes mellitus with hyperglycemia (8) Hypertension Current Visit: No Status: Chronic Assessment and plan: Continue Cozaar and Lopressor Qualifiers: Hypertension type: essential hypertension Qualified Code(s): I10 - Essential (primary) hypertension (9) Morbid obesity with BMI of 45.0-49.9, adult Current Visit: No Status: Chronic Assessment and plan: Lifestyle modifications (10) DVT prophylaxis Current Visit: Yes Status: Acute Assessment and plan: Subcutaneous heparin - Time Spent With Patient Total time spent is greater than 50% in coordination of care (as documented) at patient's floor/unit and/or counseling patient: - Subjective Interval history: Patient still requiring 3 L of supplemental oxygenation this morning and not on any oxygen at baseline - Constitutional Vitals: Temp Pulse Resp BP Pulse Ox 97.8 F 67 22 157/71 90 03/02/18 14:55 03/02/18 14:55 03/02/18 15:35 03/02/18 14:55 03/02/18 15:35 General appearance: Present: no acute distress - Respiratory Respiratory exam: Present: CTAB. Absent: accessory muscle use, rales, rhonchi, wheezes Internal Medicine: Result - Labs CBC & Chem 7: 03/02/18 03:21 03/02/18 03:21 Labs: Short CBC 03/02/18 Range/Units 03:21 WBC 5.6 (4.3-11.1) K/mcL Hgb 9.5 L (11.5-15.4) g/dL Hct 34.1 L (35.3-44.9) % Plt Count 209 (140-400) K/mcL Neutrophils # 5.0 (1.6-8.9) K/mcL BMP 03/02/18 03:21 Sodium 142 Potassium 4.9 Chloride 104 Carbon Dioxide 32 H BUN 42 H Creatinine 1.07 Glucose 345 H Calcium 9.7 - ABG Interpretation ABG results: ABG ABG pH 7.22 pH Units (7.32-7.45) L 02/27/18 14:21 ABG pCO2 87 mmHg (35-45) H* 02/27/18 14:21 ABG pO2 75 mmHg (85-104) L 02/27/18 14:21 ABG O2 Saturation 90 % (95-98) L 02/27/18 14:21 PT/INR, D-dimer PT 14.1 Seconds (9.4-12.1) H 02/27/18 08:26 - VTE Documentation of Mechanical Device: Intermittent pneumatic compression device Consult Discharge Plan - Plan Referrals: Jesusita Paiz MD [Primary Care Provider] - 03/10/18 10:45 am
[2018-03-03] MEDS: Piperacillin/Tazobactam 3.375 GM in 0.9 % Sodium Chloride Mini Bag 100 ML IVPB SCH ×3 (01:05→16:55)
[2018-03-03] MEDS: Ipratropium/Albuterol Neb 3 ML IH SCH ×6 (03:32→23:53)
[2018-03-03] MEDS: *HR* Heparin 5,000 UNIT/ML VIAL SQ SCH ×2 (05:09→17:00)
[2018-03-03] MEDS: Budesonide/Formoterol 160/4.5 MDI IH SCH ×2 (07:28→20:03)
[2018-03-03] MEDS: Aspirin Enteric Coated 325 MG Tablet PO SCH (08:26)
[2018-03-03] MEDS: Insulin LISPRO 300 UNITS/3 ML VIAL SQ SCH ×4 (08:26→21:01)
[2018-03-03] MEDS: predniSONE 20 MG TABLET PO SCH ×2 (08:27→16:55)
[2018-03-03] MEDS: Oseltamivir Phosphate 30 MG CAPSULE PO SCH ×2 (08:28→21:03)
[2018-03-03] MEDS: amLODIPine 5 MG TABLET PO SCH (08:28)
[2018-03-03] MEDS: Topiramate 25 MG TABLET PO SCH (08:28)
[2018-03-03] MEDS ORDERED: Aminoglycoside Consult 1 EACH MC ONE (08:59)
--- NOTE | 2018-03-03 10:30 | Physician Discharge Referral ---
ExtendedCare Referral Info Institutional Level of Care: Skilled - Diagnosis (1) Acute on chronic respiratory failure with hypoxemia Priority: Primary Status: Acute (2) COPD exacerbation Priority: Primary Status: Acute (3) Healthcare-associated pneumonia Priority: Primary Status: Acute (4) Influenza B Priority: Primary Status: Acute (5) Sepsis Priority: Primary Status: Acute (6) Congestive heart failure Priority: Secondary Status: Acute (7) Diabetes mellitus Priority: Secondary Status: Chronic (8) Hypertension Priority: Secondary Status: Chronic (9) Morbid obesity with BMI of 45.0-49.9, adult Priority: Secondary Status: Chronic - Transfer Medications Home Medications: Metoprolol [Lopressor] 50 mg PO BID 09/09/15 [History] Montelukast [Singulair] 10 mg PO DAILY 09/09/15 [History] Omeprazole [PriLOSEC] 20 mg PO DAILY 09/09/15 [History] Topiramate [Topamax] 25 mg PO QAM 09/09/15 [History] Topiramate [Topamax] 50 mg PO QPM 09/09/15 [History] Oxygen 2 l NS AD 11/21/16 [History] metFORMIN [Glucophage] 1,000 mg PO BIDWM 12/20/16 [History] Citalopram Hydrobromide [Celexa] 20 mg PO DAILY #20 12/22/16 [Rx] Nitroglycerin 0.4 mg SL Q5MIN PRN 07/10/17 [Rx] Albuterol Sulfate [Ventolin Hfa] 2 puff IH Q4H PRN 02/04/18 [History] Amlodipine Besylate 10 mg PO DAILY 02/04/18 [History] Aspirin Enteric Coated [Aspirin EC] 325 mg PO DAILY 02/04/18 [History] Budesonide/Formoterol 160/4.5 [Symbicort 160/4.5] 2 puff IH BIDR 02/04/18 [ History] Losartan Potassium [Cozaar] 100 mg PO DAILY 02/04/18 [History] Lovastatin 40 mg PO HS 02/04/18 [History] Umeclidinium [place] [Incruse Ellipta] 62.5 mcg IH DAILY 02/04/18 [History] Acetaminophen [Acetaminophen ER] 650 mg PO Q4H PRN 02/27/18 [History] Calcium Carbonate [Calcium] 500 mg PO BID 02/27/18 [History] Guaifenesin [Tussin Mucus-Chest Congestion] 100 mg PO BID 02/27/18 [History] Levofloxacin [Levaquin] 750 mg PO DAILY 3 Days #0 03/03/18 [Rx] Oseltamivir Phosphate [Tamiflu] 30 mg PO BID 2 Days capsule 03/03/18 [Rx] Allergies/Adverse Reactions: 3 Allergy/AdvReac Type Severity Reaction Status Date / Time Iodinated Contrast- Oral and Allergy Rash Verified 02/27/18 08:12 IV Dye [Iodinated Contrast Media - Oral and] - Respiratory Orders Smoking Cessation: Smoking cessation has been advised. For more information, call the [place] Tobacco Quit Line at 8-519-GJQZNOW. CERTIFICATION: I certify that the transfer of the above named patient to an Extended Care Facility is necessary for the continuing treatment of the diagnosis listed. The above information is true and accurate reflection of patient's current condition. Confidential - Redisclosure prohibited without a patient's written consent.
--- NOTE | 2018-03-03 10:30 | Discharge Summary ---
- NOTES TO OUTPATIENT PROVIDER Notes to Outpatient Provider: Complete antibiotic course for hospital-acquired pneumonia and complete Tamiflu course for influenza Orders not resulted at time of discharge: Pending orders 03/03/18 09:57 Vancomycin,Trough Timed Date of Encounter: 03/03/18 Time of Encounter: 10:00 - Discharge Diagnosis (1) Acute on chronic respiratory failure with hypoxemia Priority: Primary Status: Acute (2) COPD exacerbation Priority: Primary Status: Acute (3) Healthcare-associated pneumonia Priority: Primary Status: Acute (4) Influenza B Priority: Primary Status: Acute (5) Sepsis Priority: Primary Status: Acute Qualifiers: Sepsis type: sepsis due to unspecified organism Qualified Code(s): A41.9 - Sepsis, unspecified organism (6) Congestive heart failure Priority: Secondary Status: Acute Qualifiers: Heart failure type: diastolic Heart failure chronicity: unspecified Qualified Code(s): I50.30 - Unspecified diastolic (congestive) heart failure (7) Diabetes mellitus Priority: Secondary Status: Chronic Qualifiers: Diabetes mellitus type: type 2 Diabetes mellitus long line teamster insulin use: without penitentiary use Diabetes mellitus complication status: with hyperglycemia Qualified Code(s): E11.65 - Type 2 diabetes mellitus with hyperglycemia (8) Hypertension Priority: Secondary Status: Chronic Qualifiers: Hypertension type: essential hypertension Qualified Code(s): I10 - Essential (primary) hypertension (9) Morbid obesity with BMI of 45.0-49.9, adult Priority: Secondary Status: Chronic Hospital course: Patient is a 72-year-old female with past medical history significant for CHF, COPD with CPAP use at night, diabetes who presented to the emergency department on 02/27/18 via EMS from [facility] with a chief complaint of shortness of breath. As per the records EMS was called to the nursing facility today due to shortness of breath. Upon arrival she was documented at 84% requiring increased nasal cannula of 4 L to maintain saturations. Reported that she was recently started on antibiotics for pneumonia. She was also noted to be febrile at 102 at the nursing facility. Initial VBG with a pH of 7.29, carbon dioxide of 69. She was placed on BiPAP and appeared to be improving at that time. Given her recent pneumonia she was initiated on vancomycin, Zosyn and Levaquin in the emergency Department for healthcare associated pneumonia. ABG ordered and repeated which reveals a worsening respiratory acidosis pH 7.21/ 87/74.6/35.6. Patient transitioned to AVAPS. 30cc/kg bolus held as the patient is normotensive with a normal lactate as well as having peripheral edema on exam. Patient was admitted to the ICU for management. During patients hospital stay, her acute on chronic respiratory failure with hypoxia improved with treatment of her hospital-acquired pneumonia and influenza B with IV Zosyn/vancomycin and Tamiflu. Patient was able to move out ICU to the medical floor and continued to improve. Physical therapy was consulted with recommendations for placement at snf facility for strengthening and rehabilitation. Patient is medically stable to be discharged to snf facility to complete a course of antibiotics for hospital- acquired pneumonia and influenza. - Time Spent with Patient Total time spent providing and/or coordinating discharge services: Less than 30 minutes - Discharge Medications Home Medications: Metoprolol [Lopressor] 50 mg PO BID 09/09/15 [History] Montelukast [Singulair] 10 mg PO DAILY 09/09/15 [History] Omeprazole [PriLOSEC] 20 mg PO DAILY 09/09/15 [History] Topiramate [Topamax] 25 mg PO QAM 09/09/15 [History] Topiramate [Topamax] 50 mg PO QPM 09/09/15 [History] Oxygen 2 l NS AD 11/21/16 [History] metFORMIN [Glucophage] 1,000 mg PO BIDWM 12/20/16 [History] Citalopram Hydrobromide [Celexa] 20 mg PO DAILY #20 12/22/16 [Rx] Nitroglycerin 0.4 mg SL Q5MIN PRN 07/10/17 [Rx] Albuterol Sulfate [Ventolin Hfa] 2 puff IH Q4H PRN 02/04/18 [History] Amlodipine Besylate 10 mg PO DAILY 02/04/18 [History] Aspirin Enteric Coated [Aspirin EC] 325 mg PO DAILY 02/04/18 [History] Budesonide/Formoterol 160/4.5 [Symbicort 160/4.5] 2 puff IH BIDR 02/04/18 [ History] Losartan Potassium [Cozaar] 100 mg PO DAILY 02/04/18 [History] Lovastatin 40 mg PO HS 02/04/18 [History] Umeclidinium [place] [Incruse Ellipta] 62.5 mcg IH DAILY 02/04/18 [History] Acetaminophen [Acetaminophen ER] 650 mg PO Q4H PRN 02/27/18 [History] Calcium Carbonate [Calcium] 500 mg PO BID 02/27/18 [History] Guaifenesin [Tussin Mucus-Chest Congestion] 100 mg PO BID 02/27/18 [History] Levofloxacin [Levaquin] 750 mg PO DAILY 3 Days #0 03/03/18 [Rx] Oseltamivir Phosphate [Tamiflu] 30 mg PO BID 2 Days capsule 03/03/18 [Rx] Allergies/Adverse Reactions: 3 Allergy/AdvReac Type Severity Reaction Status Date / Time Iodinated Contrast- Oral and Allergy Rash Verified 02/27/18 08:12 IV Dye [Iodinated Contrast Media - Oral and] Date of admission: 02/27/18 16:41 Primary care physician: Jesusita Paiz Consults: 02/28/18 09:57 Consult to Director Game [CONS] Routine Reason for SW Consult: Patient is from [facility] for rehab. Wear CPAP HS and oxygen 2-3L NC at baseline. 02/28/18 09:59 Consult to Physical Therapy [CONS] Routine Comment: Evaluate, develop and implement POC Reason for Consult: mobilization. [facility] patient Does patient have active BEDREST order?: No Is patient medically & hemodynamically stable?: Yes Patient assessed for mobility or mobilized this visit?: No Consult to Director Game [CONS] Routine Reason for SW Consult: patient from [facility] 02/28/18 11:09 OT [Consult to Occupational Therapy] [CONS] Routine Comment: Evaluate, develop and implement POC Reason for Consult: eval for return to [facility] Does patient have active BEDREST order?: No Is patient medically & hemodynamically stable?: Yes Patient assessed for mobility or mobilized this visit?: No - Constitutional Vitals: Temp Pulse Resp BP Pulse Ox 98.8 F 87 17 188/84 91 03/03/18 06:58 03/03/18 06:58 03/03/18 07:30 03/03/18 06:58 03/03/18 07:30 General appearance: Present: no acute distress - Respiratory Respiratory exam: Present: CTAB. Absent: accessory muscle use, rales, rhonchi, wheezes - Cardiovascular Cardiovascular exam: Present: RRR, +S1, +S2. Absent: diastolic murmur, gallop, rubs, systolic murmur - Patient Status Disposition: Transfer SNF Condition: Fair - Discharge Instructions Follow Up With: Jesusita Paiz MD [Primary Care Provider] - - VTE Documentation of Mechanical Device: Intermittent pneumatic compression device
[2018-03-04] MEDS ORDERED: Insulin DETEMIR 100 UNIT/ML X5UNITS SQ ONE (00:07)
--- NOTE | 2018-03-04 00:26 | Event Note ---
Date of Encounter: 03/04/18 Time of Encounter: 19:55 Alerted by patient's nurse that Accu-Chek is 420 and per sliding scale she is to get 7 units. Nurse instructed to follow protocol and monitor BG every hour 2 and keep me informed. Repeat Accu-Cheks are 368 and 305. Low-dose correction insulin sliding scale stopped and replaced with medium dose correction insulin sliding scale. One time dose of Levemir 10 units ordered with instructions to continue to monitor BG every hour.
[2018-03-04] MEDS: Insulin LISPRO 300 UNITS/3 ML VIAL SQ SCH ×5 (00:45→21:11)
[2018-03-04] MEDS: Piperacillin/Tazobactam 3.375 GM in 0.9 % Sodium Chloride Mini Bag 100 ML IVPB SCH ×2 (00:47→10:27)
[2018-03-04] MEDS: Ipratropium/Albuterol Neb 3 ML IH SCH ×5 (04:13→19:58)
[2018-03-04] MEDS: *HR* Heparin 5,000 UNIT/ML VIAL SQ SCH ×2 (05:46→18:42)
[2018-03-04] MEDS: Budesonide/Formoterol 160/4.5 MDI IH SCH ×2 (07:35→19:58)
[2018-03-04] MEDS: Aspirin Enteric Coated 325 MG Tablet PO SCH (08:50)
[2018-03-04] MEDS: predniSONE 20 MG TABLET PO SCH (08:50)
[2018-03-04] MEDS: Oseltamivir Phosphate 30 MG CAPSULE PO SCH (08:51)
[2018-03-04] MEDS: Topiramate 25 MG TABLET PO SCH (08:51)
[2018-03-04] MEDS: amLODIPine 5 MG TABLET PO SCH (10:16)
--- NOTE | 2018-03-04 13:47 | Internal Med Progress Note ---
<Mikhail Schaffer - Last Filed: 03/04/18 13:41> Date of Encounter: 03/04/18 Time of Encounter: 13:43 - Assessment and plan (1) Sepsis Current Visit: Yes Status: Resolved Assessment and plan: Resolved. Patient improving and able for discharge. Review of social work notes it looks as she will be accepted back on 03/05/18 as she has completed 5 days Tamiflu Qualifiers: Sepsis type: sepsis due to unspecified organism Qualified Code(s): A41.9 - Sepsis, unspecified organism (2) Healthcare-associated pneumonia Current Visit: Yes Status: Acute Assessment and plan: Improving clinically. Weaning oxygen as tolerated. Discontinue Zosyn and vancomycin (Day 5) Start Augment BID PO for a total of 5 days (3) Acute on chronic respiratory failure with hypoxemia Current Visit: No Status: Acute Assessment and plan: Secondary to hospital-acquired pneumonia and influenza B Patient still requiring 3 L of supplemental oxygenation improving to baseline. Will wean oxygen as tolerated - continue treating HAP. (4) Hypertension Current Visit: No Status: Chronic Assessment and plan: Continue Cozaar and Lopressor Qualifiers: Hypertension type: essential hypertension Qualified Code(s): I10 - Essential (primary) hypertension (5) Diabetes mellitus Current Visit: No Status: Chronic Assessment and plan: Continue medium dose sliding scale insulin. received a dose of Levemir last evening Mild elevations likely secondary to steroids reducing steroid dosing. Continue to monitor and correct hyperglycemia inpatient. Qualifiers: Diabetes mellitus type: type 2 Diabetes mellitus care home insulin use: without care home use Diabetes mellitus complication status: with hyperglycemia Qualified Code(s): E11.65 - Type 2 diabetes mellitus with hyperglycemia (6) Congestive heart failure Current Visit: No Status: Acute Assessment and plan: Pattient admitted with mild exacerbation and improved with diuresis. Echocardiogram showed LVEF of 60-65% with mild concentric left ventricular hypertrophy but no significant valvular dysfunction. Severe pulmonary hypertension was noted with estimated RVSP of 57 mmHG Continue daily weights 2L fluid restrictions 2gm sodium restrictions diabetic diet Qualifiers: Heart failure type: diastolic Heart failure chronicity: unspecified Qualified Code(s): I50.30 - Unspecified diastolic (congestive) heart failure (7) Morbid obesity with BMI of 45.0-49.9, adult Current Visit: No Status: Chronic Assessment and plan: Continue to recommend Lifestyle/diet modifications (8) COPD exacerbation Current Visit: Yes Status: Acute Assessment and plan: Continue dual nebs and oral prednisone (9) Influenza B Current Visit: Yes Status: Acute Assessment and plan: Completed 5 days of Tamiflu today. - Time Spent With Patient Total time spent is greater than 50% in coordination of care (as documented) at patient's floor/unit and/or counseling patient: - Subjective Interval history: Ms. Pugh has been seen and evaluated at bedside. She continues to complain of shortness of breath but improved since admission. She feels tired today and feels that she would be better off resting in the hospital instead of transporting back to her nursing facility. She has no other complaints at this time and has no further questions. She is eating, drinking and passing stool and flatulent. - Constitutional Vitals: Temp Pulse Resp BP Pulse Ox 97.4 F L 82 23 155/67 95 03/04/18 11:55 03/04/18 11:55 03/04/18 11:55 03/04/18 11:55 03/04/18 11:55 General appearance: Present: no acute distress Exam: Gen: Alert. awake and interactive in no acute distress HEENT: N/C, AT, PERRLA, oral mucosa is moist. Neck supple, no lymphadenopathy Cardiac: RRR, +S1, +S2 Chest: thoracic cavity is symmetric and correlating with respiratory effort, nonlabored Respiratory: mild expiratory wheezing in apical lung stuart Abdomen: mild distension with tympani, nontender to palpation with bowel sounds Extremities: trace edema in bilateral LE, no erythema or edema, patient moving all 4 extremities spontaneously. Internal Medicine: Result - Labs CBC & Chem 7: 03/02/18 03:21 03/02/18 03:21 - ABG Interpretation ABG results: ABG ABG pH 7.22 pH Units (7.32-7.45) L 02/27/18 14:21 ABG pCO2 87 mmHg (35-45) H* 02/27/18 14:21 ABG pO2 75 mmHg (85-104) L 02/27/18 14:21 ABG O2 Saturation 90 % (95-98) L 02/27/18 14:21 PT/INR, D-dimer PT 14.1 Seconds (9.4-12.1) H 02/27/18 08:26 - VTE Documentation of Mechanical Device: Intermittent pneumatic compression device Consult Discharge Plan - Plan Referrals: Jesusita Paiz MD [Primary Care Provider] - <LupeRobinson beverly - Last Filed: 03/04/18 16:52> Date of Encounter: 03/04/18 - Assessment and plan (1) Hypertension Current Visit: No Status: Chronic Qualifiers: Hypertension type: essential hypertension Qualified Code(s): I10 - Essential (primary) hypertension (2) Diabetes mellitus Current Visit: No Status: Chronic Qualifiers: Diabetes mellitus type: type 2 Diabetes mellitus care home insulin use: without long term care administrator use Diabetes mellitus complication status: with hyperglycemia Qualified Code(s): E11.65 - Type 2 diabetes mellitus with hyperglycemia (3) Congestive heart failure Current Visit: No Status: Acute Qualifiers: Heart failure type: diastolic Heart failure chronicity: unspecified Qualified Code(s): I50.30 - Unspecified diastolic (congestive) heart failure (4) Morbid obesity with BMI of 45.0-49.9, adult Current Visit: No Status: Chronic (5) Acute on chronic respiratory failure with hypoxemia Current Visit: No Status: Acute (6) Sepsis Current Visit: Yes Status: Resolved Qualifiers: Sepsis type: sepsis due to unspecified organism Qualified Code(s): A41.9 - Sepsis, unspecified organism (7) Healthcare-associated pneumonia Current Visit: Yes Status: Acute (8) COPD exacerbation Current Visit: Yes Status: Acute (9) Influenza B Current Visit: Yes Status: Acute - Time Spent With Patient Total time spent is greater than 50% in coordination of care (as documented) at patient's floor/unit and/or counseling patient: - Constitutional Vitals: Temp Pulse Resp BP Pulse Ox 98.7 F 73 20 177/85 94 03/04/18 16:33 03/04/18 16:33 03/04/18 16:33 03/04/18 16:33 03/04/18 16:33 Internal Medicine: Result - Labs CBC & Chem 7: 03/02/18 03:21 03/02/18 03:21 - ABG Interpretation ABG results: ABG ABG pH 7.22 pH Units (7.32-7.45) L 02/27/18 14:21 ABG pCO2 87 mmHg (35-45) H* 02/27/18 14:21 ABG pO2 75 mmHg (85-104) L 02/27/18 14:21 ABG O2 Saturation 90 % (95-98) L 02/27/18 14:21 PT/INR, D-dimer PT 14.1 Seconds (9.4-12.1) H 02/27/18 08:26 - Attending Attestation I examined this patient and my medical decision-making was reviewed with the Resident Physician Dr. Schaffer. I agree with the documented findings, disposition and treatment plan as described except to the extent set forth below. Ms. Pugh is 72 y/o F admitted here for Sepsis with HCAP, and acute on chronic hypoxic resp failure. Pt was started on IV abx Zosyn and Vanc. Also she was placed on high flow O2 initially. Now she is feeling better. Feels like back to baseline Gen: A, A, O x3 Chest: Diminished BS b/l, mild wheezing Heart: S1S2+ RRR a/p 1. Acute on chronic hypoxic resp fialure 2. Acute HCAP - mostly bacterial 3. Sepsis - resolved 4. Influenza B inf Cont Duoneb switched to PO Steroids cont Tamiflu
[2018-03-05] MEDS: Ipratropium/Albuterol Neb 3 ML IH SCH ×4 (00:08→11:20)
[2018-03-05] MEDS: *HR* Heparin 5,000 UNIT/ML VIAL SQ SCH (05:49)
[2018-03-05 06:24] VITALS: BP 133/69
[2018-03-05] MEDS: Budesonide/Formoterol 160/4.5 MDI IH SCH (07:26)
[2018-03-05] MEDS: Insulin LISPRO 300 UNITS/3 ML VIAL SQ SCH ×2 (07:45→11:36)
[2018-03-05] MEDS: Topiramate 25 MG TABLET PO SCH (07:45)
[2018-03-05] MEDS: amLODIPine 5 MG TABLET PO SCH (07:45)
[2018-03-05] MEDS: Aspirin Enteric Coated 325 MG Tablet PO SCH (07:45)
--- NOTE | 2018-03-05 08:59 | Discharge Summary ---
- NOTES TO OUTPATIENT PROVIDER Notes to Outpatient Provider: f/u with PCP in one week. Cont O2 at 3 lit. Cont oral abx Augmentin for 3 more days Date of Encounter: 03/05/18 Time of Encounter: 08:53 - Discharge Diagnosis (1) Sepsis Priority: Primary Status: Resolved Qualifiers: Sepsis type: sepsis due to unspecified organism Qualified Code(s): A41.9 - Sepsis, unspecified organism (2) Healthcare-associated pneumonia Priority: Primary Status: Acute (3) Influenza B Priority: Primary Status: Acute (4) Acute on chronic respiratory failure with hypoxemia Priority: Primary Status: Acute (5) COPD exacerbation Priority: Primary Status: Acute (6) Diabetes mellitus Priority: Secondary Status: Chronic Qualifiers: Diabetes mellitus type: type 2 Diabetes mellitus alf insulin use: without alf use Diabetes mellitus complication status: with hyperglycemia Qualified Code(s): E11.65 - Type 2 diabetes mellitus with hyperglycemia (7) Congestive heart failure Priority: Secondary Status: Acute Qualifiers: Heart failure type: diastolic Heart failure chronicity: unspecified Qualified Code(s): I50.30 - Unspecified diastolic (congestive) heart failure (8) Morbid obesity with BMI of 45.0-49.9, adult Priority: Secondary Status: Chronic (9) Hypertension Priority: Secondary Status: Chronic Qualifiers: Hypertension type: essential hypertension Qualified Code(s): I10 - Essential (primary) hypertension Hospital course: Ms. Pugh is a 72 year old female with past medical history significant for diastolic CHF, Chronic hypoxic resp fialure, COPD with CPAP use at night, diabetes who presented to the emergency department on 02/27/18 via EMS from [facility] facility with a chief complaint of shortness of breath. Pt was admitted in the hospital for acute on chronic hypoxic resp failure. She was started on empirical abx Zosyn, and Vanc. Pt was admitted to ICU initialy. Her symptoms started improving slowly, pt was transferred to regular tele 3 days ago. She did have influenza B positive too. So started on Tamiflu. Pt has been doing well from last 2 days, feels like back to baseline. Supposedly she had to go back to ECF 2 days ago, since she does have influenza B and currently on Tamiflu, [facility] suggested to keep the pt here until she finish her full course Tamiflu since they do not have any isolated rooms at this moment. Pt finished her Tamiflu course last night. So will dc her back to ECF today in stable condition. Switched her abx to PO Augmentin and recommend to continue tapering dose of steroids. - Time Spent with Patient Total time spent providing and/or coordinating discharge services: - Discharge Medications Prescriptions: Amoxicillin/Clavulanate [Augmentin] 875 mg PO BIDWM #6 tablet predniSONE [PredniSONE] 40 mg PO DAILY #10 tablet Home Medications: Metoprolol [Lopressor] 50 mg PO BID 09/09/15 [History] Montelukast [Singulair] 10 mg PO DAILY 09/09/15 [History] Omeprazole [PriLOSEC] 20 mg PO DAILY 09/09/15 [History] Topiramate [Topamax] 25 mg PO QAM 09/09/15 [History] Topiramate [Topamax] 50 mg PO QPM 09/09/15 [History] Oxygen 2 l NS AD 11/21/16 [History] metFORMIN [Glucophage] 1,000 mg PO BIDWM 12/20/16 [History] Citalopram Hydrobromide [Celexa] 20 mg PO DAILY #20 12/22/16 [Rx] Nitroglycerin 0.4 mg SL Q5MIN PRN 07/10/17 [Rx] Albuterol Sulfate [Ventolin Hfa] 2 puff IH Q4H PRN 02/04/18 [History] Amlodipine Besylate 10 mg PO DAILY 02/04/18 [History] Aspirin Enteric Coated [Aspirin EC] 325 mg PO DAILY 02/04/18 [History] Budesonide/Formoterol 160/4.5 [Symbicort 160/4.5] 2 puff IH BIDR 02/04/18 [ History] Losartan Potassium [Cozaar] 100 mg PO DAILY 02/04/18 [History] Lovastatin 40 mg PO HS 02/04/18 [History] Umeclidinium [place] [Incruse Ellipta] 62.5 mcg IH DAILY 02/04/18 [History] Acetaminophen [Acetaminophen ER] 650 mg PO Q4H PRN 02/27/18 [History] Calcium Carbonate [Calcium] 500 mg PO BID 02/27/18 [History] Guaifenesin [Tussin Mucus-Chest Congestion] 100 mg PO BID 02/27/18 [History] Amoxicillin/Clavulanate [Augmentin] 875 mg PO BIDWM #6 tablet 03/05/18 [Rx] predniSONE [PredniSONE] 40 mg PO DAILY #10 tablet 03/05/18 [Rx] Allergies/Adverse Reactions: 3 Allergy/AdvReac Type Severity Reaction Status Date / Time Iodinated Contrast- Oral and Allergy Rash Verified 02/27/18 08:12 IV Dye [Iodinated Contrast Media - Oral and] Date of admission: 02/27/18 16:41 Primary care physician: Jesusita Paiz Consults: 02/28/18 09:57 Consult to Durability Engineer [CONS] Routine Reason for SW Consult: Patient is from [facility] for rehab. Wear CPAP HS and oxygen 2-3L NC at baseline. 02/28/18 09:59 Consult to Physical Therapy [CONS] Routine Comment: Evaluate, develop and implement POC Reason for Consult: mobilization. f patient Does patient have active BEDREST order?: No Is patient medically & hemodynamically stable?: Yes Patient assessed for mobility or mobilized this visit?: No Consult to Durability Engineer [CONS] Routine Reason for SW Consult: patient from [facility]cf 02/28/18 11:09 OT [Consult to Occupational Therapy] [CONS] Routine Comment: Evaluate, develop and implement POC Reason for Consult: eval for return to [facility] Does patient have active BEDREST order?: No Is patient medically & hemodynamically stable?: Yes Patient assessed for mobility or mobilized this visit?: No - Constitutional Vitals: Temp Pulse Resp BP Pulse Ox 98.0 F 76 22 133/69 93 03/05/18 06:23 03/05/18 06:23 03/05/18 07:29 03/05/18 06:23 03/05/18 07:29 General appearance: Present: cooperative, A&O X 3, no acute distress, answers questions appropriately - Neck Neck exam general surgery: Present: supple - Respiratory Respiratory exam: Present: decreased breath sounds, respiratory distress, wheezes (mild). Absent: rhonchi - Cardiovascular Cardiovascular exam: Present: RRR, +S1, +S2. Absent: tachycardia - Extremities Exam Extremities exam: Absent: calf tenderness, pedal edema, tenderness - Back Exam Back exam: Absent: CVA tenderness (L), CVA tenderness (R) - Neurological Exam Neurological exam: Present: alert, oriented X3 - Psychiatric Psychiatric exam: Present: normal affect, normal mood - Skin Skin exam: Absent: rash - Patient Status Disposition: Transfer SNF Condition: Good Overall status at discharge: patient is back to baseline - Discharge Instructions Follow Up With: Jesusita Paiz MD [Primary Care Provider] - - Diet and Activity Activity: as per physical therapy, increase activity as tolerated Diet: low salt diet - VTE Documentation of Mechanical Device: Intermittent pneumatic compression device
[2018-03-05] MEDS ORDERED: predniSONE 20 MG TABLET PO SCH (09:00)
== END 2018-03-05 14:48 | DRG 871 ==
LOC: EMEROO 08:09 → SUATTDRO 16:41 → ICNU 16:41 → 2NNU 02-28 14:29 → 3ANU 03-02 14:43
PROVIDERS: ADMIT Internal Medicine Pulmonary Disease; ATTEND Hospitalist

== ENCOUNTER 2019-07-16 09:24 | Inpatient (IN) ==
[2019-07-16] MEDS ORDERED: 0.9 % Sodium Chloride 500 ML IVC ONE (09:58)
[2019-07-16] MEDS ORDERED: FUROSEMIDE IV ONE (10:01)
[2019-07-16] MEDS ORDERED: SODIUM CHLORIDE 0.9% IV ONE (10:01)
--- NOTE | 2019-07-16 10:06 | Emergency Department Note ---
Disposition Clinical Impression: Acute exacerbation of chronic obstructive airways disease Pneumonia Qualifiers: Pneumonia type: due to unspecified organism Laterality: bilateral Lung location: lower lobe of lung Qualified Code(s): J18.1 - Lobar pneumonia, unspecified organism Congestive heart failure Qualifiers: Heart failure type: unspecified Heart failure chronicity: chronic Qualified Code(s): I50.9 - Heart failure, unspecified Disposition: Admitted As Inpatient Time of Disposition: 11:46 SOB HPI - General Chief Complaint: ED Shortness of Breath/Dyspnea Stated Complaint: HEIDI Time Seen by Provider: 07/16/19 09:26 Source: patient, EMS Mode of arrival: EMS Limitations: no limitations Nursing Notes Reviewed: Yes Vital Signs Reviewed: Yes - History of Present Illness Ms. Pugh is a 74 yo woman brought in by EMS on 07/16/19 for acute worsening of dyspnea. She also endorses chest pain 5/10 that radiates from left and right shoulders intermittently that is worse with motion. She is tachycardic to 100s, tachypneic to 29 and febrile (101.1, axillary) on presentation. Glucose 181 per EMS. She said an albuterol treatment at home provided some relief. Patient on 2L O2 at home and has a CPAP to wear at night, but can't tolerate. She also has a headache, right knee pain and lower abdominal pain. She denies symptoms such as dysuria, hematuria, hemoptysis, increased sputum production, LOC, numbness, weakness, or vision changes. PMH includes COPD requiring hospitalization, CHF, PE, T2DM, uterine cancer (2015, s/p radiation). She takes 81mg aspirin daily, 20mg Lasix which she has not taken for 2 days. Allergic to contrast. - Related Data Home Medications Medication Instructions Recorded Confirmed Albuterol Sulfate [Ventolin Hfa] 2 puff IH Q4H PRN 12/01/18 07/16/19 Citalopram Hydrobromide 40 mg PO DAILY 12/01/18 07/16/19 [Citalopram HBr] Furosemide [Lasix] 40 mg PO DAILY 12/01/18 07/16/19 Metoprolol Tartrate 50 mg PO BID 12/01/18 07/16/19 Montelukast [Singulair] 10 mg PO DAILY 12/01/18 07/16/19 Potassium Chloride 20 meq PO DAILY 12/01/18 07/16/19 Topiramate 25 mg PO QAM 12/01/18 07/16/19 Topiramate 50 mg PO HS 12/01/18 07/16/19 Umeclidinium [place] [Incruse 1 puff IH DAILY 12/01/18 07/16/19 Ellipta] Acetaminophen [Tylenol] 325 mg PO Q6HR PRN 04/16/19 07/16/19 Amlodipine Besylate 10 mg PO DAILY 04/16/19 07/16/19 Aspirin [Adult Aspirin Regimen] 81 mg PO DAILY 04/16/19 07/16/19 Multivitamin [Daily Multiple 1 tab PO DAILY 04/16/19 07/16/19 Vitamin] Dextran 70/Hypromellose/Pf 1 each OP QID PRN 05/09/19 07/16/19 [Artificial Tears Drops] Fluticasone/Vilanterol [Breo 1 each IH DAILY 05/09/19 07/16/19 Ellipta 200-25 Mcg INH] Nystatin POWDER [Nystop] 1 appl TP BID 05/09/19 07/16/19 Cyanocobalamin (Vitamin B-12) 1,000 mcg PO DAILY 07/16/19 07/16/19 [Vitamin B-12] Previous Rx's Medication Instructions Recorded Ascorbic Acid [C-500] 500 mg PO DAILY 365 Days tablet 05/13/19 Ferrous Sulfate 325 mg PO DAILY #0 05/13/19 Omeprazole [PriLOSEC] 20 mg PO DAILY PRN 365 Days 05/13/19 Allergies Allergy/AdvReac Type Severity Reaction Status Date / Time Iodinated Contrast Media Allergy Rash Verified 12/01/18 07:33 [Iodinated Contrast Media - Oral and] All systems ED: reviewed and negative except as stated. Constitutional: Reports: fever Cardiovascular: Reports: chest pain, dyspnea on exertion, edema Respiratory: Reports: cough, dyspnea, wheezes Gastrointestinal: Reports: abdominal pain Neurological: Reports: headache Past Medical History - Past Medical History Medical history: Reports: asthma, cancer, CHF, COPD, diabetes, hypertension, other Surgical history: Reports: appendectomy, orthopedic, other, other Psychiatric history: Reports: no psych history [employer] P[employer] history: Reports: bilateral tubal ligation - Social History Smoking Status: Never smoker Smokeless Tobacco Status: No Alcohol use: Reports: none Drug use: Reports: none Physical Exam PE Gen: AOx3, uncomfortable HEENT: No lymphadenopathy, no tenderness to palpation over sinues, pupils equal and reactive Cardio: Tachycardic, no murmur, intermittent cyanosis of lips, +orthopnea, mild bilateral pitting edema of LE Resp: Decreased breath sounds bilaterally w/ wheezing, struggles to talk in complete sentences, lips pursed GI: Abdomen soft, nontender to palpation, difficult to evaluate distention 2/2 body habitus : No suprapubic distention or tenderness to palpation MSK: Reduced ROM 2/2 dyspnea, no ecchymoses, no rash, no decreased sensation Neuro: CNI-XII intact Psych: Appropriate affect - General General appearance: alert, in no apparent distress Course Course Narrative: Ddx includes pneumonina, sepsis, acute on chronic CHF, COPD exacerbation, UTI. Meets SIRS criteria. Gave 500ml IVF rather than 3L, however, due to CHF w/ acute SOB and also gave 1 dose 20mg lasix. CXR with bilateral infiltrates. Given fever and tachycardia, consistent with pneumonia. Started IV antibiotics. Discussed plan to admit with hospitalist and patient; all parties in agreement. Ordered VBG and gave another 1L saline bolus per Dr. Smith's recommendation. Vital Signs Temperature 101.1 F H 07/16/19 09:30 Pulse Rate 103 07/16/19 09:30 Respiratory Rate 26 07/16/19 09:30 Blood Pressure 185/73 07/16/19 09:30 O2 Sat by Pulse Oximetry 82 07/16/19 09:30 Temperature 99.3 F 07/16/19 12:20 Pulse Rate 89 07/16/19 12:20 Respiratory Rate 18 07/16/19 12:20 Blood Pressure 163/104 07/16/19 12:20 O2 Sat by Pulse Oximetry 99 07/16/19 12:20 Oxygen Delivery Oxygen Delivery Bipap Shortness of Breath/Dyspnea - MDM Narrative Medical decision making narrative: See course. - Medical Records Medical records reviewed: Yes I reviewed the patient's medical records. - Lab Data Result diagrams: 07/16/19 09:59 07/16/19 09:59 Lab Results 07/16/19 07/16/19 07/16/19 Range/Units 09:59 09:59 09:59 WBC 13.7 H (4.3-11.1) K/mcL RBC 4.54 (3.82-4.97) M/mcL Hgb 12.8 (11.5-15.4) g/dL Hct 42.4 (35.3-44.9) % MCV 93.4 (83.0-100.0) fL MCH 28.2 (28.0-33.3) pg MCHC 30.2 L (31.6-35.5) g/dL RDW 16.3 H (11.5-14.5) % Plt Count 253 (140-400) K/mcL MPV 9.6 (9.4-12.4) fL Immature Gran % 0.7 (0-4) % Seg Neutrophils % 89.3 % Lymphocytes % 4.8 % Monocytes % 3.6 % Eosinophils % 1.5 % Basophils % 0.1 % Neutrophils # 12.2 H (1.6-8.9) K/mcL Lymphocytes # 0.7 (0.6-4.6) K/mcL Monocytes # 0.5 (0.0-1.3) K/mcL Eosinophils # 0.2 (0.0-0.6) K/mcL Basophils # 0.0 (0.0-0.2) K/mcL VBG pH (7.32-7.42) pH Units VBG pCO2 (41-51) mmHg VBG pO2 (25-50) mmHg VBG HCO3 (21-27) mEq/L Sodium 139 (136-145) mEq/L Potassium 3.7 (3.5-5.1) mEq/L Chloride 102 (98-107) mEq/L Carbon Dioxide 30 H (23-29) mEq/L BUN 15 (8-23) mg/dL Creatinine 0.76 (0.60-1.20) mg/dL Est GFR ( Amer) > 60 (> 60) Est GFR (Non-Af Amer) > 60 (> 60) BUN/Creatinine Ratio 20 (6-26) Glucose 212 H (70-105) mg/dL Calculated Osmolality 295 (280-300) Lactic Acid (0.5-2.2) mmol/L Calcium 9.2 (8.6-10.3) mg/dL Magnesium 1.6 (1.6-2.6) mg/dL Total Bilirubin 0.4 (0.3-1.0) mg/dL AST 13 (13-39) Units/L ALT 9 (7-52) Units/L Alkaline Phosphatase 115 H (34-104) Units/L Troponin I 0.03 (< 0.04) ng/mL B-Natriuretic Peptide 97 (Less than 100) pg/mL Serum Total Protein 7.0 (6.4-8.9) g/dL Albumin 3.9 (3.5-5.7) g/dL Globulin 3.1 (2.4-3.5) g/dL Albumin/Globulin Ratio 1.3 (1.1-2.2) Procalcitonin (0.00-0.15) ng/mL Ur Specimen Adequacy Urine Color (Yellow) Urine Clarity (Clear) Urine pH (5.0-8.0) pH Units Ur Specific Counce (1.010-1.025) Urine Protein (Neg-Trace) mg/dL Urine Glucose (UA) (Normal) mg/dL Urine Ketones (Negative) mg/dL Urine Blood (Negative) Urine Nitrite (Negative) Urine Bilirubin (Negative) Urine Urobilinogen (Normal) mg/dL Ur Leukocyte Esterase (Negative) Urine Microscopic RBC (0-3) per hpf Urine Microscopic WBC (0-3) per hpf Ur Squamous Epith Cells (None-Few) per lpf Urine Bacteria (None-Few) per hpf Hyaline Casts (None-Few) per lpf Ur Culture Indicated? (NO) 07/16/19 07/16/19 07/16/19 Range/Units 09:59 09:59 10:34 WBC (4.3-11.1) K/mcL RBC (3.82-4.97) M/mcL Hgb (11.5-15.4) g/dL Hct (35.3-44.9) % MCV (83.0-100.0) fL MCH (28.0-33.3) pg MCHC (31.6-35.5) g/dL RDW (11.5-14.5) % Plt Count (140-400) K/mcL MPV (9.4-12.4) fL Immature Gran % (0-4) % Seg Neutrophils % % Lymphocytes % % Monocytes % % Eosinophils % % Basophils % % Neutrophils # (1.6-8.9) K/mcL Lymphocytes # (0.6-4.6) K/mcL Monocytes # (0.0-1.3) K/mcL Eosinophils # (0.0-0.6) K/mcL Basophils # (0.0-0.2) K/mcL VBG pH (7.32-7.42) pH Units VBG pCO2 (41-51) mmHg VBG pO2 (25-50) mmHg VBG HCO3 (21-27) mEq/L Sodium (136-145) mEq/L Potassium (3.5-5.1) mEq/L Chloride (98-107) mEq/L Carbon Dioxide (23-29) mEq/L BUN (8-23) mg/dL Creatinine (0.60-1.20) mg/dL Est GFR ( Amer) (> 60) Est GFR (Non-Af Amer) (> 60) BUN/Creatinine Ratio (6-26) Glucose (70-105) mg/dL Calculated Osmolality (280-300) Lactic Acid 2.1 (0.5-2.2) mmol/L Calcium (8.6-10.3) mg/dL Magnesium (1.6-2.6) mg/dL Total Bilirubin (0.3-1.0) mg/dL AST (13-39) Units/L ALT (7-52) Units/L Alkaline Phosphatase (34-104) Units/L Troponin I (< 0.04) ng/mL B-Natriuretic Peptide (Less than 100) pg/mL Serum Total Protein (6.4-8.9) g/dL Albumin (3.5-5.7) g/dL Globulin (2.4-3.5) g/dL Albumin/Globulin Ratio (1.1-2.2) Procalcitonin < 0.02 (0.00-0.15) ng/mL Ur Specimen Adequacy See below A Urine Color Yellow (Yellow) Urine Clarity Clear (Clear) Urine pH 5.5 (5.0-8.0) pH Units Ur Specific Counce 1.027 H (1.010-1.025) Urine Protein 100 H (Neg-Trace) mg/dL Urine Glucose (UA) Normal (Normal) mg/dL Urine Ketones Trace H (Negative) mg/dL Urine Blood Negative (Negative) Urine Nitrite Negative (Negative) Urine Bilirubin Small H (Negative) Urine Urobilinogen Normal (Normal) mg/dL Ur Leukocyte Esterase Negative (Negative) Urine Microscopic RBC 0-3 (0-3) per hpf Urine Microscopic WBC 0-3 (0-3) per hpf Ur Squamous Epith Cells Many H (None-Few) per lpf Urine Bacteria None Seen (None-Few) per hpf Hyaline Casts None Seen (None-Few) per lpf Ur Culture Indicated? NO (NO) 07/16/19 Range/Units 12:05 WBC (4.3-11.1) K/mcL RBC (3.82-4.97) M/mcL Hgb (11.5-15.4) g/dL Hct (35.3-44.9) % MCV (83.0-100.0) fL MCH (28.0-33.3) pg MCHC (31.6-35.5) g/dL RDW (11.5-14.5) % Plt Count (140-400) K/mcL MPV (9.4-12.4) fL Immature Gran % (0-4) % Seg Neutrophils % % Lymphocytes % % Monocytes % % Eosinophils % % Basophils % % Neutrophils # (1.6-8.9) K/mcL Lymphocytes # (0.6-4.6) K/mcL Monocytes # (0.0-1.3) K/mcL Eosinophils # (0.0-0.6) K/mcL Basophils # (0.0-0.2) K/mcL VBG pH 7.44 H (7.32-7.42) pH Units VBG pCO2 44 (41-51) mmHg VBG pO2 197 H (25-50) mmHg VBG HCO3 30 H (21-27) mEq/L Sodium (136-145) mEq/L Potassium (3.5-5.1) mEq/L Chloride (98-107) mEq/L Carbon Dioxide (23-29) mEq/L BUN (8-23) mg/dL Creatinine (0.60-1.20) mg/dL Est GFR ( Amer) (> 60) Est GFR (Non-Af Amer) (> 60) BUN/Creatinine Ratio (6-26) Glucose (70-105) mg/dL Calculated Osmolality (280-300) Lactic Acid (0.5-2.2) mmol/L Calcium (8.6-10.3) mg/dL Magnesium (1.6-2.6) mg/dL Total Bilirubin (0.3-1.0) mg/dL AST (13-39) Units/L ALT (7-52) Units/L Alkaline Phosphatase (34-104) Units/L Troponin I (< 0.04) ng/mL B-Natriuretic Peptide (Less than 100) pg/mL Serum Total Protein (6.4-8.9) g/dL Albumin (3.5-5.7) g/dL Globulin (2.4-3.5) g/dL Albumin/Globulin Ratio (1.1-2.2) Procalcitonin (0.00-0.15) ng/mL Ur Specimen Adequacy Urine Color (Yellow) Urine Clarity (Clear) Urine pH (5.0-8.0) pH Units Ur Specific Counce (1.010-1.025) Urine Protein (Neg-Trace) mg/dL Urine Glucose (UA) (Normal) mg/dL Urine Ketones (Negative) mg/dL Urine Blood (Negative) Urine Nitrite (Negative) Urine Bilirubin (Negative) Urine Urobilinogen (Normal) mg/dL Ur Leukocyte Esterase (Negative) Urine Microscopic RBC (0-3) per hpf Urine Microscopic WBC (0-3) per hpf Ur Squamous Epith Cells (None-Few) per lpf Urine Bacteria (None-Few) per hpf Hyaline Casts (None-Few) per lpf Ur Culture Indicated? (NO) Attestation Statement - Attestation Attestation: I, Lance Campbell, examined this patient and my medical decision-making was reviewed with the TELE[employer]ONE [employer] POWER OPERATOR/PA/Advanced Practice Nurse/Resident Physician. I agree with the documented findings, disposition and treatment plan as described except to the extent set forth below. 74-year-old female presents emergency Department with concerns of difficulty in breathing. Patient states his been worsening over past few days. Patient has a chest x-ray which shows likely multifocal pneumonia. She does not have an elevated BNP. We have concerns about the patient's history of congestive heart failure which is why she did not receive immediate bolus of 3 L. Patient was however still tachycardic and so she received additional fluids after a negative BNP. She started on antibiotics in the emergency department. Patient will be admitted to the hospitalist for further care and evaluation of likely sepsis. The high probability of a clinically significant, sudden or life threatening deterioration of the respiratory and cardiovascular system(s) required my full and direct attention, intervention and personal management. The aggregate critical care time was 35 minutes. This time is in addition to time spent performing reported procedures but includes the following: x Data Review and interpretation x Patient assessment and monitoring of vital signs x Documentation x Medication orders and management
[2019-07-16 10:23] LABS: Basophils % 0.1 %; Eosinophils # 0.2 K/mcL (0.0-0.6); Eosinophils % 1.5 %; Hematocrit 42.4 % (35.3-44.9); Hemoglobin 12.8 g/dL (11.5-15.4); Immature Granulocytes % 0.7 % (0-4); Lymphocytes # 0.7 K/mcL (0.6-4.6); Lymphocytes % 4.8 %; Mean Corpuscular HGB Conc 30.2 g/dL (31.6-35.5); Mean Corpuscular Hemoglobin 28.2 pg (28.0-33.3); Mean Corpuscular Volume 93.4 fL (83.0-100.0); Mean Platelet Volume 9.6 fL (9.4-12.4); Monocytes # 0.5 K/mcL (0.0-1.3); Monocytes % 3.6 %; Neutrophils # 12.2 K/mcL (1.6-8.9); Platelet Count 253 K/mcL (140-400); Red Blood Count 4.54 M/mcL (3.82-4.97); Red Cell Distribution Width 16.3 % (11.5-14.5); Segmented Neutrophils % 89.3 %; White Blood Count 13.7 K/mcL (4.3-11.1)
[2019-07-16] MEDS ORDERED: Furosemide 20 MG/2 ML VIAL IVP ONE (10:30)
[2019-07-16 10:45] LABS: Alanine Aminotransferase 9 Units/L (7-52); Albumin 3.9 g/dL (3.5-5.7); Albumin/Globulin Ratio 1.3 (1.1-2.2); Alkaline Phosphatase 115 Units/L (34-104); Aspartate Amino Transferase 13 Units/L (13-39); BUN/Creatinine Ratio 20 (6-26); Bilirubin,Total 0.4 mg/dL (0.3-1.0); Blood Urea Nitrogen 15 mg/dL (8-23); Calcium 9.2 mg/dL (8.6-10.3); Carbon Dioxide 30 mEq/L (23-29); Chloride 102 mEq/L (98-107); Globulin 3.1 g/dL (2.4-3.5); Glucose 212 mg/dL (70-105); Osmolality,Calculated 295 (280-300); Potassium 3.7 mEq/L (3.5-5.1); Sodium 139 mEq/L (136-145); Troponin I 0.03 ng/mL (< 0.04); eGFR For African Americans > 60 (> 60); eGFR For Non-African Americans > 60 (> 60)
[2019-07-16 10:53] LABS: Bilirubin,Urine Small (Negative); Blood,Urine Negative (Negative); Clarity,Urine Clear (Clear); Color,Urine Yellow (Yellow); Glucose,Urine (UA) Normal (Normal); Ketones,Urine Trace mg/dL (Negative); Leukocyte Esterase,Urine Negative (Negative); Nitrite,Urine Negative (Negative); PH,Urine 5.5 pH Units (5.0-8.0); Protein,Urine 100 mg/dL (Neg-Trace); Specific Gravity,Urine 1.027 (1.010-1.025); Urobilinogen,Urine Normal (Normal)
[2019-07-16 10:56] LABS: Bacteria,Urine None Seen per hpf (None-Few); Hyaline Casts,Urine None Seen per lpf (None-Few); RBC,Urine 0-3 per hpf (0-3); Squamous Epithelial Cell,Urine Many per lpf (None-Few); WBC,Urine 0-3 per hpf (0-3)
[2019-07-16] MEDS ORDERED: 0.9 % Sodium Chloride 1,000 ML IVC ONE (11:43)
[2019-07-16] MEDS ORDERED: Naloxone 0.4 MG/ML INJ IVP PRN (11:45)
[2019-07-16] MEDS ORDERED: Ondansetron 4 MG/2 ML VIAL IVP PRN (11:45)
--- NOTE | 2019-07-16 11:56 | Internal Med History&Physical ---
Date of Encounter: 07/16/19 Time of Encounter: 11:50 Internal Medicine - H&P: HPI Chief complaint: SOB Admitted From: Emergency Dept History of present illness: Marlen Pugh is a 74 F w hx COPD on 2L, severe restriction on PFTs, PRANAV noncompliant w CPAP, HTN, DM2, HFpEF, who p/w SOB. Patient states that for almost a week she's been feeling fairly crummy and without energy, but not terrible. Using her inhalers more than usual. Forced herself yesterday to take her dog to groomer and to grocery store, after which she felt significantly more SOB than before. Notes that even though it was mild temp outside, she needed AC on as she felt very warm. Today she feels hot and sweaty and can tell she has a fever. Denies leg swelling, saying in fact that over the last week since she's been home her swelling has been improved somewhat. Has noted a little more coughing which she attributes to possible sinus drainage causing a tickling in her throat, but no change in sputum production or quality. Does have some left shoulder pain which is chronic. Noncompliant with lasix the last two days. Did have some lower abd discomfort this AM relieved with urination. Denies sick contacts. In the ED, pt vitals T'101, HR 100s, RR 26, SBP 185, satting 82% on 2L. CXR with bibasilar infiltrates suggestive of either infection or edema. Labs notable for WBC 14, CO2 30 (baseline is usually higher), BG 210, lactate 2.1, Mg 1.6. Urine w some protein and ketones. BCx x2 obtained prior to giving doses of vanc, zosyn, levaquin. Given NS 1L and placed on BiPAP for respiratory distress, with improvement in HR, RR, and O2 sats. Past medical, surgical, social, and family histories reviewed and updated as below. Past Med Surg Social Fam HX - Past Medical History Medical history: asthma, cancer, CHF, COPD, diabetes, hypertension, other Additional medical history: uterine cancer 2014 Psychiatric history: no psych history - Past Surgical History Surgical History: appendectomy, orthopedic, other, other Additional surgical history: Heart procedure as child - Social History Smoking Status: Never smoker Smokeless Tobacco Status: No Alcohol use: none Drug use: none - Family History Mother Family Member Ethnicity: Non- Living Status: Still Living Hx Family Cardiac Disorders: Yes (HTN) Hx Family Respiratory Disorders: Yes Hx Family Endocrine Disorder: No Father Family Member Ethnicity: Non- Living Status: Hx Family Cardiac Disorders: Yes (HTN) Brother Family Member Ethnicity: Non- Living Status: Still Living Hx Family Cardiac Disorders: Yes (HD requiring anticoagulation) Sister Family Member Ethnicity: Non- Living Status: Still Living Internal Medicine - H&P: Meds Albuterol Sulfate [Ventolin Hfa] 2 puff IH Q4H PRN 12/01/18 [History] Citalopram Hydrobromide [Citalopram HBr] 40 mg PO DAILY 12/01/18 [History] Furosemide [Lasix] 40 mg PO DAILY 12/01/18 [History] Metoprolol Tartrate 50 mg PO BID 12/01/18 [History] Montelukast [Singulair] 10 mg PO DAILY 12/01/18 [History] Potassium Chloride 20 meq PO DAILY 12/01/18 [History] Topiramate 25 mg PO QAM 12/01/18 [History] Topiramate 50 mg PO HS 12/01/18 [History] Umeclidinium [place] [Incruse Ellipta] 1 puff IH DAILY 12/01/18 [History] Acetaminophen [Tylenol] 325 mg PO Q6HR PRN 04/16/19 [History] Amlodipine Besylate 10 mg PO DAILY 04/16/19 [History] Aspirin [Adult Aspirin Regimen] 81 mg PO DAILY 04/16/19 [History] Multivitamin [Daily Multiple Vitamin] 1 tab PO DAILY 04/16/19 [History] Dextran 70/Hypromellose/Pf [Artificial Tears Drops] 1 each OP QID PRN 05/09/19 [History] Fluticasone/Vilanterol [Breo Ellipta 200-25 Mcg INH] 1 each IH DAILY 05/09/19 [History] Nystatin POWDER [Nystop] 1 appl TP BID 05/09/19 [History] Ascorbic Acid [C-500] 500 mg PO DAILY 365 Days tablet 05/13/19 [Rx] Ferrous Sulfate 325 mg PO DAILY #0 05/13/19 [Rx] Omeprazole [PriLOSEC] 20 mg PO DAILY PRN 365 Days 05/13/19 [Rx] Cyanocobalamin (Vitamin B-12) [Vitamin B-12] 1,000 mcg PO DAILY 07/16/19 [History] Allergy/AdvReac Type Severity Reaction Status Date / Time Iodinated Contrast Media Allergy Rash Verified 12/01/18 07:33 [Iodinated Contrast Media - Oral and] All Systems PM: A 10-system review of systems was performed and is negative for pertinent findings except as documented above in the HPI. - Constitutional Vitals: Temp Pulse Resp BP Pulse Ox 101.1 F H 96 16 173/61 93 07/16/19 09:30 07/16/19 11:12 07/16/19 11:12 07/16/19 11:12 07/16/19 11:12 Exam: General: good eye contact, chronically ill appearing and still tachypneic since just placed on Bipap but RR does slow throughout course of my encounter Head: Atraumatic, normocephalic. Face symmetric Eyes: EOMI, sclerae anicteric ENT: Mucous membranes moist. Trachea midline. Unable to palpate any cervical lymphadenopathy Thoracic: No visible chest wall deformities. Trace bibasilar crackles, no wheezing, good aeration Cardio: Normal S1 and S2, regular rhythm, tachycardic, no murmurs. Unable to assess JVD given habitus Abdomen: Soft, nontender, nondistended, obese Extremities: Warm, well perfused. DP pulses 2+ b/l. No clubbing, cyanosis. Does have firm pitting edema b/l LE to knees Skin: Intact. No rashes, bruises, or ulcers Neuro: Awake, fully oriented. Good memory, concentration, attention. Speech fluent. CN II-XII grossly intact. Strength 5/5 in b/l UE and LE Internal Med - H&P Results - Labs CBC & Chem 7: 07/16/19 09:59 07/16/19 09:59 Labs: Short CBC 07/16/19 Range/Units 09:59 WBC 13.7 H (4.3-11.1) K/mcL Hgb 12.8 (11.5-15.4) g/dL Hct 42.4 (35.3-44.9) % Plt Count 253 (140-400) K/mcL Neutrophils # 12.2 H (1.6-8.9) K/mcL BMP 07/16/19 09:59 Sodium 139 Potassium 3.7 Chloride 102 Carbon Dioxide 30 H BUN 15 Creatinine 0.76 Glucose 212 H Calcium 9.2 Cardiac Enzymes 07/16/19 Range/Units 09:59 Troponin I 0.03 (< 0.04) ng/mL Liver Function 07/16/19 Range/Units 09:59 Total Bilirubin 0.4 (0.3-1.0) mg/dL AST 13 (13-39) Units/L ALT 9 (7-52) Units/L Alkaline Phosphatase 115 H (34-104) Units/L Albumin 3.9 (3.5-5.7) g/dL Urine 07/16/19 Range/Units 10:34 Urine Color Yellow (Yellow) Urine Clarity Clear (Clear) Urine pH 5.5 (5.0-8.0) pH Units Ur Specific [place] 1.027 H (1.010-1.025) Urine Protein 100 H (Neg-Trace) mg/dL Urine Glucose (UA) Normal (Normal) mg/dL - Impressions ITS Impressions Chest X-Ray 07/16/19 09:41 IMPRESSION: Bilateral airspace opacity similar to prior examination may represent multifocal pneumonia or pulmonary edema. Follow-up to resolution is recommended. D/ / Nedra Ochoa MD / Nedra Ochoa MD Interpreting Provider: Nedra Ochoa MD - Summary of Assessment and Plan Summary of Assessment and Plan: Marlen Pugh is a 74 F w hx COPD on 2L, severe restriction on PFTs, PRANAV noncompliant w CPAP, HTN, DM2, HFpEF, who p/w SOB, SIRS 4/4, hypoxia, CXR w likely infiltrate, concerning for pneumonia causing sepsis and acute hypoxic respiratory failure. HCAP: b/l infiltrates suggestive of infection although could be edema instead - check procal - if procal negative, would check resp viral panel - check UAg's - continue empiric levaquin, s/p doses vanc/zosyn/levaquin in ED Acute on chronic hypoxic respiratory failure: hypoxic on home 2L, requiring Bipap for work of breathing/distress - supplemental bipap and O2, wean as able - check VBG - IS and Acapella when not on bipap - treat cause as above - walk test prior to discharge Sepsis: SIRS 4/4, likely 2/2 PNA above, lactate elevated to 2.1. Vitals did improve with fluid bolus and Bipap. - BCx x2 pending - trend lactate until downtrending - fluid bolus prn hypotension, s/p NS 1L bolus in ED COPD: not in acute exacerbation, no wheezing - nebs q4h&prn, and continue home inhalers DM2: w hyperglycemia, not on home therapy, will check A1c and follow sugars, add SSI while inpatient HFpEF: pedal edema but not in exacerbation, continue home lasix 40 daily PRANAV: offer CPAP qhs HTN: uncontrolled, resume home meds lopressor 50 bid, Depression: home celexa 40 GERD: home prilosec 20 Morbid obesity: bmi 49 PPx: lovenox Activity: ambulate FEN: cardiac ADA 1.5L, no MIVF Lines: ANNIE, Christiana Consults: Code: Full Dispo: patient requires inpatient eval and management at this time. Anticipate 2-3 days. Will be homegoing
[2019-07-16 12:11] LABS: VBG HCO3 30 mEq/L (21-27); VBG PCO2 44 mmHg (41-51); VBG PH 7.44 pH Units (7.32-7.42); VBG PO2 197 mmHg (25-50)
[2019-07-16 12:38] LABS: Magnesium 1.6 mg/dL (1.6-2.6)
[2019-07-16] MEDS ORDERED: *HR* Dextrose 50 % in Water (Syg) 50 ML SYRINGE IVP PRN (12:56)
[2019-07-16] MEDS ORDERED: Dextrose Gel 15 GM/37.5 ML TUBE PO PRN ×2 (12:56)
[2019-07-16] MEDS ORDERED: D5% in Water 1,000 ML IVC PRN (12:56)
[2019-07-16 14:45] LABS: Estimated Average Glucose 148 mg/dl
[2019-07-16] MEDS: amLODIPine 5 MG TABLET PO SCH (17:31)
[2019-07-16] MEDS: levoFLOXacin 750 MG/150 ML 750 MG/150 ML BAG IVPB SCH (17:31)
[2019-07-16] MEDS: Insulin LISPRO 300 UNITS/3 ML VIAL SQ SCH ×2 (17:31→22:28)
[2019-07-16] MEDS: Nystatin POWDER 30 GM BOTTLE TP SCH (22:32)
[2019-07-17] MEDS: Melatonin 3 MG TABLET PO PRN (02:44)
[2019-07-17 05:11] LABS: Hematocrit 41.9 % (35.3-44.9); Hemoglobin 12.4 g/dL (11.5-15.4); Mean Corpuscular HGB Conc 29.6 g/dL (31.6-35.5); Mean Corpuscular Hemoglobin 28.7 pg (28.0-33.3); Platelet Count 233 K/mcL (140-400); Red Blood Count 4.32 M/mcL (3.82-4.97); Red Cell Distribution Width 16.4 % (11.5-14.5); White Blood Count 9.8 K/mcL (4.3-11.1)
[2019-07-17 05:21] LABS: BUN/Creatinine Ratio 23 (6-26); Blood Urea Nitrogen 21 mg/dL (8-23); Calcium 8.9 mg/dL (8.6-10.3); Carbon Dioxide 30 mEq/L (23-29); Chloride 103 mEq/L (98-107); Glucose 192 mg/dL (70-105); Magnesium 1.8 mg/dL (1.6-2.6); Osmolality,Calculated 296 (280-300); Phosphorous 3.4 mg/dL (2.7-4.5); Potassium 3.9 mEq/L (3.5-5.1); Sodium 139 mEq/L (136-145); eGFR For African Americans > 60 (> 60); eGFR For Non-African Americans 60 (> 60)
[2019-07-17] MEDS: *HR* Enoxaparin 40 MG/0.4 ML SYRINGE SQ SCH (05:51)
[2019-07-17] MEDS: Aspirin Enteric Coated 81 MG Tablet PO SCH (08:02)
[2019-07-17] MEDS: amLODIPine 5 MG TABLET PO SCH (08:02)
[2019-07-17] MEDS: levoFLOXacin 750 MG/150 ML 750 MG/150 ML BAG IVPB SCH (08:02)
[2019-07-17] MEDS: Topiramate 25 MG TABLET PO SCH (08:02)
[2019-07-17] MEDS: Insulin LISPRO 300 UNITS/3 ML VIAL SQ SCH ×4 (08:02→20:57)
[2019-07-17] MEDS: Nystatin POWDER 30 GM BOTTLE TP SCH ×2 (08:03→20:58)
[2019-07-17] MEDS ORDERED: Furosemide 40 MG TABLET PO SCH (09:00)
[2019-07-17] MEDS ORDERED: Tiotropium 18 MCG inhalation IH SCH (10:00)
--- NOTE | 2019-07-17 11:48 | Internal Med Progress Note ---
Hospitalist Progress Note - Encounter Date of Encounter: 07/17/19 Time of Encounter: 11:46 - Subjective Interval History: Patient was seen and examined at bedside today. Patient reports difficulty in breathing with exertion. Patient reports that her shortness of breath has improved since admission. Patient denied any chest pain, palpitation, nausea, v omiting, abdominal pain, and diaphoresis. - Exam Vitals: Temp Pulse Resp BP Pulse Ox 98.2 F 63 20 120/54 95 07/17/19 11:34 07/17/19 11:34 07/17/19 11:34 07/17/19 11:34 07/17/19 11:34 Exam: General: Alert and oriented 3, in moderate respiratory distress. Head: Atraumatic, normocephalic. Face symmetric Eyes: EOMI, sclerae anicteric ENT: Mucous membranes moist. Trachea midline. Unable to palpate any cervical lymphadenopathy Thoracic: No visible chest wall deformities. Trace bibasilar crackles, no wheezing, good aeration Cardio: Normal S1 and S2, regular rhythm, tachycardic, no murmurs. Unable to assess JVD given habitus Abdomen: Soft, nontender, nondistended, obese Extremities: Warm, well perfused. DP pulses 2+ b/l. No clubbing, cyanosis. Does have firm pitting edema b/l LE to knees Skin: Intact. No rashes, bruises, or ulcers Neuro: Awake, fully oriented. Good memory, concentration, attention. Speech fluent. CN II-XII grossly intact. Strength 5/5 in b/l UE and LE - Assessment and Plan (1) Acute on chronic respiratory failure with hypoxemia Current Visit: No Status: Acute Assessment and Plan: Presents to the hospital complaining of difficulty in breathing. Patient has a history of COPD and restrictive lung disease on pulmonary function testing. Patient is on home oxygen at 2 L. Patient was desaturating in the emergency room. On chest x-ray patient is a bilateral pulmonary edema/infiltrate. Calcitonin was negative. - Continue oxygen support. BiPAP as needed. - IV levofloxacin - Continue to monitor. - Urine Legionella and strep test was negative - Follow up on blood culture. - Peripheral calcitonin was negative. We will get respiratory panel today. (2) Acute exacerbation of CHF (congestive heart failure) Current Visit: No Status: Acute Assessment and Plan: The patient presented in breathing. Patient's successful bilateral pulmonary edema/infiltrate. Procalcitonin is negative. Patient is on empiric antibiotic. - IV Lasix 40 twice a day - Daily input and output - Daily weight - Fluid and salt restricted cardiac diet. (3) Healthcare-associated pneumonia Current Visit: No Status: Acute Assessment and Plan: Continue empiric antibiotic for now. We will await blood culture report. (4) COPD (chronic obstructive pulmonary disease) Current Visit: Yes Status: Acute Assessment and Plan: Continue O2 support. Continue DuoNeb breathing treatment. Continue spiriva and symbicort (5) Hypertension Current Visit: No Status: Chronic Assessment and Plan: We will continue on Lopressor. (6) Morbid obesity Current Visit: No Status: Chronic Assessment and Plan: BMI 49.2. And was admitted modification and exercise. (7) Sleep apnea Current Visit: No Status: Chronic Assessment and Plan: Continue CPAP in the hospital. DVT Prophylaxis: Lovenox - Time Spent with Patient Total time spent is greater than 50% in coordination of care (as documented) at patient's floor/unit and/or counseling patient: 25 - 35 minutes Plan of Care Discussed with: patient Internal Medicine: Result - Labs CBC & Chem 7: 07/17/19 04:29 07/17/19 04:29 Labs: Short CBC 07/17/19 Range/Units 04:29 WBC 9.8 (4.3-11.1) K/mcL Hgb 12.4 (11.5-15.4) g/dL Hct 41.9 (35.3-44.9) % Plt Count 233 (140-400) K/mcL BMP 07/16/19 07/17/19 09:59 04:29 Sodium 139 139 Potassium 3.7 3.9 Chloride 102 103 Carbon Dioxide 30 H 30 H BUN 15 21 Creatinine 0.76 0.92 Glucose 212 H 192 H Calcium 9.2 8.9 Cardiac Enzymes 07/16/19 Range/Units 09:59 Troponin I 0.03 (< 0.04) ng/mL Liver Function 07/16/19 Range/Units 09:59 Total Bilirubin 0.4 (0.3-1.0) mg/dL AST 13 (13-39) Units/L ALT 9 (7-52) Units/L Alkaline Phosphatase 115 H (34-104) Units/L Albumin 3.9 (3.5-5.7) g/dL Consult Discharge Plan - Plan Referrals: Jesusita Paiz MD [Primary Care Provider] - 07/22/19 1:45 pm (Please follow up as schedule...) (2) Acute exacerbation of CHF (congestive heart failure) Qualifiers: Heart failure type: diastolic Qualified Code(s): I50.33 - Acute on chronic diastolic (congestive) heart failure (5) Hypertension Qualifiers: Hypertension type: essential hypertension Qualified Code(s): I10 - Essential (primary) hypertension (7) Sleep apnea Qualifiers: Sleep apnea type: obstructive Qualified Code(s): G47.33 - Obstructive sleep apnea (adult) (pediatric)
[2019-07-17] MEDS: Tiotropium 18 MCG inhalation IH SCH (12:08)
[2019-07-17] MEDS: Budesonide/Formoterol 160/4.5 1 PUFF INH IH SCH ×2 (12:08→22:24)
[2019-07-17] MEDS: Ipratropium/Albuterol Neb 3 ML IH SCH ×3 (14:46→22:24)
[2019-07-17 17:42] LABS: Adenovirus Not Detected (Not Detect); Bordetella Pertussis Not Detected (Not Detect); Chlamydophila pneumoniae Not Detected (Not Detect); Coronavirus 229E Not Detected (Not Detect); Coronavirus HKU1 Not Detected (Not Detect); Coronavirus NL63 Not Detected (Not Detect); Coronavirus OC43 Not Detected (Not Detect); Human Metapneumovirus Not Detected (Not Detect); Human Rhinovirus/Enterovirus Not Detected (Not Detect); Influenza A Subtype 2009 H1 Not Detected (Not Detect); Influenza A Untypeable Not Detected (Not Detect); Influenza B Not Detected (Not Detect); Mycoplasma pneumoniae Not Detected (Not Detect); Parainfluenza Virus 1 Not Detected (Not Detect); Parainfluenza Virus 2 Not Detected (Not Detect); Parainfluenza Virus 3 Not Detected (Not Detect); Parainfluenza Virus 4 Not Detected (Not Detect); Respiratory Syncytial Virus Not Detected (Not Detect)
[2019-07-17] MEDS: Furosemide 40 MG TABLET PO SCH (19:46)
[2019-07-18] MEDS: Ipratropium/Albuterol Neb 3 ML IH SCH ×4 (03:32→22:10)
[2019-07-18] MEDS: *HR* Enoxaparin 40 MG/0.4 ML SYRINGE SQ SCH (06:05)
[2019-07-18] MEDS: levoFLOXacin 750 MG TABLET PO SCH (07:34)
[2019-07-18] MEDS: Aspirin Enteric Coated 81 MG Tablet PO SCH (07:34)
[2019-07-18] MEDS: Topiramate 25 MG TABLET PO SCH (07:34)
[2019-07-18] MEDS: Furosemide 40 MG TABLET PO SCH ×2 (07:34→17:40)
[2019-07-18] MEDS: amLODIPine 5 MG TABLET PO SCH (07:34)
[2019-07-18] MEDS: Insulin LISPRO 300 UNITS/3 ML VIAL SQ SCH ×4 (07:35→20:09)
[2019-07-18 07:37] LABS: Basophils % 0.3 %; Eosinophils # 0.4 K/mcL (0.0-0.6); Hematocrit 42.7 % (35.3-44.9); Hemoglobin 12.6 g/dL (11.5-15.4); Immature Granulocytes % 1.2 % (0-4); Lymphocytes # 0.7 K/mcL (0.6-4.6); Mean Corpuscular HGB Conc 29.5 g/dL (31.6-35.5); Mean Corpuscular Hemoglobin 28.5 pg (28.0-33.3); Mean Corpuscular Volume 96.6 fL (83.0-100.0); Mean Platelet Volume 9.7 fL (9.4-12.4); Monocytes # 0.4 K/mcL (0.0-1.3); Monocytes % 6.5 %; Neutrophils # 5.2 K/mcL (1.6-8.9); Platelet Count 247 K/mcL (140-400); Red Blood Count 4.42 M/mcL (3.82-4.97); Red Cell Distribution Width 16.5 % (11.5-14.5); White Blood Count 6.8 K/mcL (4.3-11.1)
[2019-07-18] MEDS: Nystatin POWDER 30 GM BOTTLE TP SCH ×2 (07:37→20:12)
[2019-07-18 07:55] LABS: BUN/Creatinine Ratio 25 (6-26); Blood Urea Nitrogen 24 mg/dL (8-23); Calcium 9.2 mg/dL (8.6-10.3); Carbon Dioxide 34 mEq/L (23-29); Chloride 100 mEq/L (98-107); Glucose 148 mg/dL (70-105); Osmolality,Calculated 301 (280-300); Potassium 4.5 mEq/L (3.5-5.1); Sodium 142 mEq/L (136-145); eGFR For African Americans > 60 (> 60); eGFR For Non-African Americans 58 (> 60)
[2019-07-18] MEDS: Acetaminophen 325 MG TABLET PO PRN ×2 (09:12→20:11)
[2019-07-18] MEDS: Tiotropium 18 MCG inhalation IH SCH (10:27)
[2019-07-18] MEDS: Budesonide/Formoterol 160/4.5 1 PUFF INH IH SCH ×2 (10:28→22:10)
--- NOTE | 2019-07-18 10:53 | Internal Med Progress Note ---
Hospitalist Progress Note - Encounter Date of Encounter: 07/18/19 Time of Encounter: 10:50 - Subjective Interval History: Patient was seen and examined at bedside today. Patient denies any acute issues overnight. Patient reports that she has improved since her admission. Patient still complaining of difficulty breathing on exertion. Patient denied any chest pain, palpitation, diaphoresis, nausea, vomiting, abdominal pain, and diarrhea. - Exam Vitals: Temp Pulse Resp BP Pulse Ox 98.4 F 87 18 153/68 91 07/18/19 07:14 07/18/19 07:14 07/18/19 10:30 07/18/19 07:14 07/18/19 10:30 Exam: General: Alert and oriented 3, in moderate respiratory distress. Head: Atraumatic, normocephalic. Face symmetric Eyes: EOMI, sclerae anicteric ENT: Mucous membranes moist. Trachea midline. Unable to palpate any cervical lymphadenopathy Thoracic: No visible chest wall deformities. Trace bibasilar rales, no wheezing Cardio: Normal S1 and S2, regular rhythm, tachycardic, no murmurs. Unable to assess JVD given habitus Abdomen: Soft, nontender, nondistended, obese Extremities: Warm, well perfused. DP pulses 2+ b/l. No clubbing, cyanosis. Does have firm pitting edema b/l LE to knees Skin: Intact. No rashes, bruises, or ulcers Neuro: Awake, fully oriented. Good memory, concentration, attention. Speech fluent. CN II-XII grossly intact. Strength 5/5 in b/l UE and LE - Assessment and Plan (1) Acute on chronic respiratory failure with hypoxemia Current Visit: No Status: Acute Assessment and Plan: Presents to the hospital complaining of difficulty in breathing. Patient has a history of COPD and restrictive lung disease on pulmonary function testing. Patient is on home oxygen at 2 L. Patient was desaturating in the emergency room. On chest x-ray patient is a bilateral pulmonary edema/infiltrate. Procalcitonin was negative. Patient's treatment including would likely be due to pulmonary edema. Patient has a history of heart failure. Patient was placed on Lasix. Patient is currently on negative fluid balance. - Continue oxygen support. BiPAP as needed. - IV levofloxacin - Continue IV Lasix and negative fluid balance. Strict input and output. Daily weight. - Urine Legionella and strep test was negative - Respiratory viral panel was done yesterday which was negative. - Follow up on blood culture. - Peripheral calcitonin was negative. We will get respiratory panel today. (2) Acute exacerbation of CHF (congestive heart failure) Current Visit: No Status: Acute Assessment and Plan: The patient presented in breathing. Patient's successful bilateral pulmonary edema/infiltrate. Procalcitonin is negative. Patient is on empiric antibiotic. - IV Lasix 40 twice a day, continue negative fluid balance. - Daily input and output - Daily weight - Fluid and salt restricted cardiac diet. (3) Healthcare-associated pneumonia Current Visit: No Status: Acute Assessment and Plan: Continue empiric antibiotic for now. We will await blood culture report. (4) COPD (chronic obstructive pulmonary disease) Current Visit: Yes Status: Acute Assessment and Plan: Continue O2 support. Continue DuoNeb breathing treatment. Continue spiriva and symbicort (5) Hypertension Current Visit: No Status: Chronic Assessment and Plan: We will continue on Lopressor. (6) Morbid obesity Current Visit: No Status: Chronic Assessment and Plan: BMI 49.2. And was admitted modification and exercise. (7) Sleep apnea Current Visit: No Status: Chronic Assessment and Plan: Continue CPAP in the hospital. DVT Prophylaxis: Lovenox - Time Spent with Patient Total time spent is greater than 50% in coordination of care (as documented) at patient's floor/unit and/or counseling patient: 25 - 35 minutes Plan of Care Discussed with: patient Internal Medicine: Result - Labs CBC & Chem 7: 07/18/19 07:09 07/18/19 07:09 Labs: Short CBC 07/18/19 Range/Units 07:09 WBC 6.8 (4.3-11.1) K/mcL Hgb 12.6 (11.5-15.4) g/dL Hct 42.7 (35.3-44.9) % Plt Count 247 (140-400) K/mcL Neutrophils # 5.2 (1.6-8.9) K/mcL BMP 07/18/19 07:09 Sodium 142 Potassium 4.5 Chloride 100 Carbon Dioxide 34 H BUN 24 H Creatinine 0.95 Glucose 148 H Calcium 9.2 Consult Discharge Plan - Plan Referrals: Jesusita Paiz MD [Primary Care Provider] - 07/22/19 1:45 pm (Please follow up as schedule...) (2) Acute exacerbation of CHF (congestive heart failure) Qualifiers: Heart failure type: diastolic Qualified Code(s): I50.33 - Acute on chronic diastolic (congestive) heart failure (5) Hypertension Qualifiers: Hypertension type: essential hypertension Qualified Code(s): I10 - Essential (primary) hypertension (7) Sleep apnea Qualifiers: Sleep apnea type: obstructive Qualified Code(s): G47.33 - Obstructive sleep apnea (adult) (pediatric)
[2019-07-18] MEDS: Melatonin 3 MG TABLET PO PRN (23:33)
--- NOTE | 2019-07-19 00:13 | Electrocardiograph Report ---
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
[2019-07-19] MEDS: Ipratropium/Albuterol Neb 3 ML IH SCH ×4 (04:15→22:20)
[2019-07-19] MEDS: *HR* Enoxaparin 40 MG/0.4 ML SYRINGE SQ SCH (05:24)
[2019-07-19 07:06] LABS: Basophils % 0.5 %; Eosinophils # 0.4 K/mcL (0.0-0.6); Eosinophils % 6.6 %; Hematocrit 40.1 % (35.3-44.9); Hemoglobin 11.7 g/dL (11.5-15.4); Immature Granulocytes % 0.8 % (0-4); Lymphocytes # 0.8 K/mcL (0.6-4.6); Lymphocytes % 13.5 %; Mean Corpuscular HGB Conc 29.2 g/dL (31.6-35.5); Mean Corpuscular Hemoglobin 28.1 pg (28.0-33.3); Mean Corpuscular Volume 96.4 fL (83.0-100.0); Mean Platelet Volume 10.2 fL (9.4-12.4); Monocytes # 0.5 K/mcL (0.0-1.3); Monocytes % 7.6 %; Neutrophils # 4.4 K/mcL (1.6-8.9); Platelet Count 237 K/mcL (140-400); Red Blood Count 4.16 M/mcL (3.82-4.97); Red Cell Distribution Width 16.3 % (11.5-14.5); White Blood Count 6.2 K/mcL (4.3-11.1)
[2019-07-19 07:25] LABS: Calcium 9.1 mg/dL (8.6-10.3); Potassium 4.1 mEq/L (3.5-5.1)
[2019-07-19] MEDS: Furosemide 40 MG TABLET PO SCH (08:03)
[2019-07-19] MEDS: Aspirin Enteric Coated 81 MG Tablet PO SCH (08:03)
[2019-07-19] MEDS: amLODIPine 5 MG TABLET PO SCH (08:03)
[2019-07-19] MEDS: levoFLOXacin 750 MG TABLET PO SCH (08:03)
[2019-07-19] MEDS: Topiramate 25 MG TABLET PO SCH (08:03)
[2019-07-19] MEDS: Insulin LISPRO 300 UNITS/3 ML VIAL SQ SCH ×4 (08:04→20:55)
[2019-07-19] MEDS: Nystatin POWDER 30 GM BOTTLE TP SCH ×2 (08:05→20:54)
--- NOTE | 2019-07-19 10:42 | Internal Med Progress Note ---
Hospitalist Progress Note - Encounter Date of Encounter: 07/19/19 Time of Encounter: 10:39 - Subjective Interval History: We will seen and examined at bedside today. Patient reports of sore throat. Patient reports mild difficulty in breathing. Patient denies any fever and chills. Patient reports that she has been improving well. - Exam Vitals: Temp Pulse Resp BP Pulse Ox 97.9 F 75 18 128/52 95 07/19/19 07:02 07/19/19 07:02 07/19/19 07:02 07/19/19 07:02 07/19/19 07:02 Exam: General: Alert and oriented 3, in moderate respiratory distress. Head: Atraumatic, normocephalic. Face symmetric Eyes: EOMI, sclerae anicteric ENT: Mucous membranes moist. Trachea midline. Unable to palpate any cervical lymphadenopathy. Erythematous oropharynx. Rapid strep swab collected this morning Thoracic: No visible chest wall deformities. Trace bibasilar rales, no wheezing Cardio: Normal S1 and S2, regular rhythm, tachycardic, no murmurs. Unable to assess JVD given habitus Abdomen: Soft, nontender, nondistended, obese Extremities: Warm, well perfused. DP pulses 2+ b/l. No clubbing, cyanosis. Does have firm pitting edema b/l LE to knees Skin: Intact. No rashes, bruises, or ulcers Neuro: Awake, fully oriented. Good memory, concentration, attention. Speech fluent. CN II-XII grossly intact. Strength 5/5 in b/l UE and LE - Assessment and Plan (1) Acute on chronic respiratory failure with hypoxemia Current Visit: No Status: Acute Assessment and Plan: Most likely due to CHF exacerbation. Patient did report a sore throat. Patient reports mild difficulty breathing. rapis strp collected today. Will follow on results. - Continue oxygen support. BiPAP as needed. - IV levofloxacin - Continue PO Lasix 40 BID and negative fluid balance. Strict input and output. Daily weight. Will change lasix to once daily - Urine Legionella and strep test was negative - Respiratory viral panel was done yesterday which was negative. - Blood culture showed no growth to date. (2) Acute exacerbation of CHF (congestive heart failure) Current Visit: No Status: Acute Assessment and Plan: The patient presented in breathing. Patient's successful bilateral pulmonary edema/infiltrate. Procalcitonin is negative. Patient is on empiric antibiotic. - Lasix 40 PO BID. Will change to daily today. continue negative fluid balance. - Daily input and output - Daily weight - Fluid and salt restricted cardiac diet. (3) Healthcare-associated pneumonia Current Visit: No Status: Acute Assessment and Plan: Continue empiric antibiotic for now. We will await blood culture report. The culture showed no growth to date (4) COPD (chronic obstructive pulmonary disease) Current Visit: Yes Status: Acute Assessment and Plan: Continue O2 support. Continue DuoNeb breathing treatment. Continue spiriva and symbicort (5) Hypertension Current Visit: No Status: Chronic Assessment and Plan: We will continue on Lopressor. (6) Morbid obesity Current Visit: No Status: Chronic Assessment and Plan: BMI 49.2. And was admitted modification and exercise. (7) Sleep apnea Current Visit: No Status: Chronic Assessment and Plan: Continue CPAP in the hospital. DVT Prophylaxis: Lovenox - Time Spent with Patient Total time spent is greater than 50% in coordination of care (as documented) at patient's floor/unit and/or counseling patient: 25 - 35 minutes Plan of Care Discussed with: patient Internal Medicine: Result - Labs CBC & Chem 7: 07/19/19 06:47 07/19/19 06:47 Labs: Short CBC 07/19/19 Range/Units 06:47 WBC 6.2 (4.3-11.1) K/mcL Hgb 11.7 (11.5-15.4) g/dL Hct 40.1 (35.3-44.9) % Plt Count 237 (140-400) K/mcL Neutrophils # 4.4 (1.6-8.9) K/mcL BMP 07/19/19 06:47 Sodium 141 Potassium 4.1 Chloride 99 Carbon Dioxide 37 H BUN 29 H Creatinine 1.12 Glucose 216 H Calcium 9.1 Consult Discharge Plan - Plan Referrals: Jesusita Paiz MD [Primary Care Provider] - 07/22/19 1:45 pm (Please follow up as schedule...) (2) Acute exacerbation of CHF (congestive heart failure) Qualifiers: Heart failure type: diastolic Qualified Code(s): I50.33 - Acute on chronic diastolic (congestive) heart failure (5) Hypertension Qualifiers: Hypertension type: essential hypertension Qualified Code(s): I10 - Essential (primary) hypertension (7) Sleep apnea Qualifiers: Sleep apnea type: obstructive Qualified Code(s): G47.33 - Obstructive sleep apnea (adult) (pediatric)
[2019-07-19] MEDS: Budesonide/Formoterol 160/4.5 1 PUFF INH IH SCH ×2 (10:48→22:20)
[2019-07-19] MEDS: Tiotropium 18 MCG inhalation IH SCH (10:49)
[2019-07-19] MEDS: Acetaminophen 325 MG TABLET PO PRN (20:53)
[2019-07-19] MEDS: Melatonin 3 MG TABLET PO PRN (22:24)
[2019-07-20] MEDS: Ipratropium/Albuterol Neb 3 ML IH SCH ×2 (04:05→11:21)
[2019-07-20] MEDS: *HR* Enoxaparin 40 MG/0.4 ML SYRINGE SQ SCH (05:53)
[2019-07-20] MEDS: Aspirin Enteric Coated 81 MG Tablet PO SCH (07:38)
[2019-07-20] MEDS: Insulin LISPRO 300 UNITS/3 ML VIAL SQ SCH (07:38)
[2019-07-20] MEDS: levoFLOXacin 750 MG TABLET PO SCH (07:38)
[2019-07-20] MEDS: amLODIPine 5 MG TABLET PO SCH (07:38)
[2019-07-20] MEDS: Topiramate 25 MG TABLET PO SCH (07:38)
[2019-07-20 08:48] LABS: Calcium 9.5 mg/dL (8.6-10.3); Potassium 4.3 mEq/L (3.5-5.1)
[2019-07-20] MEDS ORDERED: Furosemide 40 MG TABLET PO SCH (09:00)
--- NOTE | 2019-07-20 09:34 | Discharge Summary ---
- NOTES TO OUTPATIENT PROVIDER Notes to Outpatient Provider: She was hospitalized for difficulty in breathing. Patient has a history of COPD on home oxygen and patient is a history of CHF. Initial workup showed bilateral pleural condition/pneumonia. Initial pro- calcitonin was negative. Patient was placed on empiric antibiotic. Patient was also placed on Lasix 2 times daily IV. Patient subsequently improved. Patient was discharged in stable condition. Patient is to follow-up with primary care provider in one week. Follow up on blood culture. Continue empiric antibiotic for 4 more additional days. Continue Lasix for CHF. Patient was discharged to home. Continue using home oxygen. Orders not resulted at time of discharge: Pending orders 07/16/19 09:59 Culture,Blood [BC] Stat Date of Encounter: 07/20/19 Time of Encounter: 09:31 - Discharge Diagnosis (1) Acute on chronic respiratory failure with hypoxemia Priority: Primary Status: Acute (2) Acute exacerbation of CHF (congestive heart failure) Priority: Secondary Status: Acute Qualifiers: Heart failure type: diastolic Qualified Code(s): I50.33 - Acute on chronic diastolic (congestive) heart failure (3) Healthcare-associated pneumonia Priority: Secondary Status: Acute (4) COPD (chronic obstructive pulmonary disease) Priority: Secondary Status: Acute Qualifiers: COPD type: unspecified COPD Qualified Code(s): J44.9 - Chronic obstructive pulmonary disease, unspecified (5) Hypertension Priority: Secondary Status: Chronic Qualifiers: Hypertension type: essential hypertension Qualified Code(s): I10 - Essential (primary) hypertension (6) Morbid obesity Priority: Secondary Status: Chronic (7) Sleep apnea Priority: Secondary Status: Chronic Qualifiers: Sleep apnea type: obstructive Qualified Code(s): G47.33 - Obstructive sleep apnea (adult) (pediatric) Hospital course: Ms. Pugh is a 74 year old female Discharge discussed with: patient, family, nurse, social work, case management - Time Spent with Patient Total time spent providing and/or coordinating discharge services: 40 Time spent: Greater than 30 minutes - Discharge Medications Prescriptions: New levoFLOXacin [Levaquin] 750 mg PO DAILY 4 Days #4 tablet Continued Albuterol Sulfate [Ventolin Hfa] 2 puff IH Q4H PRN PRN Reason: Shortness Of Breath Citalopram Hydrobromide [Citalopram HBr] 40 mg PO DAILY Furosemide [Lasix] 40 mg PO DAILY Metoprolol Tartrate 50 mg PO BID Montelukast [Singulair] 10 mg PO DAILY Potassium Chloride 20 meq PO DAILY Topiramate 25 mg PO QAM Topiramate 50 mg PO HS Umeclidinium [place] [Incruse Ellipta] 1 puff IH DAILY Acetaminophen [Tylenol] 325 mg PO Q6HR PRN PRN Reason: Pain Amlodipine Besylate 10 mg PO DAILY Aspirin [Adult Aspirin Regimen] 81 mg PO DAILY Multivitamin [Daily Multiple Vitamin] 1 tab PO DAILY Cyanocobalamin (Vitamin B-12) [Vitamin B-12] 1,000 mcg PO DAILY Glimepiride [Amaryl] 4 mg PO DAILY Nystatin POWDER [Nystop] 1 appl TP BID Dextran 70/Hypromellose/Pf [Artificial Tears Drops] 1 each OP QID PRN PRN Reason: Dry Eyes Fluticasone/Vilanterol [Breo Ellipta 200-25 Mcg INH] 1 each IH DAILY Ascorbic Acid [C-500] 500 mg PO DAILY 365 Days tablet Ferrous Sulfate 325 mg PO DAILY #0 Omeprazole [PriLOSEC] 20 mg PO DAILY PRN 365 Days PRN Reason: Dyspepsia Home Medications: Albuterol Sulfate [Ventolin Hfa] 2 puff IH Q4H PRN 12/01/18 [History] Citalopram Hydrobromide [Citalopram HBr] 40 mg PO DAILY 12/01/18 [History] Furosemide [Lasix] 40 mg PO DAILY 12/01/18 [History] Metoprolol Tartrate 50 mg PO BID 12/01/18 [History] Montelukast [Singulair] 10 mg PO DAILY 12/01/18 [History] Potassium Chloride 20 meq PO DAILY 12/01/18 [History] Topiramate 25 mg PO QAM 12/01/18 [History] Topiramate 50 mg PO HS 12/01/18 [History] Umeclidinium [place] [Incruse Ellipta] 1 puff IH DAILY 12/01/18 [History] Acetaminophen [Tylenol] 325 mg PO Q6HR PRN 04/16/19 [History] Amlodipine Besylate 10 mg PO DAILY 04/16/19 [History] Aspirin [Adult Aspirin Regimen] 81 mg PO DAILY 04/16/19 [History] Multivitamin [Daily Multiple Vitamin] 1 tab PO DAILY 04/16/19 [History] Dextran 70/Hypromellose/Pf [Artificial Tears Drops] 1 each OP QID PRN 05/09/19 [History] Fluticasone/Vilanterol [Breo Ellipta 200-25 Mcg INH] 1 each IH DAILY 05/09/19 [History] Nystatin POWDER [Nystop] 1 appl TP BID 05/09/19 [History] Ascorbic Acid [C-500] 500 mg PO DAILY 365 Days tablet 05/13/19 [Rx] Ferrous Sulfate 325 mg PO DAILY #0 05/13/19 [Rx] Omeprazole [PriLOSEC] 20 mg PO DAILY PRN 365 Days 05/13/19 [Rx] Cyanocobalamin (Vitamin B-12) [Vitamin B-12] 1,000 mcg PO DAILY 07/16/19 [History] Glimepiride [Amaryl] 4 mg PO DAILY 07/17/19 [History] levoFLOXacin [Levaquin] 750 mg PO DAILY 4 Days #4 tablet 07/20/19 [Rx] Allergies/Adverse Reactions: Allergy/AdvReac Type Severity Reaction Status Date / Time Iodinated Contrast Media Allergy Rash Verified 12/01/18 07:33 [Iodinated Contrast Media - Oral and] Date of admission: 07/16/19 13:04 Primary care physician: Jesusita Paiz Consults: 07/16/19 15:01 Consult to Risk Modeler [CONS] Routine Reason for SW Consult: [employer] oxygen and CPAP, 2 L NC; did have [facility] but discontinued 3 weeks ago - per patient 07/16/19 21:07 Consult to Physical Therapy [CONS] Routine Comment: Evaluate, develop and implement POC Reason for Consult: weakness Does patient have active BEDREST order?: No Is patient medically & hemodynamically stable?: Yes Patient assessed for mobility or mobilized this visit?: No OT [Consult to Occupational Therapy] [CONS] Routine Comment: Evaluate, develop and implement POC Reason for Consult: weakness/SOB Does patient have active BEDREST order?: No Is patient medically & hemodynamically stable?: Yes Patient assessed for mobility or mobilized this visit?: No Discharging clinician: Milton Mckeon - Constitutional Vitals: Temp Pulse Resp BP Pulse Ox 98.8 F 73 18 126/67 96 07/20/19 07:07 09/02/19 07:07 07/20/19 07:07 07/20/19 07:07 07/20/19 07:07 General appearance: Present: cooperative, A&O X 3 Exam: General: Alert and oriented 3, in moderate respiratory distress. Head: Atraumatic, normocephalic. Face symmetric Eyes: EOMI, sclerae anicteric ENT: Mucous membranes moist. Trachea midline. Unable to palpate any cervical lymphadenopathy. Thoracic: No visible chest wall deformities. Trace bibasilar rales, no wheezing Cardio: Normal S1 and S2, regular rhythm, tachycardic, no murmurs. Unable to assess JVD given habitus Abdomen: Soft, nontender, nondistended, obese Extremities: Warm, well perfused. DP pulses 2+ b/l. No clubbing, cyanosis. Does have firm pitting edema b/l LE to knees Skin: Intact. No rashes, bruises, or ulcers Neuro: Awake, fully oriented. Good memory, concentration, attention. Speech fluent. CN II-XII grossly intact. Strength 5/5 in b/l UE and LE - Patient Status Disposition: Home Health Service Condition: Good Functional capacity at discharge: uses cane/walker Overall status at discharge: patient is progressing back to baseline - Discharge Instructions Follow Up With: Jesusita Paiz MD [Primary Care Provider] - 07/22/19 1:45 pm (Please follow up as schedule...) - Diet and Activity Activity: as per physical therapy Diet: diabetic diet, low salt diet
--- NOTE | 2019-07-20 09:48 | Physician Discharge Referral ---
Home Health/Hosp Referral Info Transfer to: Home Health Provider in Charge Post Discharge: PCP - Diagnosis (1) Acute on chronic respiratory failure with hypoxemia Priority: Primary Status: Acute (2) Acute exacerbation of CHF (congestive heart failure) Priority: Secondary Status: Acute (3) Healthcare-associated pneumonia Priority: Secondary Status: Acute (4) COPD (chronic obstructive pulmonary disease) Priority: Secondary Status: Acute (5) Hypertension Priority: Secondary Status: Chronic (6) Morbid obesity Priority: Secondary Status: Chronic (7) Sleep apnea Priority: Secondary Status: Chronic - Respiratory Orders Oxygen / L per min (2 L/min to 3 L/min) Smoking Cessation: Smoking cessation has been advised. For more information, call the [email or web address] Quit Line at 5-262-ONML-NOW. - Services Needed Following services are medically necessary services: Nursing, Home Health Aide, Physical Therapy, Occupational Therapy - Transfer Medications Prescriptions: levoFLOXacin [Levaquin] 750 mg PO DAILY 4 Days #4 tablet Home Medications: Albuterol Sulfate [Ventolin Hfa] 2 puff IH Q4H PRN 12/01/18 [History] Citalopram Hydrobromide [Citalopram HBr] 40 mg PO DAILY 12/01/18 [History] Furosemide [Lasix] 40 mg PO DAILY 12/01/18 [History] Metoprolol Tartrate 50 mg PO BID 12/01/18 [History] Montelukast [Singulair] 10 mg PO DAILY 12/01/18 [History] Potassium Chloride 20 meq PO DAILY 12/01/18 [History] Topiramate 25 mg PO QAM 12/01/18 [History] Topiramate 50 mg PO HS 12/01/18 [History] Umeclidinium [place] [Incruse Ellipta] 1 puff IH DAILY 12/01/18 [History] Acetaminophen [Tylenol] 325 mg PO Q6HR PRN 04/16/19 [History] Amlodipine Besylate 10 mg PO DAILY 04/16/19 [History] Aspirin [Adult Aspirin Regimen] 81 mg PO DAILY 04/16/19 [History] Multivitamin [Daily Multiple Vitamin] 1 tab PO DAILY 04/16/19 [History] Dextran 70/Hypromellose/Pf [Artificial Tears Drops] 1 each OP QID PRN 05/09/19 [History] Fluticasone/Vilanterol [Breo Ellipta 200-25 Mcg INH] 1 each IH DAILY 05/09/19 [History] Nystatin POWDER [Nystop] 1 appl TP BID 05/09/19 [History] Ascorbic Acid [C-500] 500 mg PO DAILY 365 Days tablet 05/13/19 [Rx] Ferrous Sulfate 325 mg PO DAILY #0 05/13/19 [Rx] Omeprazole [PriLOSEC] 20 mg PO DAILY PRN 365 Days 05/13/19 [Rx] Cyanocobalamin (Vitamin B-12) [Vitamin B-12] 1,000 mcg PO DAILY 07/16/19 [History] Glimepiride [Amaryl] 4 mg PO DAILY 07/17/19 [History] levoFLOXacin [Levaquin] 750 mg PO DAILY 4 Days #4 tablet 07/20/19 [Rx] Allergies/Adverse Reactions: Allergy/AdvReac Type Severity Reaction Status Date / Time Iodinated Contrast Media Allergy Rash Verified 12/01/18 07:33 [Iodinated Contrast Media - Oral and] Certification: Further, I certify that my clinical findings support that this patient is homebound (i.e. absences from home require considerable and taxing effort and are for medical reasons or buddhist services or infrequently or short duration when for other reasons) because: Homebound Reason: Patient requires assistance of a person or device to safely leave home Attestation: My signature below is to certify that this patient is under my care and that I, or nurse practitioner, or a physician's transport assistant working with me, has a [id number] encounter with this patient.
[2019-07-20] MEDS: Budesonide/Formoterol 160/4.5 1 PUFF INH IH SCH (11:21)
[2019-07-20] MEDS: Tiotropium 18 MCG inhalation IH SCH (11:25)
[2019-07-20 12:01] VITALS: BP 135/70
== END 2019-07-20 13:04 | disposition home health service (06) | DRG 871 ==
LOC: EMEROOARM 09:24 → SUATTDRO 13:04 → 2ANU 13:04
PROVIDERS: ADMIT Internal Medicine; ATTEND Family Medicine

== ENCOUNTER 2019-09-15 16:00 | Inpatient (IN) ==
[2019-09-15] MEDS ORDERED: Ondansetron 4 MG/2 ML VIAL IVP ONE (16:07)
[2019-09-15] MEDS ORDERED: 0.9 % Sodium Chloride 500 ML IVC ONE (16:07)
[2019-09-15 17:16] LABS: Bilirubin,Urine Negative (Negative); Blood,Urine Negative (Negative); Clarity,Urine Clear (Clear); Color,Urine Yellow (Yellow); Glucose,Urine (UA) Normal (Normal); Ketones,Urine Negative (Negative); Leukocyte Esterase,Urine Negative (Negative); Nitrite,Urine Negative (Negative); PH,Urine 5.5 pH Units (5.0-8.0); Protein,Urine 30 mg/dL (Neg-Trace); Specific Gravity,Urine 1.025 (1.010-1.025); Urobilinogen,Urine Normal (Normal)
[2019-09-15 17:21] LABS: Hyaline Casts,Urine Few per lpf (None-Few); RBC,Urine 0-3 per hpf (0-3); Squamous Epithelial Cell,Urine Many per lpf (None-Few)
[2019-09-15 17:22] LABS: Hemoglobin 11.5 g/dL (11.5-15.4); Mean Corpuscular HGB Conc 29.5 g/dL (31.6-35.5); Mean Corpuscular Hemoglobin 29.3 pg (28.0-33.3); Mean Corpuscular Volume 99.2 fL (83.0-100.0); Mean Platelet Volume 9.9 fL (9.4-12.4); Platelet Count 254 K/mcL (140-400); Red Blood Count 3.93 M/mcL (3.82-4.97); Red Cell Distribution Width 15.6 % (11.5-14.5); White Blood Count 8.5 K/mcL (4.3-11.1)
[2019-09-15 17:37] LABS: Bacteria,Urine None Seen per hpf (None-Few)
[2019-09-15 17:46] LABS: Alanine Aminotransferase 9 Units/L (7-52); Albumin 3.5 g/dL (3.5-5.7); Albumin/Globulin Ratio 1.3 (1.1-2.2); Alkaline Phosphatase 87 Units/L (34-104); Aspartate Amino Transferase 12 Units/L (13-39); BUN/Creatinine Ratio 26 (6-26); Bilirubin,Indirect 0.4 mg/dL (0.0-1.0); Bilirubin,Total 0.4 mg/dL (0.3-1.0); Blood Urea Nitrogen 16 mg/dL (8-23); Calcium 8.7 mg/dL (8.6-10.3); Carbon Dioxide 29 mEq/L (23-29); Chloride 107 mEq/L (98-107); Globulin 2.6 g/dL (2.4-3.5); Glucose 163 mg/dL (70-105); Lipase 130 Units/L (11-82); Osmolality,Calculated 301 (280-300); Potassium 4.2 mEq/L (3.5-5.1); Sodium 143 mEq/L (136-145); Total Protein 6.1 g/dL (6.4-8.9); Troponin I < 0.03 ng/mL (< 0.04); eGFR For African Americans > 60 (> 60); eGFR For Non-African Americans > 60 (> 60)
[2019-09-16] MEDS ORDERED: Naloxone 0.4 MG/ML INJ IVP PRN (02:14)
[2019-09-16] MEDS ORDERED: Ondansetron ODT 4 MG TAB.RAPDIS SL PRN (02:14)
[2019-09-16] MEDS ORDERED: Acetaminophen 325 MG TABLET PO PRN (02:19)
[2019-09-16 03:00] LABS: Mean Corpuscular Hemoglobin 29.3 pg (28.0-33.3); Mean Platelet Volume 9.9 fL (9.4-12.4); Prothrombin Time 11.8 Seconds (9.4-12.1)
[2019-09-16 03:01] LABS: Basophils % 0.4 %; Eosinophils # 0.2 K/mcL (0.0-0.6); Eosinophils % 2.7 %; Hematocrit 40.1 % (35.3-44.9); Lymphocytes # 0.8 K/mcL (0.6-4.6); Lymphocytes % 11.2 %; Mean Corpuscular HGB Conc 29.9 g/dL (31.6-35.5); Monocytes # 0.4 K/mcL (0.0-1.3); Monocytes % 5.6 %; Neutrophils # 5.6 K/mcL (1.6-8.9); Platelet Count 276 K/mcL (140-400); Red Blood Count 4.09 M/mcL (3.82-4.97); Red Cell Distribution Width 15.6 % (11.5-14.5); Segmented Neutrophils % 79.1 %; White Blood Count 7.1 K/mcL (4.3-11.1)
[2019-09-16 03:21] LABS: Alanine Aminotransferase 9 Units/L (7-52); Albumin 3.6 g/dL (3.5-5.7); Albumin/Globulin Ratio 1.4 (1.1-2.2); Alkaline Phosphatase 89 Units/L (34-104); Aspartate Amino Transferase 10 Units/L (13-39); BUN/Creatinine Ratio 23 (6-26); Bilirubin,Total 0.3 mg/dL (0.3-1.0); Blood Urea Nitrogen 17 mg/dL (8-23); Calcium 8.8 mg/dL (8.6-10.3); Carbon Dioxide 32 mEq/L (23-29); Chloride 107 mEq/L (98-107); Chol/HDL Ratio 4.6 (0-4.9); Cholesterol 228 mg/dL (< 200); Globulin 2.5 g/dL (2.4-3.5); Glucose 111 mg/dL (70-105); HDL Cholesterol 50 mg/dL (40-59); LDL Cholesterol,Calculated 159 mg/dL (0-99); Osmolality,Calculated 300 (280-300); Phosphorous 3.6 mg/dL (2.7-4.5); Potassium 4.3 mEq/L (3.5-5.1); Sodium 144 mEq/L (136-145); Total Protein 6.1 g/dL (6.4-8.9); Triglycerides 97 mg/dL (< 150); eGFR For African Americans > 60 (> 60); eGFR For Non-African Americans > 60 (> 60)
[2019-09-16] MEDS: Ipratropium/Albuterol Neb 3 ML IH SCH ×5 (03:46→22:00)
[2019-09-16 03:52] LABS: Platelet Estimate Normal (Normal)
[2019-09-16] MEDS: *HR* Heparin 5,000 UNIT/ML VIAL SQ SCH ×3 (05:33→21:42)
[2019-09-16] MEDS: Furosemide 40 MG TABLET PO SCH (08:20)
[2019-09-16] MEDS: Topiramate 25 MG TABLET PO SCH ×2 (08:20→21:42)
[2019-09-16] MEDS: Aspirin Enteric Coated 81 MG Tablet PO SCH (08:20)
[2019-09-16] MEDS: amLODIPine 5 MG TABLET PO SCH (08:20)
[2019-09-16] MEDS ORDERED: *HR* LORazepam 2 MG/ML VIAL IVP ONE (10:25)
[2019-09-16] MEDS ORDERED: Artificial Tears SOLN 15 ML BOTTLE BOTH EYES PRN (11:30)
[2019-09-16] MEDS ORDERED: Furosemide 20 MG/2 ML VIAL IVP ONE (15:41)
[2019-09-16] MEDS: Nystatin POWDER 30 GM BOTTLE TP SCH (21:42)
[2019-09-17] MEDS: Ipratropium/Albuterol Neb 3 ML IH SCH ×6 (03:51→22:52)
[2019-09-17 04:44] LABS: Mean Corpuscular Hemoglobin 29.1 pg (28.0-33.3)
[2019-09-17 04:45] LABS: Hematocrit 42.6 % (35.3-44.9); Mean Corpuscular HGB Conc 28.2 g/dL (31.6-35.5); Mean Corpuscular Volume 103.4 fL (83.0-100.0); Mean Platelet Volume 10.1 fL (9.4-12.4); Platelet Count 285 K/mcL (140-400); Red Blood Count 4.12 M/mcL (3.82-4.97); White Blood Count 9.1 K/mcL (4.3-11.1)
[2019-09-17 05:18] LABS: BUN/Creatinine Ratio 20 (6-26); Blood Urea Nitrogen 20 mg/dL (8-23); Calcium 9.1 mg/dL (8.6-10.3); Carbon Dioxide 41 mEq/L (23-29); Chloride 98 mEq/L (98-107); Glucose 141 mg/dL (70-105); Osmolality,Calculated 301 (280-300); Potassium 4.2 mEq/L (3.5-5.1); Sodium 143 mEq/L (136-145); eGFR For African Americans > 60 (> 60); eGFR For Non-African Americans 55 (> 60)
[2019-09-17] MEDS: *HR* Heparin 5,000 UNIT/ML VIAL SQ SCH ×3 (05:42→22:00)
[2019-09-17] MEDS ORDERED: Ipratropium/Albuterol Neb 3 ML IH PRN (07:40)
[2019-09-17] MEDS: Budesonide/Formoterol 80/4.5 1 PUFF INH IH SCH ×2 (08:14→19:46)
[2019-09-17 08:24] LABS: ABG Base Excess 9 mEq/L (-2 to 3); ABG HCO3 40 mEq/L (21-27); ABG Oxygen Saturation 96 % (95-98); ABG PCO2 94 mmHg (35-45); ABG PH 7.24 pH Units (7.32-7.45); ABG PO2 101 mmHg (85-104); ABG TCO2 43 mEq/L (20-26)
[2019-09-17] MEDS: Aspirin Enteric Coated 81 MG Tablet PO SCH (08:44)
[2019-09-17] MEDS: Topiramate 25 MG TABLET PO SCH ×2 (08:44→20:41)
[2019-09-17] MEDS: Cyanocobalamin (B-12) 1,000 MCG TABLET PO SCH (08:44)
[2019-09-17] MEDS: Ascorbic Acid 500 MG TABLET PO SCH (08:44)
[2019-09-17] MEDS: amLODIPine 5 MG TABLET PO SCH (08:44)
[2019-09-17] MEDS: Multivit/Ca/Min/Fe/FA 1 TAB TABLET PO SCH (08:44)
[2019-09-17] MEDS: Furosemide 40 MG TABLET PO SCH (08:45)
[2019-09-17] MEDS: Nystatin POWDER 30 GM BOTTLE TP SCH ×2 (08:51→20:40)
[2019-09-17] MEDS ORDERED: NON-FORMULARY MEDICATION 1 EACH EACH (Umeclidinium Bromide [Incruse Ellipta] 1 PUFF) IH SCH (09:00)
[2019-09-17] MEDS ORDERED: predniSONE 20 MG TABLET PO SCH (09:00)
[2019-09-17] MEDS ORDERED: Tiotropium 18 MCG inhalation IH SCH (10:00)
[2019-09-17] MEDS: Furosemide 40 MG/4 ML VIAL IVP SCH ×2 (11:55→17:14)
[2019-09-17] MEDS: methylPREDNISolone 125 MG/2 ML VIAL IVP SCH (17:14)
[2019-09-18] MEDS: methylPREDNISolone 125 MG/2 ML VIAL IVP SCH ×2 (00:11→08:38)
[2019-09-18] MEDS ORDERED: *HR* Dextrose 50 % in Water (Syg) 50 ML SYRINGE IVP PRN (02:34)
[2019-09-18] MEDS ORDERED: Dextrose Gel 15 GM/37.5 ML TUBE PO PRN ×2 (02:34)
[2019-09-18] MEDS ORDERED: D5% in Water 1,000 ML IVC PRN (02:34)
[2019-09-18] MEDS: Insulin LISPRO 300 UNITS/3 ML VIAL SQ SCH ×5 (02:58→20:48)
[2019-09-18] MEDS: Ipratropium/Albuterol Neb 3 ML IH SCH ×6 (03:59→20:11)
[2019-09-18 04:32] LABS: Hematocrit 40.7 % (35.3-44.9); Hemoglobin 12.2 g/dL (11.5-15.4); Mean Corpuscular Hemoglobin 29.3 pg (28.0-33.3); Mean Corpuscular Volume 97.6 fL (83.0-100.0); Mean Platelet Volume 10.3 fL (9.4-12.4); Platelet Count 281 K/mcL (140-400); Red Blood Count 4.17 M/mcL (3.82-4.97); Red Cell Distribution Width 15.2 % (11.5-14.5); White Blood Count 7.9 K/mcL (4.3-11.1)
[2019-09-18 04:51] LABS: BUN/Creatinine Ratio 26 (6-26); Blood Urea Nitrogen 26 mg/dL (8-23); Calcium 9.6 mg/dL (8.6-10.3); Carbon Dioxide 41 mEq/L (23-29); Chloride 93 mEq/L (98-107); Glucose 362 mg/dL (70-105); Osmolality,Calculated 311 (280-300); Sodium 141 mEq/L (136-145); eGFR For African Americans > 60 (> 60); eGFR For Non-African Americans 54 (> 60)
[2019-09-18] MEDS: *HR* Heparin 5,000 UNIT/ML VIAL SQ SCH ×3 (05:26→20:48)
[2019-09-18] MEDS: Budesonide/Formoterol 80/4.5 1 PUFF INH IH SCH ×2 (07:21→20:11)
[2019-09-18] MEDS: Aspirin Enteric Coated 81 MG Tablet PO SCH (08:38)
[2019-09-18] MEDS: Furosemide 40 MG/4 ML VIAL IVP SCH (08:38)
[2019-09-18] MEDS: Ascorbic Acid 500 MG TABLET PO SCH (08:38)
[2019-09-18] MEDS: Multivit/Ca/Min/Fe/FA 1 TAB TABLET PO SCH (08:39)
[2019-09-18] MEDS: amLODIPine 5 MG TABLET PO SCH (08:39)
[2019-09-18] MEDS: Topiramate 25 MG TABLET PO SCH ×2 (08:39→20:47)
[2019-09-18] MEDS: Cyanocobalamin (B-12) 1,000 MCG TABLET PO SCH (08:39)
[2019-09-18] MEDS: Nystatin POWDER 30 GM BOTTLE TP SCH ×2 (08:40→20:48)
[2019-09-18] MEDS: PrednisoLONE Oral Soln 15 MG/5 ML UDC PO SCH (12:16)
[2019-09-18] MEDS: Furosemide 40 MG TABLET PO SCH (17:46)
[2019-09-19] MEDS: Ipratropium/Albuterol Neb 3 ML IH SCH ×7 (00:32→23:28)
[2019-09-19] MEDS: *HR* Heparin 5,000 UNIT/ML VIAL SQ SCH ×3 (05:48→20:22)
[2019-09-19 07:14] LABS: BUN/Creatinine Ratio 38 (6-26); Blood Urea Nitrogen 36 mg/dL (8-23); Calcium 9.8 mg/dL (8.6-10.3); Carbon Dioxide 41 mEq/L (23-29); Chloride 94 mEq/L (98-107); Glucose 258 mg/dL (70-105); Osmolality,Calculated 305 (280-300); Potassium 3.9 mEq/L (3.5-5.1); Sodium 139 mEq/L (136-145); eGFR For African Americans > 60 (> 60); eGFR For Non-African Americans 58 (> 60)
[2019-09-19] MEDS: amLODIPine 5 MG TABLET PO SCH (09:05)
[2019-09-19] MEDS: Multivit/Ca/Min/Fe/FA 1 TAB TABLET PO SCH (09:05)
[2019-09-19] MEDS: Aspirin Enteric Coated 81 MG Tablet PO SCH (09:05)
[2019-09-19] MEDS: Furosemide 40 MG TABLET PO SCH ×2 (09:06→17:33)
[2019-09-19] MEDS: Nystatin POWDER 30 GM BOTTLE TP SCH ×2 (09:06→22:08)
[2019-09-19] MEDS: PrednisoLONE Oral Soln 15 MG/5 ML UDC PO SCH (09:06)
[2019-09-19] MEDS: Topiramate 25 MG TABLET PO SCH ×2 (09:06→20:22)
[2019-09-19] MEDS: Ascorbic Acid 500 MG TABLET PO SCH (09:06)
[2019-09-19] MEDS: Insulin LISPRO 300 UNITS/3 ML VIAL SQ SCH ×4 (09:07→22:08)
[2019-09-19] MEDS: Cyanocobalamin (B-12) 1,000 MCG TABLET PO SCH (09:07)
[2019-09-19] MEDS: Budesonide/Formoterol 80/4.5 1 PUFF INH IH SCH ×2 (10:59→19:58)
[2019-09-20] MEDS: Ipratropium/Albuterol Neb 3 ML IH SCH ×6 (04:15→20:03)
[2019-09-20] MEDS: *HR* Heparin 5,000 UNIT/ML VIAL SQ SCH ×3 (05:38→22:04)
[2019-09-20] MEDS: Cyanocobalamin (B-12) 1,000 MCG TABLET PO SCH (07:49)
[2019-09-20] MEDS: Furosemide 40 MG TABLET PO SCH ×2 (07:49→16:46)
[2019-09-20] MEDS: Aspirin Enteric Coated 81 MG Tablet PO SCH (07:49)
[2019-09-20] MEDS: amLODIPine 5 MG TABLET PO SCH (07:49)
[2019-09-20] MEDS: Topiramate 25 MG TABLET PO SCH ×2 (07:49→22:05)
[2019-09-20] MEDS: Ascorbic Acid 500 MG TABLET PO SCH (07:49)
[2019-09-20] MEDS: Multivit/Ca/Min/Fe/FA 1 TAB TABLET PO SCH (07:49)
[2019-09-20] MEDS: Insulin LISPRO 300 UNITS/3 ML VIAL SQ SCH ×4 (07:50→22:06)
[2019-09-20] MEDS: Nystatin POWDER 30 GM BOTTLE TP SCH ×2 (07:50→22:34)
[2019-09-20] MEDS: PrednisoLONE Oral Soln 15 MG/5 ML UDC PO SCH (07:51)
[2019-09-20] MEDS: Budesonide/Formoterol 80/4.5 1 PUFF INH IH SCH ×2 (08:11→20:02)
[2019-09-20 08:44] LABS: VBG HCO3 43 mEq/L (21-27); VBG PCO2 67 mmHg (41-51); VBG PH 7.42 pH Units (7.32-7.42); VBG PO2 64 mmHg (25-50)
[2019-09-20 08:45] LABS: Basophils % 0.1 %; Eosinophils # 0.1 K/mcL (0.0-0.6); Eosinophils % 0.9 %; Hemoglobin 11.8 g/dL (11.5-15.4); Immature Granulocytes % 0.5 % (0-4); Lymphocytes # 1.1 K/mcL (0.6-4.6); Lymphocytes % 14.6 %; Mean Corpuscular HGB Conc 29.5 g/dL (31.6-35.5); Mean Corpuscular Hemoglobin 29.4 pg (28.0-33.3); Mean Corpuscular Volume 99.8 fL (83.0-100.0); Mean Platelet Volume 10.4 fL (9.4-12.4); Monocytes # 0.7 K/mcL (0.0-1.3); Monocytes % 9.1 %; Neutrophils # 5.8 K/mcL (1.6-8.9); Platelet Count 306 K/mcL (140-400); Red Blood Count 4.01 M/mcL (3.82-4.97); Red Cell Distribution Width 15.9 % (11.5-14.5); Segmented Neutrophils % 74.8 %; White Blood Count 7.8 K/mcL (4.3-11.1)
[2019-09-20 09:14] LABS: BUN/Creatinine Ratio 37 (6-26); Blood Urea Nitrogen 38 mg/dL (8-23); Calcium 9.8 mg/dL (8.6-10.3); Carbon Dioxide 43 mEq/L (23-29); Chloride 96 mEq/L (98-107); Glucose 124 mg/dL (70-105); Osmolality,Calculated 306 (280-300); Sodium 143 mEq/L (136-145); eGFR For African Americans > 60 (> 60); eGFR For Non-African Americans 53 (> 60)
[2019-09-21] MEDS: Ipratropium/Albuterol Neb 3 ML IH SCH ×3 (00:01→07:53)
[2019-09-21 06:13] LABS: BUN/Creatinine Ratio 39 (6-26); Blood Urea Nitrogen 36 mg/dL (8-23); Calcium 9.5 mg/dL (8.6-10.3); Carbon Dioxide 41 mEq/L (23-29); Chloride 98 mEq/L (98-107); Glucose 139 mg/dL (70-105); Osmolality,Calculated 309 (280-300); Potassium 3.8 mEq/L (3.5-5.1); Sodium 144 mEq/L (136-145); eGFR For African Americans > 60 (> 60); eGFR For Non-African Americans 60 (> 60)
[2019-09-21] MEDS: *HR* Heparin 5,000 UNIT/ML VIAL SQ SCH (06:32)
[2019-09-21 07:34] VITALS: BP 159/64
[2019-09-21] MEDS: Budesonide/Formoterol 80/4.5 1 PUFF INH IH SCH (07:55)
[2019-09-21] MEDS: PrednisoLONE Oral Soln 15 MG/5 ML UDC PO SCH (08:26)
[2019-09-21] MEDS: Topiramate 25 MG TABLET PO SCH (08:27)
[2019-09-21] MEDS: Aspirin Enteric Coated 81 MG Tablet PO SCH (08:27)
[2019-09-21] MEDS: Multivit/Ca/Min/Fe/FA 1 TAB TABLET PO SCH (08:27)
[2019-09-21] MEDS: amLODIPine 5 MG TABLET PO SCH (08:27)
[2019-09-21] MEDS: Cyanocobalamin (B-12) 1,000 MCG TABLET PO SCH (08:28)
[2019-09-21] MEDS: Insulin LISPRO 300 UNITS/3 ML VIAL SQ SCH (08:28)
[2019-09-21] MEDS: Furosemide 40 MG TABLET PO SCH (08:28)
[2019-09-21] MEDS: Nystatin POWDER 30 GM BOTTLE TP SCH (08:28)
[2019-09-21] MEDS: Ascorbic Acid 500 MG TABLET PO SCH (08:28)
== END 2019-09-21 11:27 | disposition home or self-care (01) | DRG 190 ==
LOC: EMEROOARM 16:00 → 3BNU 16:00
PROVIDERS: ADMIT Internal Medicine; ATTEND Internal Medicine

== ENCOUNTER 2019-12-10 09:09 | Inpatient (IN) ==
[2019-12-10] MEDS ORDERED: Ipratropium/Albuterol Neb 3 ML IH STA (09:17)
[2019-12-10] MEDS ORDERED: MethylPREDNISolone 40 MG/ML VIAL IVP ONE (09:17)
[2019-12-10 09:35] LABS: Basophils % 0.3 %; Eosinophils # 0.4 K/mcL (0.0-0.6); Eosinophils % 5.5 %; Hematocrit 40.6 % (35.3-44.9); Hemoglobin 12.3 g/dL (11.5-15.4); Immature Granulocytes % 0.5 % (0-4); Lymphocytes # 0.5 K/mcL (0.6-4.6); Lymphocytes % 7.2 %; Mean Corpuscular HGB Conc 30.3 g/dL (31.6-35.5); Mean Corpuscular Hemoglobin 28.5 pg (28.0-33.3); Mean Corpuscular Volume 94.2 fL (83.0-100.0); Mean Platelet Volume 9.6 fL (9.4-12.4); Monocytes # 0.4 K/mcL (0.0-1.3); Monocytes % 4.8 %; Platelet Count 241 K/mcL (140-400); Red Blood Count 4.31 M/mcL (3.82-4.97); Red Cell Distribution Width 15.2 % (11.5-14.5); Segmented Neutrophils % 81.7 %; White Blood Count 7.3 K/mcL (4.3-11.1)
[2019-12-10 10:03] LABS: Alanine Aminotransferase 7 Units/L (7-52); Albumin 3.8 g/dL (3.5-5.7); Albumin/Globulin Ratio 1.4 (1.1-2.2); Alkaline Phosphatase 99 Units/L (34-104); Aspartate Amino Transferase 9 Units/L (13-39); BUN/Creatinine Ratio 18 (6-26); Bilirubin,Total 0.6 mg/dL (0.3-1.0); Blood Urea Nitrogen 13 mg/dL (8-23); Carbon Dioxide 33 mEq/L (23-29); Chloride 102 mEq/L (98-107); Globulin 2.7 g/dL (2.4-3.5); Glucose 176 mg/dL (70-105); Osmolality,Calculated 304 (280-300); Potassium 3.6 mEq/L (3.5-5.1); Sodium 145 mEq/L (136-145); Total Protein 6.5 g/dL (6.4-8.9); Troponin I 0.03 ng/mL (< 0.04); eGFR For African Americans > 60 (> 60); eGFR For Non-African Americans > 60 (> 60)
[2019-12-10] MEDS ORDERED: Furosemide 40 MG in 0.9 % Sodium Chloride 50 ML IVPB ONE (10:04)
[2019-12-10] MEDS ORDERED: Naloxone 0.4 MG/ML INJ IVP PRN (12:09)
[2019-12-10] MEDS ORDERED: Albuterol 2.5 MG/3 ML NEBULIZER IH PRN (12:58)
[2019-12-10] MEDS ORDERED: Dextrose Gel 15 GM/37.5 ML TUBE PO PRN ×2 (12:59)
[2019-12-10] MEDS ORDERED: *HR* Dextrose 50 % in Water (Syg) 50 ML SYRINGE IVP PRN (12:59)
[2019-12-10] MEDS ORDERED: D5% in Water 1,000 ML IVC PRN (12:59)
[2019-12-10 14:29] LABS: Estimated Average Glucose 148 mg/dl
[2019-12-10] MEDS: Ipratropium/Albuterol Neb 3 ML IH SCH ×3 (16:02→23:31)
[2019-12-10] MEDS: Furosemide 40 MG/4 ML VIAL IVP SCH (17:00)
[2019-12-10] MEDS: *HR* Heparin 5,000 UNIT/ML VIAL SQ SCH (17:00)
[2019-12-10] MEDS: methylPREDNISolone 125 MG/2 ML VIAL IVP SCH (17:00)
[2019-12-10] MEDS: Insulin LISPRO 300 UNITS/3 ML VIAL SQ SCH ×2 (17:00→19:51)
[2019-12-10 17:15] LABS: Adenovirus Not Detected (Not Detect); Bordetella Pertussis Not Detected (Not Detect); Chlamydophila pneumoniae Not Detected (Not Detect); Coronavirus 229E Not Detected (Not Detect); Coronavirus HKU1 Not Detected (Not Detect); Coronavirus NL63 Not Detected (Not Detect); Coronavirus OC43 Not Detected (Not Detect); Human Metapneumovirus Not Detected (Not Detect); Human Rhinovirus/Enterovirus Not Detected (Not Detect); Influenza A Subtype 2009 H1 Not Detected (Not Detect); Influenza B Not Detected (Not Detect); Mycoplasma pneumoniae Not Detected (Not Detect); Parainfluenza Virus 1 Not Detected (Not Detect); Parainfluenza Virus 2 Not Detected (Not Detect); Parainfluenza Virus 3 Not Detected (Not Detect); Parainfluenza Virus 4 Not Detected (Not Detect); Respiratory Syncytial Virus Not Detected (Not Detect)
[2019-12-10] MEDS: Budesonide/Formoterol 160/4.5 1 PUFF INH IH SCH (20:05)
[2019-12-11] MEDS ORDERED: amLODIPine 5 MG TABLET PO ONE (00:09)
[2019-12-11] MEDS: methylPREDNISolone 125 MG/2 ML VIAL IVP SCH ×4 (00:16→23:48)
[2019-12-11] MEDS: Melatonin 3 MG TABLET PO PRN ×2 (01:53→23:48)
[2019-12-11] MEDS: Ipratropium/Albuterol Neb 3 ML IH SCH ×6 (03:49→23:59)
[2019-12-11 04:39] LABS: Basophils % 0.1 %; Hematocrit 41.7 % (35.3-44.9); Hemoglobin 12.8 g/dL (11.5-15.4); Immature Granulocytes % 0.5 % (0-4); Lymphocytes # 0.4 K/mcL (0.6-4.6); Lymphocytes % 5.4 %; Mean Corpuscular HGB Conc 30.7 g/dL (31.6-35.5); Mean Corpuscular Hemoglobin 28.6 pg (28.0-33.3); Mean Corpuscular Volume 93.1 fL (83.0-100.0); Mean Platelet Volume 10.6 fL (9.4-12.4); Monocytes % 0.5 %; Platelet Count 265 K/mcL (140-400); Red Blood Count 4.48 M/mcL (3.82-4.97); Red Cell Distribution Width 15.2 % (11.5-14.5); Segmented Neutrophils % 93.5 %; White Blood Count 7.5 K/mcL (4.3-11.1)
[2019-12-11 04:57] LABS: BUN/Creatinine Ratio 22 (6-26); Blood Urea Nitrogen 22 mg/dL (8-23); Calcium 9.1 mg/dL (8.6-10.3); Carbon Dioxide 34 mEq/L (23-29); Chloride 98 mEq/L (98-107); Glucose 313 mg/dL (70-105); Osmolality,Calculated 303 (280-300); Sodium 139 mEq/L (136-145); eGFR For African Americans > 60 (> 60); eGFR For Non-African Americans 56 (> 60)
[2019-12-11] MEDS: *HR* Heparin 5,000 UNIT/ML VIAL SQ SCH ×2 (05:31→17:02)
[2019-12-11] MEDS: Budesonide/Formoterol 160/4.5 1 PUFF INH IH SCH ×2 (07:53→19:57)
[2019-12-11] MEDS: Furosemide 40 MG/4 ML VIAL IVP SCH ×2 (08:23→17:03)
[2019-12-11] MEDS: Aspirin Enteric Coated 81 MG Tablet PO SCH (08:23)
[2019-12-11] MEDS: Insulin LISPRO 300 UNITS/3 ML VIAL SQ SCH ×4 (08:24→21:31)
[2019-12-11] MEDS: amLODIPine 5 MG TABLET PO SCH (08:25)
[2019-12-12] MEDS: Ipratropium/Albuterol Neb 3 ML IH SCH ×6 (04:16→23:52)
[2019-12-12] MEDS: *HR* Heparin 5,000 UNIT/ML VIAL SQ SCH ×2 (05:55→18:19)
[2019-12-12] MEDS: Budesonide/Formoterol 160/4.5 1 PUFF INH IH SCH ×2 (07:29→20:11)
[2019-12-12 07:44] LABS: Hematocrit 43.8 % (35.3-44.9); Hemoglobin 13.4 g/dL (11.5-15.4); Mean Corpuscular HGB Conc 30.6 g/dL (31.6-35.5); Mean Corpuscular Hemoglobin 28.2 pg (28.0-33.3); Mean Platelet Volume 9.9 fL (9.4-12.4); Platelet Count 298 K/mcL (140-400); Red Blood Count 4.76 M/mcL (3.82-4.97); Red Cell Distribution Width 15.2 % (11.5-14.5)
[2019-12-12 07:47] LABS: White Blood Count 12.5 K/mcL (4.3-11.1)
[2019-12-12 08:03] LABS: BUN/Creatinine Ratio 36 (6-26); Blood Urea Nitrogen 35 mg/dL (8-23); Calcium 9.5 mg/dL (8.6-10.3); Carbon Dioxide 35 mEq/L (23-29); Chloride 96 mEq/L (98-107); Glucose 302 mg/dL (70-105); Osmolality,Calculated 309 (280-300); Potassium 4.2 mEq/L (3.5-5.1); Sodium 140 mEq/L (136-145); eGFR For African Americans > 60 (> 60); eGFR For Non-African Americans 56 (> 60)
[2019-12-12] MEDS: Insulin LISPRO 300 UNITS/3 ML VIAL SQ SCH ×4 (08:39→22:34)
[2019-12-12] MEDS: Furosemide 40 MG/4 ML VIAL IVP SCH ×2 (08:39→18:19)
[2019-12-12] MEDS: methylPREDNISolone 125 MG/2 ML VIAL IVP SCH ×2 (08:39→18:18)
[2019-12-12] MEDS: amLODIPine 5 MG TABLET PO SCH (08:40)
[2019-12-12] MEDS: Aspirin Enteric Coated 81 MG Tablet PO SCH (08:40)
[2019-12-12] MEDS: metOLazone 5 MG TABLET PO SCH (12:57)
[2019-12-13] MEDS: methylPREDNISolone 125 MG/2 ML VIAL IVP SCH ×2 (00:18→08:43)
[2019-12-13] MEDS: Melatonin 3 MG TABLET PO PRN ×2 (00:24→20:39)
[2019-12-13] MEDS: Ipratropium/Albuterol Neb 3 ML IH SCH ×5 (03:59→20:19)
[2019-12-13] MEDS: *HR* Heparin 5,000 UNIT/ML VIAL SQ SCH ×2 (05:56→17:41)
[2019-12-13 06:22] LABS: Hemoglobin 13.1 g/dL (11.5-15.4); Mean Corpuscular HGB Conc 31.2 g/dL (31.6-35.5); Mean Corpuscular Hemoglobin 28.5 pg (28.0-33.3); Mean Corpuscular Volume 91.3 fL (83.0-100.0); Mean Platelet Volume 10.2 fL (9.4-12.4); Platelet Count 303 K/mcL (140-400); White Blood Count 10.4 K/mcL (4.3-11.1)
[2019-12-13 06:46] LABS: BUN/Creatinine Ratio 38 (6-26); Blood Urea Nitrogen 40 mg/dL (8-23); Calcium 9.5 mg/dL (8.6-10.3); Carbon Dioxide 41 mEq/L (23-29); Chloride 91 mEq/L (98-107); Glucose 310 mg/dL (70-105); Osmolality,Calculated 312 (280-300); Potassium 3.9 mEq/L (3.5-5.1); Sodium 140 mEq/L (136-145); eGFR For African Americans > 60 (> 60); eGFR For Non-African Americans 52 (> 60)
[2019-12-13] MEDS: Budesonide/Formoterol 160/4.5 1 PUFF INH IH SCH ×2 (07:17→20:19)
[2019-12-13] MEDS: Insulin LISPRO 300 UNITS/3 ML VIAL SQ SCH ×4 (08:43→20:39)
[2019-12-13] MEDS: Furosemide 40 MG/4 ML VIAL IVP SCH ×2 (08:43→17:41)
[2019-12-13] MEDS: amLODIPine 5 MG TABLET PO SCH (08:44)
[2019-12-13] MEDS: metOLazone 5 MG TABLET PO SCH (08:44)
[2019-12-13] MEDS: Aspirin Enteric Coated 81 MG Tablet PO SCH (08:44)
[2019-12-14] MEDS: Ipratropium/Albuterol Neb 3 ML IH SCH ×5 (00:26→15:48)
[2019-12-14 01:41] LABS: Calcium 9.8 mg/dL (8.6-10.3); Potassium 3.8 mEq/L (3.5-5.1)
[2019-12-14] MEDS: *HR* Heparin 5,000 UNIT/ML VIAL SQ SCH (05:12)
[2019-12-14] MEDS ORDERED: Furosemide 20 MG TABLET PO SCH (08:00)
[2019-12-14] MEDS ORDERED: Multivit/Ca/Min/Fe/FA 1 TAB TABLET PO SCH (09:00)
[2019-12-14] MEDS ORDERED: predniSONE 20 MG TABLET PO SCH (09:00)
[2019-12-14] MEDS ORDERED: Cyanocobalamin (B-12) 1,000 MCG TABLET PO SCH (09:00)
[2019-12-14] MEDS: Aspirin Enteric Coated 81 MG Tablet PO SCH (09:04)
[2019-12-14] MEDS: amLODIPine 5 MG TABLET PO SCH (09:04)
[2019-12-14] MEDS: Insulin LISPRO 300 UNITS/3 ML VIAL SQ SCH ×2 (09:05→12:12)
[2019-12-14] MEDS: Budesonide/Formoterol 160/4.5 1 PUFF INH IH SCH (11:13)
[2019-12-14 17:13] VITALS: BP 129/55
== END 2019-12-14 17:17 | DRG 291 ==
LOC: 3BNU 09:09 → EMEROOARM 09:09 → 3BNU 13:47
PROVIDERS: ADMIT Internal Medicine; ATTEND Internal Medicine

== ENCOUNTER 2020-01-01 18:18 | Observation (INO) ==
[2020-01-01] MEDS ORDERED: *HR* Dextrose 50 % in Water (Syg) 50 ML SYRINGE ONE (18:28)
[2020-01-01] MEDS ORDERED: *HR* Dextrose 50 % in Water (Syg) 50 ML SYRINGE IVP ONE (18:35)
[2020-01-01] MEDS: D5% in 0.9% NACL 1,000 ML IVC SCH (18:53)
[2020-01-01 19:07] LABS: Basophils % 0.4 %; Eosinophils # 0.4 K/mcL (0.0-0.6); Eosinophils % 4.2 %; Hematocrit 41.5 % (35.3-44.9); Hemoglobin 12.6 g/dL (11.5-15.4); Immature Granulocytes % 0.6 % (0-4); Lymphocytes # 0.6 K/mcL (0.6-4.6); Lymphocytes % 6.9 %; Mean Corpuscular HGB Conc 30.4 g/dL (31.6-35.5); Mean Corpuscular Volume 95.4 fL (83.0-100.0); Mean Platelet Volume 10.6 fL (9.4-12.4); Monocytes # 0.5 K/mcL (0.0-1.3); Monocytes % 5.4 %; Platelet Count 228 K/mcL (140-400); Red Blood Count 4.35 M/mcL (3.82-4.97); Red Cell Distribution Width 16.3 % (11.5-14.5); Segmented Neutrophils % 82.5 %; White Blood Count 8.5 K/mcL (4.3-11.1)
[2020-01-01 19:15] LABS: Bilirubin,Urine Negative (Negative); Blood,Urine Negative (Negative); Clarity,Urine Clear (Clear); Color,Urine Yellow (Yellow); Glucose,Urine (UA) 500 mg/dL (Normal); Ketones,Urine Negative (Negative); Leukocyte Esterase,Urine Negative (Negative); Nitrite,Urine Negative (Negative); Protein,Urine Negative (Neg-Trace); Specific Gravity,Urine 1.016 (1.010-1.025); Urobilinogen,Urine Normal (Normal)
[2020-01-01 19:29] LABS: BUN/Creatinine Ratio 29 (6-26); Blood Urea Nitrogen 41 mg/dL (8-23); Calcium 8.9 mg/dL (8.6-10.3); Carbon Dioxide 29 mEq/L (23-29); Chloride 99 mEq/L (98-107); Glucose 255 mg/dL (70-105); Osmolality,Calculated 303 (280-300); Potassium 4.9 mEq/L (3.5-5.1); Sodium 137 mEq/L (136-145); Troponin I < 0.03 ng/mL (< 0.04); eGFR For African Americans 44 (> 60); eGFR For Non-African Americans 37 (> 60)
[2020-01-01] MEDS ORDERED: Naloxone 0.4 MG/ML INJ IVP PRN (20:17)
[2020-01-01] MEDS ORDERED: Ipratropium/Albuterol Neb 3 ML IH PRN (20:19)
[2020-01-01] MEDS ORDERED: Nitroglycerin 0.4 MG TAB.SUBL SL PRN (20:19)
[2020-01-01] MEDS ORDERED: D5% in Water 1,000 ML IVC PRN (20:22)
[2020-01-01] MEDS ORDERED: *HR* Dextrose 50 % in Water (Syg) 50 ML SYRINGE IVP PRN (20:22)
[2020-01-01] MEDS ORDERED: Dextrose Gel 15 GM/37.5 ML TUBE PO PRN ×2 (20:22)
[2020-01-01] MEDS ORDERED: D5% in 0.45% NACL 1,000 ML IVC SCH (20:30)
[2020-01-01] MEDS: Budesonide/Formoterol 160/4.5 1 PUFF INH IH SCH (22:42)
[2020-01-02] MEDS: *HR* Heparin 5,000 UNIT/ML VIAL SQ SCH ×4 (00:17→21:44)
[2020-01-02] MEDS: Insulin LISPRO 300 UNITS/3 ML VIAL SQ SCH ×5 (04:38→16:45)
[2020-01-02] MEDS: D5% in 0.9% NACL 1,000 ML IVC SCH (04:48)
[2020-01-02 06:58] LABS: Basophils % 0.3 %; Eosinophils # 0.2 K/mcL (0.0-0.6); Eosinophils % 4.1 %; Hematocrit 40.1 % (35.3-44.9); Hemoglobin 11.8 g/dL (11.5-15.4); Immature Granulocytes % 0.5 % (0-4); Lymphocytes # 0.6 K/mcL (0.6-4.6); Lymphocytes % 10.2 %; Mean Corpuscular HGB Conc 29.4 g/dL (31.6-35.5); Mean Corpuscular Hemoglobin 28.4 pg (28.0-33.3); Mean Corpuscular Volume 96.6 fL (83.0-100.0); Mean Platelet Volume 10.9 fL (9.4-12.4); Monocytes # 0.4 K/mcL (0.0-1.3); Monocytes % 6.1 %; Neutrophils # 4.7 K/mcL (1.6-8.9); Platelet Count 225 K/mcL (140-400); Red Blood Count 4.15 M/mcL (3.82-4.97); Red Cell Distribution Width 16.2 % (11.5-14.5); Segmented Neutrophils % 78.8 %; White Blood Count 5.9 K/mcL (4.3-11.1)
[2020-01-02 07:16] LABS: Calcium 8.7 mg/dL (8.6-10.3); Potassium 4.8 mEq/L (3.5-5.1)
[2020-01-02] MEDS: Furosemide 40 MG TABLET PO SCH (09:16)
[2020-01-02] MEDS: amLODIPine 5 MG TABLET PO SCH (09:16)
[2020-01-02] MEDS: Topiramate 25 MG TABLET PO SCH (09:16)
[2020-01-02] MEDS: Aspirin Enteric Coated 81 MG Tablet PO SCH (09:16)
[2020-01-02] MEDS: Budesonide/Formoterol 160/4.5 1 PUFF INH IH SCH ×2 (12:01→22:09)
[2020-01-02] MEDS: Tiotropium 18 MCG inhalation IH SCH (12:03)
[2020-01-02] MEDS ORDERED: Insulin LISPRO 300 UNITS/3 ML VIAL SQ SCH (21:00)
[2020-01-03] MEDS ORDERED: Melatonin 3 MG TABLET PO PRN (00:55)
[2020-01-03] MEDS ORDERED: Methyl Salicylate/Menthol 28 GM TUBE TP ONE (01:00)
[2020-01-03 02:14] LABS: Basophils % 0.3 %; Eosinophils # 0.4 K/mcL (0.0-0.6); Eosinophils % 7.2 %; Hemoglobin 12.2 g/dL (11.5-15.4); Immature Granulocytes % 0.7 % (0-4); Lymphocytes # 0.9 K/mcL (0.6-4.6); Lymphocytes % 14.8 %; Mean Corpuscular HGB Conc 29.8 g/dL (31.6-35.5); Mean Corpuscular Hemoglobin 28.2 pg (28.0-33.3); Mean Corpuscular Volume 94.9 fL (83.0-100.0); Mean Platelet Volume 10.2 fL (9.4-12.4); Monocytes # 0.5 K/mcL (0.0-1.3); Neutrophils # 3.9 K/mcL (1.6-8.9); Platelet Count 216 K/mcL (140-400); Red Blood Count 4.32 M/mcL (3.82-4.97); White Blood Count 5.8 K/mcL (4.3-11.1)
[2020-01-03 02:31] LABS: Calcium 9.1 mg/dL (8.6-10.3); Magnesium 2.1 mg/dL (1.6-2.6); Phosphorous 3.6 mg/dL (2.7-4.5); Potassium 4.2 mEq/L (3.5-5.1)
[2020-01-03] MEDS: *HR* Heparin 5,000 UNIT/ML VIAL SQ SCH (05:58)
[2020-01-03] MEDS ORDERED: Methyl Salicylate/Menthol 57 APPL/57 GM TUBE TP ONE (07:00)
[2020-01-03 07:05] VITALS: BP 148/69
[2020-01-03] MEDS: Budesonide/Formoterol 160/4.5 1 PUFF INH IH SCH (07:32)
[2020-01-03] MEDS: Tiotropium 18 MCG inhalation IH SCH (07:33)
[2020-01-03] MEDS: Insulin LISPRO 300 UNITS/3 ML VIAL SQ SCH (08:26)
[2020-01-03] MEDS: Aspirin Enteric Coated 81 MG Tablet PO SCH (08:26)
[2020-01-03] MEDS: Topiramate 25 MG TABLET PO SCH (08:26)
[2020-01-03] MEDS: Furosemide 40 MG TABLET PO SCH (08:26)
[2020-01-03] MEDS: amLODIPine 5 MG TABLET PO SCH (08:26)
== END 2020-01-03 10:53 | disposition home or self-care (01) ==
LOC: EMEROOARM 18:18 → 2ANU 18:18
PROVIDERS: ADMIT Internal Medicine; ATTEND Internal Medicine

== ENCOUNTER 2020-03-15 13:01 | Inpatient (IN) ==
[2020-03-15 13:57] LABS: Basophils % 0.4 %; Eosinophils # 0.6 K/mcL (0.0-0.6); Eosinophils % 6.8 %; Hematocrit 42.3 % (35.3-44.9); Lymphocytes # 0.8 K/mcL (0.6-4.6); Lymphocytes % 9.8 %; Mean Corpuscular HGB Conc 30.7 g/dL (31.6-35.5); Mean Corpuscular Hemoglobin 29.3 pg (28.0-33.3); Mean Corpuscular Volume 95.5 fL (83.0-100.0); Mean Platelet Volume 9.9 fL (9.4-12.4); Monocytes # 0.5 K/mcL (0.0-1.3); Monocytes % 5.4 %; Neutrophils # 6.3 K/mcL (1.6-8.9); Platelet Count 290 K/mcL (140-400); Red Blood Count 4.43 M/mcL (3.82-4.97); Red Cell Distribution Width 16.9 % (11.5-14.5); Segmented Neutrophils % 76.6 %; White Blood Count 8.3 K/mcL (4.3-11.1)
[2020-03-15 14:18] LABS: Alanine Aminotransferase 12 Units/L (7-52); Albumin 3.9 g/dL (3.5-5.7); Albumin/Globulin Ratio 1.4 (1.1-2.2); Alkaline Phosphatase 129 Units/L (34-104); Aspartate Amino Transferase 11 Units/L (13-39); BUN/Creatinine Ratio 16 (6-26); Bilirubin,Direct 0.1 mg/dL (0.0-0.2); Bilirubin,Indirect 0.3 mg/dL (0.0-1.0); Bilirubin,Total 0.4 mg/dL (0.3-1.0); Blood Urea Nitrogen 12 mg/dL (8-23); Calcium 9.3 mg/dL (8.6-10.3); Carbon Dioxide 30 mEq/L (23-29); Chloride 105 mEq/L (98-107); Globulin 2.8 g/dL (2.4-3.5); Glucose 227 mg/dL (70-105); Lipase 18 Units/L (11-82); Osmolality,Calculated 301 (280-300); Potassium 3.7 mEq/L (3.5-5.1); Prothrombin Time 11.7 Seconds (9.4-12.1); Sodium 142 mEq/L (136-145); Total Protein 6.7 g/dL (6.4-8.9); Troponin I < 0.03 ng/mL (< 0.04); eGFR For African Americans > 60 (> 60); eGFR For Non-African Americans > 60 (> 60)
[2020-03-15 14:21] LABS: Activated Partial Thrombo Time 31.7 Seconds (26.0-36.0)
[2020-03-15] MEDS ORDERED: Furosemide 40 MG/4 ML VIAL IVP ONE (14:56)
[2020-03-15] MEDS ORDERED: Piperacillin/Tazobactam 3.375 GM in Water for inj. (sterile) 20 ML IVP ONE (14:57)
[2020-03-15 16:10] LABS: Bilirubin,Urine Negative (Negative); Blood,Urine Negative (Negative); Clarity,Urine Clear (Clear); Color,Urine Yellow (Yellow); Glucose,Urine (UA) Normal (Normal); Ketones,Urine Negative (Negative); Leukocyte Esterase,Urine Negative (Negative); Nitrite,Urine Negative (Negative); Protein,Urine Negative (Neg-Trace); Specific Gravity,Urine 1.013 (1.010-1.025); Urobilinogen,Urine Normal (Normal)
[2020-03-15] MEDS ORDERED: Acetaminophen 325 MG TABLET PO PRN (16:37)
[2020-03-15] MEDS ORDERED: Naloxone 0.4 MG/ML INJ IVP PRN (16:37)
[2020-03-15] MEDS ORDERED: Ondansetron 4 MG/2 ML VIAL IVP PRN (16:37)
[2020-03-15] MEDS ORDERED: cefTRIAXone 1,000 MG in 0.9 % Sodium Chloride Mini Bag 100 ML IVPB SCH (17:00)
[2020-03-15] MEDS ORDERED: Azithromycin 500 MG in 0.9 % Sodium Chloride 250 ML IVPB SCH (17:00)
[2020-03-15] MEDS: Famotidine 20 MG/2 ML VIAL IVP SCH (17:56)
[2020-03-15] MEDS ORDERED: Nystatin POWDER 30 GM BOTTLE TP PRN (18:39)
[2020-03-15] MEDS ORDERED: Dextrose Gel 15 GM/37.5 ML TUBE PO PRN ×2 (18:41)
[2020-03-15] MEDS ORDERED: D5% in Water 1,000 ML IVC PRN (18:41)
[2020-03-15] MEDS ORDERED: *HR* Dextrose 50 % in Water (Syg) 50 ML SYRINGE IVP PRN (18:41)
[2020-03-15] MEDS: Budesonide/Formoterol 160/4.5 1 PUFF INH IH SCH (19:47)
[2020-03-15] MEDS: Insulin LISPRO 300 UNITS/3 ML VIAL SQ SCH (20:25)
[2020-03-15] MEDS: Topiramate 25 MG TABLET PO SCH (20:35)
[2020-03-15] MEDS: Melatonin 3 MG TABLET PO SCH (20:35)
[2020-03-16] MEDS ORDERED: Benzonatate 100 MG CAPSULE PO ONE (02:27)
[2020-03-16 03:25] LABS: Basophils % 0.4 %; Eosinophils # 0.5 K/mcL (0.0-0.6); Eosinophils % 7.1 %; Hematocrit 42.8 % (35.3-44.9); Immature Granulocytes % 0.7 % (0-4); Lymphocytes # 0.8 K/mcL (0.6-4.6); Lymphocytes % 11.1 %; Mean Corpuscular HGB Conc 30.4 g/dL (31.6-35.5); Mean Corpuscular Hemoglobin 29.5 pg (28.0-33.3); Mean Corpuscular Volume 97.3 fL (83.0-100.0); Mean Platelet Volume 10.4 fL (9.4-12.4); Monocytes # 0.4 K/mcL (0.0-1.3); Monocytes % 5.4 %; Platelet Count 247 K/mcL (140-400); Red Cell Distribution Width 17.2 % (11.5-14.5); Segmented Neutrophils % 75.3 %; White Blood Count 7.5 K/mcL (4.3-11.1)
[2020-03-16 03:27] LABS: Neutrophils # 5.7 K/mcL (1.6-8.9)
[2020-03-16 03:46] LABS: Calcium 9.1 mg/dL (8.6-10.3); Magnesium 1.7 mg/dL (1.6-2.6)
[2020-03-16 03:59] LABS: Thyroid Stimulating Hormone 4.256 mcIU/mL (0.340-5.600)
[2020-03-16] MEDS: Famotidine 20 MG/2 ML VIAL IVP SCH ×2 (05:47→17:49)
[2020-03-16] MEDS: Insulin LISPRO 300 UNITS/3 ML VIAL SQ SCH ×5 (07:18→21:51)
[2020-03-16] MEDS: Budesonide/Formoterol 160/4.5 1 PUFF INH IH SCH ×2 (07:28→19:47)
[2020-03-16 08:41] LABS: Estimated Average Glucose 163 mg/dl
[2020-03-16] MEDS ORDERED: Furosemide 40 MG/4 ML VIAL IVP SCH (09:00)
[2020-03-16] MEDS: *HR* Enoxaparin 40 MG/0.4 ML SYRINGE SQ SCH (09:15)
[2020-03-16] MEDS: Multivit/Ca/Min/Fe/FA 1 TAB TABLET PO SCH (09:16)
[2020-03-16] MEDS: amLODIPine 5 MG TABLET PO SCH (09:16)
[2020-03-16] MEDS: Cyanocobalamin (B-12) 1,000 MCG TABLET PO SCH (09:17)
[2020-03-16] MEDS: Topiramate 25 MG TABLET PO SCH ×2 (09:17→21:29)
[2020-03-16] MEDS: Aspirin Enteric Coated 81 MG Tablet PO SCH (09:17)
[2020-03-16] MEDS: Benzonatate 100 MG CAPSULE PO PRN (20:14)
[2020-03-16] MEDS ORDERED: Albumin 25% 25gram/100mL 25 GM/100 ML IV.SOLN IVPB ONE (21:00)
[2020-03-16] MEDS: Melatonin 3 MG TABLET PO SCH (21:29)
[2020-03-16] MEDS: Furosemide 40 MG/4 ML VIAL IVP SCH (23:59)
[2020-03-17 01:34] LABS: Basophils % 0.4 %; Eosinophils # 0.6 K/mcL (0.0-0.6); Eosinophils % 7.2 %; Hematocrit 37.9 % (35.3-44.9); Hemoglobin 11.5 g/dL (11.5-15.4); Immature Granulocytes % 0.5 % (0-4); Lymphocytes # 1.1 K/mcL (0.6-4.6); Lymphocytes % 13.3 %; Mean Corpuscular HGB Conc 30.3 g/dL (31.6-35.5); Mean Corpuscular Hemoglobin 29.9 pg (28.0-33.3); Mean Corpuscular Volume 98.4 fL (83.0-100.0); Mean Platelet Volume 10.2 fL (9.4-12.4); Monocytes # 0.5 K/mcL (0.0-1.3); Monocytes % 6.4 %; Neutrophils # 5.8 K/mcL (1.6-8.9); Platelet Count 255 K/mcL (140-400); Red Blood Count 3.85 M/mcL (3.82-4.97); Red Cell Distribution Width 17.1 % (11.5-14.5); Segmented Neutrophils % 72.2 %
[2020-03-17 01:57] LABS: BUN/Creatinine Ratio 24 (6-26); Blood Urea Nitrogen 24 mg/dL (8-23); Calcium 9.1 mg/dL (8.6-10.3); Carbon Dioxide 30 mEq/L (23-29); Chloride 103 mEq/L (98-107); Glucose 159 mg/dL (70-105); Magnesium 1.8 mg/dL (1.6-2.6); Osmolality,Calculated 301 (280-300); Potassium 3.8 mEq/L (3.5-5.1); Sodium 142 mEq/L (136-145); eGFR For African Americans > 60 (> 60); eGFR For Non-African Americans 55 (> 60)
[2020-03-17] MEDS: Famotidine 20 MG/2 ML VIAL IVP SCH ×2 (05:32→18:28)
[2020-03-17] MEDS: Budesonide/Formoterol 160/4.5 1 PUFF INH IH SCH ×2 (07:31→20:14)
[2020-03-17] MEDS: *HR* Enoxaparin 40 MG/0.4 ML SYRINGE SQ SCH (09:55)
[2020-03-17] MEDS: Aspirin Enteric Coated 81 MG Tablet PO SCH (10:01)
[2020-03-17] MEDS: Cyanocobalamin (B-12) 1,000 MCG TABLET PO SCH (10:01)
[2020-03-17] MEDS: Furosemide 40 MG/4 ML VIAL IVP SCH ×2 (10:02→20:52)
[2020-03-17] MEDS: Insulin LISPRO 300 UNITS/3 ML VIAL SQ SCH ×4 (10:02→20:53)
[2020-03-17] MEDS: Topiramate 25 MG TABLET PO SCH ×2 (10:03→20:52)
[2020-03-17] MEDS: amLODIPine 5 MG TABLET PO SCH (10:03)
[2020-03-17] MEDS: Multivit/Ca/Min/Fe/FA 1 TAB TABLET PO SCH (10:03)
[2020-03-17] MEDS: Melatonin 3 MG TABLET PO SCH (20:53)
[2020-03-18 03:07] LABS: Calcium 9.4 mg/dL (8.6-10.3); Potassium 3.8 mEq/L (3.5-5.1)
[2020-03-18] MEDS: Famotidine 20 MG/2 ML VIAL IVP SCH ×2 (05:22→18:04)
[2020-03-18] MEDS ORDERED: *HR* Enoxaparin 40 MG/0.4 ML SYRINGE SQ SCH (07:00)
[2020-03-18] MEDS: Budesonide/Formoterol 160/4.5 1 PUFF INH IH SCH ×2 (07:35→19:59)
[2020-03-18] MEDS: Insulin LISPRO 300 UNITS/3 ML VIAL SQ SCH ×4 (10:10→21:27)
[2020-03-18] MEDS: Topiramate 25 MG TABLET PO SCH ×2 (10:19→20:42)
[2020-03-18] MEDS: Benzonatate 100 MG CAPSULE PO PRN (10:19)
[2020-03-18] MEDS: Cyanocobalamin (B-12) 1,000 MCG TABLET PO SCH (10:19)
[2020-03-18] MEDS: Multivit/Ca/Min/Fe/FA 1 TAB TABLET PO SCH (10:20)
[2020-03-18] MEDS: Aspirin Enteric Coated 81 MG Tablet PO SCH (10:20)
[2020-03-18] MEDS: amLODIPine 5 MG TABLET PO SCH (10:20)
[2020-03-18] MEDS: Furosemide 40 MG TABLET PO SCH (14:42)
[2020-03-18] MEDS: Melatonin 3 MG TABLET PO SCH (21:26)
[2020-03-19 03:27] LABS: Calcium 9.1 mg/dL (8.6-10.3)
[2020-03-19] MEDS: Famotidine 20 MG/2 ML VIAL IVP SCH (05:27)
[2020-03-19] MEDS ORDERED: *HR* Enoxaparin 40 MG/0.4 ML SYRINGE SQ SCH (06:00)
[2020-03-19 06:33] VITALS: BP 126/71
[2020-03-19] MEDS ORDERED: *HR* Enoxaparin 30 MG/0.3 ML SYRINGE SQ SCH (07:00)
[2020-03-19] MEDS: Budesonide/Formoterol 160/4.5 1 PUFF INH IH SCH (07:53)
[2020-03-19] MEDS: Furosemide 40 MG TABLET PO SCH (08:05)
[2020-03-19] MEDS: Cyanocobalamin (B-12) 1,000 MCG TABLET PO SCH (08:05)
[2020-03-19] MEDS: Topiramate 25 MG TABLET PO SCH (08:05)
[2020-03-19] MEDS: Aspirin Enteric Coated 81 MG Tablet PO SCH (08:05)
[2020-03-19] MEDS: Multivit/Ca/Min/Fe/FA 1 TAB TABLET PO SCH (08:05)
[2020-03-19] MEDS: Insulin LISPRO 300 UNITS/3 ML VIAL SQ SCH ×2 (08:06→12:46)
[2020-03-19] MEDS: amLODIPine 5 MG TABLET PO SCH (08:06)
== END 2020-03-19 13:17 | disposition home or self-care (01) | DRG 291 ==
LOC: EMEROOARM 13:01 → 2NENU 13:01 → SUATTDRO 15:58 → 2NENU 16:40 → 2ANU 03-16 21:07
PROVIDERS: ADMIT Pharmacist; ATTEND Internal Medicine

== ENCOUNTER 2020-05-16 13:45 | Inpatient (IN) ==
[2020-05-16] MEDS ORDERED: levoFLOXacin 750 MG TABLET PO ONE (14:08)
[2020-05-16] MEDS ORDERED: Furosemide 40 MG/4 ML VIAL IVP ONE (14:08)
[2020-05-16] MEDS ORDERED: Ipratropium/Albuterol Neb 3 ML IH ONE (14:08)
[2020-05-16] MEDS ORDERED: methylPREDNISolone 125 MG/2 ML VIAL IVP ONE (14:08)
[2020-05-16 14:54] LABS: Basophils % 0.3 %; Eosinophils # 0.4 K/mcL (0.0-0.6); Eosinophils % 5.6 %; Hematocrit 42.1 % (35.3-44.9); Hemoglobin 12.7 g/dL (11.5-15.4); Immature Granulocytes % 0.8 % (0-4); Lymphocytes # 0.6 K/mcL (0.6-4.6); Lymphocytes % 10.1 %; Mean Corpuscular HGB Conc 30.2 g/dL (31.6-35.5); Mean Corpuscular Hemoglobin 29.1 pg (28.0-33.3); Mean Corpuscular Volume 96.3 fL (83.0-100.0); Mean Platelet Volume 10.5 fL (9.4-12.4); Monocytes # 0.4 K/mcL (0.0-1.3); Monocytes % 5.8 %; Neutrophils # 4.8 K/mcL (1.6-8.9); Platelet Count 271 K/mcL (140-400); Red Blood Count 4.37 M/mcL (3.82-4.97); Red Cell Distribution Width 15.7 % (11.5-14.5); Segmented Neutrophils % 77.4 %; White Blood Count 6.2 K/mcL (4.3-11.1)
[2020-05-16 14:57] LABS: INR 1.1; Prothrombin Time 12.2 Seconds (9.4-12.1)
[2020-05-16] MEDS ORDERED: *HR* Acetaminophen w/Cod 300-30 mg 1 TAB TABLET PO ONE (15:08)
[2020-05-16 15:28] LABS: BUN/Creatinine Ratio 24 (6-26); Blood Urea Nitrogen 22 mg/dL (8-23); Calcium 8.8 mg/dL (8.6-10.3); Carbon Dioxide 33 mEq/L (23-29); Chloride 100 mEq/L (98-107); Glucose 203 mg/dL (70-105); Osmolality,Calculated 307 (280-300); Potassium 3.5 mEq/L (3.5-5.1); Sodium 144 mEq/L (136-145); Troponin I < 0.03 ng/mL (< 0.04); eGFR For African Americans > 60 (> 60); eGFR For Non-African Americans > 60 (> 60)
[2020-05-16] MEDS ORDERED: Naloxone 0.4 MG/ML INJ IVP PRN (16:52)
[2020-05-16] MEDS ORDERED: Ondansetron 4 MG/2 ML VIAL IVP PRN (16:52)
[2020-05-16] MEDS ORDERED: Albuterol 2.5 MG/3 ML NEBULIZER IH PRN (16:53)
[2020-05-16] MEDS ORDERED: *HR* Dextrose 50 % in Water (Vial) 50 ML VIAL IVP PRN (16:54)
[2020-05-16] MEDS ORDERED: D5% in Water 1,000 ML IVC PRN (16:54)
[2020-05-16] MEDS ORDERED: Dextrose Gel 15 GM/37.5 ML TUBE PO PRN ×2 (16:54)
[2020-05-16] MEDS ORDERED: ALPRAZolam 0.25 MG TABLET PO PRN (17:02)
[2020-05-16] MEDS: Azithromycin 500 MG in 0.9 % Sodium Chloride 250 ML IVPB SCH (18:56)
[2020-05-16] MEDS: Albuterol 2.5 MG/3 ML NEBULIZER IH SCH ×2 (19:45→23:23)
[2020-05-16] MEDS: Budesonide/Formoterol 160/4.5 1 PUFF INH IH SCH (19:45)
[2020-05-16] MEDS: Melatonin 3 MG TABLET PO SCH (20:10)
[2020-05-16 22:12] LABS: ABG Base Excess 4 mEq/L (-2 to 3); ABG HCO3 32 mEq/L (21-27); ABG Oxygen Saturation 86 % (95-98); ABG PCO2 65 mmHg (35-45); ABG PH 7.31 pH Units (7.32-7.45); ABG PO2 58 mmHg (85-104); ABG TCO2 34 mEq/L (20-26)
[2020-05-17] MEDS: Albuterol 2.5 MG/3 ML NEBULIZER IH SCH ×6 (03:39→23:03)
[2020-05-17 04:11] LABS: Basophils % 0.2 %; Hematocrit 40.4 % (35.3-44.9); Hemoglobin 11.9 g/dL (11.5-15.4); Lymphocytes # 0.5 K/mcL (0.6-4.6); Lymphocytes % 9.4 %; Mean Corpuscular HGB Conc 29.5 g/dL (31.6-35.5); Mean Corpuscular Hemoglobin 28.6 pg (28.0-33.3); Mean Corpuscular Volume 97.1 fL (83.0-100.0); Mean Platelet Volume 9.9 fL (9.4-12.4); Monocytes % 0.8 %; Neutrophils # 4.5 K/mcL (1.6-8.9); Platelet Count 252 K/mcL (140-400); Red Blood Count 4.16 M/mcL (3.82-4.97); Red Cell Distribution Width 15.5 % (11.5-14.5); Segmented Neutrophils % 88.6 %; White Blood Count 5.1 K/mcL (4.3-11.1)
[2020-05-17] MEDS ORDERED: *HR* OxyCODONE Immed Rel 5 MG TABLET PO PRN (05:56)
[2020-05-17 06:13] LABS: BUN/Creatinine Ratio 27 (6-26); Blood Urea Nitrogen 26 mg/dL (8-23); Carbon Dioxide 33 mEq/L (23-29); Chloride 98 mEq/L (98-107); Glucose 303 mg/dL (70-105); Osmolality,Calculated 306 (280-300); Potassium 4.1 mEq/L (3.5-5.1); Sodium 140 mEq/L (136-145); eGFR For African Americans > 60 (> 60); eGFR For Non-African Americans 55 (> 60)
[2020-05-17] MEDS: Budesonide/Formoterol 160/4.5 1 PUFF INH IH SCH ×2 (07:44→20:09)
[2020-05-17] MEDS: Tiotropium 18 MCG inhalation IH SCH (07:44)
[2020-05-17] MEDS: Aspirin Enteric Coated 81 MG Tablet PO SCH (08:06)
[2020-05-17] MEDS: MethylPREDNISolone 40 MG/ML VIAL IVP SCH ×2 (08:06→21:24)
[2020-05-17] MEDS: Cyanocobalamin (B-12) 1,000 MCG TABLET PO SCH (08:06)
[2020-05-17] MEDS: Loratadine 10 MG TABLET PO SCH (08:06)
[2020-05-17] MEDS: amLODIPine 5 MG TABLET PO SCH (08:06)
[2020-05-17] MEDS: Topiramate 25 MG TABLET PO SCH (08:06)
[2020-05-17] MEDS: Multivit/Ca/Min/Fe/FA 1 TAB TABLET PO SCH (08:06)
[2020-05-17] MEDS: Furosemide 20 MG/2 ML VIAL IVP SCH ×2 (08:06→21:24)
[2020-05-17] MEDS: cefTRIAXone 1,000 MG in Water for inj. (sterile) 10 ML IVP SCH (08:07)
[2020-05-17] MEDS: Insulin LISPRO 300 UNITS/3 ML VIAL SQ SCH ×4 (08:11→16:43)
[2020-05-17] MEDS: Insulin DETEMIR 100 UNIT/ML X5UNITS SQ SCH (15:37)
[2020-05-17] MEDS: Azithromycin 500 MG in 0.9 % Sodium Chloride 250 ML IVPB SCH (16:44)
[2020-05-17] MEDS ORDERED: Insulin LISPRO 300 UNITS/3 ML VIAL SQ SCH (21:00)
[2020-05-17] MEDS: Melatonin 3 MG TABLET PO SCH (21:24)
[2020-05-18] MEDS: Albuterol 2.5 MG/3 ML NEBULIZER IH SCH ×2 (04:22→07:18)
[2020-05-18 04:56] LABS: BUN/Creatinine Ratio 38 (6-26); Blood Urea Nitrogen 38 mg/dL (8-23); Calcium 9.2 mg/dL (8.6-10.3); Carbon Dioxide 37 mEq/L (23-29); Chloride 99 mEq/L (98-107); Glucose 303 mg/dL (70-105); Osmolality,Calculated 310 (280-300); Phosphorous 3.6 mg/dL (2.7-4.5); Potassium 4.5 mEq/L (3.5-5.1); Sodium 140 mEq/L (136-145); eGFR For African Americans > 60 (> 60); eGFR For Non-African Americans 55 (> 60)
[2020-05-18] MEDS: Tiotropium 18 MCG inhalation IH SCH (07:18)
[2020-05-18 07:19] VITALS: BP 126/65
[2020-05-18] MEDS: Budesonide/Formoterol 160/4.5 1 PUFF INH IH SCH (07:19)
[2020-05-18] MEDS: Insulin LISPRO 300 UNITS/3 ML VIAL SQ SCH (08:49)
[2020-05-18] MEDS: Topiramate 25 MG TABLET PO SCH (08:51)
[2020-05-18] MEDS: amLODIPine 5 MG TABLET PO SCH (08:52)
[2020-05-18] MEDS: Cyanocobalamin (B-12) 1,000 MCG TABLET PO SCH (08:52)
[2020-05-18] MEDS: Loratadine 10 MG TABLET PO SCH (08:52)
[2020-05-18] MEDS: Multivit/Ca/Min/Fe/FA 1 TAB TABLET PO SCH (08:52)
[2020-05-18] MEDS: Aspirin Enteric Coated 81 MG Tablet PO SCH (08:52)
[2020-05-18] MEDS: cefTRIAXone 1,000 MG in Water for inj. (sterile) 10 ML IVP SCH (08:53)
[2020-05-18] MEDS: Insulin DETEMIR 100 UNIT/ML X5UNITS SQ SCH (08:55)
[2020-05-18] MEDS ORDERED: predniSONE 20 MG TABLET PO SCH (09:00)
[2020-05-18] MEDS ORDERED: Furosemide 40 MG TABLET PO SCH (09:00)
== END 2020-05-18 11:14 | disposition home health service (06) | DRG 291 ==
LOC: EMEROOARM 13:45 → 3BNU 13:45 → SUATTDRO 17:36 → 3BNU 18:17
PROVIDERS: ADMIT Internal Medicine; ATTEND Internal Medicine

== ENCOUNTER 2020-06-28 09:22 | Inpatient (IN) ==
[2020-06-28] MEDS ORDERED: Ipratropium/Albuterol Neb 3 ML IH ONE (09:33)
[2020-06-28] MEDS ORDERED: Ipratropium/Albuterol Neb 3 ML ONE (09:57)
[2020-06-28 10:12] LABS: Basophils % 0.3 %
[2020-06-28 10:13] LABS: Eosinophils # 0.2 K/mcL (0.0-0.6); Eosinophils % 2.5 %; Hematocrit 39.9 % (35.3-44.9); Hemoglobin 11.8 g/dL (11.5-15.4); Immature Granulocytes % 0.5 % (0-4); Lymphocytes # 0.9 K/mcL (0.6-4.6); Lymphocytes % 11.1 %; Mean Corpuscular HGB Conc 29.6 g/dL (31.6-35.5); Mean Corpuscular Hemoglobin 28.6 pg (28.0-33.3); Mean Corpuscular Volume 96.8 fL (83.0-100.0); Mean Platelet Volume 9.6 fL (9.4-12.4); Monocytes # 0.4 K/mcL (0.0-1.3); Monocytes % 5.3 %; Neutrophils # 6.3 K/mcL (1.6-8.9); Platelet Count 242 K/mcL (140-400); Red Blood Count 4.12 M/mcL (3.82-4.97); Red Cell Distribution Width 16.4 % (11.5-14.5); Segmented Neutrophils % 80.3 %; White Blood Count 7.9 K/mcL (4.3-11.1)
[2020-06-28 10:15] LABS: INR 1.1; Prothrombin Time 12.2 Seconds (9.4-12.1)
[2020-06-28 10:18] LABS: Activated Partial Thrombo Time 35.1 Seconds (26.0-36.0)
[2020-06-28 10:35] LABS: Alanine Aminotransferase 7 Units/L (7-52); Albumin 3.6 g/dL (3.5-5.7); Albumin/Globulin Ratio 1.3 (1.1-2.2); Alkaline Phosphatase 111 Units/L (34-104); Aspartate Amino Transferase 8 Units/L (13-39); BUN/Creatinine Ratio 17 (6-26); Bilirubin,Direct 0.1 mg/dL (0.0-0.2); Bilirubin,Indirect 0.3 mg/dL (0.0-1.0); Bilirubin,Total 0.4 mg/dL (0.3-1.0); Blood Urea Nitrogen 13 mg/dL (8-23); Calcium 9.4 mg/dL (8.6-10.3); Carbon Dioxide 37 mEq/L (23-29); Chloride 100 mEq/L (98-107); Globulin 2.8 g/dL (2.4-3.5); Glucose 244 mg/dL (70-105); Osmolality,Calculated 302 (280-300); Potassium 3.4 mEq/L (3.5-5.1); Sodium 142 mEq/L (136-145); Total Protein 6.4 g/dL (6.4-8.9); Troponin I < 0.03 ng/mL (< 0.04); eGFR For African Americans > 60 (> 60); eGFR For Non-African Americans > 60 (> 60)
[2020-06-28 10:40] LABS: Hypochromasia Present (Not Present); Platelet Estimate Normal (Normal)
[2020-06-28 10:44] LABS: Bacteria,Urine Few per hpf (None-Few); Bilirubin,Urine Negative (Negative); Blood,Urine Negative (Negative); Clarity,Urine Turbid (Clear); Color,Urine Yellow (Yellow); Glucose,Urine (UA) Normal (Normal); Ketones,Urine Negative (Negative); Leukocyte Esterase,Urine Large (Negative); Mucus,Urine Few per lpf (None-Few); Nitrite,Urine Negative (Negative); Protein,Urine 30 mg/dL (Neg-Trace); RBC,Urine 0-3 per hpf (0-3); Specific Gravity,Urine 1.024 (1.010-1.025); Squamous Epithelial Cell,Urine Moderate per hpf (None-Few); Urobilinogen,Urine Normal (Normal)
[2020-06-28 10:58] LABS: Adenovirus Not Detected (Not Detect); Bordetella Pertussis Not Detected (Not Detect); Chlamydophila pneumoniae Not Detected (Not Detect); Coronavirus 229E Not Detected (Not Detect); Coronavirus HKU1 Not Detected (Not Detect); Coronavirus NL63 Not Detected (Not Detect); Coronavirus OC43 Not Detected (Not Detect); Human Metapneumovirus Not Detected (Not Detect); Human Rhinovirus/Enterovirus Not Detected (Not Detect); Influenza A Subtype 2009 H1 Not Detected (Not Detect); Influenza B Not Detected (Not Detect); Mycoplasma pneumoniae Not Detected (Not Detect); Parainfluenza Virus 1 Not Detected (Not Detect); Parainfluenza Virus 2 Not Detected (Not Detect); Parainfluenza Virus 3 Not Detected (Not Detect); Parainfluenza Virus 4 Not Detected (Not Detect); Respiratory Syncytial Virus Not Detected (Not Detect)
[2020-06-28] MEDS ORDERED: Azithromycin 500 MG in 0.9 % Sodium Chloride 250 ML IVPB ONE (11:07)
[2020-06-28] MEDS ORDERED: Furosemide 40 MG/4 ML VIAL IVP ONE (11:07)
[2020-06-28] MEDS ORDERED: cefTRIAXone 1,000 MG in 0.9 % Sodium Chloride Mini Bag 100 ML IVPB ONE (11:07)
[2020-06-28] MEDS ORDERED: Ondansetron 4 MG/2 ML VIAL IVP PRN (11:59)
[2020-06-28] MEDS ORDERED: Naloxone 0.4 MG/ML INJ IVP PRN (11:59)
[2020-06-28] MEDS ORDERED: Albuterol 2.5 MG/3 ML NEBULIZER IH PRN (12:01)
[2020-06-28] MEDS ORDERED: D5% in Water 1,000 ML IVC PRN (12:08)
[2020-06-28] MEDS ORDERED: Dextrose Gel 15 GM/37.5 ML TUBE PO PRN ×2 (12:08)
[2020-06-28] MEDS ORDERED: *HR* Dextrose 50 % in Water (Vial) 50 ML VIAL IVP PRN (12:08)
[2020-06-28] MEDS: Albuterol 2.5 MG/3 ML NEBULIZER IH SCH ×3 (15:37→23:00)
[2020-06-28] MEDS: Insulin LISPRO 300 UNITS/3 ML VIAL SQ SCH (16:56)
[2020-06-28] MEDS: *HR* Heparin 5,000 UNIT/ML VIAL SQ SCH (16:57)
[2020-06-28] MEDS: Furosemide 40 MG/4 ML VIAL IVP SCH (20:43)
[2020-06-28 23:00] LABS: ABG Base Excess 11 mEq/L (-2 to 3); ABG HCO3 39 mEq/L (21-27); ABG Oxygen Saturation 90 % (95-98); ABG PCO2 70 mmHg (35-45); ABG PH 7.36 pH Units (7.32-7.45); ABG PO2 65 mmHg (85-104); ABG TCO2 41 mEq/L (20-26)
[2020-06-29] MEDS ORDERED: Melatonin 3 MG TABLET PO ONE (00:29)
[2020-06-29] MEDS: Albuterol 2.5 MG/3 ML NEBULIZER IH SCH ×3 (04:05→11:36)
[2020-06-29 04:40] LABS: Basophils % 0.4 %; Eosinophils # 0.3 K/mcL (0.0-0.6); Eosinophils % 3.9 %; Hematocrit 39.1 % (35.3-44.9); Hemoglobin 11.6 g/dL (11.5-15.4); Immature Granulocytes % 0.6 % (0-4); Lymphocytes # 0.7 K/mcL (0.6-4.6); Lymphocytes % 10.1 %; Mean Corpuscular HGB Conc 29.7 g/dL (31.6-35.5); Mean Corpuscular Hemoglobin 28.9 pg (28.0-33.3); Mean Corpuscular Volume 97.3 fL (83.0-100.0); Mean Platelet Volume 9.8 fL (9.4-12.4); Monocytes # 0.5 K/mcL (0.0-1.3); Monocytes % 6.3 %; Neutrophils # 5.6 K/mcL (1.6-8.9); Platelet Count 242 K/mcL (140-400); Red Blood Count 4.02 M/mcL (3.82-4.97); Red Cell Distribution Width 16.5 % (11.5-14.5); Segmented Neutrophils % 78.7 %; White Blood Count 7.1 K/mcL (4.3-11.1)
[2020-06-29 04:59] LABS: BUN/Creatinine Ratio 13 (6-26); Blood Urea Nitrogen 12 mg/dL (8-23); Calcium 8.9 mg/dL (8.6-10.3); Carbon Dioxide 39 mEq/L (23-29); Chloride 98 mEq/L (98-107); Glucose 197 mg/dL (70-105); Osmolality,Calculated 301 (280-300); Potassium 3.4 mEq/L (3.5-5.1); Sodium 143 mEq/L (136-145); eGFR For African Americans > 60 (> 60); eGFR For Non-African Americans > 60 (> 60)
[2020-06-29] MEDS: *HR* Heparin 5,000 UNIT/ML VIAL SQ SCH ×2 (06:35→16:09)
[2020-06-29] MEDS: Azithromycin 250 MG TABLET PO SCH (07:36)
[2020-06-29] MEDS: Furosemide 40 MG/4 ML VIAL IVP SCH ×2 (07:37→22:26)
[2020-06-29] MEDS: Insulin LISPRO 300 UNITS/3 ML VIAL SQ SCH ×5 (07:41→22:28)
[2020-06-29] MEDS ORDERED: Potassium Chloride Elixir 20 MEQ/15 ML UDC PO ONE ×2 (08:24→15:00)
[2020-06-29] MEDS ORDERED: MethylPREDNISolone 40 MG/ML VIAL IVP SCH (09:00)
[2020-06-29] MEDS: Aspirin Enteric Coated 81 MG Tablet PO SCH (14:01)
[2020-06-29] MEDS: amLODIPine 5 MG TABLET PO SCH (14:03)
[2020-06-29] MEDS: Multivit/Ca/Min/Fe/FA 1 TAB TABLET PO SCH (14:03)
[2020-06-29] MEDS: Topiramate 25 MG TABLET PO SCH (14:05)
[2020-06-29] MEDS: Loratadine 10 MG TABLET PO SCH (14:05)
[2020-06-29] MEDS: Budesonide/Formoterol 80/4.5 1 PUFF INH IH SCH ×2 (15:39→19:46)
[2020-06-29] MEDS ORDERED: Ipratropium/Albuterol Neb 3 ML IH SCH (16:00)
[2020-06-29] MEDS ORDERED: hydrALAZINE 25 MG TABLET PO PRN (16:31)
[2020-06-29] MEDS ORDERED: *HR* Metformin 500 MG TABLET PO SCH (17:00)
[2020-06-29] MEDS: Ipratropium/Albuterol Neb 3 ML IH SCH ×3 (18:47→23:26)
[2020-06-29] MEDS ORDERED: Insulin DETEMIR 100 UNIT/ML X5UNITS SQ SCH (21:00)
[2020-06-29] MEDS: Melatonin 3 MG TABLET PO SCH (22:27)
[2020-06-30] MEDS: Ipratropium/Albuterol Neb 3 ML IH SCH ×6 (03:44→23:31)
[2020-06-30 04:16] LABS: Hematocrit 39.7 % (35.3-44.9); Hemoglobin 11.5 g/dL (11.5-15.4); Mean Corpuscular Hemoglobin 27.8 pg (28.0-33.3); Mean Corpuscular Volume 96.1 fL (83.0-100.0); Mean Platelet Volume 9.7 fL (9.4-12.4); Platelet Count 258 K/mcL (140-400); Red Blood Count 4.13 M/mcL (3.82-4.97); Red Cell Distribution Width 16.5 % (11.5-14.5); White Blood Count 7.6 K/mcL (4.3-11.1)
[2020-06-30 04:44] LABS: BUN/Creatinine Ratio 19 (6-26); Blood Urea Nitrogen 19 mg/dL (8-23); Calcium 9.3 mg/dL (8.6-10.3); Carbon Dioxide 40 mEq/L (23-29); Chloride 98 mEq/L (98-107); Glucose 247 mg/dL (70-105); Magnesium 1.9 mg/dL (1.6-2.6); Osmolality,Calculated 305 (280-300); Potassium 3.8 mEq/L (3.5-5.1); Sodium 142 mEq/L (136-145); eGFR For African Americans > 60 (> 60); eGFR For Non-African Americans 55 (> 60)
[2020-06-30] MEDS: *HR* Heparin 5,000 UNIT/ML VIAL SQ SCH ×2 (05:41→15:25)
[2020-06-30] MEDS: Budesonide/Formoterol 80/4.5 1 PUFF INH IH SCH ×2 (07:20→19:45)
[2020-06-30 08:08] LABS: VBG HCO3 41 mEq/L (21-27); VBG PCO2 77 mmHg (41-51); VBG PH 7.33 pH Units (7.32-7.42); VBG PO2 220 mmHg (25-50)
[2020-06-30] MEDS: Topiramate 25 MG TABLET PO SCH (08:38)
[2020-06-30] MEDS: Loratadine 10 MG TABLET PO SCH (08:38)
[2020-06-30] MEDS: Azithromycin 250 MG TABLET PO SCH (08:38)
[2020-06-30] MEDS: Multivit/Ca/Min/Fe/FA 1 TAB TABLET PO SCH (08:38)
[2020-06-30] MEDS: Aspirin Enteric Coated 81 MG Tablet PO SCH (08:38)
[2020-06-30] MEDS: amLODIPine 5 MG TABLET PO SCH (08:38)
[2020-06-30] MEDS: Furosemide 40 MG/4 ML VIAL IVP SCH (08:39)
[2020-06-30] MEDS: predniSONE 20 MG TABLET PO SCH (08:39)
[2020-06-30] MEDS: Insulin LISPRO 300 UNITS/3 ML VIAL SQ SCH ×4 (08:43→20:46)
[2020-06-30] MEDS ORDERED: Furosemide 40 MG/4 ML VIAL IVP SCH ×2 (17:00→21:00)
[2020-06-30] MEDS: Melatonin 3 MG TABLET PO SCH (20:47)
[2020-06-30] MEDS ORDERED: Insulin DETEMIR 100 UNIT/ML X5UNITS SQ SCH (21:00)
[2020-07-01] MEDS: Ipratropium/Albuterol Neb 3 ML IH SCH ×6 (03:28→23:37)
[2020-07-01 04:27] LABS: Hematocrit 38.9 % (35.3-44.9); Hemoglobin 11.5 g/dL (11.5-15.4); Mean Corpuscular HGB Conc 29.6 g/dL (31.6-35.5); Mean Corpuscular Hemoglobin 28.8 pg (28.0-33.3); Mean Corpuscular Volume 97.3 fL (83.0-100.0); Mean Platelet Volume 9.8 fL (9.4-12.4); Platelet Count 264 K/mcL (140-400); Red Cell Distribution Width 16.4 % (11.5-14.5); White Blood Count 8.9 K/mcL (4.3-11.1)
[2020-07-01 04:39] LABS: VBG HCO3 42 mEq/L (21-27); VBG PCO2 76 mmHg (41-51); VBG PH 7.35 pH Units (7.32-7.42); VBG PO2 67 mmHg (25-50)
[2020-07-01 04:47] LABS: Calcium 9.6 mg/dL (8.6-10.3)
[2020-07-01] MEDS: *HR* Heparin 5,000 UNIT/ML VIAL SQ SCH ×2 (06:46→18:33)
[2020-07-01] MEDS: Budesonide/Formoterol 80/4.5 1 PUFF INH IH SCH ×2 (07:17→19:48)
[2020-07-01] MEDS: predniSONE 20 MG TABLET PO SCH (08:37)
[2020-07-01] MEDS: Azithromycin 250 MG TABLET PO SCH (08:37)
[2020-07-01] MEDS: Loratadine 10 MG TABLET PO SCH (08:37)
[2020-07-01] MEDS: amLODIPine 5 MG TABLET PO SCH (08:37)
[2020-07-01] MEDS: Topiramate 25 MG TABLET PO SCH (08:37)
[2020-07-01] MEDS: Aspirin Enteric Coated 81 MG Tablet PO SCH (08:37)
[2020-07-01] MEDS: Multivit/Ca/Min/Fe/FA 1 TAB TABLET PO SCH (08:37)
[2020-07-01] MEDS: Insulin LISPRO 300 UNITS/3 ML VIAL SQ SCH ×4 (08:39→21:00)
[2020-07-01] MEDS: Fluticasone Propionate Nasal 50 MCG/SPRAY BOTTLE NS SCH (13:45)
[2020-07-01] MEDS ORDERED: Furosemide 40 MG/4 ML VIAL IVP ONE (15:00)
[2020-07-01] MEDS: Insulin DETEMIR 100 UNIT/ML X5UNITS SQ SCH (20:26)
[2020-07-01] MEDS: Melatonin 3 MG TABLET PO SCH (20:27)
[2020-07-02] MEDS: Ipratropium/Albuterol Neb 3 ML IH SCH ×6 (03:37→23:37)
[2020-07-02] MEDS: *HR* Heparin 5,000 UNIT/ML VIAL SQ SCH ×2 (05:08→17:28)
[2020-07-02 07:26] LABS: Hematocrit 39.9 % (35.3-44.9); Hemoglobin 11.6 g/dL (11.5-15.4); Mean Corpuscular HGB Conc 29.1 g/dL (31.6-35.5); Mean Corpuscular Hemoglobin 28.2 pg (28.0-33.3); Mean Corpuscular Volume 96.8 fL (83.0-100.0); Mean Platelet Volume 9.8 fL (9.4-12.4); Platelet Count 264 K/mcL (140-400); Red Blood Count 4.12 M/mcL (3.82-4.97); Red Cell Distribution Width 16.6 % (11.5-14.5); White Blood Count 7.5 K/mcL (4.3-11.1)
[2020-07-02] MEDS: Budesonide/Formoterol 80/4.5 1 PUFF INH IH SCH ×2 (07:48→19:57)
[2020-07-02 08:03] LABS: BUN/Creatinine Ratio 39 (6-26); Blood Urea Nitrogen 36 mg/dL (8-23); Calcium 9.6 mg/dL (8.6-10.3); Carbon Dioxide 42 mEq/L (23-29); Chloride 99 mEq/L (98-107); Glucose 116 mg/dL (70-105); Osmolality,Calculated 307 (280-300); Potassium 3.6 mEq/L (3.5-5.1); Sodium 144 mEq/L (136-145); eGFR For African Americans > 60 (> 60); eGFR For Non-African Americans 60 (> 60)
[2020-07-02 08:17] LABS: VBG HCO3 40 mEq/L (21-27); VBG PCO2 72 mmHg (41-51); VBG PH 7.36 pH Units (7.32-7.42); VBG PO2 192 mmHg (25-50)
[2020-07-02] MEDS: Insulin LISPRO 300 UNITS/3 ML VIAL SQ SCH ×4 (08:29→20:53)
[2020-07-02] MEDS: predniSONE 20 MG TABLET PO SCH (08:32)
[2020-07-02] MEDS: Topiramate 25 MG TABLET PO SCH (08:32)
[2020-07-02] MEDS: Loratadine 10 MG TABLET PO SCH (08:32)
[2020-07-02] MEDS: Azithromycin 250 MG TABLET PO SCH (08:32)
[2020-07-02] MEDS: Multivit/Ca/Min/Fe/FA 1 TAB TABLET PO SCH (08:32)
[2020-07-02] MEDS: amLODIPine 5 MG TABLET PO SCH (08:32)
[2020-07-02] MEDS: Aspirin Enteric Coated 81 MG Tablet PO SCH (08:32)
[2020-07-02] MEDS: Fluticasone Propionate Nasal 50 MCG/SPRAY BOTTLE NS SCH (08:33)
[2020-07-02] MEDS: Furosemide 60 MG in 0.9 % Sodium Chloride 50 ML IV SCH ×2 (10:04→20:54)
[2020-07-02] MEDS: Melatonin 3 MG TABLET PO SCH (20:52)
[2020-07-02] MEDS: Insulin DETEMIR 100 UNIT/ML X5UNITS SQ SCH (20:53)
[2020-07-03] MEDS: Ipratropium/Albuterol Neb 3 ML IH SCH ×5 (03:32→20:20)
[2020-07-03 05:06] LABS: Hemoglobin 11.2 g/dL (11.5-15.4); Mean Platelet Volume 10.7 fL (9.4-12.4)
[2020-07-03 05:07] LABS: Hematocrit 38.7 % (35.3-44.9); Mean Corpuscular HGB Conc 28.9 g/dL (31.6-35.5); Mean Corpuscular Hemoglobin 28.4 pg (28.0-33.3); Mean Corpuscular Volume 98.2 fL (83.0-100.0); Platelet Count 268 K/mcL (140-400); Red Blood Count 3.94 M/mcL (3.82-4.97); Red Cell Distribution Width 16.6 % (11.5-14.5); White Blood Count 8.5 K/mcL (4.3-11.1)
[2020-07-03] MEDS: *HR* Heparin 5,000 UNIT/ML VIAL SQ SCH ×2 (05:12→17:45)
[2020-07-03 05:27] LABS: BUN/Creatinine Ratio 36 (6-26); Blood Urea Nitrogen 34 mg/dL (8-23); Calcium 9.2 mg/dL (8.6-10.3); Carbon Dioxide 39 mEq/L (23-29); Chloride 98 mEq/L (98-107); Glucose 186 mg/dL (70-105); Osmolality,Calculated 308 (280-300); Potassium 3.5 mEq/L (3.5-5.1); Sodium 143 mEq/L (136-145); eGFR For African Americans > 60 (> 60); eGFR For Non-African Americans 58 (> 60)
[2020-07-03] MEDS: Budesonide/Formoterol 80/4.5 1 PUFF INH IH SCH ×2 (07:09→20:20)
[2020-07-03] MEDS: Fluticasone Propionate Nasal 50 MCG/SPRAY BOTTLE NS SCH (07:17)
[2020-07-03] MEDS: Aspirin Enteric Coated 81 MG Tablet PO SCH (08:22)
[2020-07-03] MEDS: Multivit/Ca/Min/Fe/FA 1 TAB TABLET PO SCH (08:22)
[2020-07-03] MEDS: Topiramate 25 MG TABLET PO SCH (08:23)
[2020-07-03] MEDS: amLODIPine 5 MG TABLET PO SCH (08:23)
[2020-07-03] MEDS: predniSONE 20 MG TABLET PO SCH (08:23)
[2020-07-03] MEDS: Loratadine 10 MG TABLET PO SCH (08:23)
[2020-07-03] MEDS: Insulin LISPRO 300 UNITS/3 ML VIAL SQ SCH ×4 (08:24→20:37)
[2020-07-03] MEDS: Furosemide 60 MG in 0.9 % Sodium Chloride 50 ML IV SCH ×2 (09:30→20:35)
[2020-07-03] MEDS: Melatonin 3 MG TABLET PO SCH (20:31)
[2020-07-03] MEDS: Insulin DETEMIR 100 UNIT/ML X5UNITS SQ SCH (20:34)
[2020-07-04] MEDS: Ipratropium/Albuterol Neb 3 ML IH SCH ×5 (00:03→15:57)
[2020-07-04 04:51] LABS: Hematocrit 40.6 % (35.3-44.9); Hemoglobin 11.9 g/dL (11.5-15.4); Mean Corpuscular HGB Conc 29.3 g/dL (31.6-35.5); Mean Corpuscular Hemoglobin 28.6 pg (28.0-33.3); Mean Corpuscular Volume 97.6 fL (83.0-100.0); Mean Platelet Volume 10.7 fL (9.4-12.4); Platelet Count 267 K/mcL (140-400); Red Blood Count 4.16 M/mcL (3.82-4.97); Red Cell Distribution Width 16.7 % (11.5-14.5); White Blood Count 7.4 K/mcL (4.3-11.1)
[2020-07-04] MEDS: *HR* Heparin 5,000 UNIT/ML VIAL SQ SCH (04:58)
[2020-07-04 05:06] LABS: BUN/Creatinine Ratio 37 (6-26); Blood Urea Nitrogen 39 mg/dL (8-23); Calcium 9.6 mg/dL (8.6-10.3); Carbon Dioxide 44 mEq/L (23-29); Chloride 97 mEq/L (98-107); Glucose 120 mg/dL (70-105); Osmolality,Calculated 307 (280-300); Potassium 3.6 mEq/L (3.5-5.1); Sodium 143 mEq/L (136-145); eGFR For African Americans > 60 (> 60); eGFR For Non-African Americans 51 (> 60)
[2020-07-04] MEDS: Insulin LISPRO 300 UNITS/3 ML VIAL SQ SCH ×2 (10:02→12:21)
[2020-07-04] MEDS: Furosemide 60 MG in 0.9 % Sodium Chloride 50 ML IV SCH (10:17)
[2020-07-04] MEDS: Fluticasone Propionate Nasal 50 MCG/SPRAY BOTTLE NS SCH (10:17)
[2020-07-04] MEDS: Aspirin Enteric Coated 81 MG Tablet PO SCH (10:19)
[2020-07-04] MEDS: predniSONE 20 MG TABLET PO SCH (10:19)
[2020-07-04] MEDS: Multivit/Ca/Min/Fe/FA 1 TAB TABLET PO SCH (10:19)
[2020-07-04] MEDS: Loratadine 10 MG TABLET PO SCH (10:19)
[2020-07-04] MEDS: Topiramate 25 MG TABLET PO SCH (10:19)
[2020-07-04] MEDS: amLODIPine 5 MG TABLET PO SCH (10:19)
[2020-07-04] MEDS: Budesonide/Formoterol 80/4.5 1 PUFF INH IH SCH (10:34)
[2020-07-04 14:25] VITALS: BP 136/64
== END 2020-07-04 18:11 | DRG 291 ==
LOC: EMEROOARM 09:22 → 3ANU 09:22
PROVIDERS: ADMIT Internal Medicine; ATTEND Internal Medicine

== ENCOUNTER 2020-11-01 16:27 | Inpatient (IN) ==
[2020-11-01] MEDS ORDERED: Ipratropium/Albuterol Neb 3 ML IH ONE (16:43)
[2020-11-01] MEDS: Dexamethasone Sodium Phos/PF 10 MG/ML VIAL IVP SCH (16:54)
[2020-11-01 17:11] LABS: INR 1.2; Prothrombin Time 13.8 Seconds (9.4-12.1)
[2020-11-01 17:23] LABS: Basophils % 0.3 %; Eosinophils # 0.2 K/mcL (0.0-0.6); Eosinophils % 2.4 %; Hematocrit 40.9 % (35.3-44.9); Hemoglobin 11.1 g/dL (11.5-15.4); Immature Granulocytes % 1.2 % (0-4); Lymphocytes # 0.8 K/mcL (0.6-4.6); Lymphocytes % 9.6 %; Mean Corpuscular HGB Conc 27.1 g/dL (31.6-35.5); Mean Corpuscular Hemoglobin 26.7 pg (28.0-33.3); Mean Corpuscular Volume 98.6 fL (83.0-100.0); Mean Platelet Volume 9.7 fL (9.4-12.4); Monocytes # 0.3 K/mcL (0.0-1.3); Monocytes % 4.2 %; Neutrophils # 6.4 K/mcL (1.6-8.9); Nucleated Red Blood Cells 0.3 /100 WBC (0); Platelet Count 274 K/mcL (140-400); Red Blood Count 4.15 M/mcL (3.82-4.97); Red Cell Distribution Width 16.8 % (11.5-14.5); Segmented Neutrophils % 82.3 %; White Blood Count 7.8 K/mcL (4.3-11.1)
[2020-11-01 17:24] LABS: Anisocytosis 1+ (Not Present); Hypochromasia Present (Not Present); Platelet Estimate Normal (Normal)
[2020-11-01 17:37] LABS: BUN/Creatinine Ratio 22 (6-26); Blood Urea Nitrogen 16 mg/dL (8-23); Calcium 9.5 mg/dL (8.6-10.3); Carbon Dioxide 40 mEq/L (23-29); Chloride 101 mEq/L (98-107); Glucose 241 mg/dL (70-105); Osmolality,Calculated 307 (280-300); Potassium 3.7 mEq/L (3.5-5.1); Sodium 144 mEq/L (136-145); Troponin I < 0.03 ng/mL (< 0.04); eGFR For African Americans > 60 (> 60); eGFR For Non-African Americans > 60 (> 60)
[2020-11-01] MEDS ORDERED: Azithromycin 500 MG in 0.9 % Sodium Chloride 250 ML IVPB ONE (17:45)
[2020-11-01] MEDS ORDERED: Furosemide 40 MG/4 ML VIAL IVP ONE (17:45)
[2020-11-01] MEDS ORDERED: cefTRIAXone 1,000 MG in 0.9 % Sodium Chloride Mini Bag 100 ML IVPB ONE (17:45)
[2020-11-01] MEDS ORDERED: *HR* LORazepam 2 MG/ML VIAL ONE (19:12)
[2020-11-01] MEDS ORDERED: *HR* LORazepam 2 MG/ML VIAL IVP ONE (19:37)
[2020-11-01 19:50] LABS: Adenovirus Not Detected (Not Detect); Bordetella Pertussis Not Detected (Not Detect); Chlamydophila pneumoniae Not Detected (Not Detect); Coronavirus 229E Not Detected (Not Detect); Coronavirus HKU1 Not Detected (Not Detect); Coronavirus NL63 Not Detected (Not Detect); Coronavirus OC43 Not Detected (Not Detect); Human Metapneumovirus Not Detected (Not Detect); Human Rhinovirus/Enterovirus Not Detected (Not Detect); Influenza A Subtype 2009 H1 Not Detected (Not Detect); Influenza B Not Detected (Not Detect); Mycoplasma pneumoniae Not Detected (Not Detect); Parainfluenza Virus 1 Not Detected (Not Detect); Parainfluenza Virus 2 Not Detected (Not Detect); Parainfluenza Virus 3 Not Detected (Not Detect); Parainfluenza Virus 4 Not Detected (Not Detect); Respiratory Syncytial Virus Not Detected (Not Detect); SARS-CoV-2 Not Detected (Not Detect)
[2020-11-01] MEDS ORDERED: Naloxone 0.4 MG/ML INJ IVP PRN (20:34)
[2020-11-01] MEDS ORDERED: Ondansetron ODT 4 MG TAB.RAPDIS SL PRN (20:34)
[2020-11-01 22:01] LABS: ABG Base Excess 12 mEq/L (-2 to 3); ABG HCO3 45 mEq/L (21-27); ABG Oxygen Saturation 93 % (95-98); ABG PCO2 106 mmHg (35-45); ABG PH 7.23 pH Units (7.32-7.45); ABG PO2 84 mmHg (85-104); ABG TCO2 48 mEq/L (20-26); Blood Gas VT 450 cc
[2020-11-01] MEDS: Ipratropium 1 PUFF INHALER IH SCH ×3 (22:08→23:37)
[2020-11-01] MEDS ORDERED: D5% in Water 1,000 ML IVC PRN (22:18)
[2020-11-01] MEDS ORDERED: Dextrose Gel 15 GM/37.5 ML TUBE PO PRN ×2 (22:18)
[2020-11-01] MEDS ORDERED: *HR* Dextrose 50 % in Water (Vial) 50 ML VIAL IVP PRN (22:18)
[2020-11-01 23:17] LABS: ABG Base Excess 14 mEq/L (-2 to 3); ABG HCO3 46 mEq/L (21-27); ABG Oxygen Saturation 91 % (95-98); ABG PCO2 107 mmHg (35-45); ABG PH 7.24 pH Units (7.32-7.45); ABG PO2 79 mmHg (85-104); ABG TCO2 49 mEq/L (20-26); Blood Gas VT 500 cc
[2020-11-02] MEDS ORDERED: flumazeniL 0.5 MG/5 ML VIAL IVP ONE ×2 (00:14→01:24)
[2020-11-02] MEDS ORDERED: 0.9 % Sodium Chloride 1,000 ML ONE (00:34)
[2020-11-02] MEDS: Midazolam HCl 50 MG/100 ML IV.SOLN IVC SCH ×2 (01:05→19:55)
[2020-11-02] MEDS: FentaNYL (PF) 1,000 MCG/100 ML IV.SOLN IVC SCH ×2 (01:05→09:20)
[2020-11-02] MEDS ORDERED: Artificial Tears SOLN 15 ML BOTTLE BOTH EYES PRN (01:17)
[2020-11-02 02:28] LABS: ABG Base Excess 16 mEq/L (-2 to 3); ABG HCO3 41 mEq/L (21-27); ABG Oxygen Saturation 100 % (95-98); ABG PCO2 51 mmHg (35-45); ABG PH 7.51 pH Units (7.32-7.45); ABG PO2 173 mmHg (85-104); ABG TCO2 42 mEq/L (20-26); Blood Gas VT 480 cc
[2020-11-02] MEDS: Ipratropium 1 PUFF INHALER IH SCH ×6 (03:36→23:55)
[2020-11-02 04:44] LABS: Fibrinogen 652 mg/dL (169-393); Hematocrit 35.6 % (35.3-44.9); Hemoglobin 9.8 g/dL (11.5-15.4); Mean Corpuscular HGB Conc 27.5 g/dL (31.6-35.5); Mean Corpuscular Hemoglobin 26.1 pg (28.0-33.3); Mean Corpuscular Volume 94.7 fL (83.0-100.0); Mean Platelet Volume 9.6 fL (9.4-12.4); Platelet Count 238 K/mcL (140-400); Red Blood Count 3.76 M/mcL (3.82-4.97); Red Cell Distribution Width 16.4 % (11.5-14.5); White Blood Count 8.2 K/mcL (4.3-11.1)
[2020-11-02 04:46] LABS: D-Dimer 829 ng/mLFEU (0-500)
[2020-11-02] MEDS: Pantoprazole 40 MG VIAL IVP SCH (04:57)
[2020-11-02 05:02] LABS: Alanine Aminotransferase 6 Units/L (7-52); Albumin 3.1 g/dL (3.5-5.7); Alkaline Phosphatase 90 Units/L (34-104); Aspartate Amino Transferase 8 Units/L (13-39); BUN/Creatinine Ratio 25 (6-26); Bilirubin,Total 0.5 mg/dL (0.3-1.0); Blood Urea Nitrogen 18 mg/dL (8-23); Calcium 8.9 mg/dL (8.6-10.3); Carbon Dioxide 39 mEq/L (23-29); Chloride 101 mEq/L (98-107); Globulin 3.1 g/dL (2.4-3.5); Glucose 246 mg/dL (70-105); Osmolality,Calculated 310 (280-300); Potassium 3.7 mEq/L (3.5-5.1); Sodium 145 mEq/L (136-145); Total Protein 6.2 g/dL (6.4-8.9); eGFR For African Americans > 60 (> 60); eGFR For Non-African Americans > 60 (> 60)
[2020-11-02 05:08] LABS: Creatine Kinase 17 Units/L (30-223); Lactate Dehydrogenase 174 Units/L (140-271)
[2020-11-02 05:20] LABS: Ferritin 36 ng/mL (10-120)
[2020-11-02] MEDS: *HR* Heparin 5,000 UNIT/ML VIAL SQ SCH ×3 (05:30→21:04)
[2020-11-02] MEDS: Insulin LISPRO 300 UNITS/3 ML VIAL SQ SCH ×3 (05:30→12:57)
[2020-11-02] MEDS: Artificial Tears SOLN 15 ML BOTTLE BOTH EYES SCH ×6 (05:44→23:56)
[2020-11-02] MEDS ORDERED: Insulin LISPRO 300 UNITS/3 ML VIAL SQ SCH (07:30)
[2020-11-02] MEDS: cefTRIAXone 1,000 MG in Water for inj. (sterile) 10 ML IVP SCH (07:36)
[2020-11-02] MEDS: Dexamethasone Sodium Phos/PF 10 MG/ML VIAL IVP SCH (07:36)
[2020-11-02] MEDS: Chlorhexidine Rinse 15 ML MOUTHWASH MM SCH ×2 (07:36→21:04)
[2020-11-02] MEDS: Furosemide 40 MG/4 ML VIAL IVP SCH ×2 (08:19→16:22)
[2020-11-02 11:16] LABS: ABG Base Excess 18 mEq/L (-2 to 3); ABG HCO3 42 mEq/L (21-27); ABG Oxygen Saturation 97 % (95-98); ABG PCO2 47 mmHg (35-45); ABG PH 7.56 pH Units (7.32-7.45); ABG PO2 75 mmHg (85-104); ABG TCO2 44 mEq/L (20-26); Blood Gas Modality AF; Blood Gas VT 350 cc
[2020-11-02] MEDS ORDERED: *HR* Midazolam HCl 2 MG/2 ML VIAL IVP ONE (14:49)
[2020-11-02] MEDS ORDERED: *HR* Etomidate 40 MG/20 ML VIAL IVP ONE (14:49)
[2020-11-02] MEDS ORDERED: *HR* Midazolam HCl 5 MG/5 ML VIAL IVP ONE (14:49)
[2020-11-02 14:53] LABS: Adenovirus Not Detected (Not Detect); Bordetella Pertussis Not Detected (Not Detect); Chlamydophila pneumoniae Not Detected (Not Detect); Coronavirus 229E Not Detected (Not Detect); Coronavirus HKU1 Not Detected (Not Detect); Coronavirus NL63 Not Detected (Not Detect); Coronavirus OC43 Not Detected (Not Detect); Human Metapneumovirus Not Detected (Not Detect); Human Rhinovirus/Enterovirus Not Detected (Not Detect); Influenza A Subtype 2009 H1 Not Detected (Not Detect); Influenza B Not Detected (Not Detect); Mycoplasma pneumoniae Not Detected (Not Detect); Parainfluenza Virus 1 Not Detected (Not Detect); Parainfluenza Virus 2 Not Detected (Not Detect); Parainfluenza Virus 3 Not Detected (Not Detect); Parainfluenza Virus 4 Not Detected (Not Detect); Respiratory Syncytial Virus Not Detected (Not Detect); SARS-CoV-2 Not Detected (Not Detect)
[2020-11-02] MEDS: Insulin LISPRO 300 UNITS/3 ML VIAL SUBQ SCH ×3 (16:04→23:57)
[2020-11-02] MEDS: Azithromycin 500 MG in 0.9 % Sodium Chloride 250 ML IVPB SCH (18:13)
[2020-11-03] MEDS: Ipratropium 1 PUFF INHALER IH SCH ×6 (03:50→23:37)
[2020-11-03] MEDS: Artificial Tears SOLN 15 ML BOTTLE BOTH EYES SCH ×5 (04:12→20:08)
[2020-11-03] MEDS: Insulin LISPRO 300 UNITS/3 ML VIAL SUBQ SCH ×5 (04:13→20:10)
[2020-11-03 04:59] LABS: ABG Base Excess 17 mEq/L (-2 to 3); ABG HCO3 43 mEq/L (21-27); ABG Oxygen Saturation 98 % (95-98); ABG PCO2 58 mmHg (35-45); ABG PH 7.48 pH Units (7.32-7.45); ABG PO2 101 mmHg (85-104); ABG TCO2 45 mEq/L (20-26); Blood Gas VT 350 cc
[2020-11-03] MEDS: Pantoprazole 40 MG VIAL IVP SCH (05:28)
[2020-11-03] MEDS: *HR* Heparin 5,000 UNIT/ML VIAL SQ SCH ×3 (05:28→21:07)
[2020-11-03] MEDS: cefTRIAXone 1,000 MG in Water for inj. (sterile) 10 ML IVP SCH (08:35)
[2020-11-03] MEDS: Furosemide 40 MG/4 ML VIAL IVP SCH ×2 (08:35→16:55)
[2020-11-03] MEDS: Chlorhexidine Rinse 15 ML MOUTHWASH MM SCH ×2 (08:35→20:11)
[2020-11-03] MEDS: FentaNYL (PF) 1,000 MCG/100 ML IV.SOLN IVC SCH (08:48)
[2020-11-03 10:56] LABS: Alanine Aminotransferase 5 Units/L (7-52); Albumin 2.9 g/dL (3.5-5.7); Alkaline Phosphatase 83 Units/L (34-104); Aspartate Amino Transferase 7 Units/L (13-39); BUN/Creatinine Ratio 37 (6-26); Bilirubin,Total 0.3 mg/dL (0.3-1.0); Blood Urea Nitrogen 40 mg/dL (8-23); Calcium 8.9 mg/dL (8.6-10.3); Carbon Dioxide 39 mEq/L (23-29); Chloride 98 mEq/L (98-107); Globulin 2.9 g/dL (2.4-3.5); Glucose 141 mg/dL (70-105); Osmolality,Calculated 310 (280-300); Potassium 3.3 mEq/L (3.5-5.1); Sodium 144 mEq/L (136-145); Total Protein 5.8 g/dL (6.4-8.9); eGFR For African Americans > 60 (> 60); eGFR For Non-African Americans 50 (> 60)
[2020-11-03 11:00] LABS: Hemoglobin 9.6 g/dL (11.5-15.4); Red Cell Distribution Width 17.2 % (11.5-14.5)
[2020-11-03 11:01] LABS: Hematocrit 33.3 % (35.3-44.9); Mean Corpuscular HGB Conc 28.8 g/dL (31.6-35.5); Mean Corpuscular Hemoglobin 26.7 pg (28.0-33.3); Mean Corpuscular Volume 92.8 fL (83.0-100.0); Platelet Count 250 K/mcL (140-400); Red Blood Count 3.59 M/mcL (3.82-4.97); White Blood Count 8.5 K/mcL (4.3-11.1)
[2020-11-03] MEDS: Potassium Chloride Elixir 20 MEQ/15 ML UDC GTUBE SCH ×2 (13:25→16:55)
[2020-11-03] MEDS: Azithromycin 500 MG in 0.9 % Sodium Chloride 250 ML IVPB SCH (18:18)
[2020-11-04] MEDS: Insulin LISPRO 300 UNITS/3 ML VIAL SUBQ SCH ×7 (00:17→23:18)
[2020-11-04] MEDS: Ipratropium 1 PUFF INHALER IH SCH ×3 (03:22→11:42)
[2020-11-04] MEDS: Artificial Tears SOLN 15 ML BOTTLE BOTH EYES SCH ×7 (04:00→23:17)
[2020-11-04 05:03] LABS: ABG Base Excess 13 mEq/L (-2 to 3); ABG HCO3 39 mEq/L (21-27); ABG Oxygen Saturation 97 % (95-98); ABG PCO2 62 mmHg (35-45); ABG PH 7.41 pH Units (7.32-7.45); ABG PO2 92 mmHg (85-104); ABG TCO2 41 mEq/L (20-26); Blood Gas Modality AF; Blood Gas VT 350 cc
[2020-11-04] MEDS: Midazolam HCl 50 MG/100 ML IV.SOLN IVC SCH (07:31)
[2020-11-04] MEDS: Pantoprazole 40 MG VIAL IVP SCH (08:12)
[2020-11-04] MEDS: *HR* Heparin 5,000 UNIT/ML VIAL SQ SCH ×3 (08:12→23:20)
[2020-11-04] MEDS: Chlorhexidine Rinse 15 ML MOUTHWASH MM SCH ×2 (08:12→19:56)
[2020-11-04] MEDS: Furosemide 40 MG/4 ML VIAL IVP SCH ×2 (08:13→17:23)
[2020-11-04] MEDS: Potassium Chloride Elixir 20 MEQ/15 ML UDC GTUBE SCH ×2 (08:14→17:18)
[2020-11-04] MEDS: QUEtiapine Fumarate 25 MG TABLET PO SCH ×2 (08:18→19:56)
[2020-11-04 09:20] LABS: Alanine Aminotransferase 5 Units/L (7-52); Albumin 3.2 g/dL (3.5-5.7); Albumin/Globulin Ratio 1.1 (1.1-2.2); Alkaline Phosphatase 83 Units/L (34-104); Aspartate Amino Transferase 8 Units/L (13-39); BUN/Creatinine Ratio 54 (6-26); Bilirubin,Total 0.3 mg/dL (0.3-1.0); Blood Urea Nitrogen 54 mg/dL (8-23); Carbon Dioxide 38 mEq/L (23-29); Chloride 101 mEq/L (98-107); Globulin 2.9 g/dL (2.4-3.5); Glucose 156 mg/dL (70-105); Osmolality,Calculated 318 (280-300); Potassium 3.7 mEq/L (3.5-5.1); Sodium 145 mEq/L (136-145); Total Protein 6.1 g/dL (6.4-8.9); eGFR For African Americans > 60 (> 60); eGFR For Non-African Americans 54 (> 60)
[2020-11-04 11:15] LABS: Eosinophils % 0.4 %; Mean Corpuscular Volume 94.5 fL (83.0-100.0); Mean Platelet Volume 10.8 fL (9.4-12.4); Platelet Count 275 K/mcL (140-400); Red Cell Distribution Width 17.2 % (11.5-14.5)
[2020-11-04 11:16] LABS: Basophils % 0.2 %; Eosinophils # 0.1 K/mcL (0.0-0.6); Hematocrit 36.3 % (35.3-44.9); Immature Granulocytes % 0.6 % (0-4); Lymphocytes # 0.5 K/mcL (0.6-4.6); Lymphocytes % 4.4 %; Mean Corpuscular HGB Conc 27.5 g/dL (31.6-35.5); Monocytes # 0.6 K/mcL (0.0-1.3); Monocytes % 5.3 %; Red Blood Count 3.84 M/mcL (3.82-4.97); Segmented Neutrophils % 89.1 %; White Blood Count 11.7 K/mcL (4.3-11.1)
[2020-11-04 11:21] LABS: Neutrophils # 10.4 K/mcL (1.6-8.9)
[2020-11-04 11:50] LABS: Platelet Estimate Normal (Normal)
[2020-11-04] MEDS: FentaNYL (PF) 1,000 MCG/100 ML IV.SOLN IVC SCH ×2 (13:33→23:17)
[2020-11-04] MEDS: Ipratropium/Albuterol Neb 3 ML IH SCH ×4 (15:33→23:00)
[2020-11-04] MEDS: MethylPREDNISolone 40 MG/ML VIAL IVP SCH (17:22)
[2020-11-04] MEDS: Azithromycin 500 MG in 0.9 % Sodium Chloride 250 ML IVPB SCH (18:33)
[2020-11-04] MEDS: Dexmedetomidine HCl 400 MCG/100 ML MLS IVC SCH (19:50)
[2020-11-04] MEDS: Budesonide/Formoterol 80/4.5 1 PUFF INH IH SCH (20:20)
[2020-11-04 22:05] LABS: C-Reactive Protein 46 mg/L (Less than 10); Ferritin 64 ng/mL (10-120); Lactate Dehydrogenase 245 Units/L (140-271)
[2020-11-05] MEDS: Insulin LISPRO 300 UNITS/3 ML VIAL SUBQ SCH ×5 (03:13→21:40)
[2020-11-05] MEDS: Artificial Tears SOLN 15 ML BOTTLE BOTH EYES SCH ×5 (03:13→21:38)
[2020-11-05] MEDS: Ipratropium/Albuterol Neb 3 ML IH SCH ×6 (03:19→23:58)
[2020-11-05 04:34] LABS: ABG Base Excess 14 mEq/L (-2 to 3); ABG HCO3 43 mEq/L (21-27); ABG Oxygen Saturation 92 % (95-98); ABG PCO2 77 mmHg (35-45); ABG PH 7.35 pH Units (7.32-7.45); ABG PO2 72 mmHg (85-104); ABG TCO2 45 mEq/L (20-26); Blood Gas Modality ASSIST CONTROL; Blood Gas VT 350 cc
[2020-11-05] MEDS: Pantoprazole 40 MG VIAL IVP SCH (05:05)
[2020-11-05] MEDS: MethylPREDNISolone 40 MG/ML VIAL IVP SCH ×2 (05:05→16:32)
[2020-11-05] MEDS: Dexmedetomidine HCl 400 MCG/100 ML MLS IVC SCH (05:05)
[2020-11-05] MEDS: *HR* Heparin 5,000 UNIT/ML VIAL SQ SCH ×3 (05:05→21:39)
[2020-11-05] MEDS: Chlorhexidine Rinse 15 ML MOUTHWASH MM SCH ×2 (07:12→21:38)
[2020-11-05] MEDS: Potassium Chloride Elixir 20 MEQ/15 ML UDC GTUBE SCH ×2 (07:13→15:14)
[2020-11-05] MEDS: Furosemide 40 MG/4 ML VIAL IVP SCH ×2 (07:13→15:53)
[2020-11-05] MEDS: QUEtiapine Fumarate 25 MG TABLET PO SCH ×3 (07:43→21:38)
[2020-11-05] MEDS: FentaNYL (PF) 1,000 MCG/100 ML IV.SOLN IVC SCH ×2 (08:11→17:33)
[2020-11-05] MEDS: Budesonide/Formoterol 80/4.5 1 PUFF INH IH SCH ×2 (08:15→20:19)
[2020-11-05 09:29] LABS: Mean Corpuscular Volume 96.4 fL (83.0-100.0)
[2020-11-05 09:30] LABS: Hematocrit 37.6 % (35.3-44.9); Hemoglobin 10.2 g/dL (11.5-15.4); Mean Corpuscular HGB Conc 27.1 g/dL (31.6-35.5); Mean Corpuscular Hemoglobin 26.2 pg (28.0-33.3); Mean Platelet Volume 10.7 fL (9.4-12.4); Platelet Count 273 K/mcL (140-400); Red Cell Distribution Width 17.2 % (11.5-14.5); White Blood Count 11.9 K/mcL (4.3-11.1)
[2020-11-05 09:51] LABS: BUN/Creatinine Ratio 54 (6-26); Blood Urea Nitrogen 52 mg/dL (8-23); Calcium 9.3 mg/dL (8.6-10.3); Carbon Dioxide 38 mEq/L (23-29); Chloride 99 mEq/L (98-107); Glucose 252 mg/dL (70-105); Osmolality,Calculated 321 (280-300); Potassium 4.5 mEq/L (3.5-5.1); Sodium 144 mEq/L (136-145); eGFR For African Americans > 60 (> 60); eGFR For Non-African Americans 57 (> 60)
[2020-11-05] MEDS: Doxycycline 100 MG in 0.9 % Sodium Chloride Mini Bag 100 ML IVPB SCH ×2 (12:47→16:32)
[2020-11-05] MEDS: Bisacodyl 10 MG RECTAL SUPPOSITORY RC SCH (12:49)
[2020-11-05] MEDS: Azithromycin 500 MG in 0.9 % Sodium Chloride 250 ML IVPB SCH (17:40)
[2020-11-05] MEDS: Piperacillin/Tazobactam 3.375 GM in 0.9 % Sodium Chloride Mini Bag 100 ML IVPB SCH (23:30)
[2020-11-06] MEDS: Artificial Tears SOLN 15 ML BOTTLE BOTH EYES SCH ×7 (00:42→23:32)
[2020-11-06] MEDS: Insulin LISPRO 300 UNITS/3 ML VIAL SUBQ SCH ×7 (00:42→23:48)
[2020-11-06] MEDS: Dexmedetomidine HCl 400 MCG/100 ML MLS IVC SCH ×2 (02:19→07:58)
[2020-11-06] MEDS: FentaNYL (PF) 1,000 MCG/100 ML IV.SOLN IVC SCH ×2 (03:34→15:29)
[2020-11-06] MEDS: Ipratropium/Albuterol Neb 3 ML IH SCH ×7 (03:49→23:32)
[2020-11-06 05:11] LABS: ABG Base Excess 12 mEq/L (-2 to 3); ABG HCO3 40 mEq/L (21-27); ABG Oxygen Saturation 92 % (95-98); ABG PCO2 71 mmHg (35-45); ABG PH 7.36 pH Units (7.32-7.45); ABG PO2 69 mmHg (85-104); ABG TCO2 42 mEq/L (20-26); Blood Gas Modality ASSIST CONTROL; Blood Gas VT 350 cc
[2020-11-06 05:34] LABS: Hemoglobin 9.4 g/dL (11.5-15.4)
[2020-11-06 05:36] LABS: Hematocrit 34.3 % (35.3-44.9); Mean Corpuscular HGB Conc 27.4 g/dL (31.6-35.5); Mean Corpuscular Hemoglobin 26.4 pg (28.0-33.3); Mean Corpuscular Volume 96.3 fL (83.0-100.0); Mean Platelet Volume 10.4 fL (9.4-12.4); Platelet Count 265 K/mcL (140-400); Red Blood Count 3.56 M/mcL (3.82-4.97); Red Cell Distribution Width 17.1 % (11.5-14.5); White Blood Count 10.3 K/mcL (4.3-11.1)
[2020-11-06] MEDS: Doxycycline 100 MG in 0.9 % Sodium Chloride Mini Bag 100 ML IVPB SCH (05:48)
[2020-11-06] MEDS: *HR* Heparin 5,000 UNIT/ML VIAL SQ SCH (05:48)
[2020-11-06] MEDS: MethylPREDNISolone 40 MG/ML VIAL IVP SCH ×2 (05:49→17:03)
[2020-11-06] MEDS: Pantoprazole 40 MG VIAL IVP SCH (05:49)
[2020-11-06 05:56] LABS: BUN/Creatinine Ratio 59 (6-26); Blood Urea Nitrogen 56 mg/dL (8-23); Calcium 9.3 mg/dL (8.6-10.3); Carbon Dioxide 40 mEq/L (23-29); Chloride 100 mEq/L (98-107); Glucose 235 mg/dL (70-105); Osmolality,Calculated 323 (280-300); Potassium 4.1 mEq/L (3.5-5.1); Sodium 145 mEq/L (136-145); eGFR For African Americans > 60 (> 60); eGFR For Non-African Americans 58 (> 60)
[2020-11-06] MEDS: Piperacillin/Tazobactam 3.375 GM in 0.9 % Sodium Chloride Mini Bag 100 ML IVPB SCH ×3 (07:01→23:32)
[2020-11-06] MEDS: Furosemide 40 MG/4 ML VIAL IVP SCH ×2 (07:02→16:01)
[2020-11-06] MEDS: Potassium Chloride Elixir 20 MEQ/15 ML UDC GTUBE SCH ×2 (07:03→16:02)
[2020-11-06] MEDS: Chlorhexidine Rinse 15 ML MOUTHWASH MM SCH ×2 (07:34→20:18)
[2020-11-06] MEDS: QUEtiapine Fumarate 25 MG TABLET PO SCH ×2 (07:34→20:18)
[2020-11-06] MEDS: Bisacodyl 10 MG RECTAL SUPPOSITORY RC SCH (07:34)
[2020-11-06] MEDS: Budesonide/Formoterol 80/4.5 1 PUFF INH IH SCH ×2 (07:40→19:57)
[2020-11-06] MEDS ORDERED: Vancomycin 1,750 MG/517.5 ML IV.SOLN IVPB ONE (07:44)
[2020-11-06] MEDS ORDERED: Vancomycin 1,750 MG in 0.9 % Sodium Chloride 250 ML IVPB SCH (08:00)
[2020-11-06] MEDS ORDERED: *HR* Metoprolol 5 MG/5 ML VIAL IVP ONE ×2 (09:26→09:30)
[2020-11-06] MEDS ORDERED: *HR* Heparin 5,000 UNIT/ML VIAL IVP PRN ×2 (10:00)
[2020-11-06 10:29] LABS: Heparin anti-factor XA UFH 0.04 IU/mL (0.30-0.70)
[2020-11-06 10:30] LABS: Prothrombin Time 11.6 Seconds (9.4-12.1)
[2020-11-06] MEDS: Heparin 25,000UNIT/250ML 1/2NS 25,000 UNIT/250 ML IV.SOLN IVC SCH (10:36)
[2020-11-06] MEDS: DilTIAZem 50 MG in 0.9 % Sodium Chloride 40 ML IVC SCH ×4 (10:37→21:19)
[2020-11-06] MEDS ORDERED: Azithromycin 500 MG in 0.9 % Sodium Chloride 250 ML IVPB SCH (17:00)
[2020-11-07] MEDS: DilTIAZem 50 MG in 0.9 % Sodium Chloride 40 ML IVC SCH ×6 (00:47→22:53)
[2020-11-07 01:43] LABS: Hematocrit 39.2 % (35.3-44.9); Mean Corpuscular HGB Conc 28.1 g/dL (31.6-35.5); Mean Corpuscular Hemoglobin 26.7 pg (28.0-33.3); Mean Corpuscular Volume 95.1 fL (83.0-100.0); Mean Platelet Volume 10.8 fL (9.4-12.4); Platelet Count 270 K/mcL (140-400); Red Blood Count 4.12 M/mcL (3.82-4.97); Red Cell Distribution Width 17.1 % (11.5-14.5); White Blood Count 12.6 K/mcL (4.3-11.1)
[2020-11-07 02:04] LABS: BUN/Creatinine Ratio 60 (6-26); Blood Urea Nitrogen 58 mg/dL (8-23); Calcium 9.8 mg/dL (8.6-10.3); Carbon Dioxide 38 mEq/L (23-29); Chloride 100 mEq/L (98-107); Glucose 237 mg/dL (70-105); Osmolality,Calculated 326 (280-300); Potassium 4.6 mEq/L (3.5-5.1); Sodium 146 mEq/L (136-145); eGFR For African Americans > 60 (> 60); eGFR For Non-African Americans 56 (> 60)
[2020-11-07] MEDS: Ipratropium/Albuterol Neb 3 ML IH SCH ×6 (03:34→23:32)
[2020-11-07] MEDS: Insulin LISPRO 300 UNITS/3 ML VIAL SUBQ SCH ×6 (04:15→23:59)
[2020-11-07] MEDS: Artificial Tears SOLN 15 ML BOTTLE BOTH EYES SCH ×6 (04:15→23:58)
[2020-11-07 04:27] LABS: ABG Base Excess 13 mEq/L (-2 to 3); ABG HCO3 42 mEq/L (21-27); ABG Oxygen Saturation 92 % (95-98); ABG PCO2 74 mmHg (35-45); ABG PH 7.36 pH Units (7.32-7.45); ABG PO2 68 mmHg (85-104); ABG TCO2 44 mEq/L (20-26); Blood Gas Modality ASSIST CONTROL; Blood Gas VT 350 cc
[2020-11-07] MEDS: MethylPREDNISolone 40 MG/ML VIAL IVP SCH (05:15)
[2020-11-07] MEDS: Pantoprazole 40 MG VIAL IVP SCH (05:15)
[2020-11-07] MEDS: Dexmedetomidine HCl 400 MCG/100 ML MLS IVC SCH ×4 (05:15→20:38)
[2020-11-07] MEDS: Heparin 25,000UNIT/250ML 1/2NS 25,000 UNIT/250 ML IV.SOLN IVC SCH ×2 (05:48→18:35)
[2020-11-07] MEDS: Budesonide/Formoterol 80/4.5 1 PUFF INH IH SCH ×2 (07:30→19:45)
[2020-11-07] MEDS: Chlorhexidine Rinse 15 ML MOUTHWASH MM SCH ×2 (07:39→20:39)
[2020-11-07] MEDS: Piperacillin/Tazobactam 3.375 GM in 0.9 % Sodium Chloride Mini Bag 100 ML IVPB SCH ×3 (07:39→23:57)
[2020-11-07] MEDS: Bisacodyl 10 MG RECTAL SUPPOSITORY RC SCH (07:39)
[2020-11-07] MEDS: QUEtiapine Fumarate 25 MG TABLET PO SCH (07:39)
[2020-11-07] MEDS: Potassium Chloride Elixir 20 MEQ/15 ML UDC GTUBE SCH ×2 (07:40→16:26)
[2020-11-07] MEDS: Furosemide 40 MG/4 ML VIAL IVP SCH ×2 (07:40→16:26)
[2020-11-07] MEDS: Vancomycin 1,750 MG/517.5 ML IV.SOLN IVPB SCH (09:04)
[2020-11-07] MEDS ORDERED: Perflutren Lipid Microsphere 1.3 ML in 0.9 % Sodium Chloride 8.7 ML IVP PRN (09:08)
[2020-11-07] MEDS: Acetaminophen 325 MG TABLET PO PRN (11:26)
[2020-11-07] MEDS: FentaNYL (PF) 1,000 MCG/100 ML IV.SOLN IVC SCH (11:28)
[2020-11-07 14:04] LABS: Source of Body Fluid LEFT UPPER LOBE LUNG
[2020-11-07 17:11] LABS: Bacteria,Urine Few per hpf (None-Few); Bilirubin,Urine Negative (Negative); Blood,Urine Small (Negative); Clarity,Urine Clear (Clear); Color,Urine Light-Yellow (Yellow); Glucose,Urine (UA) Normal (Normal); Ketones,Urine Negative (Negative); Leukocyte Esterase,Urine Negative (Negative); Nitrite,Urine Negative (Negative); PH,Urine 7.5 pH Units (5.0-8.0); Protein,Urine Trace mg/dL (Neg-Trace); RBC,Urine 50-100 per hpf (0-3); Specific Gravity,Urine 1.024 (1.010-1.025); Squamous Epithelial Cell,Urine Few per hpf (None-Few); Urobilinogen,Urine Normal (Normal)
[2020-11-07 20:56] LABS: Appearance of Body Fluid Cloudy (Clear); Volume of Body Fluid 12 mL
[2020-11-08 00:53] LABS: Hematocrit 43.7 % (35.3-44.9); Hemoglobin 12.4 g/dL (11.5-15.4); Mean Corpuscular HGB Conc 28.4 g/dL (31.6-35.5); Mean Corpuscular Hemoglobin 26.7 pg (28.0-33.3); Mean Corpuscular Volume 94.2 fL (83.0-100.0); Mean Platelet Volume 10.9 fL (9.4-12.4); Platelet Count 295 K/mcL (140-400); Red Blood Count 4.64 M/mcL (3.82-4.97); Red Cell Distribution Width 17.2 % (11.5-14.5); White Blood Count 10.5 K/mcL (4.3-11.1)
[2020-11-08 01:15] LABS: BUN/Creatinine Ratio 56 (6-26); Blood Urea Nitrogen 60 mg/dL (8-23); Calcium 10.2 mg/dL (8.6-10.3); Carbon Dioxide 36 mEq/L (23-29); Chloride 101 mEq/L (98-107); Glucose 256 mg/dL (70-105); Osmolality,Calculated 326 (280-300); Potassium 4.5 mEq/L (3.5-5.1); Sodium 145 mEq/L (136-145); eGFR For African Americans > 60 (> 60); eGFR For Non-African Americans 50 (> 60)
[2020-11-08] MEDS: Dexmedetomidine HCl 400 MCG/100 ML MLS IVC SCH ×3 (01:43→13:09)
[2020-11-08] MEDS: Ipratropium/Albuterol Neb 3 ML IH SCH ×6 (03:31→23:10)
[2020-11-08] MEDS: DilTIAZem 50 MG in 0.9 % Sodium Chloride 40 ML IVC SCH ×2 (03:46→07:48)
[2020-11-08 04:13] LABS: ABG Base Excess 16 mEq/L (-2 to 3); ABG HCO3 41 mEq/L (21-27); ABG Oxygen Saturation 90 % (95-98); ABG PCO2 51 mmHg (35-45); ABG PH 7.51 pH Units (7.32-7.45); ABG PO2 55 mmHg (85-104); ABG TCO2 43 mEq/L (20-26); Blood Gas VT 350 cc
[2020-11-08] MEDS: Insulin LISPRO 300 UNITS/3 ML VIAL SUBQ SCH ×5 (04:24→20:03)
[2020-11-08] MEDS: Artificial Tears SOLN 15 ML BOTTLE BOTH EYES SCH ×5 (04:24→20:04)
[2020-11-08] MEDS: Pantoprazole 40 MG VIAL IVP SCH (06:16)
[2020-11-08] MEDS: Budesonide/Formoterol 80/4.5 1 PUFF INH IH SCH ×2 (07:28→19:35)
[2020-11-08] MEDS: Furosemide 40 MG/4 ML VIAL IVP SCH ×2 (08:25→15:37)
[2020-11-08] MEDS: Chlorhexidine Rinse 15 ML MOUTHWASH MM SCH ×2 (08:25→20:02)
[2020-11-08] MEDS: Potassium Chloride Elixir 20 MEQ/15 ML UDC GTUBE SCH ×2 (08:27→15:36)
[2020-11-08] MEDS: Piperacillin/Tazobactam 3.375 GM in 0.9 % Sodium Chloride Mini Bag 100 ML IVPB SCH ×2 (08:28→15:36)
[2020-11-08] MEDS: Bisacodyl 10 MG RECTAL SUPPOSITORY RC SCH (08:34)
[2020-11-08] MEDS: MethylPREDNISolone 40 MG/ML VIAL IVP SCH (08:35)
[2020-11-08] MEDS: FentaNYL (PF) 1,000 MCG/100 ML IV.SOLN IVC SCH (09:11)
[2020-11-08] MEDS: Vancomycin 1,750 MG/517.5 ML IV.SOLN IVPB SCH (09:13)
[2020-11-08 09:22] LABS: Basophils % 0.1 %
[2020-11-08 09:24] LABS: Eosinophils % 0.4 %; Hematocrit 40.6 % (35.3-44.9); Hemoglobin 11.5 g/dL (11.5-15.4); Immature Granulocytes % 0.8 % (0-4); Lymphocytes # 1.4 K/mcL (0.6-4.6); Lymphocytes % 12.1 %; Mean Corpuscular HGB Conc 28.3 g/dL (31.6-35.5); Mean Corpuscular Hemoglobin 26.4 pg (28.0-33.3); Mean Corpuscular Volume 93.3 fL (83.0-100.0); Mean Platelet Volume 11.7 fL (9.4-12.4); Neutrophils # 8.8 K/mcL (1.6-8.9); Platelet Count 320 K/mcL (140-400); Red Blood Count 4.35 M/mcL (3.82-4.97); Red Cell Distribution Width 17.1 % (11.5-14.5); Segmented Neutrophils % 77.6 %; White Blood Count 11.3 K/mcL (4.3-11.1)
[2020-11-08 09:34] LABS: Eosinophils # 0.1 K/mcL (0.0-0.6)
[2020-11-08 09:51] LABS: Anisocytosis 1+ (Not Present); Hypochromasia Present (Not Present); Macrocytosis Present (Not Present); Platelet Estimate Normal (Normal)
[2020-11-08] MEDS ORDERED: D5% in Water 1,000 ML IVC PRN (10:05)
[2020-11-08] MEDS ORDERED: Dextrose Gel 15 GM/37.5 ML TUBE PO PRN ×2 (10:05)
[2020-11-08] MEDS ORDERED: *HR* Dextrose 50 % in Water (Vial) 50 ML VIAL IVP PRN (10:05)
[2020-11-08] MEDS ORDERED: acetaZOLAMIDE 250 MG in Water for inj. (sterile) 2.5 ML IVP ONE (10:07)
[2020-11-08 10:34] LABS: Calcium 10.2 mg/dL (8.6-10.3); Magnesium 2.3 mg/dL (1.6-2.6); Phosphorous 2.8 mg/dL (2.7-4.5); Potassium 4.6 mEq/L (3.5-5.1)
[2020-11-08] MEDS: Insulin DETEMIR 100 UNIT/ML X5UNITS SUBQ SCH ×2 (10:36→20:03)
[2020-11-08] MEDS: Topiramate 25 MG TABLET PO SCH ×2 (10:51→20:02)
[2020-11-08] MEDS: Heparin 25,000UNIT/250ML 1/2NS 25,000 UNIT/250 ML IV.SOLN IVC SCH (10:53)
[2020-11-08] MEDS ORDERED: Amiodarone Premix 360 MG/200 ML BAG IVC ONE (17:05)
[2020-11-08] MEDS ORDERED: Amiodarone Premix 150 MG/100 ML BAG IVPB ONE (17:05)
[2020-11-09] MEDS: Amiodarone Premix 360 MG/200 ML BAG IVC SCH ×3 (00:09→23:06)
[2020-11-09] MEDS: Piperacillin/Tazobactam 3.375 GM in 0.9 % Sodium Chloride Mini Bag 100 ML IVPB SCH ×2 (00:22→07:52)
[2020-11-09] MEDS: Insulin LISPRO 300 UNITS/3 ML VIAL SUBQ SCH ×7 (00:23→23:25)
[2020-11-09] MEDS: Artificial Tears SOLN 15 ML BOTTLE BOTH EYES SCH ×7 (00:23→23:25)
[2020-11-09] MEDS: Dexmedetomidine HCl 400 MCG/100 ML MLS IVC SCH ×5 (00:49→20:12)
[2020-11-09] MEDS: Heparin 25,000UNIT/250ML 1/2NS 25,000 UNIT/250 ML IV.SOLN IVC SCH ×2 (03:28→11:05)
[2020-11-09] MEDS: Ipratropium/Albuterol Neb 3 ML IH SCH ×6 (03:40→23:26)
[2020-11-09 04:06] LABS: Basophils % 0.1 %
[2020-11-09 04:08] LABS: Eosinophils % 0.2 %; Hematocrit 39.7 % (35.3-44.9); Hemoglobin 11.2 g/dL (11.5-15.4); Immature Granulocytes % 0.7 % (0-4); Lymphocytes # 1.3 K/mcL (0.6-4.6); Lymphocytes % 11.9 %; Mean Corpuscular HGB Conc 28.2 g/dL (31.6-35.5); Mean Corpuscular Volume 92.3 fL (83.0-100.0); Monocytes # 0.9 K/mcL (0.0-1.3); Monocytes % 7.8 %; Platelet Count 292 K/mcL (140-400); Red Cell Distribution Width 17.1 % (11.5-14.5); Segmented Neutrophils % 79.3 %; White Blood Count 11.3 K/mcL (4.3-11.1)
[2020-11-09 04:22] LABS: Calcium 9.8 mg/dL (8.6-10.3); Potassium 3.5 mEq/L (3.5-5.1)
[2020-11-09 04:33] LABS: Hypochromasia Present (Not Present); Platelet Estimate Normal (Normal); Poikilocytosis 1+ (Not Present)
[2020-11-09 04:35] LABS: ABG Base Excess 7 mEq/L (-2 to 3); ABG HCO3 34 mEq/L (21-27); ABG Oxygen Saturation 94 % (95-98); ABG PCO2 55 mmHg (35-45); ABG PO2 72 mmHg (85-104); ABG TCO2 36 mEq/L (20-26); Blood Gas VT 350 cc
[2020-11-09] MEDS: Pantoprazole 40 MG VIAL IVP SCH (05:51)
[2020-11-09] MEDS: FentaNYL (PF) 1,000 MCG/100 ML IV.SOLN IVC SCH ×3 (07:46→23:24)
[2020-11-09] MEDS: Budesonide/Formoterol 80/4.5 1 PUFF INH IH SCH ×2 (07:48→19:38)
[2020-11-09] MEDS: Vancomycin 1,750 MG/517.5 ML IV.SOLN IVPB SCH (07:50)
[2020-11-09] MEDS: Furosemide 40 MG/4 ML VIAL IVP SCH (07:51)
[2020-11-09] MEDS: Potassium Chloride Elixir 20 MEQ/15 ML UDC GTUBE SCH ×2 (07:51→16:08)
[2020-11-09] MEDS: Bisacodyl 10 MG RECTAL SUPPOSITORY RC SCH (07:53)
[2020-11-09] MEDS: Chlorhexidine Rinse 15 ML MOUTHWASH MM SCH ×2 (07:53→19:57)
[2020-11-09] MEDS: MethylPREDNISolone 40 MG/ML VIAL IVP SCH (07:53)
[2020-11-09] MEDS: Insulin DETEMIR 100 UNIT/ML X5UNITS SUBQ SCH ×2 (14:49→19:57)
[2020-11-09] MEDS: Acetaminophen 325 MG TABLET PO PRN (16:08)
[2020-11-09 16:14] LABS: Bilirubin,Urine Negative (Negative); Blood,Urine Negative (Negative); Clarity,Urine Clear (Clear); Color,Urine Yellow (Yellow); Glucose,Urine (UA) Normal (Normal); Ketones,Urine Negative (Negative); Leukocyte Esterase,Urine Negative (Negative); Nitrite,Urine Negative (Negative); PH,Urine 6.5 pH Units (5.0-8.0); Protein,Urine Trace mg/dL (Neg-Trace); Specific Gravity,Urine 1.025 (1.010-1.025); Urobilinogen,Urine Normal (Normal)
[2020-11-09 16:57] LABS: Adenovirus Not Detected (Not Detect); Coronavirus 229E Not Detected (Not Detect); Coronavirus HKU1 Not Detected (Not Detect); Coronavirus NL63 Not Detected (Not Detect); Coronavirus OC43 Not Detected (Not Detect); Human Metapneumovirus Not Detected (Not Detect); Human Rhinovirus/Enterovirus Not Detected (Not Detect); SARS-CoV-2 Not Detected (Not Detect)
[2020-11-09 16:58] LABS: Bordetella Pertussis Not Detected (Not Detect); Chlamydophila pneumoniae Not Detected (Not Detect); Influenza A Subtype 2009 H1 Not Detected (Not Detect); Influenza B Not Detected (Not Detect); Mycoplasma pneumoniae Not Detected (Not Detect); Parainfluenza Virus 1 Not Detected (Not Detect); Parainfluenza Virus 2 Not Detected (Not Detect); Parainfluenza Virus 3 Not Detected (Not Detect); Parainfluenza Virus 4 Not Detected (Not Detect); Respiratory Syncytial Virus Not Detected (Not Detect)
[2020-11-09] MEDS: Topiramate 25 MG TABLET PO SCH (19:57)
[2020-11-10] MEDS: Dexmedetomidine HCl 400 MCG/100 ML MLS IVC SCH ×6 (01:59→22:31)
[2020-11-10] MEDS: Ipratropium/Albuterol Neb 3 ML IH SCH ×5 (03:38→19:27)
[2020-11-10] MEDS: Artificial Tears SOLN 15 ML BOTTLE BOTH EYES SCH ×6 (03:39→23:41)
[2020-11-10] MEDS: Insulin LISPRO 300 UNITS/3 ML VIAL SUBQ SCH ×6 (03:40→23:41)
[2020-11-10 03:45] LABS: Hematocrit 39.8 % (35.3-44.9); Hemoglobin 11.2 g/dL (11.5-15.4); Mean Corpuscular HGB Conc 28.1 g/dL (31.6-35.5); Mean Corpuscular Hemoglobin 26.7 pg (28.0-33.3); Mean Corpuscular Volume 94.8 fL (83.0-100.0); Mean Platelet Volume 11.1 fL (9.4-12.4); Platelet Count 258 K/mcL (140-400); Red Cell Distribution Width 16.8 % (11.5-14.5); White Blood Count 11.3 K/mcL (4.3-11.1)
[2020-11-10 04:05] LABS: Potassium 3.8 mEq/L (3.5-5.1)
[2020-11-10 04:15] LABS: ABG Base Excess 9 mEq/L (-2 to 3); ABG HCO3 36 mEq/L (21-27); ABG Oxygen Saturation 88 % (95-98); ABG PCO2 62 mmHg (35-45); ABG PH 7.37 pH Units (7.32-7.45); ABG PO2 59 mmHg (85-104); ABG TCO2 38 mEq/L (20-26); Blood Gas VT 350 cc
[2020-11-10] MEDS: Pantoprazole 40 MG VIAL IVP SCH (05:35)
[2020-11-10] MEDS: FentaNYL (PF) 1,000 MCG/100 ML IV.SOLN IVC SCH ×3 (06:54→20:03)
[2020-11-10] MEDS: Budesonide/Formoterol 80/4.5 1 PUFF INH IH SCH ×2 (07:45→19:27)
[2020-11-10] MEDS: MethylPREDNISolone 40 MG/ML VIAL IVP SCH (07:58)
[2020-11-10] MEDS: Potassium Chloride Elixir 20 MEQ/15 ML UDC GTUBE SCH (07:58)
[2020-11-10] MEDS: Furosemide 40 MG/4 ML VIAL IVP SCH (07:58)
[2020-11-10] MEDS: Bisacodyl 10 MG RECTAL SUPPOSITORY RC SCH (07:58)
[2020-11-10] MEDS: Chlorhexidine Rinse 15 ML MOUTHWASH MM SCH ×2 (07:58→19:51)
[2020-11-10] MEDS: Vancomycin 1,750 MG/517.5 ML IV.SOLN IVPB SCH (08:03)
[2020-11-10] MEDS: Insulin DETEMIR 100 UNIT/ML X5UNITS SUBQ SCH ×2 (08:04→19:51)
[2020-11-10] MEDS: Amiodarone Premix 360 MG/200 ML BAG IVC SCH ×2 (09:49→23:08)
[2020-11-10] MEDS: Heparin 25,000UNIT/250ML 1/2NS 25,000 UNIT/250 ML IV.SOLN IVC SCH (11:15)
[2020-11-10] MEDS: Acetaminophen 325 MG TABLET PO PRN ×2 (11:35→20:03)
[2020-11-10] MEDS: Doxycycline 100 MG CAPSULE PO SCH ×2 (12:02→19:51)
[2020-11-10] MEDS: Cefepime HCl 2,000 MG in Water for inj. (sterile) 20 ML IVP SCH (17:01)
[2020-11-10] MEDS: Topiramate 25 MG TABLET PO SCH (19:51)
[2020-11-10 20:16] LABS: Influenza A PCR Body Fluid NOT DETECTED; Influenza B PCR Body Fluid NOT DETECTED; RVP Body Fluid Source BAL
[2020-11-11] MEDS: Ipratropium/Albuterol Neb 3 ML IH SCH ×7 (00:04→23:44)
[2020-11-11 00:15] LABS: RSV PCR Body Fluid NOT DETECTED
[2020-11-11] MEDS: Dexmedetomidine HCl 400 MCG/100 ML MLS IVC SCH ×5 (03:28→23:36)
[2020-11-11] MEDS: Heparin 25,000UNIT/250ML 1/2NS 25,000 UNIT/250 ML IV.SOLN IVC SCH ×2 (03:29→11:46)
[2020-11-11] MEDS: Artificial Tears SOLN 15 ML BOTTLE BOTH EYES SCH ×6 (03:29→23:37)
[2020-11-11] MEDS: Insulin LISPRO 300 UNITS/3 ML VIAL SUBQ SCH ×6 (03:34→23:38)
[2020-11-11] MEDS: FentaNYL (PF) 1,000 MCG/100 ML IV.SOLN IVC SCH ×3 (03:38→23:37)
[2020-11-11 03:42] LABS: Platelet Count 238 K/mcL (140-400)
[2020-11-11 03:44] LABS: Hematocrit 39.7 % (35.3-44.9); Hemoglobin 10.8 g/dL (11.5-15.4); Mean Corpuscular HGB Conc 27.2 g/dL (31.6-35.5); Mean Corpuscular Hemoglobin 25.6 pg (28.0-33.3); Mean Corpuscular Volume 94.1 fL (83.0-100.0); Mean Platelet Volume 11.6 fL (9.4-12.4); Red Blood Count 4.22 M/mcL (3.82-4.97); Red Cell Distribution Width 16.7 % (11.5-14.5); White Blood Count 11.9 K/mcL (4.3-11.1)
[2020-11-11 04:06] LABS: Calcium 10.2 mg/dL (8.6-10.3); Potassium 4.1 mEq/L (3.5-5.1)
[2020-11-11 04:42] LABS: ABG Base Excess 6 mEq/L (-2 to 3); ABG HCO3 32 mEq/L (21-27); ABG Oxygen Saturation 92 % (95-98); ABG PCO2 50 mmHg (35-45); ABG PH 7.41 pH Units (7.32-7.45); ABG PO2 66 mmHg (85-104); ABG TCO2 33 mEq/L (20-26); Blood Gas Modality ASSIST CONTROL; Blood Gas VT 400 cc
[2020-11-11] MEDS: Pantoprazole 40 MG VIAL IVP SCH (05:22)
[2020-11-11] MEDS: Cefepime HCl 2,000 MG in Water for inj. (sterile) 20 ML IVP SCH ×2 (05:22→17:06)
[2020-11-11] MEDS: Budesonide/Formoterol 80/4.5 1 PUFF INH IH SCH ×2 (07:33→19:54)
[2020-11-11] MEDS: Furosemide 40 MG/4 ML VIAL IVP SCH (09:17)
[2020-11-11] MEDS: MethylPREDNISolone 40 MG/ML VIAL IVP SCH (09:18)
[2020-11-11] MEDS: Chlorhexidine Rinse 15 ML MOUTHWASH MM SCH ×2 (09:18→19:46)
[2020-11-11] MEDS: Potassium Chloride Elixir 20 MEQ/15 ML UDC GTUBE SCH (09:18)
[2020-11-11] MEDS: Doxycycline 100 MG CAPSULE PO SCH ×2 (09:19→19:49)
[2020-11-11] MEDS: Bisacodyl 10 MG RECTAL SUPPOSITORY RC SCH (09:19)
[2020-11-11] MEDS: Vancomycin 1,500 MG/265 ML IV.SOLN IVPB SCH (10:14)
[2020-11-11] MEDS: Insulin DETEMIR 100 UNIT/ML X5UNITS SUBQ SCH ×2 (10:14→19:46)
[2020-11-11] MEDS: Acetaminophen 325 MG TABLET PO PRN (18:12)
[2020-11-11] MEDS: Topiramate 25 MG TABLET PO SCH (19:49)
[2020-11-12] MEDS: Dexmedetomidine HCl 400 MCG/100 ML MLS IVC SCH ×5 (03:37→23:36)
[2020-11-12] MEDS: Amiodarone Premix 360 MG/200 ML BAG IVC SCH ×2 (03:38→15:05)
[2020-11-12] MEDS: Insulin LISPRO 300 UNITS/3 ML VIAL SUBQ SCH ×6 (03:39→23:37)
[2020-11-12] MEDS: Artificial Tears SOLN 15 ML BOTTLE BOTH EYES SCH ×6 (03:39→23:37)
[2020-11-12] MEDS: Ipratropium/Albuterol Neb 3 ML IH SCH ×6 (03:40→23:56)
[2020-11-12 04:21] LABS: ABG Base Excess -11 mEq/L (-2 to 3); ABG HCO3 15 mEq/L (21-27); ABG Oxygen Saturation 99 % (95-98); ABG PCO2 29 mmHg (35-45); ABG PH 7.31 pH Units (7.32-7.45); ABG PO2 160 mmHg (85-104); ABG TCO2 16 mEq/L (20-26); Blood Gas Modality ASSIST CONTROL; Blood Gas VT 400 cc
[2020-11-12] MEDS: FentaNYL (PF) 1,000 MCG/100 ML IV.SOLN IVC SCH ×2 (04:29→10:01)
[2020-11-12 05:09] LABS: Calcium 9.7 mg/dL (8.6-10.3); Magnesium 2.2 mg/dL (1.6-2.6); Phosphorous 4.1 mg/dL (2.7-4.5); Potassium 3.8 mEq/L (3.5-5.1)
[2020-11-12 05:26] LABS: Red Cell Distribution Width 16.7 % (11.5-14.5)
[2020-11-12 05:27] LABS: Hematocrit 38.5 % (35.3-44.9); Hemoglobin 11.1 g/dL (11.5-15.4); Mean Corpuscular HGB Conc 28.8 g/dL (31.6-35.5); Mean Corpuscular Hemoglobin 26.6 pg (28.0-33.3); Mean Corpuscular Volume 92.3 fL (83.0-100.0); Mean Platelet Volume 12.6 fL (9.4-12.4); Platelet Count 233 K/mcL (140-400); Red Blood Count 4.17 M/mcL (3.82-4.97); White Blood Count 13.8 K/mcL (4.3-11.1)
[2020-11-12] MEDS: Cefepime HCl 2,000 MG in Water for inj. (sterile) 20 ML IVP SCH (05:54)
[2020-11-12] MEDS: Pantoprazole 40 MG VIAL IVP SCH (05:54)
[2020-11-12] MEDS: Budesonide/Formoterol 80/4.5 1 PUFF INH IH SCH ×2 (07:29→19:55)
[2020-11-12] MEDS: Vancomycin 1,500 MG/265 ML IV.SOLN IVPB SCH (08:03)
[2020-11-12] MEDS: Chlorhexidine Rinse 15 ML MOUTHWASH MM SCH ×2 (08:04→20:26)
[2020-11-12] MEDS: Insulin DETEMIR 100 UNIT/ML X5UNITS SUBQ SCH ×2 (08:04→20:26)
[2020-11-12] MEDS: Potassium Chloride Elixir 20 MEQ/15 ML UDC GTUBE SCH (08:04)
[2020-11-12] MEDS: Bisacodyl 10 MG RECTAL SUPPOSITORY RC SCH (08:05)
[2020-11-12] MEDS: MethylPREDNISolone 40 MG/ML VIAL IVP SCH (08:05)
[2020-11-12] MEDS: Doxycycline 100 MG CAPSULE PO SCH ×2 (08:05→20:27)
[2020-11-12] MEDS: Heparin 25,000UNIT/250ML 1/2NS 25,000 UNIT/250 ML IV.SOLN IVC SCH ×2 (08:30→18:16)
[2020-11-12] MEDS ORDERED: *HR* Midazolam HCl 5 MG/5 ML VIAL IVP ONE (09:41)
[2020-11-12] MEDS ORDERED: *HR* Midazolam HCl 2 MG/2 ML VIAL IVP ONE (09:57)
[2020-11-12] MEDS ORDERED: 0.9 % Sodium Chloride 1,000 ML ONE (14:57)
[2020-11-12] MEDS: Acetaminophen 325 MG TABLET PO PRN (15:05)
[2020-11-12] MEDS: FentaNYL (PF) 2,500 MCG/50 ML IV.SOLN IVC SCH (18:05)
[2020-11-12] MEDS: Topiramate 25 MG TABLET PO SCH (20:27)
[2020-11-13 02:21] LABS: Basophils % 0.1 %; Eosinophils % 0.1 %; Hematocrit 38.6 % (35.3-44.9); Hemoglobin 10.6 g/dL (11.5-15.4); Immature Granulocytes % 0.8 % (0-4); Lymphocytes # 0.7 K/mcL (0.6-4.6); Lymphocytes % 4.4 %; Mean Corpuscular HGB Conc 27.5 g/dL (31.6-35.5); Mean Corpuscular Hemoglobin 25.5 pg (28.0-33.3); Mean Platelet Volume 12.6 fL (9.4-12.4); Monocytes # 0.7 K/mcL (0.0-1.3); Monocytes % 4.7 %; Neutrophils # 13.7 K/mcL (1.6-8.9); Platelet Count 228 K/mcL (140-400); Red Blood Count 4.15 M/mcL (3.82-4.97); Red Cell Distribution Width 16.6 % (11.5-14.5); Segmented Neutrophils % 89.9 %; White Blood Count 15.2 K/mcL (4.3-11.1)
[2020-11-13 02:40] LABS: BUN/Creatinine Ratio 69 (6-26); Blood Urea Nitrogen 61 mg/dL (8-23); Calcium 10.5 mg/dL (8.6-10.3); Carbon Dioxide 27 mEq/L (23-29); Chloride 101 mEq/L (98-107); Glucose 208 mg/dL (70-105); Osmolality,Calculated 303 (280-300); Potassium 4.4 mEq/L (3.5-5.1); Sodium 135 mEq/L (136-145); eGFR For African Americans > 60 (> 60); eGFR For Non-African Americans > 60 (> 60)
[2020-11-13] MEDS: Artificial Tears SOLN 15 ML BOTTLE BOTH EYES SCH ×6 (03:27→23:59)
[2020-11-13] MEDS: Insulin LISPRO 300 UNITS/3 ML VIAL SUBQ SCH ×6 (03:27→23:59)
[2020-11-13] MEDS: Dexmedetomidine HCl 400 MCG/100 ML MLS IVC SCH ×4 (03:28→22:18)
[2020-11-13] MEDS: Ipratropium/Albuterol Neb 3 ML IH SCH ×6 (03:51→23:38)
[2020-11-13 05:18] LABS: ABG Base Excess 4 mEq/L (-2 to 3); ABG HCO3 28 mEq/L (21-27); ABG Oxygen Saturation 97 % (95-98); ABG PCO2 43 mmHg (35-45); ABG PH 7.43 pH Units (7.32-7.45); ABG PO2 90 mmHg (85-104); ABG TCO2 30 mEq/L (20-26); Blood Gas Modality ASSIST CONTROL; Blood Gas VT 400 cc
[2020-11-13] MEDS: Cefepime HCl 1,000 MG in Water for inj. (sterile) 10 ML IVP SCH (05:43)
[2020-11-13] MEDS: Pantoprazole 40 MG VIAL IVP SCH (05:43)
[2020-11-13] MEDS: Amiodarone Premix 360 MG/200 ML BAG IVC SCH ×2 (07:32→18:14)
[2020-11-13] MEDS: Budesonide/Formoterol 80/4.5 1 PUFF INH IH SCH ×2 (07:33→20:03)
[2020-11-13] MEDS: Chlorhexidine Rinse 15 ML MOUTHWASH MM SCH ×2 (07:40→19:38)
[2020-11-13] MEDS: Potassium Chloride Elixir 20 MEQ/15 ML UDC GTUBE SCH (07:40)
[2020-11-13] MEDS: Doxycycline 100 MG CAPSULE PO SCH ×2 (07:40→19:37)
[2020-11-13] MEDS: predniSONE 20 MG TABLET GTUBE SCH (07:40)
[2020-11-13] MEDS: Bisacodyl 10 MG RECTAL SUPPOSITORY RC SCH (07:40)
[2020-11-13] MEDS: Insulin DETEMIR 100 UNIT/ML X5UNITS SUBQ SCH ×2 (07:42→19:39)
[2020-11-13] MEDS ORDERED: Vancomycin 500 MG in 0.9 % Sodium Chloride Mini Bag 100 ML IVPB ONE (13:03)
[2020-11-13] MEDS: Furosemide 20 MG/2 ML VIAL IVP ONE (13:35)
[2020-11-13] MEDS: FentaNYL (PF) 2,500 MCG/50 ML IV.SOLN IVC SCH (13:48)
[2020-11-13] MEDS: Heparin 25,000UNIT/250ML 1/2NS 25,000 UNIT/250 ML IV.SOLN IVC SCH ×2 (17:32→23:08)
[2020-11-13] MEDS: Topiramate 25 MG TABLET PO SCH (19:37)
[2020-11-13] MEDS: *HR* Metoprolol 5 MG/5 ML VIAL IVP PRN (19:45)
[2020-11-13] MEDS ORDERED: *HR* Metoprolol 5 MG/5 ML VIAL IVP ONE (22:53)
[2020-11-13] MEDS ORDERED: Acetaminophen IV 1,000 MG/100 ML BAG IVPB ONE (23:03)
[2020-11-14] MEDS: Dexmedetomidine HCl 400 MCG/100 ML MLS IVC SCH ×2 (02:24→23:07)
[2020-11-14] MEDS: Ipratropium/Albuterol Neb 3 ML IH SCH ×2 (03:50→07:08)
[2020-11-14] MEDS: Insulin LISPRO 300 UNITS/3 ML VIAL SUBQ SCH ×5 (04:12→19:41)
[2020-11-14 04:29] LABS: Hematocrit 40.8 % (35.3-44.9); Mean Platelet Volume 12.3 fL (9.4-12.4); Platelet Count 340 K/mcL (140-400)
[2020-11-14 04:31] LABS: Hemoglobin 11.8 g/dL (11.5-15.4); Mean Corpuscular HGB Conc 28.9 g/dL (31.6-35.5); Mean Corpuscular Hemoglobin 26.3 pg (28.0-33.3); Mean Corpuscular Volume 91.1 fL (83.0-100.0); Red Blood Count 4.48 M/mcL (3.82-4.97); Red Cell Distribution Width 16.8 % (11.5-14.5); White Blood Count 15.3 K/mcL (4.3-11.1)
[2020-11-14 04:53] LABS: ABG Base Excess 4 mEq/L (-2 to 3); ABG HCO3 30 mEq/L (21-27); ABG Oxygen Saturation 98 % (95-98); ABG PCO2 47 mmHg (35-45); ABG PH 7.41 pH Units (7.32-7.45); ABG PO2 101 mmHg (85-104); ABG TCO2 31 mEq/L (20-26); Blood Gas Modality avaps; Blood Gas Pressure Support 30 cm H2O; Blood Gas VT 400 cc
[2020-11-14 05:33] LABS: BUN/Creatinine Ratio 58 (6-26); Blood Urea Nitrogen 58 mg/dL (8-23); Calcium 11.4 mg/dL (8.6-10.3); Carbon Dioxide 28 mEq/L (23-29); Chloride 102 mEq/L (98-107); Glucose 97 mg/dL (70-105); Osmolality,Calculated 302 (280-300); Potassium 4.5 mEq/L (3.5-5.1); Sodium 138 mEq/L (136-145); Vancomycin,Random 18 mcg/mL; eGFR For African Americans > 60 (> 60); eGFR For Non-African Americans 54 (> 60)
[2020-11-14] MEDS: Pantoprazole 40 MG VIAL IVP SCH (05:52)
[2020-11-14] MEDS: Cefepime HCl 1,000 MG in Water for inj. (sterile) 10 ML IVP SCH (05:54)
[2020-11-14] MEDS: Amiodarone Premix 360 MG/200 ML BAG IVC SCH ×2 (05:59→18:31)
[2020-11-14] MEDS: Budesonide/Formoterol 80/4.5 1 PUFF INH IH SCH ×2 (07:08→19:59)
[2020-11-14] MEDS: Insulin DETEMIR 100 UNIT/ML X5UNITS SUBQ SCH ×2 (08:44→19:39)
[2020-11-14] MEDS: Bisacodyl 10 MG RECTAL SUPPOSITORY RC SCH (08:49)
[2020-11-14] MEDS: Doxycycline 100 MG CAPSULE PO SCH (08:49)
[2020-11-14] MEDS: predniSONE 20 MG TABLET GTUBE SCH (08:49)
[2020-11-14] MEDS: Potassium Chloride Elixir 20 MEQ/15 ML UDC GTUBE SCH (09:03)
[2020-11-14] MEDS ORDERED: Furosemide 20 MG/2 ML VIAL IVP ONE (09:52)
[2020-11-14] MEDS: Furosemide 20 MG/2 ML VIAL IVP ONE (11:50)
[2020-11-14] MEDS ORDERED: Cefepime HCl 2,000 MG in Water for inj. (sterile) 20 ML IVP SCH (13:00)
[2020-11-14] MEDS: *HR* Metoprolol 5 MG/5 ML VIAL IVP PRN ×2 (14:11→19:21)
[2020-11-14] MEDS: MethylPREDNISolone 40 MG/ML VIAL IVP SCH (15:10)
[2020-11-14] MEDS ORDERED: *HR* Metoprolol 5 MG/5 ML VIAL IVP ONE (15:19)
[2020-11-14] MEDS: DilTIAZem 50 MG/50 ML IV.SOLN IVC SCH ×2 (17:33→21:55)
[2020-11-14] MEDS: Topiramate 25 MG TABLET PO SCH (19:40)
[2020-11-14] MEDS: Albuterol 2.5 MG/3 ML NEBULIZER IH PRN (23:46)
[2020-11-15] MEDS: Heparin 25,000UNIT/250ML 1/2NS 25,000 UNIT/250 ML IV.SOLN IVC SCH ×2 (00:39→21:48)
[2020-11-15] MEDS: Insulin LISPRO 300 UNITS/3 ML VIAL SUBQ SCH ×6 (00:50→20:02)
[2020-11-15] MEDS: MethylPREDNISolone 40 MG/ML VIAL IVP SCH ×2 (00:50→08:32)
[2020-11-15] MEDS: *HR* Metoprolol 5 MG/5 ML VIAL IVP PRN (01:07)
[2020-11-15] MEDS: DilTIAZem 50 MG/50 ML IV.SOLN IVC SCH ×2 (01:38→07:30)
[2020-11-15] MEDS: Albuterol 2.5 MG/3 ML NEBULIZER IH PRN ×2 (03:25→07:36)
[2020-11-15] MEDS: Dexmedetomidine HCl 400 MCG/100 ML MLS IVC SCH ×2 (05:16→16:58)
[2020-11-15] MEDS: Pantoprazole 40 MG VIAL IVP SCH (05:30)
[2020-11-15 05:56] LABS: Basophils % 0.2 %; Hemoglobin 11.5 g/dL (11.5-15.4); Immature Granulocytes % 0.6 % (0-4); Lymphocytes # 0.3 K/mcL (0.6-4.6); Lymphocytes % 2.3 %; Mean Corpuscular HGB Conc 29.5 g/dL (31.6-35.5); Mean Corpuscular Hemoglobin 26.6 pg (28.0-33.3); Mean Corpuscular Volume 90.3 fL (83.0-100.0); Mean Platelet Volume 11.9 fL (9.4-12.4); Monocytes # 0.2 K/mcL (0.0-1.3); Monocytes % 1.3 %; Neutrophils # 12.2 K/mcL (1.6-8.9); Platelet Count 288 K/mcL (140-400); Red Blood Count 4.32 M/mcL (3.82-4.97); Red Cell Distribution Width 16.8 % (11.5-14.5); Segmented Neutrophils % 95.6 %; White Blood Count 12.7 K/mcL (4.3-11.1)
[2020-11-15 06:23] LABS: BUN/Creatinine Ratio 57 (6-26); Blood Urea Nitrogen 54 mg/dL (8-23); Calcium 11.2 mg/dL (8.6-10.3); Carbon Dioxide 29 mEq/L (23-29); Chloride 105 mEq/L (98-107); Glucose 182 mg/dL (70-105); Magnesium 2.1 mg/dL (1.6-2.6); Osmolality,Calculated 311 (280-300); Potassium 4.2 mEq/L (3.5-5.1); Sodium 141 mEq/L (136-145); eGFR For African Americans > 60 (> 60); eGFR For Non-African Americans 58 (> 60)
[2020-11-15 06:26] LABS: HSV Source BAL LUL
[2020-11-15] MEDS: Insulin DETEMIR 100 UNIT/ML X5UNITS SUBQ SCH ×2 (08:27→20:03)
[2020-11-15] MEDS: Bisacodyl 10 MG RECTAL SUPPOSITORY RC SCH (08:27)
[2020-11-15] MEDS: Potassium Chloride Elixir 20 MEQ/15 ML UDC GTUBE SCH (08:28)
[2020-11-15] MEDS: Amiodarone Premix 360 MG/200 ML BAG IVC SCH (08:30)
[2020-11-15] MEDS: Budesonide/Formoterol 80/4.5 1 PUFF INH IH SCH ×2 (10:42→20:23)
[2020-11-15] MEDS ORDERED: Vancomycin 1,250 MG/262.5 ML IV.SOLN IVPB ONE (12:00)
[2020-11-15] MEDS ORDERED: Furosemide 40 MG/4 ML VIAL IVP ONE (12:21)
[2020-11-15] MEDS ORDERED: E-Z-HD (BARIUM SULF) SUSPENSION PO ONE (13:33)
[2020-11-15] MEDS ORDERED: E-Z-PAQUE (BARIUM SULF) SUSP 1 BOTTLE PO ONE (13:33)
[2020-11-15] MEDS ORDERED: Acetaminophen 325 MG TABLET PO PRN (15:11)
[2020-11-15] MEDS ORDERED: *HR* Heparin 5,000 UNIT/ML VIAL IVP PRN ×2 (15:11)
[2020-11-15] MEDS ORDERED: Dextrose Gel 15 GM/37.5 ML TUBE PO PRN ×2 (15:11)
[2020-11-15] MEDS ORDERED: Amiodarone Premix 360 MG/200 ML BAG IVC SCH (15:11)
[2020-11-15] MEDS ORDERED: Naloxone 0.4 MG/ML INJ IVP PRN (15:11)
[2020-11-15] MEDS ORDERED: *HR* Metoprolol 5 MG/5 ML VIAL IVP PRN (15:11)
[2020-11-15] MEDS ORDERED: Albuterol 2.5 MG/3 ML NEBULIZER IH PRN (15:11)
[2020-11-15] MEDS ORDERED: D5% in Water 1,000 ML IVC PRN (15:11)
[2020-11-15] MEDS ORDERED: DilTIAZem 50 MG/50 ML IV.SOLN IVC SCH (15:11)
[2020-11-15] MEDS: Topiramate 25 MG TABLET PO SCH (20:02)
[2020-11-16] MEDS: Insulin LISPRO 300 UNITS/3 ML VIAL SUBQ SCH ×6 (00:23→20:33)
[2020-11-16] MEDS: Dexmedetomidine HCl 400 MCG/100 ML MLS IVC SCH ×3 (01:35→23:59)
[2020-11-16] MEDS: Pantoprazole 40 MG VIAL IVP SCH (05:25)
[2020-11-16 07:14] LABS: Basophils % 0.2 %; Hematocrit 39.5 % (35.3-44.9); Hemoglobin 11.5 g/dL (11.5-15.4); Immature Granulocytes % 0.7 % (0-4); Lymphocytes # 0.5 K/mcL (0.6-4.6); Lymphocytes % 4.9 %; Mean Corpuscular HGB Conc 29.1 g/dL (31.6-35.5); Mean Corpuscular Hemoglobin 26.7 pg (28.0-33.3); Mean Corpuscular Volume 91.9 fL (83.0-100.0); Mean Platelet Volume 12.5 fL (9.4-12.4); Monocytes # 0.5 K/mcL (0.0-1.3); Neutrophils # 9.2 K/mcL (1.6-8.9); Platelet Count 216 K/mcL (140-400); Red Cell Distribution Width 16.8 % (11.5-14.5); Segmented Neutrophils % 89.2 %; White Blood Count 10.3 K/mcL (4.3-11.1)
[2020-11-16 07:27] LABS: BUN/Creatinine Ratio 55 (6-26); Blood Urea Nitrogen 51 mg/dL (8-23); Calcium 11.6 mg/dL (8.6-10.3); Carbon Dioxide 23 mEq/L (23-29); Chloride 106 mEq/L (98-107); Glucose 151 mg/dL (70-105); Osmolality,Calculated 305 (280-300); Potassium 4.5 mEq/L (3.5-5.1); Sodium 139 mEq/L (136-145); eGFR For African Americans > 60 (> 60); eGFR For Non-African Americans 60 (> 60)
[2020-11-16] MEDS ORDERED: Potassium Chloride Elixir 20 MEQ/15 ML UDC GTUBE SCH (09:00)
[2020-11-16] MEDS: Bisacodyl 10 MG RECTAL SUPPOSITORY RC SCH (10:32)
[2020-11-16] MEDS: Budesonide/Formoterol 80/4.5 1 PUFF INH IH SCH ×2 (10:45→21:19)
[2020-11-16] MEDS: Insulin DETEMIR 100 UNIT/ML X5UNITS SUBQ SCH ×2 (12:30→20:36)
[2020-11-16] MEDS ORDERED: Vancomycin 1,250 MG/262.5 ML IV.SOLN IVPB SCH (15:00)
[2020-11-16] MEDS: Topiramate 25 MG TABLET PO SCH (20:35)
[2020-11-16] MEDS: *HR* Amiodarone 200 MG TABLET PO SCH (20:36)
[2020-11-16] MEDS: Heparin 25,000UNIT/250ML 1/2NS 25,000 UNIT/250 ML IV.SOLN IVC SCH (23:35)
[2020-11-17] MEDS: Insulin LISPRO 300 UNITS/3 ML VIAL SUBQ SCH ×5 (00:12→17:46)
[2020-11-17] MEDS: Dexmedetomidine HCl 400 MCG/100 ML MLS IVC SCH ×4 (06:02→20:11)
[2020-11-17] MEDS: Pantoprazole 40 MG VIAL IVP SCH (06:02)
[2020-11-17] MEDS: Budesonide/Formoterol 80/4.5 1 PUFF INH IH SCH ×2 (07:32→19:44)
[2020-11-17] MEDS: Heparin 25,000UNIT/250ML 1/2NS 25,000 UNIT/250 ML IV.SOLN IVC SCH (07:56)
[2020-11-17 09:19] LABS: Basophils % 0.1 %; Eosinophils % 1.2 %; Monocytes % 6.1 %
[2020-11-17 09:21] LABS: Eosinophils # 0.1 K/mcL (0.0-0.6); Hematocrit 43.3 % (35.3-44.9); Hemoglobin 12.2 g/dL (11.5-15.4); Immature Granulocytes % 0.6 % (0-4); Lymphocytes # 0.7 K/mcL (0.6-4.6); Lymphocytes % 7.8 %; Mean Corpuscular HGB Conc 28.2 g/dL (31.6-35.5); Mean Corpuscular Hemoglobin 25.7 pg (28.0-33.3); Mean Corpuscular Volume 91.2 fL (83.0-100.0); Mean Platelet Volume 11.6 fL (9.4-12.4); Monocytes # 0.5 K/mcL (0.0-1.3); Neutrophils # 7.2 K/mcL (1.6-8.9); Platelet Count 302 K/mcL (140-400); Red Blood Count 4.75 M/mcL (3.82-4.97); Red Cell Distribution Width 16.6 % (11.5-14.5); Segmented Neutrophils % 84.2 %; White Blood Count 8.5 K/mcL (4.3-11.1)
[2020-11-17 09:38] LABS: Platelet Estimate Normal (Normal)
[2020-11-17 09:39] LABS: Anisocytosis 1+ (Not Present); BUN/Creatinine Ratio 54 (6-26); Blood Urea Nitrogen 44 mg/dL (8-23); Calcium 11.7 mg/dL (8.6-10.3); Carbon Dioxide 30 mEq/L (23-29); Chloride 108 mEq/L (98-107); Glucose 80 mg/dL (70-105); Hypochromasia Present (Not Present); Magnesium 2.1 mg/dL (1.6-2.6); Osmolality,Calculated 304 (280-300); Phosphorous 2.4 mg/dL (2.7-4.5); Potassium 4.1 mEq/L (3.5-5.1); Sodium 142 mEq/L (136-145); eGFR For African Americans > 60 (> 60); eGFR For Non-African Americans > 60 (> 60)
[2020-11-17] MEDS: *HR* Amiodarone 200 MG TABLET PO SCH (10:26)
[2020-11-17] MEDS: Insulin DETEMIR 100 UNIT/ML X5UNITS SUBQ SCH ×2 (10:26→20:13)
[2020-11-17] MEDS: Bisacodyl 10 MG RECTAL SUPPOSITORY RC SCH (10:26)
[2020-11-17] MEDS: Apixaban 5 MG TABLET PO SCH ×2 (14:01→20:12)
[2020-11-17] MEDS: Vancomycin 1,250 MG/262.5 ML IV.SOLN IVPB SCH (15:39)
[2020-11-17] MEDS: QUEtiapine Fumarate 25 MG TABLET PO SCH (20:13)
[2020-11-17] MEDS: Topiramate 25 MG TABLET PO SCH (20:13)
[2020-11-18] MEDS ORDERED: *HR* Metoprolol 5 MG/5 ML VIAL IVP ONE ×3 (03:20→06:33)
[2020-11-18 03:21] LABS: ABG Base Excess 4 mEq/L (-2 to 3); ABG HCO3 29 mEq/L (21-27); ABG Oxygen Saturation 96 % (95-98); ABG PCO2 41 mmHg (35-45); ABG PH 7.46 pH Units (7.32-7.45); ABG PO2 78 mmHg (85-104); ABG TCO2 30 mEq/L (20-26); Blood Gas Modality avaps; Blood Gas Pressure Support 12 cm H2O; Blood Gas VT 400 cc
[2020-11-18] MEDS: Dexmedetomidine HCl 400 MCG/100 ML MLS IVC SCH ×4 (03:57→20:03)
[2020-11-18] MEDS: Insulin LISPRO 300 UNITS/3 ML VIAL SUBQ SCH ×5 (03:59→20:09)
[2020-11-18] MEDS ORDERED: Furosemide 20 MG/2 ML VIAL IVP ONE ×2 (04:50→10:14)
[2020-11-18] MEDS: Insulin DETEMIR 100 UNIT/ML X5UNITS SUBQ SCH ×3 (07:27→21:35)
[2020-11-18] MEDS: Budesonide/Formoterol 80/4.5 1 PUFF INH IH SCH ×2 (07:57→22:50)
[2020-11-18] MEDS ORDERED: Amiodarone Premix 360 MG/200 ML BAG IVC ONE (08:03)
[2020-11-18] MEDS: Apixaban 5 MG TABLET PO SCH ×2 (08:42→19:43)
[2020-11-18] MEDS ORDERED: *HR* Amiodarone 200 MG TABLET PO SCH (09:00)
[2020-11-18 10:58] LABS: Segmented Neutrophils % 95.8 %
[2020-11-18 10:59] LABS: Basophils % 0.2 %; Eosinophils % 0.1 %; Hematocrit 43.9 % (35.3-44.9); Hemoglobin 12.8 g/dL (11.5-15.4); Immature Granulocytes % 0.8 % (0-4); Lymphocytes # 0.3 K/mcL (0.6-4.6); Lymphocytes % 1.3 %; Mean Corpuscular HGB Conc 29.2 g/dL (31.6-35.5); Mean Corpuscular Hemoglobin 26.3 pg (28.0-33.3); Mean Corpuscular Volume 90.3 fL (83.0-100.0); Mean Platelet Volume 11.5 fL (9.4-12.4); Monocytes # 0.5 K/mcL (0.0-1.3); Monocytes % 1.8 %; Neutrophils # 24.3 K/mcL (1.6-8.9); Platelet Count 341 K/mcL (140-400); Red Blood Count 4.86 M/mcL (3.82-4.97); Red Cell Distribution Width 17.1 % (11.5-14.5); White Blood Count 25.4 K/mcL (4.3-11.1)
[2020-11-18 11:01] LABS: Basophils # 0.1 K/mcL (0.0-0.2)
[2020-11-18 11:13] LABS: BUN/Creatinine Ratio 38 (6-26); Blood Urea Nitrogen 40 mg/dL (8-23); Calcium 11.2 mg/dL (8.6-10.3); Carbon Dioxide 28 mEq/L (23-29); Chloride 105 mEq/L (98-107); Glucose 168 mg/dL (70-105); Magnesium 1.9 mg/dL (1.6-2.6); Osmolality,Calculated 306 (280-300); Phosphorous 2.9 mg/dL (2.7-4.5); Potassium 4.4 mEq/L (3.5-5.1); Sodium 141 mEq/L (136-145); eGFR For African Americans > 60 (> 60); eGFR For Non-African Americans 52 (> 60)
[2020-11-18] MEDS ORDERED: cefTRIAXone 2,000 MG in Water for inj. (sterile) 20 ML IVP ONE (11:35)
[2020-11-18] MEDS ORDERED: D5% in Water 1,000 ML IVC PRN (12:32)
[2020-11-18] MEDS: cefTRIAXone 2,000 MG in Water for inj. (sterile) 20 ML IVP SCH (12:42)
[2020-11-18] MEDS: Bisacodyl 10 MG RECTAL SUPPOSITORY RC SCH (15:43)
[2020-11-18 16:30] LABS: Bacteria,Urine Many per hpf (None-Few); Bilirubin,Urine Negative (Negative); Blood,Urine Large (Negative); Budding Yeast,Urine Many per hpf (None Seen); Clarity,Urine Ex.Turbid (Clear); Color,Urine Yellow (Yellow); Glucose,Urine (UA) Normal (Normal); Hyaline Casts,Urine Many per lpf (None Seen); Ketones,Urine Negative (Negative); Leukocyte Esterase,Urine Large (Negative); Nitrite,Urine Negative (Negative); PH,Urine 5.5 pH Units (5.0-8.0); Protein,Urine 30 mg/dL (Neg-Trace); RBC,Urine TNTC per hpf (0-3); Specific Gravity,Urine 1.016 (1.010-1.025); Squamous Epithelial Cell,Urine Few per hpf (None-Few); Transitional Epi Cells,Urine Few per hpf (None-Few); Urobilinogen,Urine Normal (Normal); WBC,Urine TNTC per hpf (0-3)
[2020-11-18] MEDS: Amiodarone Premix 360 MG/200 ML BAG IVC SCH (17:23)
[2020-11-18] MEDS: Vancomycin 1,250 MG/262.5 ML IV.SOLN IVPB SCH (17:23)
[2020-11-18] MEDS: Furosemide 40 MG/4 ML VIAL IVP SCH (17:23)
[2020-11-18] MEDS: *HR* Metoprolol 5 MG/5 ML VIAL IVP SCH ×2 (17:31→20:03)
[2020-11-18] MEDS: QUEtiapine Fumarate 25 MG TABLET PO SCH (19:43)
[2020-11-18] MEDS: Topiramate 25 MG TABLET PO SCH (19:43)
[2020-11-18] MEDS: Nystatin POWDER 30 GM BOTTLE TP SCH (21:37)
[2020-11-19] MEDS: Dexmedetomidine HCl 400 MCG/100 ML MLS IVC SCH ×3 (00:10→15:30)
[2020-11-19] MEDS: Insulin LISPRO 300 UNITS/3 ML VIAL SUBQ SCH ×4 (00:11→17:53)
[2020-11-19] MEDS: *HR* Metoprolol 5 MG/5 ML VIAL IVP SCH ×3 (00:14→05:38)
[2020-11-19] MEDS: Amiodarone Premix 360 MG/200 ML BAG IVC SCH (05:54)
[2020-11-19 06:17] LABS: Eosinophils % 0.5 %; Immature Granulocytes % 0.6 % (0-4); Monocytes % 2.3 %; Red Cell Distribution Width 17.2 % (11.5-14.5)
[2020-11-19 06:18] LABS: Basophils % 0.1 %; Eosinophils # 0.1 K/mcL (0.0-0.6); Hematocrit 41.4 % (35.3-44.9); Hemoglobin 11.9 g/dL (11.5-15.4); Lymphocytes # 0.6 K/mcL (0.6-4.6); Lymphocytes % 2.8 %; Mean Corpuscular HGB Conc 28.7 g/dL (31.6-35.5); Mean Corpuscular Hemoglobin 26.6 pg (28.0-33.3); Mean Corpuscular Volume 92.6 fL (83.0-100.0); Mean Platelet Volume 11.4 fL (9.4-12.4); Monocytes # 0.5 K/mcL (0.0-1.3); Platelet Count 281 K/mcL (140-400); Red Blood Count 4.47 M/mcL (3.82-4.97); Segmented Neutrophils % 93.7 %; White Blood Count 21.5 K/mcL (4.3-11.1)
[2020-11-19 06:21] LABS: Neutrophils # 20.2 K/mcL (1.6-8.9)
[2020-11-19 06:35] LABS: BUN/Creatinine Ratio 38 (6-26); Blood Urea Nitrogen 41 mg/dL (8-23); Calcium 10.8 mg/dL (8.6-10.3); Carbon Dioxide 32 mEq/L (23-29); Chloride 103 mEq/L (98-107); Glucose 220 mg/dL (70-105); Magnesium 1.8 mg/dL (1.6-2.6); Osmolality,Calculated 311 (280-300); Phosphorous 3.9 mg/dL (2.7-4.5); Potassium 3.7 mEq/L (3.5-5.1); Sodium 142 mEq/L (136-145); eGFR For African Americans > 60 (> 60); eGFR For Non-African Americans 50 (> 60)
[2020-11-19 06:52] LABS: Anisocytosis 1+ (Not Present); Platelet Estimate Normal (Normal)
[2020-11-19] MEDS: Furosemide 40 MG/4 ML VIAL IVP SCH ×2 (09:13→17:53)
[2020-11-19] MEDS: Apixaban 5 MG TABLET PO SCH ×2 (09:14→21:16)
[2020-11-19] MEDS: Insulin DETEMIR 100 UNIT/ML X5UNITS SUBQ SCH ×2 (09:16→21:20)
[2020-11-19] MEDS: Bisacodyl 10 MG RECTAL SUPPOSITORY RC SCH (09:16)
[2020-11-19] MEDS: Budesonide/Formoterol 80/4.5 1 PUFF INH IH SCH ×2 (11:27→21:54)
[2020-11-19] MEDS: Nystatin POWDER 30 GM BOTTLE TP SCH ×3 (11:43→21:22)
[2020-11-19] MEDS: cefTRIAXone 2,000 MG in Water for inj. (sterile) 20 ML IVP SCH (12:11)
[2020-11-19] MEDS: *HR* Amiodarone 200 MG TABLET PO SCH ×2 (12:11→21:14)
[2020-11-19] MEDS: Vancomycin 1,250 MG/262.5 ML IV.SOLN IVPB SCH (15:32)
[2020-11-19] MEDS: QUEtiapine Fumarate 25 MG TABLET PO SCH (21:16)
[2020-11-19] MEDS: Topiramate 25 MG TABLET PO SCH (21:18)
[2020-11-20] MEDS: Insulin LISPRO 300 UNITS/3 ML VIAL SUBQ SCH ×5 (01:52→22:58)
[2020-11-20 07:36] LABS: Red Cell Distribution Width 17.2 % (11.5-14.5)
[2020-11-20 07:37] LABS: Hemoglobin 11.8 g/dL (11.5-15.4); Mean Corpuscular HGB Conc 28.1 g/dL (31.6-35.5); Mean Corpuscular Hemoglobin 26.4 pg (28.0-33.3); Mean Platelet Volume 11.2 fL (9.4-12.4); Platelet Count 276 K/mcL (140-400); Red Blood Count 4.47 M/mcL (3.82-4.97); White Blood Count 11.8 K/mcL (4.3-11.1)
[2020-11-20 07:54] LABS: BUN/Creatinine Ratio 34 (6-26); Blood Urea Nitrogen 33 mg/dL (8-23); Calcium 10.6 mg/dL (8.6-10.3); Carbon Dioxide 36 mEq/L (23-29); Chloride 104 mEq/L (98-107); Glucose 102 mg/dL (70-105); Osmolality,Calculated 303 (280-300); Potassium 3.6 mEq/L (3.5-5.1); Sodium 143 mEq/L (136-145); eGFR For African Americans > 60 (> 60); eGFR For Non-African Americans 55 (> 60)
[2020-11-20] MEDS: Apixaban 5 MG TABLET PO SCH ×2 (08:23→19:14)
[2020-11-20] MEDS: *HR* Amiodarone 200 MG TABLET PO SCH ×2 (08:23→19:15)
[2020-11-20] MEDS: Insulin DETEMIR 100 UNIT/ML X5UNITS SUBQ SCH ×2 (08:24→19:11)
[2020-11-20] MEDS: Furosemide 40 MG/4 ML VIAL IVP SCH ×2 (08:25→17:18)
[2020-11-20] MEDS: Bisacodyl 10 MG RECTAL SUPPOSITORY RC SCH (08:25)
[2020-11-20] MEDS: Nystatin POWDER 30 GM BOTTLE TP SCH ×3 (08:26→19:15)
[2020-11-20] MEDS: Dexmedetomidine HCl 400 MCG/100 ML MLS IVC SCH ×2 (10:11→17:17)
[2020-11-20] MEDS: Budesonide/Formoterol 80/4.5 1 PUFF INH IH SCH ×2 (10:58→19:37)
[2020-11-20] MEDS: cefTRIAXone 2,000 MG in Water for inj. (sterile) 20 ML IVP SCH (12:09)
[2020-11-20] MEDS: GuaiFENesin Liq 200 MG/10 ML UDC PO SCH ×2 (17:18→22:58)
[2020-11-20] MEDS: Topiramate 25 MG TABLET PO SCH (19:14)
[2020-11-20] MEDS: QUEtiapine Fumarate 25 MG TABLET PO SCH (19:14)
[2020-11-21] MEDS: *HR* Dextrose 50 % in Water (Vial) 50 ML VIAL IVP PRN (00:55)
[2020-11-21] MEDS: Dexmedetomidine HCl 400 MCG/100 ML MLS IVC SCH ×2 (02:17→14:08)
[2020-11-21] MEDS: GuaiFENesin Liq 200 MG/10 ML UDC PO SCH ×4 (04:42→22:50)
[2020-11-21 05:00] LABS: Hemoglobin 11.1 g/dL (11.5-15.4)
[2020-11-21 05:01] LABS: Hematocrit 40.1 % (35.3-44.9); Mean Corpuscular HGB Conc 27.7 g/dL (31.6-35.5); Mean Corpuscular Hemoglobin 26.1 pg (28.0-33.3); Mean Corpuscular Volume 94.1 fL (83.0-100.0); Mean Platelet Volume 11.8 fL (9.4-12.4); Platelet Count 230 K/mcL (140-400); Red Blood Count 4.26 M/mcL (3.82-4.97); Red Cell Distribution Width 17.2 % (11.5-14.5)
[2020-11-21 05:18] LABS: BUN/Creatinine Ratio 38 (6-26); Blood Urea Nitrogen 33 mg/dL (8-23); Carbon Dioxide 35 mEq/L (23-29); Chloride 105 mEq/L (98-107); Glucose 94 mg/dL (70-105); Osmolality,Calculated 309 (280-300); Potassium 3.7 mEq/L (3.5-5.1); Sodium 146 mEq/L (136-145); eGFR For African Americans > 60 (> 60); eGFR For Non-African Americans > 60 (> 60)
[2020-11-21] MEDS: Insulin LISPRO 300 UNITS/3 ML VIAL SUBQ SCH ×3 (05:28→18:02)
[2020-11-21] MEDS: *HR* Amiodarone 200 MG TABLET PO SCH ×2 (07:31→20:24)
[2020-11-21] MEDS: Furosemide 40 MG/4 ML VIAL IVP SCH (07:31)
[2020-11-21] MEDS: Apixaban 5 MG TABLET PO SCH ×2 (07:31→20:23)
[2020-11-21] MEDS: Bisacodyl 10 MG RECTAL SUPPOSITORY RC SCH (07:31)
[2020-11-21] MEDS: Nystatin POWDER 30 GM BOTTLE TP SCH ×2 (07:32→14:10)
[2020-11-21] MEDS: Insulin DETEMIR 100 UNIT/ML X5UNITS SUBQ SCH ×3 (07:47→22:36)
[2020-11-21] MEDS: Budesonide/Formoterol 80/4.5 1 PUFF INH IH SCH ×2 (07:56→20:43)
[2020-11-21] MEDS: Ipratropium/Albuterol Neb 3 ML IH SCH ×4 (11:42→23:10)
[2020-11-21] MEDS: dexAMETHasone 4 MG TABLET PO SCH (12:43)
[2020-11-21] MEDS: Fluconazole 100 MG TABLET PO SCH (12:43)
[2020-11-21] MEDS: cefTRIAXone 2,000 MG in Water for inj. (sterile) 20 ML IVP SCH (12:44)
[2020-11-21] MEDS: QUEtiapine Fumarate 25 MG TABLET PO SCH (20:23)
[2020-11-21] MEDS: Topiramate 25 MG TABLET PO SCH (20:25)
[2020-11-22] MEDS: Ipratropium/Albuterol Neb 3 ML IH SCH ×4 (03:34→22:08)
[2020-11-22 07:13] LABS: Hematocrit 43.7 % (35.3-44.9); Hemoglobin 11.9 g/dL (11.5-15.4); Lymphocytes # 0.4 K/mcL (0.6-4.6); Mean Corpuscular HGB Conc 27.2 g/dL (31.6-35.5); Mean Corpuscular Hemoglobin 25.4 pg (28.0-33.3); Mean Corpuscular Volume 93.2 fL (83.0-100.0); Mean Platelet Volume 12.1 fL (9.4-12.4); Monocytes # 0.1 K/mcL (0.0-1.3); Platelet Count 273 K/mcL (140-400); Red Blood Count 4.69 M/mcL (3.82-4.97); Red Cell Distribution Width 17.3 % (11.5-14.5); White Blood Count 7.2 K/mcL (4.3-11.1)
[2020-11-22] MEDS: dexAMETHasone 4 MG TABLET PO SCH (07:51)
[2020-11-22] MEDS: *HR* Amiodarone 200 MG TABLET PO SCH ×2 (07:51→19:59)
[2020-11-22] MEDS: Fluconazole 100 MG TABLET PO SCH (07:51)
[2020-11-22] MEDS: GuaiFENesin Liq 200 MG/10 ML UDC PO SCH ×4 (07:52→23:34)
[2020-11-22] MEDS: Apixaban 5 MG TABLET PO SCH ×2 (07:52→19:59)
[2020-11-22] MEDS: Bisacodyl 10 MG RECTAL SUPPOSITORY RC SCH (07:53)
[2020-11-22] MEDS: Nystatin POWDER 30 GM BOTTLE TP SCH ×4 (07:53→20:00)
[2020-11-22 07:54] LABS: BUN/Creatinine Ratio 36 (6-26); Blood Urea Nitrogen 38 mg/dL (8-23); Calcium 10.4 mg/dL (8.6-10.3); Carbon Dioxide 35 mEq/L (23-29); Chloride 102 mEq/L (98-107); Glucose 277 mg/dL (70-105); Osmolality,Calculated 317 (280-300); Potassium 4.8 mEq/L (3.5-5.1); Sodium 144 mEq/L (136-145); eGFR For African Americans > 60 (> 60); eGFR For Non-African Americans 51 (> 60)
[2020-11-22] MEDS: Insulin DETEMIR 100 UNIT/ML X5UNITS SUBQ SCH ×2 (08:38→20:04)
[2020-11-22] MEDS: Budesonide/Formoterol 80/4.5 1 PUFF INH IH SCH ×2 (11:08→22:08)
[2020-11-22] MEDS: Insulin LISPRO 300 UNITS/3 ML VIAL SUBQ SCH ×5 (13:00→23:48)
[2020-11-22 13:22] LABS: Anisocytosis 1+ (Not Present); Neutrophils # 6.6 K/mcL (1.6-8.9); Platelet Estimate Normal (Normal)
[2020-11-22] MEDS: DilTIAZem 50 MG/50 ML IV.SOLN IVC SCH ×3 (15:13→22:29)
[2020-11-22] MEDS: Metoprolol XL (24 HR) Succ 50 MG TAB.ER.24H PO SCH (19:59)
[2020-11-22] MEDS: QUEtiapine Fumarate 25 MG TABLET PO SCH (19:59)
[2020-11-22] MEDS: Topiramate 25 MG TABLET PO SCH (20:00)
[2020-11-23 02:07] LABS: Red Cell Distribution Width 17.2 % (11.5-14.5)
[2020-11-23 02:08] LABS: Basophils % 0.2 %; Hematocrit 39.7 % (35.3-44.9); Hemoglobin 11.4 g/dL (11.5-15.4); Immature Granulocytes % 0.9 % (0-4); Lymphocytes # 0.5 K/mcL (0.6-4.6); Lymphocytes % 4.5 %; Mean Corpuscular HGB Conc 28.7 g/dL (31.6-35.5); Mean Corpuscular Hemoglobin 26.6 pg (28.0-33.3); Mean Corpuscular Volume 92.8 fL (83.0-100.0); Mean Platelet Volume 12.1 fL (9.4-12.4); Monocytes # 0.5 K/mcL (0.0-1.3); Monocytes % 4.1 %; Neutrophils # 10.1 K/mcL (1.6-8.9); Platelet Count 244 K/mcL (140-400); Red Blood Count 4.28 M/mcL (3.82-4.97); Segmented Neutrophils % 90.3 %; White Blood Count 11.2 K/mcL (4.3-11.1)
[2020-11-23 02:28] LABS: Anisocytosis 1+ (Not Present); Hypochromasia Present (Not Present); Platelet Estimate Normal (Normal)
[2020-11-23] MEDS: Ipratropium/Albuterol Neb 3 ML IH SCH ×4 (03:38→22:56)
[2020-11-23] MEDS: GuaiFENesin Liq 200 MG/10 ML UDC PO SCH ×4 (05:59→23:40)
[2020-11-23] MEDS: Insulin LISPRO 300 UNITS/3 ML VIAL SUBQ SCH ×4 (06:01→23:50)
[2020-11-23 07:00] LABS: BUN/Creatinine Ratio 47 (6-26); Blood Urea Nitrogen 40 mg/dL (8-23); Calcium 11.2 mg/dL (8.6-10.3); Carbon Dioxide 38 mEq/L (23-29); Chloride 107 mEq/L (98-107); Glucose 159 mg/dL (70-105); Osmolality,Calculated 319 (280-300); Potassium 4.5 mEq/L (3.5-5.1); Sodium 148 mEq/L (136-145); eGFR For African Americans > 60 (> 60); eGFR For Non-African Americans > 60 (> 60)
[2020-11-23] MEDS: *HR* Amiodarone 200 MG TABLET PO SCH ×2 (10:07→20:18)
[2020-11-23] MEDS: dexAMETHasone 4 MG TABLET PO SCH (10:07)
[2020-11-23] MEDS: Bisacodyl 10 MG RECTAL SUPPOSITORY RC SCH (10:09)
[2020-11-23] MEDS: Fluconazole 100 MG TABLET PO SCH (10:10)
[2020-11-23] MEDS: Metoprolol XL (24 HR) Succ 50 MG TAB.ER.24H PO SCH ×2 (10:10→10:31)
[2020-11-23] MEDS: Apixaban 5 MG TABLET PO SCH ×2 (10:11→20:17)
[2020-11-23] MEDS: Nystatin POWDER 30 GM BOTTLE TP SCH ×3 (10:25→20:31)
[2020-11-23] MEDS: Insulin DETEMIR 100 UNIT/ML X5UNITS SUBQ SCH ×2 (10:31→20:18)
[2020-11-23] MEDS: Budesonide/Formoterol 80/4.5 1 PUFF INH IH SCH ×2 (10:40→22:56)
[2020-11-23] MEDS: Topiramate 25 MG TABLET PO SCH (20:17)
[2020-11-23] MEDS: QUEtiapine Fumarate 25 MG TABLET PO SCH (20:18)
[2020-11-24 01:47] LABS: Hematocrit 41.6 % (35.3-44.9); Mean Corpuscular Hemoglobin 26.3 pg (28.0-33.3); Red Cell Distribution Width 17.2 % (11.5-14.5)
[2020-11-24 01:49] LABS: Basophils % 0.1 %; Hemoglobin 11.6 g/dL (11.5-15.4); Immature Granulocytes % 0.6 % (0-4); Lymphocytes # 0.3 K/mcL (0.6-4.6); Lymphocytes % 4.4 %; Mean Corpuscular HGB Conc 27.9 g/dL (31.6-35.5); Mean Corpuscular Volume 94.3 fL (83.0-100.0); Mean Platelet Volume 11.6 fL (9.4-12.4); Monocytes # 0.2 K/mcL (0.0-1.3); Monocytes % 2.3 %; Neutrophils # 6.5 K/mcL (1.6-8.9); Platelet Count 253 K/mcL (140-400); Red Blood Count 4.41 M/mcL (3.82-4.97); Segmented Neutrophils % 92.6 %
[2020-11-24 02:07] LABS: BUN/Creatinine Ratio 48 (6-26); Blood Urea Nitrogen 43 mg/dL (8-23); Calcium 11.4 mg/dL (8.6-10.3); Carbon Dioxide 38 mEq/L (23-29); Chloride 104 mEq/L (98-107); Glucose 270 mg/dL (70-105); Osmolality,Calculated 322 (280-300); Potassium 4.5 mEq/L (3.5-5.1); Sodium 146 mEq/L (136-145); eGFR For African Americans > 60 (> 60); eGFR For Non-African Americans > 60 (> 60)
[2020-11-24 02:08] LABS: Anisocytosis 1+ (Not Present); Hypochromasia Present (Not Present); Platelet Estimate Normal (Normal)
[2020-11-24] MEDS ORDERED: *HR* Labetalol 20 MG/4 ML SYRINGE IVP ONE ×2 (02:08→02:11)
[2020-11-24] MEDS: Ipratropium/Albuterol Neb 3 ML IH SCH ×4 (04:20→21:39)
[2020-11-24] MEDS: GuaiFENesin Liq 200 MG/10 ML UDC PO SCH ×3 (05:09→17:05)
[2020-11-24] MEDS: Insulin LISPRO 300 UNITS/3 ML VIAL SUBQ SCH ×3 (06:35→17:05)
[2020-11-24] MEDS: dexAMETHasone 4 MG TABLET PO SCH (08:11)
[2020-11-24] MEDS: Metoprolol XL (24 HR) Succ 50 MG TAB.ER.24H PO SCH (08:12)
[2020-11-24] MEDS: Apixaban 5 MG TABLET PO SCH ×2 (08:12→20:24)
[2020-11-24] MEDS: Fluconazole 100 MG TABLET PO SCH (08:12)
[2020-11-24] MEDS: *HR* Amiodarone 200 MG TABLET PO SCH ×2 (08:12→20:24)
[2020-11-24] MEDS: Insulin DETEMIR 100 UNIT/ML X5UNITS SUBQ SCH ×2 (08:13→21:15)
[2020-11-24] MEDS: Nystatin POWDER 30 GM BOTTLE TP SCH ×3 (08:13→21:14)
[2020-11-24] MEDS: Bisacodyl 10 MG RECTAL SUPPOSITORY RC SCH (08:13)
[2020-11-24] MEDS: Budesonide/Formoterol 80/4.5 1 PUFF INH IH SCH ×2 (09:49→21:39)
[2020-11-24] MEDS: QUEtiapine Fumarate 25 MG TABLET PO SCH (20:25)
[2020-11-24] MEDS: Topiramate 25 MG TABLET PO SCH (21:14)
[2020-11-25] MEDS: Insulin LISPRO 300 UNITS/3 ML VIAL SUBQ SCH ×4 (00:38→17:30)
[2020-11-25] MEDS: GuaiFENesin Liq 200 MG/10 ML UDC PO SCH ×4 (00:46→17:30)
[2020-11-25] MEDS: Ipratropium/Albuterol Neb 3 ML IH SCH ×4 (04:18→21:50)
[2020-11-25 04:49] LABS: Hematocrit 42.8 % (35.3-44.9); Hemoglobin 11.9 g/dL (11.5-15.4); Immature Granulocytes % 0.5 % (0-4); Lymphocytes # 0.4 K/mcL (0.6-4.6); Lymphocytes % 4.9 %; Mean Corpuscular HGB Conc 27.8 g/dL (31.6-35.5); Mean Corpuscular Hemoglobin 26.3 pg (28.0-33.3); Mean Corpuscular Volume 94.7 fL (83.0-100.0); Mean Platelet Volume 11.9 fL (9.4-12.4); Monocytes # 0.4 K/mcL (0.0-1.3); Monocytes % 4.8 %; Neutrophils # 7.3 K/mcL (1.6-8.9); Platelet Count 229 K/mcL (140-400); Red Blood Count 4.52 M/mcL (3.82-4.97); Red Cell Distribution Width 17.3 % (11.5-14.5); Segmented Neutrophils % 89.8 %; White Blood Count 8.1 K/mcL (4.3-11.1)
[2020-11-25 05:03] LABS: BUN/Creatinine Ratio 51 (6-26); Blood Urea Nitrogen 41 mg/dL (8-23); Calcium 11.7 mg/dL (8.6-10.3); Carbon Dioxide 35 mEq/L (23-29); Chloride 108 mEq/L (98-107); Glucose 172 mg/dL (70-105); Osmolality,Calculated 318 (280-300); Potassium 4.4 mEq/L (3.5-5.1); Sodium 147 mEq/L (136-145); eGFR For African Americans > 60 (> 60); eGFR For Non-African Americans > 60 (> 60)
[2020-11-25] MEDS: dexAMETHasone 4 MG TABLET PO SCH (08:10)
[2020-11-25] MEDS: Fluconazole 100 MG TABLET PO SCH (08:10)
[2020-11-25] MEDS: Bisacodyl 10 MG RECTAL SUPPOSITORY RC SCH (08:11)
[2020-11-25] MEDS: Metoprolol XL (24 HR) Succ 50 MG TAB.ER.24H PO SCH (08:11)
[2020-11-25] MEDS: *HR* Amiodarone 200 MG TABLET PO SCH ×2 (08:11→20:37)
[2020-11-25] MEDS: Apixaban 5 MG TABLET PO SCH ×2 (08:11→20:34)
[2020-11-25] MEDS: Nystatin POWDER 30 GM BOTTLE TP SCH ×3 (08:16→20:38)
[2020-11-25] MEDS: Insulin DETEMIR 100 UNIT/ML X5UNITS SUBQ SCH ×2 (08:46→20:36)
[2020-11-25] MEDS: Budesonide/Formoterol 80/4.5 1 PUFF INH IH SCH ×2 (10:08→21:50)
[2020-11-25] MEDS: QUEtiapine Fumarate 25 MG TABLET PO SCH (20:35)
[2020-11-25] MEDS: Topiramate 25 MG TABLET PO SCH (20:35)
[2020-11-25] MEDS: *HR* Metoprolol 5 MG/5 ML VIAL IVP PRN (20:40)
[2020-11-26] MEDS: GuaiFENesin Liq 200 MG/10 ML UDC PO SCH ×5 (00:13→23:46)
[2020-11-26] MEDS: Insulin LISPRO 300 UNITS/3 ML VIAL SUBQ SCH ×4 (00:14→17:27)
[2020-11-26] MEDS: Ipratropium/Albuterol Neb 3 ML IH SCH ×4 (03:48→21:42)
[2020-11-26] MEDS: Apixaban 5 MG TABLET PO SCH ×2 (08:50→21:05)
[2020-11-26] MEDS: Fluconazole 100 MG TABLET PO SCH (08:50)
[2020-11-26] MEDS: Metoprolol XL (24 HR) Succ 50 MG TAB.ER.24H PO SCH (08:50)
[2020-11-26] MEDS: Bisacodyl 10 MG RECTAL SUPPOSITORY RC SCH (08:51)
[2020-11-26] MEDS: dexAMETHasone 4 MG TABLET PO SCH (08:51)
[2020-11-26] MEDS: *HR* Amiodarone 200 MG TABLET PO SCH ×2 (08:51→21:06)
[2020-11-26] MEDS: Insulin DETEMIR 100 UNIT/ML X5UNITS SUBQ SCH ×2 (08:54→21:21)
[2020-11-26] MEDS: Budesonide/Formoterol 80/4.5 1 PUFF INH IH SCH ×2 (09:58→21:46)
[2020-11-26] MEDS: Nystatin POWDER 30 GM BOTTLE TP SCH ×3 (11:37→21:19)
[2020-11-26] MEDS: *HR* Metoprolol 5 MG/5 ML VIAL IVP PRN (14:36)
[2020-11-26] MEDS: Topiramate 25 MG TABLET PO SCH (21:05)
[2020-11-26] MEDS: QUEtiapine Fumarate 25 MG TABLET PO SCH (21:05)
[2020-11-27] MEDS: Ipratropium/Albuterol Neb 3 ML IH SCH ×4 (03:32→21:24)
[2020-11-27] MEDS: GuaiFENesin Liq 200 MG/10 ML UDC PO SCH ×3 (05:14→17:02)
[2020-11-27] MEDS: dexAMETHasone 4 MG TABLET PO SCH (08:17)
[2020-11-27] MEDS: *HR* Amiodarone 200 MG TABLET PO SCH ×2 (08:18→19:19)
[2020-11-27] MEDS: Apixaban 5 MG TABLET PO SCH ×2 (08:18→19:19)
[2020-11-27] MEDS: Metoprolol XL (24 HR) Succ 50 MG TAB.ER.24H PO SCH (08:18)
[2020-11-27] MEDS: Fluconazole 100 MG TABLET PO SCH (08:18)
[2020-11-27] MEDS: Insulin LISPRO 300 UNITS/3 ML VIAL SUBQ SCH ×4 (08:19→19:52)
[2020-11-27] MEDS: Insulin DETEMIR 100 UNIT/ML X5UNITS SUBQ SCH ×2 (08:47→19:52)
[2020-11-27] MEDS: Bisacodyl 10 MG RECTAL SUPPOSITORY RC SCH (08:47)
[2020-11-27] MEDS: Nystatin POWDER 30 GM BOTTLE TP SCH ×3 (08:48→19:52)
[2020-11-27] MEDS ORDERED: *HR* LORazepam 2 MG/ML VIAL IVP ONE (11:30)
[2020-11-27] MEDS: Budesonide/Formoterol 80/4.5 1 PUFF INH IH SCH ×2 (11:41→21:24)
[2020-11-27] MEDS ORDERED: Furosemide 40 MG/4 ML VIAL IVP ONE (14:19)
[2020-11-27 14:25] LABS: VBG HCO3 39 mEq/L (21-27); VBG PCO2 66 mmHg (41-51); VBG PH 7.38 pH Units (7.32-7.42); VBG PO2 97 mmHg (25-50)
[2020-11-27 15:34] LABS: BUN/Creatinine Ratio 59 (6-26); Blood Urea Nitrogen 46 mg/dL (8-23); Calcium 12.2 mg/dL (8.6-10.3); Carbon Dioxide 34 mEq/L (23-29); Chloride 107 mEq/L (98-107); Glucose 150 mg/dL (70-105); Osmolality,Calculated 317 (280-300); Potassium 5.8 mEq/L (3.5-5.1); Sodium 146 mEq/L (136-145); eGFR For African Americans > 60 (> 60); eGFR For Non-African Americans > 60 (> 60)
[2020-11-27 16:21] LABS: Basophils % 0.2 %; Eosinophils % 0.1 %; Hematocrit 47.4 % (35.3-44.9); Immature Granulocytes % 0.8 % (0-4); Lymphocytes # 0.5 K/mcL (0.6-4.6); Lymphocytes % 4.2 %; Mean Corpuscular HGB Conc 28.5 g/dL (31.6-35.5); Mean Corpuscular Hemoglobin 25.7 pg (28.0-33.3); Mean Corpuscular Volume 90.1 fL (83.0-100.0); Mean Platelet Volume 11.4 fL (9.4-12.4); Monocytes # 0.2 K/mcL (0.0-1.3); Monocytes % 2.1 %; Neutrophils # 10.5 K/mcL (1.6-8.9); Platelet Count 216 K/mcL (140-400); Red Blood Count 5.26 M/mcL (3.82-4.97); Red Cell Distribution Width 17.9 % (11.5-14.5); Segmented Neutrophils % 92.6 %; White Blood Count 11.3 K/mcL (4.3-11.1)
[2020-11-27 16:22] LABS: Hemoglobin 13.5 g/dL (11.5-15.4)
[2020-11-27] MEDS: QUEtiapine Fumarate 25 MG TABLET PO SCH (19:20)
[2020-11-27] MEDS: Topiramate 25 MG TABLET PO SCH (19:20)
[2020-11-28] MEDS: Ipratropium/Albuterol Neb 3 ML IH SCH ×4 (03:25→21:48)
[2020-11-28] MEDS: GuaiFENesin Liq 200 MG/10 ML UDC PO SCH ×3 (05:13→17:17)
[2020-11-28 05:22] LABS: Basophils % 0.1 %; Hemoglobin 13.2 g/dL (11.5-15.4); Red Cell Distribution Width 17.9 % (11.5-14.5)
[2020-11-28 05:24] LABS: Eosinophils % 0.1 %; Immature Granulocytes % 0.4 % (0-4); Lymphocytes # 0.5 K/mcL (0.6-4.6); Lymphocytes % 5.8 %; Mean Corpuscular HGB Conc 28.7 g/dL (31.6-35.5); Mean Corpuscular Hemoglobin 26.5 pg (28.0-33.3); Mean Corpuscular Volume 92.2 fL (83.0-100.0); Mean Platelet Volume 12.1 fL (9.4-12.4); Monocytes # 0.4 K/mcL (0.0-1.3); Monocytes % 4.2 %; Platelet Count 187 K/mcL (140-400); Red Blood Count 4.99 M/mcL (3.82-4.97); Segmented Neutrophils % 89.4 %
[2020-11-28 05:26] LABS: Neutrophils # 8.1 K/mcL (1.6-8.9)
[2020-11-28 05:41] LABS: BUN/Creatinine Ratio 61 (6-26); Blood Urea Nitrogen 51 mg/dL (8-23); Calcium 11.8 mg/dL (8.6-10.3); Carbon Dioxide 37 mEq/L (23-29); Chloride 106 mEq/L (98-107); Glucose 146 mg/dL (70-105); Osmolality,Calculated 320 (280-300); Potassium 4.5 mEq/L (3.5-5.1); Sodium 147 mEq/L (136-145); eGFR For African Americans > 60 (> 60); eGFR For Non-African Americans > 60 (> 60)
[2020-11-28 05:42] LABS: Anisocytosis 1+ (Not Present); Hypochromasia Present (Not Present); Platelet Estimate Normal (Normal)
[2020-11-28] MEDS: Insulin LISPRO 300 UNITS/3 ML VIAL SUBQ SCH ×3 (09:45→17:17)
[2020-11-28] MEDS: Bisacodyl 10 MG RECTAL SUPPOSITORY RC SCH (09:47)
[2020-11-28] MEDS: Nystatin POWDER 30 GM BOTTLE TP SCH ×2 (10:21→17:24)
[2020-11-28] MEDS: Insulin DETEMIR 100 UNIT/ML X5UNITS SUBQ SCH (10:51)
[2020-11-28] MEDS: Apixaban 5 MG TABLET PO SCH ×2 (12:35→20:52)
[2020-11-28] MEDS: dexAMETHasone 4 MG TABLET PO SCH (12:35)
[2020-11-28] MEDS: *HR* Amiodarone 200 MG TABLET PO SCH ×2 (12:39→20:52)
[2020-11-28] MEDS: Fluconazole 100 MG TABLET PO SCH (12:39)
[2020-11-28] MEDS: Metoprolol XL (24 HR) Succ 50 MG TAB.ER.24H PO SCH (12:40)
[2020-11-28] MEDS: Ampicillin/Sulbactam 3,000 MG in 0.9 % Sodium Chloride Mini Bag 100 ML IVPB SCH ×3 (12:48→23:02)
[2020-11-28] MEDS: Budesonide/Formoterol 80/4.5 1 PUFF INH IH SCH ×2 (14:48→21:48)
[2020-11-28] MEDS ORDERED: E-Z-PAQUE (BARIUM SULF) SUSP 1 BOTTLE PO ONE (15:49)
[2020-11-28] MEDS ORDERED: E-Z-HD (BARIUM SULF) SUSPENSION PO ONE (15:49)
[2020-11-28] MEDS: *HR* Metoprolol 5 MG/5 ML VIAL IVP PRN (17:23)
[2020-11-28] MEDS: Topiramate 25 MG TABLET PO SCH (20:52)
[2020-11-28] MEDS: QUEtiapine Fumarate 25 MG TABLET PO SCH (20:52)
[2020-11-29] MEDS: *HR* Amiodarone 200 MG TABLET PO SCH ×3 (00:41→21:13)
[2020-11-29] MEDS: Nystatin POWDER 30 GM BOTTLE TP SCH ×4 (00:41→21:25)
[2020-11-29] MEDS: Apixaban 5 MG TABLET PO SCH ×3 (00:41→21:13)
[2020-11-29] MEDS: Insulin DETEMIR 100 UNIT/ML X5UNITS SUBQ SCH ×3 (00:41→21:13)
[2020-11-29] MEDS: Insulin LISPRO 300 UNITS/3 ML VIAL SUBQ SCH ×5 (00:41→21:14)
[2020-11-29] MEDS: GuaiFENesin Liq 200 MG/10 ML UDC PO SCH ×6 (00:42→23:18)
[2020-11-29] MEDS: QUEtiapine Fumarate 25 MG TABLET PO SCH ×2 (00:42→21:13)
[2020-11-29] MEDS: Topiramate 25 MG TABLET PO SCH ×2 (00:42→21:13)
[2020-11-29 02:05] LABS: BUN/Creatinine Ratio 64 (6-26); Blood Urea Nitrogen 56 mg/dL (8-23); Calcium 10.6 mg/dL (8.6-10.3); Carbon Dioxide 34 mEq/L (23-29); Chloride 108 mEq/L (98-107); Glucose 297 mg/dL (70-105); Magnesium 2.2 mg/dL (1.6-2.6); Osmolality,Calculated 333 (280-300); Potassium 4.6 mEq/L (3.5-5.1); Sodium 148 mEq/L (136-145); eGFR For African Americans > 60 (> 60); eGFR For Non-African Americans > 60 (> 60)
[2020-11-29] MEDS: Ipratropium/Albuterol Neb 3 ML IH SCH ×4 (03:43→22:11)
[2020-11-29 04:03] LABS: Hemoglobin 12.8 g/dL (11.5-15.4); Immature Granulocytes % 0.4 % (0-4)
[2020-11-29 04:04] LABS: Basophils % 0.1 %; Eosinophils % 0.3 %; Lymphocytes # 0.5 K/mcL (0.6-4.6); Lymphocytes % 4.6 %; Mean Corpuscular HGB Conc 28.4 g/dL (31.6-35.5); Mean Corpuscular Hemoglobin 25.8 pg (28.0-33.3); Mean Corpuscular Volume 90.5 fL (83.0-100.0); Mean Platelet Volume 11.7 fL (9.4-12.4); Monocytes # 0.5 K/mcL (0.0-1.3); Monocytes % 4.9 %; Platelet Count 159 K/mcL (140-400); Red Blood Count 4.97 M/mcL (3.82-4.97); Red Cell Distribution Width 18.4 % (11.5-14.5); Segmented Neutrophils % 89.7 %; White Blood Count 10.2 K/mcL (4.3-11.1)
[2020-11-29 04:06] LABS: Neutrophils # 9.2 K/mcL (1.6-8.9)
[2020-11-29] MEDS: Ampicillin/Sulbactam 3,000 MG in 0.9 % Sodium Chloride Mini Bag 100 ML IVPB SCH ×4 (04:35→23:18)
[2020-11-29 04:52] LABS: Platelet Estimate Normal (Normal)
[2020-11-29] MEDS: *HR* Metoprolol 5 MG/5 ML VIAL IVP PRN (06:18)
[2020-11-29] MEDS: Fluconazole 100 MG TABLET PO SCH (08:10)
[2020-11-29] MEDS: Metoprolol XL (24 HR) Succ 50 MG TAB.ER.24H PO SCH (08:11)
[2020-11-29] MEDS: Bisacodyl 10 MG RECTAL SUPPOSITORY RC SCH (08:11)
[2020-11-29] MEDS: Budesonide/Formoterol 80/4.5 1 PUFF INH IH SCH ×2 (10:11→22:03)
[2020-11-29] MEDS: DilTIAZem 50 MG/50 ML IV.SOLN IVC SCH (17:05)
[2020-11-30] MEDS: DilTIAZem 50 MG/50 ML IV.SOLN IVC SCH ×2 (02:25→10:08)
[2020-11-30] MEDS: Ipratropium/Albuterol Neb 3 ML IH SCH ×4 (03:32→21:36)
[2020-11-30 04:59] LABS: BUN/Creatinine Ratio 54 (6-26); Blood Urea Nitrogen 38 mg/dL (8-23); Calcium 9.9 mg/dL (8.6-10.3); Carbon Dioxide 36 mEq/L (23-29); Chloride 110 mEq/L (98-107); Glucose 145 mg/dL (70-105); Magnesium 2.1 mg/dL (1.6-2.6); Osmolality,Calculated 320 (280-300); Potassium 4.4 mEq/L (3.5-5.1); Sodium 149 mEq/L (136-145); eGFR For African Americans > 60 (> 60); eGFR For Non-African Americans > 60 (> 60)
[2020-11-30] MEDS: GuaiFENesin Liq 200 MG/10 ML UDC PO SCH ×3 (05:08→17:19)
[2020-11-30] MEDS: Ampicillin/Sulbactam 3,000 MG in 0.9 % Sodium Chloride Mini Bag 100 ML IVPB SCH ×3 (05:08→17:19)
[2020-11-30 06:23] LABS: Eosinophils % 1.7 %; Hematocrit 42.9 % (35.3-44.9); Immature Granulocytes % 0.3 % (0-4)
[2020-11-30 06:25] LABS: Basophils % 0.2 %; Eosinophils # 0.1 K/mcL (0.0-0.6); Hemoglobin 12.1 g/dL (11.5-15.4); Lymphocytes # 0.6 K/mcL (0.6-4.6); Lymphocytes % 9.7 %; Mean Corpuscular HGB Conc 28.2 g/dL (31.6-35.5); Mean Corpuscular Hemoglobin 26.6 pg (28.0-33.3); Mean Corpuscular Volume 94.3 fL (83.0-100.0); Mean Platelet Volume 12.6 fL (9.4-12.4); Monocytes # 0.4 K/mcL (0.0-1.3); Monocytes % 6.9 %; Neutrophils # 5.2 K/mcL (1.6-8.9); Platelet Count 120 K/mcL (140-400); Red Blood Count 4.55 M/mcL (3.82-4.97); Red Cell Distribution Width 18.5 % (11.5-14.5); Segmented Neutrophils % 81.2 %; White Blood Count 6.4 K/mcL (4.3-11.1)
[2020-11-30] MEDS: Apixaban 5 MG TABLET PO SCH ×2 (08:47→19:40)
[2020-11-30] MEDS: *HR* Amiodarone 200 MG TABLET PO SCH ×2 (08:47→19:40)
[2020-11-30] MEDS: Bisacodyl 10 MG RECTAL SUPPOSITORY RC SCH (08:49)
[2020-11-30] MEDS: Metoprolol XL (24 HR) Succ 50 MG TAB.ER.24H PO SCH (08:50)
[2020-11-30] MEDS: Nystatin POWDER 30 GM BOTTLE TP SCH ×3 (08:50→19:41)
[2020-11-30] MEDS: Fluconazole 100 MG TABLET PO SCH (08:51)
[2020-11-30] MEDS: Insulin LISPRO 300 UNITS/3 ML VIAL SUBQ SCH ×4 (08:52→21:18)
[2020-11-30] MEDS: Insulin DETEMIR 100 UNIT/ML X5UNITS SUBQ SCH ×2 (08:53→21:18)
[2020-11-30 09:55] LABS: Bacteria,Urine Few per hpf (None-Few); Bilirubin,Urine Negative (Negative); Blood,Urine Large (Negative); Budding Yeast,Urine Many per hpf (None Seen); Clarity,Urine Turbid (Clear); Color,Urine Yellow (Yellow); Glucose,Urine (UA) Normal (Normal); Ketones,Urine Negative (Negative); Leukocyte Esterase,Urine Large (Negative); Mucus,Urine Few per lpf (None-Few); Nitrite,Urine Negative (Negative); Protein,Urine 50 mg/dL (Neg-Trace); RBC,Urine TNTC per hpf (0-3); Specific Gravity,Urine 1.027 (1.010-1.025); Urobilinogen,Urine Normal (Normal); WBC,Urine 50-100 per hpf (0-3)
[2020-11-30] MEDS: Budesonide/Formoterol 80/4.5 1 PUFF INH IH SCH ×2 (10:15→21:41)
[2020-11-30] MEDS: QUEtiapine Fumarate 25 MG TABLET PO SCH (19:40)
[2020-11-30] MEDS: Topiramate 25 MG TABLET PO SCH (19:40)
[2020-11-30] MEDS: *HR* Dextrose 50 % in Water (Vial) 50 ML VIAL IVP PRN (20:18)
[2020-12-01] MEDS: Ampicillin/Sulbactam 3,000 MG in 0.9 % Sodium Chloride Mini Bag 100 ML IVPB SCH ×4 (00:06→17:35)
[2020-12-01] MEDS: GuaiFENesin Liq 200 MG/10 ML UDC PO SCH ×4 (00:06→17:15)
[2020-12-01 02:51] LABS: Basophils % 0.1 %; Eosinophils % 1.6 %; Lymphocytes % 7.5 %; Red Cell Distribution Width 18.4 % (11.5-14.5)
[2020-12-01 02:52] LABS: Eosinophils # 0.2 K/mcL (0.0-0.6); Hematocrit 44.9 % (35.3-44.9); Hemoglobin 12.6 g/dL (11.5-15.4); Immature Granulocytes % 0.4 % (0-4); Lymphocytes # 0.8 K/mcL (0.6-4.6); Mean Corpuscular HGB Conc 28.1 g/dL (31.6-35.5); Mean Corpuscular Hemoglobin 26.2 pg (28.0-33.3); Mean Corpuscular Volume 93.3 fL (83.0-100.0); Mean Platelet Volume 12.3 fL (9.4-12.4); Monocytes # 0.6 K/mcL (0.0-1.3); Monocytes % 5.7 %; Neutrophils # 9.3 K/mcL (1.6-8.9); Platelet Count 145 K/mcL (140-400); Red Blood Count 4.81 M/mcL (3.82-4.97); Segmented Neutrophils % 84.7 %
[2020-12-01 03:10] LABS: BUN/Creatinine Ratio 47 (6-26); Blood Urea Nitrogen 29 mg/dL (8-23); Carbon Dioxide 34 mEq/L (23-29); Chloride 112 mEq/L (98-107); Glucose 46 mg/dL (70-105); Osmolality,Calculated 313 (280-300); Potassium 3.6 mEq/L (3.5-5.1); Sodium 150 mEq/L (136-145); eGFR For African Americans > 60 (> 60); eGFR For Non-African Americans > 60 (> 60)
[2020-12-01 03:14] LABS: Anisocytosis 1+ (Not Present); Platelet Estimate Decreased (Normal); Poikilocytosis 1+ (Not Present)
[2020-12-01 03:15] LABS: Hypochromasia Present (Not Present)
[2020-12-01] MEDS: Ipratropium/Albuterol Neb 3 ML IH SCH ×4 (04:08→22:26)
[2020-12-01] MEDS ORDERED: D5% in Water 1,000 ML IVC SCH (07:45)
[2020-12-01] MEDS: Insulin LISPRO 300 UNITS/3 ML VIAL SUBQ SCH ×4 (07:55→20:32)
[2020-12-01] MEDS: *HR* Dextrose 50 % in Water (Vial) 50 ML VIAL IVP PRN (08:06)
[2020-12-01] MEDS: Metoprolol XL (24 HR) Succ 50 MG TAB.ER.24H PO SCH (08:11)
[2020-12-01] MEDS: *HR* Amiodarone 200 MG TABLET PO SCH ×2 (08:12→20:31)
[2020-12-01] MEDS: Insulin DETEMIR 100 UNIT/ML X5UNITS SUBQ SCH ×2 (08:12→20:32)
[2020-12-01] MEDS: Nystatin POWDER 30 GM BOTTLE TP SCH ×3 (08:12→20:32)
[2020-12-01] MEDS: Bisacodyl 10 MG RECTAL SUPPOSITORY RC SCH (08:12)
[2020-12-01] MEDS: Apixaban 5 MG TABLET PO SCH ×2 (08:12→20:31)
[2020-12-01] MEDS: Budesonide/Formoterol 80/4.5 1 PUFF INH IH SCH ×2 (11:14→22:26)
[2020-12-01] MEDS: Acetylcysteine 10% 2 ML INHSOL IH SCH ×2 (16:18→22:26)
[2020-12-01] MEDS: QUEtiapine Fumarate 25 MG TABLET PO SCH (20:31)
[2020-12-01] MEDS: Topiramate 25 MG TABLET PO SCH (20:32)
[2020-12-02] MEDS: GuaiFENesin Liq 200 MG/10 ML UDC PO SCH ×4 (00:04→16:04)
[2020-12-02] MEDS: Ampicillin/Sulbactam 3,000 MG in 0.9 % Sodium Chloride Mini Bag 100 ML IVPB SCH ×4 (00:05→17:27)
[2020-12-02] MEDS: Ipratropium/Albuterol Neb 3 ML IH SCH ×4 (04:28→21:06)
[2020-12-02] MEDS: Acetylcysteine 10% 2 ML INHSOL IH SCH ×4 (04:28→21:06)
[2020-12-02 06:17] LABS: Basophils % 0.1 %; Eosinophils # 0.1 K/mcL (0.0-0.6); Eosinophils % 0.3 %; Hematocrit 40.9 % (35.3-44.9); Hemoglobin 11.9 g/dL (11.5-15.4); Immature Granulocytes % 0.5 % (0-4); Lymphocytes # 0.7 K/mcL (0.6-4.6); Lymphocytes % 4.9 %; Mean Corpuscular HGB Conc 29.1 g/dL (31.6-35.5); Mean Corpuscular Hemoglobin 26.7 pg (28.0-33.3); Mean Corpuscular Volume 91.9 fL (83.0-100.0); Mean Platelet Volume 13.5 fL (9.4-12.4); Monocytes # 0.6 K/mcL (0.0-1.3); Monocytes % 3.8 %; Platelet Count 147 K/mcL (140-400); Red Blood Count 4.45 M/mcL (3.82-4.97); Red Cell Distribution Width 18.6 % (11.5-14.5); Segmented Neutrophils % 90.4 %; White Blood Count 15.1 K/mcL (4.3-11.1)
[2020-12-02 06:18] LABS: Neutrophils # 13.7 K/mcL (1.6-8.9)
[2020-12-02 06:28] LABS: Hypochromasia Present (Not Present); Platelet Estimate Slight Decrease (Normal)
[2020-12-02 06:35] LABS: BUN/Creatinine Ratio 33 (6-26); Blood Urea Nitrogen 32 mg/dL (8-23); Calcium 9.4 mg/dL (8.6-10.3); Carbon Dioxide 31 mEq/L (23-29); Chloride 108 mEq/L (98-107); Glucose 208 mg/dL (70-105); Osmolality,Calculated 313 (280-300); Potassium 4.7 mEq/L (3.5-5.1); Sodium 145 mEq/L (136-145); eGFR For African Americans > 60 (> 60); eGFR For Non-African Americans 56 (> 60)
[2020-12-02] MEDS: Insulin LISPRO 300 UNITS/3 ML VIAL SUBQ SCH ×4 (10:23→21:07)
[2020-12-02] MEDS: Insulin DETEMIR 100 UNIT/ML X5UNITS SUBQ SCH ×2 (10:24→21:06)
[2020-12-02] MEDS: Bisacodyl 10 MG RECTAL SUPPOSITORY RC SCH (10:25)
[2020-12-02] MEDS: *HR* Amiodarone 200 MG TABLET PO SCH ×2 (10:38→21:03)
[2020-12-02] MEDS: Apixaban 5 MG TABLET PO SCH ×2 (10:39→21:06)
[2020-12-02] MEDS: Nystatin POWDER 30 GM BOTTLE TP SCH ×3 (10:48→21:39)
[2020-12-02] MEDS: Metoprolol XL (24 HR) Succ 50 MG TAB.ER.24H PO SCH (10:49)
[2020-12-02] MEDS: Budesonide/Formoterol 80/4.5 1 PUFF INH IH SCH ×2 (10:57→21:06)
[2020-12-02] MEDS ORDERED: Glycopyrrolate 0.2 MG/ML VIAL IVP ONE (12:01)
[2020-12-02] MEDS: QUEtiapine Fumarate 25 MG TABLET PO SCH (21:03)
[2020-12-02] MEDS: Topiramate 25 MG TABLET PO SCH (21:04)
[2020-12-03] MEDS: Ampicillin/Sulbactam 3,000 MG in 0.9 % Sodium Chloride Mini Bag 100 ML IVPB SCH ×4 (00:13→16:57)
[2020-12-03] MEDS: GuaiFENesin Liq 200 MG/10 ML UDC PO SCH ×4 (00:17→16:58)
[2020-12-03] MEDS: Ipratropium/Albuterol Neb 3 ML IH SCH ×4 (03:42→22:43)
[2020-12-03] MEDS: Acetylcysteine 10% 2 ML INHSOL IH SCH ×4 (03:43→22:43)
[2020-12-03] MEDS: Insulin LISPRO 300 UNITS/3 ML VIAL SUBQ SCH ×4 (08:49→21:38)
[2020-12-03] MEDS: Metoprolol XL (24 HR) Succ 50 MG TAB.ER.24H PO SCH (08:50)
[2020-12-03] MEDS: *HR* Amiodarone 200 MG TABLET PO SCH (08:50)
[2020-12-03] MEDS: Nystatin POWDER 30 GM BOTTLE TP SCH ×3 (08:50→20:37)
[2020-12-03] MEDS: Apixaban 5 MG TABLET PO SCH ×2 (08:50→20:37)
[2020-12-03] MEDS: Bisacodyl 10 MG RECTAL SUPPOSITORY RC SCH (08:51)
[2020-12-03] MEDS: Insulin DETEMIR 100 UNIT/ML X5UNITS SUBQ SCH ×2 (09:02→21:37)
[2020-12-03] MEDS: Budesonide/Formoterol 80/4.5 1 PUFF INH IH SCH ×2 (10:24→22:42)
[2020-12-03] MEDS: QUEtiapine Fumarate 25 MG TABLET PO SCH (20:34)
[2020-12-03] MEDS: Topiramate 25 MG TABLET PO SCH (20:36)
[2020-12-04] MEDS: Insulin LISPRO 300 UNITS/3 ML VIAL SUBQ SCH ×4 (00:25→23:01)
[2020-12-04] MEDS: Ampicillin/Sulbactam 3,000 MG in 0.9 % Sodium Chloride Mini Bag 100 ML IVPB SCH ×4 (00:30→17:59)
[2020-12-04 00:42] LABS: Eosinophils % 2.4 %; Hemoglobin 11.2 g/dL (11.5-15.4)
[2020-12-04 00:44] LABS: Basophils % 0.2 %; Eosinophils # 0.2 K/mcL (0.0-0.6); Hematocrit 39.5 % (35.3-44.9); Immature Granulocytes % 0.5 % (0-4); Lymphocytes # 0.7 K/mcL (0.6-4.6); Lymphocytes % 11.6 %; Mean Corpuscular HGB Conc 28.4 g/dL (31.6-35.5); Mean Corpuscular Hemoglobin 26.5 pg (28.0-33.3); Mean Corpuscular Volume 93.4 fL (83.0-100.0); Mean Platelet Volume 12.9 fL (9.4-12.4); Monocytes # 0.4 K/mcL (0.0-1.3); Monocytes % 5.5 %; Neutrophils # 5.1 K/mcL (1.6-8.9); Platelet Count 178 K/mcL (140-400); Red Blood Count 4.23 M/mcL (3.82-4.97); Red Cell Distribution Width 18.6 % (11.5-14.5); Segmented Neutrophils % 79.8 %; White Blood Count 6.4 K/mcL (4.3-11.1)
[2020-12-04] MEDS: GuaiFENesin Liq 200 MG/10 ML UDC PO SCH ×4 (00:52→17:59)
[2020-12-04 01:02] LABS: BUN/Creatinine Ratio 46 (6-26); Blood Urea Nitrogen 36 mg/dL (8-23); Calcium 8.9 mg/dL (8.6-10.3); Carbon Dioxide 30 mEq/L (23-29); Chloride 108 mEq/L (98-107); Glucose 121 mg/dL (70-105); Osmolality,Calculated 304 (280-300); Potassium 4.1 mEq/L (3.5-5.1); Sodium 142 mEq/L (136-145); eGFR For African Americans > 60 (> 60); eGFR For Non-African Americans > 60 (> 60)
[2020-12-04 01:12] LABS: Hypochromasia Present (Not Present); Platelet Estimate Normal (Normal)
[2020-12-04] MEDS ORDERED: *HR* LORazepam 2 MG/ML VIAL IVP ONE (02:36)
[2020-12-04 02:44] LABS: ABG Base Excess 3 mEq/L (-2 to 3); ABG HCO3 29 mEq/L (21-27); ABG Oxygen Saturation 97 % (95-98); ABG PCO2 47 mmHg (35-45); ABG PO2 94 mmHg (85-104); ABG TCO2 30 mEq/L (20-26); Blood Gas Modality BiLevel; Blood Gas VT 380 cc
[2020-12-04] MEDS: Ipratropium/Albuterol Neb 3 ML IH SCH ×4 (04:10→21:53)
[2020-12-04] MEDS: Acetylcysteine 10% 2 ML INHSOL IH SCH ×4 (04:12→21:53)
[2020-12-04] MEDS: Budesonide/Formoterol 80/4.5 1 PUFF INH IH SCH ×2 (10:26→21:54)
[2020-12-04] MEDS: Metoprolol XL (24 HR) Succ 50 MG TAB.ER.24H PO SCH (11:19)
[2020-12-04] MEDS: *HR* Amiodarone 200 MG TABLET PO SCH (11:20)
[2020-12-04] MEDS: Bisacodyl 10 MG RECTAL SUPPOSITORY RC SCH (11:20)
[2020-12-04] MEDS: Apixaban 5 MG TABLET PO SCH ×2 (11:20→23:03)
[2020-12-04] MEDS: Nystatin POWDER 30 GM BOTTLE TP SCH ×3 (11:20→23:03)
[2020-12-04] MEDS: *HR* Dextrose 50 % in Water (Vial) 50 ML VIAL IVP PRN ×2 (11:28→12:48)
[2020-12-04] MEDS: Insulin DETEMIR 100 UNIT/ML X5UNITS SUBQ SCH (11:39)
[2020-12-04] MEDS: *HR* LORazepam 2 MG/ML VIAL IVP PRN (15:19)
[2020-12-04] MEDS: QUEtiapine Fumarate 25 MG TABLET PO SCH (23:02)
[2020-12-04] MEDS: Topiramate 25 MG TABLET PO SCH (23:03)
[2020-12-05] MEDS: Ampicillin/Sulbactam 3,000 MG in 0.9 % Sodium Chloride Mini Bag 100 ML IVPB SCH ×4 (00:51→16:16)
[2020-12-05] MEDS: GuaiFENesin Liq 200 MG/10 ML UDC PO SCH ×4 (00:52→16:16)
[2020-12-05] MEDS: Insulin DETEMIR 100 UNIT/ML X5UNITS SUBQ SCH ×3 (00:53→09:50)
[2020-12-05] MEDS: *HR* LORazepam 2 MG/ML VIAL IVP PRN (01:23)
[2020-12-05] MEDS: Acetylcysteine 10% 2 ML INHSOL IH SCH ×4 (03:50→22:02)
[2020-12-05] MEDS: Ipratropium/Albuterol Neb 3 ML IH SCH ×4 (03:50→22:02)
[2020-12-05 05:52] LABS: Basophils % 0.2 %; Mean Platelet Volume 12.4 fL (9.4-12.4); Red Cell Distribution Width 18.6 % (11.5-14.5)
[2020-12-05 05:54] LABS: Eosinophils # 0.2 K/mcL (0.0-0.6); Eosinophils % 2.9 %; Hematocrit 41.5 % (35.3-44.9); Hemoglobin 11.1 g/dL (11.5-15.4); Immature Granulocytes % 0.6 % (0-4); Lymphocytes % 18.1 %; Mean Corpuscular HGB Conc 26.7 g/dL (31.6-35.5); Mean Corpuscular Hemoglobin 25.5 pg (28.0-33.3); Mean Corpuscular Volume 95.4 fL (83.0-100.0); Monocytes # 0.3 K/mcL (0.0-1.3); Monocytes % 6.3 %; Neutrophils # 3.8 K/mcL (1.6-8.9); Platelet Count 182 K/mcL (140-400); Red Blood Count 4.35 M/mcL (3.82-4.97); Segmented Neutrophils % 71.9 %; White Blood Count 5.3 K/mcL (4.3-11.1)
[2020-12-05 06:11] LABS: Hypochromasia Present (Not Present); Platelet Estimate Normal (Normal)
[2020-12-05 06:14] LABS: BUN/Creatinine Ratio 34 (6-26); Blood Urea Nitrogen 25 mg/dL (8-23); Calcium 9.2 mg/dL (8.6-10.3); Carbon Dioxide 29 mEq/L (23-29); Chloride 109 mEq/L (98-107); Glucose 122 mg/dL (70-105); Osmolality,Calculated 304 (280-300); Potassium 4.2 mEq/L (3.5-5.1); Sodium 144 mEq/L (136-145); eGFR For African Americans > 60 (> 60); eGFR For Non-African Americans > 60 (> 60)
[2020-12-05] MEDS: Nystatin POWDER 30 GM BOTTLE TP SCH ×3 (09:07→19:34)
[2020-12-05] MEDS: Apixaban 5 MG TABLET PO SCH ×2 (09:09→19:34)
[2020-12-05] MEDS: Bisacodyl 10 MG RECTAL SUPPOSITORY RC SCH (09:10)
[2020-12-05] MEDS: Insulin LISPRO 300 UNITS/3 ML VIAL SUBQ SCH ×4 (09:10→19:34)
[2020-12-05] MEDS: Metoprolol XL (24 HR) Succ 50 MG TAB.ER.24H PO SCH (09:20)
[2020-12-05] MEDS: *HR* Amiodarone 200 MG TABLET PO SCH (09:20)
[2020-12-05] MEDS: Budesonide/Formoterol 80/4.5 1 PUFF INH IH SCH ×2 (09:58→22:02)
[2020-12-05] MEDS: Topiramate 25 MG TABLET PO SCH (19:34)
[2020-12-05] MEDS: QUEtiapine Fumarate 25 MG TABLET PO SCH (19:34)
[2020-12-06] MEDS: GuaiFENesin Liq 200 MG/10 ML UDC PO SCH ×3 (00:03→08:55)
[2020-12-06] MEDS: Ampicillin/Sulbactam 3,000 MG in 0.9 % Sodium Chloride Mini Bag 100 ML IVPB SCH ×3 (00:04→13:18)
[2020-12-06] MEDS: Acetylcysteine 10% 2 ML INHSOL IH SCH ×3 (03:15→15:26)
[2020-12-06] MEDS: Ipratropium/Albuterol Neb 3 ML IH SCH ×3 (03:15→15:26)
[2020-12-06] MEDS: Metoprolol XL (24 HR) Succ 50 MG TAB.ER.24H PO SCH (08:54)
[2020-12-06] MEDS: Bisacodyl 10 MG RECTAL SUPPOSITORY RC SCH (08:54)
[2020-12-06] MEDS: Apixaban 5 MG TABLET PO SCH (08:55)
[2020-12-06] MEDS: Nystatin POWDER 30 GM BOTTLE TP SCH ×2 (08:55→14:14)
[2020-12-06] MEDS: Insulin DETEMIR 100 UNIT/ML X5UNITS SUBQ SCH (08:55)
[2020-12-06] MEDS: *HR* Amiodarone 200 MG TABLET PO SCH (08:55)
[2020-12-06] MEDS: Insulin LISPRO 300 UNITS/3 ML VIAL SUBQ SCH ×2 (08:57→13:14)
[2020-12-06] MEDS: Budesonide/Formoterol 80/4.5 1 PUFF INH IH SCH (09:48)
[2020-12-06 12:51] VITALS: BP 108/58
== END 2020-12-06 19:06 ==
LOC: 2ANU 16:27 → EMEROOARM 16:27 → CDU 20:33 → 2NENU 11-02 02:34 → SUATTDRO 11-02 03:41 → ICNU 11-02 17:55 → 2NNU 11-17 14:29 → 2ANU 11-26 16:55
PROVIDERS: ADMIT Internal Medicine; ATTEND Family Medicine